=== PATIENT | female | born 1935 | race Caucasian/White ===

== ENCOUNTER → 2016-12-20 | Outpatient (CLI) | payer OTHER ==
[~2016-12-20] MED LIST: ALBU18002 INH; AMLO5TAB4 PO; ASPEC81 PO; ASPI81TA28 PO; BIOT1CAP8 PO; BUME1TAB PO; CHOL2000 PO; CLOP1TAB15 PO; COLE1TAB PO; CYAN10005 PO; DICL1GEL28 TOP; IPRA1AER2 INH; LISI-729 PO; LSN5 PO; MAGNTAB4 PO; NTRGSL/4 UT; PANT40TA PO; PLV75 PO; POTA20TA16 PO; PRLSR20 PO; PROM25TA PO; PROM25TA9 PO; ROSU5TAB PO; SERT-234 PO; SERT50TA PO; TPRSR/50 PO; TPRSR50 PO; TRAZ50TA35 PO; VITA400C15 PO; XLTOPS OPB; ZLF/50 PO
[2016-12-20 17:36] LABS: BASO % 0.3 %; BASO ABS # 0.02 K/uL (0-0.2); COMPLETE YES; EOS % 1.4 %; HEMATOCRIT 39.5 % (37-47); IG% 0.2 %; LYMPH % 41.4 %; LYMPH ABS # 2.61 K/uL (1.2-3.4); MEAN CELL VOLUME 92.7 fL (80-100); MEAN CORPUSCULAR HEMOGLOBIN 31.7 pg (25-34); MEAN CORPUSCULAR HGB CONC 34.2 g/dl (32-36); MEAN PLATELET VOLUME 11.5 fL (7.4-10.4); MONO % 8.7 %; PLATELET COUNT 184 K/uL (130-400); RED BLOOD COUNT 4.26 M/uL (4.2-5.4); WHITE BLOOD COUNT 6.31 K/uL (4.8-10.8)
[2016-12-20 17:44] LABS: ALT/SGPT 30 U/L (12-78); AST/SGOT 19 U/L (15-37); BLOOD UREA NITROGEN 22 mg/dl (7-18); BUN/CREATININE RATIO 22.1 (10-20); CALCIUM 9.2 mg/dl (8.5-10.1); CARBON DIOXIDE 28 mmol/L (21-32); CHLORIDE 107 mmol/L (98-107); GLUCOSE 119 mg/dl (70-99); POTASSIUM 3.7 mmol/L (3.5-5.1); SODIUM 144 mmol/L (136-145)
[2016-12-20 17:55] LABS: ALB/GLOB RATIO 1.4 (0.9-2); ALKALINE PHOSPHATASE 73 U/L (45-117)
== END | disposition home or self-care (01) ==
LOC: C.LABBFT 11:27
PROVIDERS: ATTEND Internal Medicine
DX: I25.10 Atherosclerotic heart disease of native coronary artery without angina pectoris (principal); E53.8 Deficiency of other specified B group vitamins

== ENCOUNTER → 2016-12-25 | Outpatient (CLI) | payer OTHER ==
--- NOTE | 2016-12-25 14:39 | DIAGNOSTIC IMAGING REPORT ---
ART DOP LOWER EXT BILAT CLINICAL HISTORY: Peripheral vascular disease. Leg weakness. COMPARISON STUDY: No previous studies for comparison. FINDINGS: Brachial arm systolic pressures are 150 mmHg in the right and 155 mmHg on the left. Posterior tibial systolic pressures were 178 mmHg on the right and 187 mmHg on the left. Dorsalis pedis arterial pressures were 180 mmHg on the right and 192 mmHg on the left. This yields normal bilateral ankle brachial indices of 1.2. There is biphasic flow in the common femoral, superficial femoral, popliteal, anterior tibial, posterior tibial, and peroneal arteries bilaterally. No flow is visualized in the distal right anterior tibial artery. IMPRESSION: No evidence of significant lower extremity arterial stenosis, with the exception of probable occlusion of the distal right anterior tibial artery. Normal ankle brachial indices of 1.2 bilaterally. Electronically signed by: Guilherme Bartlett M.D. 12/25/2016 2:38 PM Dictated Date/Time: 12/25/2016 2:32 PM
== END | disposition home or self-care (01) ==
LOC: C.ULTR 12:53
PROVIDERS: ATTEND Internal Medicine
DX: I73.9 Peripheral vascular disease, unspecified (principal); R29.898 Other symptoms and signs involving the musculoskeletal system; R09.89 Other specified symptoms and signs involving the circulatory and respiratory systems

== ENCOUNTER → 2017-01-04 | Outpatient (CLI) | payer OTHER ==
--- NOTE | 2017-01-04 14:40 | DIAGNOSTIC IMAGING REPORT ---
CHEST 2 VIEWS ROUTINE HISTORY: R06.09 Dyspnea on [id number] COMPARISON: Chest 10/04/2014. FINDINGS: No focal lung consolidations to suggest pneumonia. Stable eventration of the right hemidiaphragm. Bibasilar linear densities likely represent subsegmental atelectasis. No pulmonary edema. No pleural effusions. No pneumothorax. The heart is normal in size. Mild emphysema. Degenerative changes within the bilateral shoulders. IMPRESSION: 1. No focal lung consolidations to suggest pneumonia. 2. Bibasilar linear densities favor subsegmental atelectasis. 3. Suspect mild emphysema. Electronically signed by: Shelton Beyer M.D. 01/04/2017 2:39 PM Dictated Date/Time: 01/04/2017 2:36 PM
== END | disposition home or self-care (01) ==
LOC: C.RAD1850 14:22
PROVIDERS: ATTEND Internal Medicine
DX: R06.09 Other forms of dyspnea (principal)

== ENCOUNTER → 2017-01-15 | Day surgery (SDC) | payer OTHER ==
[2017-01-09 14:58] VITALS: Ht 152.4 cm; Wt 70.5 kg
[~2017-01-15] VITALS: Ht 152.4 cm; Wt 70.5 kg
[~2017-01-15] MED LIST changes: +LIDOCAINE HCL 2% 2 ML VIAL (20MG/ML) ONE; -PRLSR20 PO; +PROPOFOL IV EMULSION 10 MG/ML 20 ML VIAL IV ONE; +SODIUM CHLORIDE 0.9% 500ML 500 ML IV ONE
--- NOTE | 2017-01-15 10:46 | Endo History and Physical ---
History & Physical Date of Service: Jan 15, 2017. Chief Complaint: Schatzki's ring Referring Physician: Dr. Tirso Marie History of Present Illness dysphagia Past Medical History Atrial Fibrillation, Angioplasty/Stent, Arthritis, Reflux, Cancer, High Cholesterol, Heart Disease, CHF, Hypertension, Thyroid Disease, Depression Past Surgical History Hx Cardiac Surgery: Yes (HEART CATH X2 AND STENT X3) Hx Internal Defibrillator: No Hx Pacemaker: No Hx Abdominal Surgery: Yes (EXPLORATORY LAP) Hx of Implantable Prosthesis: No Hx Post-Op Nausea and Vomiting: No Hx Cancer Surgery: Yes (COLON RESECTION) Hx Thoracic Surgery: No Hx Orthopedic: Yes (RT RCR) Hx Urinary Tract Surgery: No Family History Colon CA Social History Smoking Status: Never Smoker Hx Substance Use: No Hx Alcohol Use: No Allergies Coded Allergies: Atorvastatin (Verified Allergy, Unknown, MUSCLE ACHES, 01/09/17) Citalopram (Verified Allergy, Unknown, G I UPSET-, 01/09/17) Hydrochlorothiazide (Verified Allergy, Unknown, UNKNOWN-INEFFECTIVE?, 01/09) Niacin (Verified Allergy, Unknown, UNKNOWN, 01/09/17) Simvastatin (Verified Adverse Reaction, Unknown, MUSCLE ACHES, 01/09/17) Current Medications Reported Home Medications Medications Dose Route/Sig Max Daily Dose Days Date Category Protonix (Pantoprazole Sodium) 40 Mg Tab 40 Mg PO QAM 01/09/17 Reported Klor-Con (Potassium Chloride) 20 Meq Tabcr 20 Meq PO DAILY PRN 05/23/16 Reported Bumex (Bumetanide) 1 Mg Tab 1 Mg PO DAILY PRN 05/23/16 Reported Combivent Respimat (Ipratropium-Albuterol) 1 Aer Aer 1 Puffs INH QID 05/23/16 Reported Slow-Mag Tab (Magnesium Chloride) 64 Mg Tabcr 64 Mg PO BID 05/23/16 Reported Nitrostat (Nitroglycerin) 0.4 Mg Tab 0.4 Mg UT PRN PRN 05/23/16 Reported Vitamin B-12 (Cyanocobalamin) 1,000 Mcg Tab 1,000 Mcg PO QAM 05/23/16 Reported Vitamin D3 (Cholecalciferol) 2,000 Unit Cap 1 Cap PO QAM 01/09/16 Reported Biotin 1 Mg Cap 1 Cap PO QAM 01/09/16 Reported Latanoprost 37 Drops/2.5 Ml Soln 1 Drop OPB HS 10/03/14 Reported Voltaren 1% Top Gel (Diclofenac Sodium) Gel 1 Appln TOP TID PRN 07/30/14 Reported Phenergan (Promethazine HCl) 25 Mg Tab 25 Mg PO Q6H PRN 02/04/14 Reported Metoprolol Succinate ER (Metoprolol Succinate) 50 Mg Tabcr 50 Mg PO QAM 02/04/14 Reported Colestid (Colestipol Hcl) 1 Gm Tab 2 Gm PO BID 10/16/12 Reported Norvasc (Amlodipine Besylate) 5 Mg Tab 5 Mg PO QAM 02/04/12 Reported Zoloft (Sertraline HCl) 50 Mg Tab 50 Mg PO QAM 09/11/11 Reported Ecotrin Or Generic * (Aspirin) 81 Mg Ectab 81 Mg PO QPM 11/22/09 Reported Vital Signs Weight (Kilograms): 70.45 Height (Feet): 5 Height (Inches): 0 Date Time Temp Pulse Resp B/P Pulse Ox O2 Delivery O2 Flow Rate FiO2 01/15/17 10:40 36.5 64 20 185/87 100 Room Air Physical Exam General Appearance: WD/WN, no apparent distress Assessment and Plan EGD with dilation today
--- NOTE | 2017-01-15 11:53 | GI REPORT ---
Procedure Date: 01/15/2017 11:06 AM Procedure: Upper GI endoscopy Indications: Dysphagia Medicines: Propofol per Anesthesia Complications: No immediate complications. Estimated blood loss: Minimal. Estimated Blood Loss: Estimated blood loss was minimal. Procedure: Pre-Anesthesia Assessment: - Prior to the procedure, a History and Physical was performed, and patient medications, allergies and sensitivities were reviewed. The patient's tolerance of previous anesthesia was reviewed. - The risks and benefits of the procedure and the sedation options and risks were discussed with the patient. All questions were answered and informed consent was obtained. - Patient identification and proposed procedure were verified prior to the procedure by the physician and the nurse. The procedure was verified in the pre-procedure area in the procedure room. - Mental Status Examination: alert and oriented. Airway Examination: normal oropharyngeal airway and neck mobility. Respiratory Examination: clear to auscultation. CV Examination: normal. Abdominal Examination: bowel sounds present, abdomen soft and non-tender, no masses or organomegaly noted. - ASA Grade Assessment: III - A patient with severe systemic disease. After obtaining informed consent, the endoscope was passed under direct vision. Throughout the procedure, the patient's blood pressure, pulse, and oxygen saturations were monitored continuously. The scope was introduced through the mouth, and advanced to the second part of duodenum. The upper GI endoscopy was accomplished without difficulty. The patient tolerated the procedure well. Findings: A non-obstructing Schatzki ring (acquired) was found at the gastroesophageal junction. A guidewire was placed and the scope was withdrawn. Dilation was performed with a Savary dilator with mild resistance at 54 Fr. Estimated blood loss was minimal. A hiatus hernia was present. The examined duodenum was normal. Impression: - Non-obstructing Schatzki ring. Dilated. - Hiatus hernia. - Normal examined duodenum. - No specimens collected. Recommendation: - Follow an antireflux regimen. - Continue present medications. - Repeat the upper endoscopy PRN for retreatment. - Return to primary care physician as previously scheduled. - Discharge patient to home. Patience Le D.O. Patience Le DO 01/15/2017 11:52:25 AM This report has been signed electronically. Note Initiated On: 01/15/2017 11:06 AM I attest to the content of the Intraoperative Record and orders documented therein, exceptions below
--- NOTE | 2017-01-15 12:14 | Discharge Instructions ---
Endoscopy Patient Instructions Date / Procedure(s) Performed Jan 15, 2017. EGD Allergy Information Coded Allergies: Atorvastatin (Verified Allergy, Unknown, MUSCLE ACHES, 01/09/17) Citalopram (Verified Allergy, Unknown, G I UPSET-, 01/09/17) Hydrochlorothiazide (Verified Allergy, Unknown, UNKNOWN-INEFFECTIVE?, 01/09) Niacin (Verified Allergy, Unknown, UNKNOWN, 01/09/17) Simvastatin (Verified Adverse Reaction, Unknown, MUSCLE ACHES, 01/09/17) Discharge Date / Findings Jan 15, 2017. schatzki ring Medication Instructions Stopped Medication(s): took ASA yesterday Restart Stopped Medication(s): OK to resume home medications as above Provider Instructions Activity Restrictions - No exercising or heavy lifting for 24 hours. - Do not drink alcohol the day of the procedure. - Do not drive a car or operate machinery until the day after the procedure. - Do not make any important decisions or sign important papers in 24 hours after the procedure. Following Day: - Return to full activity which may include returning to work/school. Diet Start your diet with liquids and light foods (jello, soup, juice, toast). Then eat your usual diet if not nauseated. Treatment For Common After Affects For mild abdominal pain, bloating, or excessive gas: - Rest - Eat lightly - Lie on right side Follow-Up Information Follow-up with Dr. Tirso Marie as scheduled Anesthesia Information What You Should Know You have had a procedure that required some medicine to reduce anxiety and discomfort. This treatment is called moderate sedation. After receiving the treatment, you may be sleepy, but you will be able to breathe on your own. The effects of the treatment may last for several hours. Follow these instructions along with Activity/Diet recommendations noted above: * Do NOT do anything where dizziness or clumsiness would be dangerous. * Rest quietly at home today, then you can be up and about tomorrow. * Have a responsible person stay with you the rest of today. * You may have had an I.V. today. If so, you may take the dressing off later today. Recommendations Call your doctor if: * Trouble breathing * Continuous vomiting for more than 24 hours * Temperature above 101 degrees * Severe abdominal pain or bloating * Pain not relieved by pain medicine ordered * There is increased drainage or redness from any incision * A large amount of rectal bleeding greater than 2-3 tablespoons. (If you had a polyp/s removed or have hemorrhoids, a small amount of blood - from the rectum is to be expected.) * You have any unanswered questions or concerns. IN THE EVENT OF A SERIOUS EMERGENCY, GO TO THE NEAREST EMERGENCY ROOM Your discharge instructions were prepared by provider Patience Le. Patient Instructions Signature Page Tomasa Lam Patient (or Guardian) Signature/Date: I have read and understand the instructions given to me by my caregivers. Caregiver/RN/Doctor Signature/Date: The above-named patient and/or guardian has received patient instructions on this date. + Original Patient Signature Page (only) stays with chart. Please make copy for patient.
[2017-01-15 12:15] VITALS: BP 196/84; PULSE 60; O2SAT 98
--- NOTE | 2017-01-15 13:00 | Anesthesiology Progress Note ---
Anesthesia Post Op Note Date & Time Jan 15, 2017 at 13:01 Vital Signs Pain Intensity: 0 Vital Signs Past 12 Hours Date Time Temp Pulse Resp B/P Pulse Ox O2 Delivery O2 Flow Rate FiO2 01/15/17 12:15 60 18 196/84 98 Room Air 01/15/17 12:00 64 18 174/83 98 Room Air 01/15/17 11:45 62 16 135/74 96 Mask 10 01/15/17 10:40 36.5 64 20 185/87 100 Room Air Notes Mental Status: alert / awake / arousable, participated in evaluation Pt Amnestic to Procedure: Yes Nausea / Vomiting: adequately controlled Pain: adequately controlled Airway Patency, RR, SpO2: stable & adequate BP & HR: stable & adequate Hydration State: stable & adequate Anesthetic Complications: no major complications apparent
== END | disposition home or self-care (01) ==
LOC: C.GI 10:16
PROVIDERS: ATTEND Internal Medicine
DX: R13.10 Dysphagia, unspecified (principal); K22.2 Esophageal obstruction; K44.9 Diaphragmatic hernia without obstruction or gangrene; I10 Essential (primary) hypertension; Z98.61 Coronary angioplasty status; K21.9 Gastro-esophageal reflux disease without esophagitis; E78.00 Pure hypercholesterolemia, unspecified; Z98.890 Other specified postprocedural states; Z68.30 Body mass index [BMI] 30.0-30.9, adult; Z90.49 Acquired absence of other specified parts of digestive tract; Z85.038 Personal history of other malignant neoplasm of large intestine; Z80.0 Family history of malignant neoplasm of digestive organs

== ENCOUNTER → 2017-02-06 | Outpatient (CLI) | payer OTHER ==
[~2017-02-06] MED LIST changes: +AMINOPHYLLINE 25 MG/ML 20ML VIAL IV ONE; +ASPCH81X PO; -LIDOCAINE HCL 2% 2 ML VIAL (20MG/ML) ONE; -PROPOFOL IV EMULSION 10 MG/ML 20 ML VIAL IV ONE; +REGADENOSON 0.4 MG/5 ML SYR ONE; -SODIUM CHLORIDE 0.9% 500ML 500 ML IV ONE; -VITA400C15 PO
--- NOTE | 2017-02-06 20:01 | MYOCARDIAL PERFUSION SCAN ---
ORDERING PHYSICIAN: Dr. Lorenzo Miller. PRIMARY CARE PHYSICIAN: Tirso Marie III, MD PROCEDURES: 1. Myocardial perfusion study performed in multiple views/images. 2. Lexiscan stress ECG. INDICATIONS: Dyspnea on exertion. CONSENT: Informed written consent was obtained prior to performing the procedure. PROCEDURAL DETAILS: For the stress portion of the study, Lexiscan 0.4 mg was intravenously administered over 10-15 seconds, followed by saline flush. This was followed by 31.1 mCi of technetium-99m Cardiolite injected intravenously at 11:45 a.m. on 02/06/2017. Thirty minutes following the injection, imaging of the heart was performed in multiple projections. For the rest portion of the study, 10.5 mCi of technetium-99m Cardiolite was intravenously injected at 9:40 a.m. on the same day. One hour following the injection, imaging of the heart was performed in the same projections. Lexiscan ECG: Baseline ECG demonstrated sinus rhythm at 66 beats per minute. Normal ECG. Lexiscan ECG demonstrated no significant ST changes. There were no arrhythmia or significant pauses. Lexiscan induced nausea was reported. No chest pain. Following the procedure, she did report headache which lasted several minutes following the completion of the study. For this reason, aminophylline 50 mg IV was administered with improvement in her symptoms. The resting blood pressure was 199/86 mmHg. She did not take her antihypertensive medications prior to today's procedure. Maximum blood pressure was 200/86 mmHg. Her resting heart rate was 65 beats per minute and maximum heart rate was 107 beats per minute, representing 78% maximum predicted heart rate. FINDINGS: Rotating raw imaging demonstrated no significant motion artifact or lung uptake. Heart size appeared normal. Myocardial perfusion was normal without significant reversible or fixed defect. Ejection fraction was calculated at 80%. Wall motion appeared normal. There was no significant transient ischemic dilation. IMPRESSION: 1. Normal myocardial perfusion without evidence of significant infarct or ischemia. 2. Hyperdynamic left ventricular systolic function with calculated ejection fraction of 80%. 3. Normal wall motion. 4. Lexiscan induced nausea and headache. 5. No arrhythmia. 6. Nondiagnostic Lexiscan ECG. 7. She was hypertensive throughout as she did not take her antihypertensive medications as prescribed.
--- NOTE | 2017-02-11 09:06 | CODING QUERY MEDICAL NECESSITY ---
SUPPORTING DIAGNOSIS NEEDED A supporting diagnosis is required for the test/procedure performed on this patient in order for us to be reimbursed by the patient's insurance. Please provide a supporting diagnosis for the following test/procedure listed below next to the test name along with your signature. *If there is no additional diagnosis for this patient that would support the following test/procedure please document that below next to the test/procedure. Test(s)/Procedure(s) that require a supporting diagnosis: DOS 02/06 * Cardiolite Stress Test DIAGNOSIS: Provider Signature: Date: Thank you Fallon Peguero Health Information Management Once completed, please kindly fax back to [phone] For questions please call [phone]
== END | disposition home or self-care (01) ==
LOC: C.NUCL 08:49
PROVIDERS: ATTEND Internal Medicine Interventional Cardiology
DX: R06.09 Other forms of dyspnea (principal); I25.10 Atherosclerotic heart disease of native coronary artery without angina pectoris

== ENCOUNTER → 2017-03-08 | Outpatient (CLI) | payer OTHER ==
[~2017-03-08] MED LIST changes: -AMINOPHYLLINE 25 MG/ML 20ML VIAL IV ONE; -REGADENOSON 0.4 MG/5 ML SYR ONE
[2017-03-08 17:37] LABS: BLOOD UREA NITROGEN 20 mg/dl (7-18); CREATININE 0.98 mg/dl (0.60-1.20)
== END | disposition home or self-care (01) ==
LOC: C.LABBFT 12:01
PROVIDERS: ATTEND Physician Assistant
DX: R26.9 Unspecified abnormalities of gait and mobility (principal); H90.5 Unspecified sensorineural hearing loss

== ENCOUNTER → 2017-03-28 | Outpatient (CLI) | payer OTHER ==
[~2017-03-28] MED LIST changes: +GADAVIST IV PRN
--- NOTE | 2017-03-28 13:55 | DIAGNOSTIC IMAGING REPORT ---
MRI OF THE BRAIN WITHOUT AND WITH IV CONTRAST CLINICAL HISTORY: R26.9 Gait disturbanceheadache; head trauma COMPARISON STUDY: 10/05/2014 TECHNIQUE: MRI of the brain was performed from the vertex to the skull base utilizing various T1 and T2 weighted sequences. Following the IV administration of 7 mL of Gadavist contrast, additional enhanced images were obtained. FINDINGS: Sagittal T1, axial diffusion, proton density and T2 weighted axial, coronal FLAIR, and pre and post axial T1-weighted images were acquired. These were supplemented with post gadolinium coronal T1 weighted images. No intra or extra-axial mass lesions are visualized. Axial diffusion-weighted images reveal no evidence of acute or subacute infarction. There is no evidence of ventricular dilatation. Proton density T2-weighted and FLAIR images reveal moderate foci of increased T2 signal within the white matter, likely on a small vessel basis. The findings remain similar to the prior September 2014 study. There are no abnormal flow voids. There is a very subtle focus of enhancement within the central eufemia, unchanged the prior study, and of doubtful clinical significance. There are no pathologically enhancing masses suspicious for neoplasm. IMPRESSION: No significant change from the prior study. No evidence of intracranial mass. No evidence of acute or subacute infarction. Moderate white matter disease likely small vessel basis. Electronically signed by: Guilherme Bartlett M.D. 03/28/2017 1:53 PM Dictated Date/Time: 03/28/2017 1:50 PM
== END | disposition home or self-care (01) ==
LOC: C.MRI 11:54
PROVIDERS: ATTEND Physician Assistant
DX: R26.9 Unspecified abnormalities of gait and mobility (principal)

== ENCOUNTER 2017-05-17 13:18 | Inpatient (IN) | payer OTHER ==
[~2017-05-17] VITALS: Ht 152.4 cm; Wt 70.3 kg
[~2017-05-17 13:18] MED LIST changes: -ALBU18002 INH; -ASPCH81X PO; -ASPI81TA28 PO; -CLOP1TAB15 PO; -GADAVIST IV PRN; -LISI-729 PO; -LSN5 PO; -PLV75 PO; -PROM25TA9 PO; -ROSU5TAB PO; -SERT-234 PO; -TPRSR/50 PO; -TRAZ50TA35 PO; -ZLF/50 PO
[2017-05-17] MEDS ORDERED: NITROGLYCERIN OINT 2% 1GM PACKET EXT ONE (13:45)
[2017-05-17 13:52] LABS: BASO % 0.1 %; BASO ABS # 0.01 K/uL (0-0.2); COMPLETE YES; HEMATOCRIT 39.4 % (37-47); IG% 0.3 %; LYMPH % 11.1 %; LYMPH ABS # 1.99 K/uL (1.2-3.4); MEAN CELL VOLUME 90.6 fL (80-100); MEAN CORPUSCULAR HEMOGLOBIN 31.7 pg (25-34); MEAN PLATELET VOLUME 10.2 fL (7.4-10.4); MONO % 3.7 %; NEUT % 84.8 %; PLATELET COUNT 270 K/uL (130-400); RED BLOOD COUNT 4.35 M/uL (4.2-5.4); WHITE BLOOD COUNT 17.86 K/uL (4.8-10.8)
--- NOTE | 2017-05-17 13:58 | DIAGNOSTIC IMAGING REPORT ---
CHEST ONE VIEW PORTABLE HISTORY: 82 years-old Female CHEST PAIN COMPARISON: Chest radiograph 01/04/2017, CTA abdomen and pelvis 10/10/2015 TECHNIQUE: Portable upright AP view of the chest FINDINGS: Cardiac silhouette is again mildly enlarged. There is mild biapical pleural parenchymal scarring redemonstrated without pneumothorax or large pleural effusion. Focal airspace opacity in the region of the right middle lobe medial segment is unchanged dating back to at least 10/10/2015 CT study suggesting focal area of parenchymal scarring. No new focal airspace consolidation is identified to suggest pneumonia. Moderate to severe degenerative changes involving bilateral shoulders. The upper abdominal structures are within normal limits. IMPRESSION: Mild cardiomegaly and unchanged right middle lobe scarring without acute cardiopulmonary process. The above report was generated using voice recognition software. It may contain grammatical, syntax or spelling errors. Electronically signed by: Bran Og M.D. 05/17/2017 1:57 PM Dictated Date/Time: 05/17/2017 1:54 PM
[2017-05-17 14:08] LABS: BUN/CREATININE RATIO 19.2 (10-20); CALCIUM 9.3 mg/dl (8.5-10.1); CREATININE 1.3 mg/dl (0.60-1.20); POTASSIUM 4.3 mmol/L (3.5-5.1)
[2017-05-17] MEDS ORDERED: ASPI81TA28 PO (14:16)
[2017-05-17] MEDS ORDERED: ZLF/50 PO (14:16)
[2017-05-17] MEDS ORDERED: TRAZ50TA35 PO (14:17)
[2017-05-17] MEDS ORDERED: ALBU18002 INH (14:17)
[2017-05-17] MEDS ORDERED: TPRSR/50 PO (14:17)
[2017-05-17] MEDS ORDERED: HEPARIN SOD 5000 UNIT/0.5 ML CARP ONE (15:07)
[2017-05-17] MEDS ORDERED: HEPARIN 25000 UNIT/500 ML D5W ONE (15:08)
[2017-05-17 15:29] LABS: PARTIAL THROMBOPLASTIN RATIO 0.9; PROTHROMBIN TIME (PATIENT) 10.9 SECONDS (9.0-12.0)
--- NOTE | 2017-05-17 16:04 | EMERGENCY ROOM VISIT NOTE ---
History Report prepared by Patt: Horace Devries Under the Supervision of: Dr. Angel Weber M.D. First contact with patient: 13:28 Stated Complaint: CHEST PAIN History of Present Illness The patient is an 82 year old female who presents to the Emergency Room with complaints of intermittent chest pressure beginning yesterday. She currently has no discomfort. The patient states that she had two shots in her knee yesterday at her PCP. She reports that after the shots, she went shopping and became developed extreme fatigue. The patient notes that she went home, ate dinner, and developed chest pain shortly after. She states that she developed nausea, diaphoresis, and her pain radiated up her neck and into her head. The patient reports that she was given nitroglycerin from her , and it relieved her symptoms. She notes that she then went to bed after taking a dose of aspirin as well. The patient states that she woke up this morning and her symptoms returned. She reports that this time she was short of breath and had right arm pain in addition to her previous symptoms. She states that exertion increases her symptoms while rest decreases her symptoms. The patient notes that she called the ambulance and was given aspirin en route. She states that she did not take nitroglycerin this morning. The patient reports that she has a history of hardening of the heart and two stents. Nursing notes state that the patient told EMS, "I thought I was going to last night". Pt denies LOC, headache, fevers, chills, visual changes, vomiting, abdominal pain, back pain, melena, hematochezia, urinary symptoms, numbness, weakness, lymphadenopathy, rash, or other complaints. Source of History: patient Onset: yesterday Position: chest Quality: pressure Timing: constant Modifying Factors (Worsening): exertion Modifying Factors (Relieving): rest, other (nitroglycerin) Associated Symptoms: + headache, + diaphoresis, + neck pain, + SOB, + nausea , + fatigue Note: Associated symptoms: right arm pain Review of Systems See HPI for pertinent positives and negatives. A total of ten systems were reviewed and were otherwise negative. Past Medical & Surgical Medical Problems: (1) Coronary Atherosclerosis Of [place] Coronary Vessel (2) Diverticulosis Colon (W/O Ment Of Hemorrhage) (3) Hypertension Nos (4) INTRACTABLE NAUSEA AND VOMITING (5) Primary Hyperparathyroidism (6) Pure Hypercholesterolem Family History Patient reports no known family medical history. Social History Smoking Status: Never Smoker Alcohol Use: none Drug Use: none Marital Status: Housing Status: lives with family Occupation Status: retired Current/Historical Medications Scheduled Amlodipine Besylate (Norvasc), 5 MG PO QAM Aspirin (Aspirin Ec), 81 MG PO DAILY Biotin (Biotin), 1 CAP PO QAM Cholecalciferol (Vitamin D3), 1 CAP PO QAM Colestipol Hcl (Colestid), 2 GM PO BID Cyanocobalamin (Vitamin B-12), 1,000 MCG PO QAM Ipratropium-Albuterol (Combivent Respimat), 1 PUFFS INH QID Latanoprost (Latanoprost), 1 DROP OPB HS Metoprolol Succinate (Metoprolol Succinate ER), 1.5 TAB PO DAILY Sertraline HCl (Sertraline HCl), 1 TAB PO DAILY Scheduled PRN Albuterol Sulfate (Proair Respiclick), 2 PUFFS INH for Shortness of Breath Nitroglycerin (Nitrostat), 0.4 MG UT PRN PRN for CHEST PAIN Trazodone Hcl (Trazodone), 1 TAB PO for Pain Miscellaneous Medications Pantoprazole (Protonix), 40 MG PO Allergies Coded Allergies: Atorvastatin (Verified Allergy, Unknown, MUSCLE ACHES, 05/17/17) Citalopram (Verified Allergy, Unknown, G I UPSET-, 05/17/17) Hydrochlorothiazide (Verified Allergy, Unknown, UNKNOWN-INEFFECTIVE?, 05/17) Niacin (Verified Allergy, Unknown, UNKNOWN, 05/17/17) Simvastatin (Verified Adverse Reaction, Unknown, MUSCLE ACHES, 05/17/17) Physical Exam Vital Signs Date Time Temp Pulse Resp B/P (MAP) Pulse Ox O2 Delivery O2 Flow Rate FiO2 05/17/17 15:35 80 19 137/82 98 Nasal Cannula 2.0 05/17/17 13:50 77 18 156/75 98 Room Air 05/17/17 13:29 78 05/17/17 13:25 96 Room Air 05/17/17 13:25 36.7 86 18 169/87 96 Room Air 05/17/17 13:25 96 Room Air Physical Exam GENERAL: Awake, alert, well-appearing, in no distress HENT: Normocephalic, atraumatic. Oropharynx unremarkable. EYES: Normal conjunctiva. Sclera non-icteric. NECK: Supple. No nuchal rigidity. FROM. No JVD. RESPIRATORY: Clear to auscultation. CARDIAC: Regular rate, normal rhythm. Extremities warm and well perfused. Pulses equal. ABDOMEN: Soft, non-distended. No tenderness to palpation. No rebound or guarding. No masses. RECTAL: Deferred. MUSCULOSKELETAL: Chest examination reveals no tenderness. The back is symmetrical on inspection without obvious abnormality. There is no CVA tenderness to palpation. No joint edema. LOWER EXTREMITIES: Calves are equal size bilaterally and non-tender. No edema. No discoloration. NEURO: Normal sensorium. No sensory or motor deficits noted. SKIN: No rash or jaundice noted. Medical Decision & Procedures ER Provider Diagnostic Interpretation: X-ray: Per my interpretation, radiologist review. CHEST ONE VIEW PORTABLE HISTORY: 82 years-old Female CHEST PAIN COMPARISON: Chest radiograph 01/04/2017, CTA abdomen and pelvis 10/10/2015 TECHNIQUE: Portable upright AP view of the chest FINDINGS: Cardiac silhouette is again mildly enlarged. There is mild biapical pleural parenchymal scarring redemonstrated without pneumothorax or large pleural effusion. Focal airspace opacity in the region of the right middle lobe medial segment is unchanged dating back to at least 10/10/2015 CT study suggesting focal area of parenchymal scarring. No new focal airspace consolidation is identified to suggest pneumonia. Moderate to severe degenerative changes involving bilateral shoulders. The upper abdominal structures are within normal limits. IMPRESSION: Mild cardiomegaly and unchanged right middle lobe scarring without acute cardiopulmonary process. The above report was generated using voice recognition software. It may contain grammatical, syntax or spelling errors. Electronically signed by: Bran Og M.D. 05/17/2017 1:57 PM Dictated Date/Time: 05/17/2017 1:54 PM Laboratory Results 05/17/17 13:40 Red Blood Count 4.35, Mean Corpuscular Volume 90.6, Mean Corpuscular Hemoglobin 31.7, Mean Corpuscular Hemoglobin Concent 35.0, Mean Platelet Volume 10.2, Neutrophils (%) (Auto) 84.8, Lymphocytes (%) (Auto) 11.1, Monocytes (%) (Auto) 3.7, Eosinophils (%) (Auto) 0.0, Basophils (%) (Auto) 0.1, Neutrophils # (Auto) 15.14, Lymphocytes # (Auto) 1.99, Monocytes # (Auto) 0.66, Eosinophils # (Auto) 0.00, Basophils # (Auto) 0.01 05/17/17 13:40 Test 05/17/17 13:40 White Blood Count 17.86 K/uL (4.8-10.8) Red Blood Count 4.35 M/uL (4.2-5.4) Hemoglobin 13.8 g/dL (12.0-16.0) Hematocrit 39.4 % (37-47) Mean Corpuscular Volume 90.6 fL (80-100) Mean Corpuscular Hemoglobin 31.7 pg (25-34) Mean Corpuscular Hemoglobin Concent 35.0 g/dl (32-36) Platelet Count 270 K/uL (130-400) Mean Platelet Volume 10.2 fL (7.4-10.4) Neutrophils (%) (Auto) 84.8 % Lymphocytes (%) (Auto) 11.1 % Monocytes (%) (Auto) 3.7 % Eosinophils (%) (Auto) 0.0 % Basophils (%) (Auto) 0.1 % Neutrophils # (Auto) 15.14 K/uL (1.4-6.5) Lymphocytes # (Auto) 1.99 K/uL (1.2-3.4) Monocytes # (Auto) 0.66 K/uL (0.11-0.59) Eosinophils # (Auto) 0.00 K/uL (0-0.5) Basophils # (Auto) 0.01 K/uL (0-0.2) RDW Standard Deviation 43.0 fL (36.4-46.3) RDW Coefficient of Variation 12.9 % (11.5-14.5) Immature Granulocyte % (Auto) 0.3 % Immature Granulocyte # (Auto) 0.06 K/uL (0.00-0.02) Prothrombin Time 10.9 SECONDS (9.0-12.0) Prothromb Time International Ratio 1.0 (0.9-1.1) Activated Partial Thromboplast Time 22.5 SECONDS (21.0-31.0) Partial Thromboplastin Ratio 0.9 Anion Gap 9.0 mmol/L (3-11) Est Creatinine Clear Calc Drug Dose 30.1 ml/min Estimated GFR () 43.6 Estimated GFR (Non- 37.6 BUN/Creatinine Ratio 19.2 (10-20) Calcium Level 9.3 mg/dl (8.5-10.1) Total Bilirubin 0.4 mg/dl (0.2-1) Direct Bilirubin 0.1 mg/dl (0-0.2) Aspartate Amino Transf (AST/SGOT) 22 U/L (15-37) Alanine Aminotransferase (ALT/SGPT) 27 U/L (12-78) Alkaline Phosphatase 85 U/L (45-117) Total Creatine Kinase 154 U/L (26-192) Creatine Kinase MB 10.8 ng/ml (0.5-3.6) Creatine Kinase MB Ratio 7.0 (0-3.0) Troponin I 1.050 ng/ml (0-0.045) Pro-B-Type Natriuretic Peptide 1265 pg/ml (0-1800) Total Protein 6.9 gm/dl (6.4-8.2) Albumin 3.7 gm/dl (3.4-5.0) Lipase 344 U/L (73-393) Laboratory results reviewed by me Medications Administered Medications (Trade) Dose Ordered Sig/Tadeo Route Start Time Stop Time Status Last Admin Dose Admin Nitroglycerin (Nitroglycerin 2% Oint) 0.5 inch NOW ONCE EXT 05/17/17 13:45 05/17/17 13:46 DC 05/17/17 13:49 0.5 INCH Heparin Sodium/ Dextrose 1 ea NOW STAT N/A 05/17/17 14:46 05/17/17 14:49 DC 05/17/17 14:46 1 EA Heparin Sodium (Porcine) (Heparin Sq 5000 Unit/0.5ml) 5,000 unit STK-MED ONCE .ROUTE 05/17/17 15:07 05/17/17 15:08 DC 05/17/17 15:35 4,000 UNIT Heparin Sodium/ Dextrose (Heparin 25,000 Unit/500ml D5W) 25,000 unit STK-MED ONCE .ROUTE 05/17/17 15:08 05/17/17 15:09 DC 05/17/17 15:33 25,000 UNIT ECG Indication: chest pain Rate (beats per minute): 82 Rhythm: normal sinus Findings: no acute ischemic change, no ectopy Change: PRE-HOSPITAL: Normal Sinus with a rate of 85, no ectopy, no acute ischemic change ED Course 1335: The patient was evaluated in room A09B. A complete history and physical exam was performed. 1345: Ordered Nitroglycerin 0.5 inch EXT 1436: I discussed the patient's case with Dr. Bhatti [facility] Hospitalist. The patient will be evaluated for further treatment. 1438: Upon reexamination, the patient was resting. I discussed the test results and treatment plan with her. I also discussed my consult with Dr. Bhatti. 1446: Ordered Heparin Sodium/Dextrose 1 ea N/A 1507: Ordered Heparin Sodium (Porcine) 5000 unit .ROUTE 1508: Ordered Heparin Sodium/Dextrose 94304 unit .ROUTE Medical Decision Triage Nursing notes reviewed. The patient's presentation and history were concerning for chest pain. Etiologies such as cardiac ischemia, aortic dissection, pulmonary embolism, pneumonia, pneumothorax, musculoskeletal, infections, gastrointestinal, as well as others were entertained. Patient was evaluated. Her history was very concerning for a possible cardiac etiology of her symptoms. ECG, chest x-ray, and blood work were performed. ECG did not reveal any acute findings and the patient was currently pain-free. She was hypertensive. The patient was given a dose of nitro paste. Aspirin was given prehospital. She had an unremarkable chest x-ray and her blood work revealed evidence of a non-ST elevation [place]. Heparin was initiated. I did consult with the [facility] hospitalist. The patient was evaluated in the Emergency Room for further management. Medication Reconcilliation Current Medication List: was personally reviewed by me Blood Pressure Screening Patient's blood pressure: Elevated blood pressure Blood pressure disposition: Referred to PCP Consults Time Called: 1435 Consulting Physician: Dr. Bhatti [facility] Hospitalist. Returned Call: 1436 I discussed the patient's case with Dr. Bhatti [facility] Hospitalist. The patient will be evaluated for further treatment. Impression Primary Impression: Non-STEMI (non-ST elevated myocardial infarction) Critical Care I have personally spent greater than 30 minutes of critical care time in the direct management of this patient. This includes bedside care, interpretation of diagnostic studies, and testing, discussion with consultants, patient, and family members, and other required patient management activities. This 30 minutes is in excess of all separately billable procedures. Scribe Attestation The scribe's documentation has been prepared under my direction and personally reviewed by me in its entirety. I confirm that the note above accurately reflects all work, treatment, procedures, and medical decision making performed by me. Departure Information Dispostion Being Evaluated By Hospitalist Tirso Schilling M.D. (PCP)
[2017-05-17] MEDS ORDERED: ACETAMINOPHEN 325 MG TAB PO PRN (16:15)
[2017-05-17] MEDS ORDERED: POLYETHYLENE (MIRALAX) 17 GM PACK PO PRN (16:15)
[2017-05-17] MEDS ORDERED: ONDANSETRON INJ 2 MG/ML 2 ML VIAL IV PRN (16:15)
[2017-05-17] MEDS ORDERED: MAGNESIUM HYDROXIDE SUSP 30 ML UDC PO PRN (16:15)
[2017-05-17] MEDS ORDERED: ALUMINUM/MAGNESIUM/SIMETH (MAALOX MAX) 30 ML UDC PO PRN (16:15)
--- NOTE | 2017-05-17 16:34 | History and Physical ---
History & Physical Date & Time of Service: May 17, 2017 at 16:13 Chief Complaint: Chest Pain Primary Care Physician: Tirso Marie M.D. History of Present Illness Source: patient, family, clinic records, hospital records Patient is a pleasant 82 y/o female, with PMHx CAD s/p PCI w/ stents to LAD and circumflex, diastolic CHF, paroxysmal a.fib, HTN, HDL, depression, insomnia, and GERD, who present to the ED because of CP that begin last evening. Earlier in the day, patient went shopping and noticed she was more short of breath and very fatigued to the point she had to sit down. Later that evening when she went home, she was in bed and noticed a left-sided chest pressure (like someone sitting on her chest) with radiating pain to right neck and shoulder/arm. Additional symptoms included lightheadedness/dizziness and diaphoresis. She took a nitro which relieved her symptoms and she went to bed. When she woke up this AM, she continued to have chest pressure and fatigue. Her granddaughter brought her to the ED where she was given nitro, which again relieved her symptoms. She is currently resting in bed, with her only complaint of being tired. She states if she were to get out of bed right now, she would have CP and SOB. Symptoms are similar to past AZ. Patient follows w/ Dr. Miller. According to patient, she had a stress ECHO a few months ago and discussed cardiac cath at that time but deferred. Patient denies any fever, chills, sweats , vision changes, palpitations, edema, wheezing, cough, abdominal pain, nausea, vomiting, diarrhea, urinary symptoms, melena, numbness/tingling, weakness, muscle/joint pain, anxiety/depression, active bleeding, or new skin discoloration/changes. Past Medical/Surgical History Medical Problems: CAD s/p PCI w/ stents to LAD and circumflex diastolic CHF paroxysmal a.fib HTN HDL depression insomnia GERD Family History Patient reports no known family medical history. Social History Smoking Status: Never Smoker Drug Use: none Marital Status: Housing status: lives with family Occupational Status: retired Immunizations History of Influenza Vaccine: Yes Influenza Vaccine Date: Jul 28, 2009 History of Tetanus Vaccine?: No History of Pneumococcal: Yes Pneumococcal Date: Oct 17, 2010 History of Hepatitis B Vaccine: No Multi-Drug Resistant Organisms History of MDRO: No Allergies Coded Allergies: Atorvastatin (Verified Allergy, Unknown, MUSCLE ACHES, 05/17/17) Citalopram (Verified Allergy, Unknown, G I UPSET-, 05/17/17) Hydrochlorothiazide (Verified Allergy, Unknown, UNKNOWN-INEFFECTIVE?, 05/17) Niacin (Verified Allergy, Unknown, UNKNOWN, 05/17/17) Simvastatin (Verified Adverse Reaction, Unknown, MUSCLE ACHES, 05/17/17) Home Medications Scheduled Amlodipine Besylate (Norvasc), 5 MG PO QAM Aspirin (Aspirin Ec), 81 MG PO DAILY Biotin (Biotin), 1 CAP PO QAM Cholecalciferol (Vitamin D3), 1 CAP PO QAM Colestipol Hcl (Colestid), 2 GM PO BID Cyanocobalamin (Vitamin B-12), 1,000 MCG PO QAM Ipratropium-Albuterol (Combivent Respimat), 1 PUFFS INH QID Latanoprost (Latanoprost), 1 DROP OPB HS Metoprolol Succinate (Metoprolol Succinate ER), 1.5 TAB PO DAILY Sertraline HCl (Sertraline HCl), 1 TAB PO DAILY Scheduled PRN Albuterol Sulfate (Proair Respiclick), 2 PUFFS INH for Shortness of Breath Nitroglycerin (Nitrostat), 0.4 MG UT PRN PRN for CHEST PAIN Trazodone Hcl (Trazodone), 1 TAB PO for Pain Miscellaneous Medications Pantoprazole (Protonix), 40 MG PO Physical Exam Vital Signs Date Time Temp Pulse Resp B/P (MAP) Pulse Ox O2 Delivery O2 Flow Rate FiO2 05/17/17 15:35 80 19 137/82 98 Nasal Cannula 2.0 05/17/17 13:50 77 18 156/75 98 Room Air 05/17/17 13:29 78 05/17/17 13:25 96 Room Air 05/17/17 13:25 36.7 86 18 169/87 96 Room Air 05/17/17 13:25 96 Room Air General Appearance: no apparent distress, + pertinent finding (2L O2 NC ) Head: normocephalic, atraumatic Eyes: normal inspection, PERRL ENT: hearing grossly normal Neck: supple Respiratory/Chest: lungs clear, no respiratory distress, no accessory muscle use Cardiovascular: regular rate, rhythm Abdomen/GI: normal bowel sounds, non tender, soft Back: no CVA tenderness Extremities/Musculoskelatal: no calf tenderness, no pedal edema Neurologic/Psych: alert, normal mood/affect, oriented x 3 Skin: normal color, warm/dry, no rash Diagnostics Laboratory Results Results Past 24 Hours Test 05/17/17 13:40 Range/Units White Blood Count 17.86 4.8-10.8 K/uL Red Blood Count 4.35 4.2-5.4 M/uL Hemoglobin 13.8 12.0-16.0 g/dL Hematocrit 39.4 37-47 % Mean Corpuscular Volume 90.6 80-100 fL Mean Corpuscular Hemoglobin 31.7 25-34 pg Mean Corpuscular Hemoglobin Concent 35.0 32-36 g/dl Platelet Count 270 130-400 K/uL Mean Platelet Volume 10.2 7.4-10.4 fL Neutrophils (%) (Auto) 84.8 % Lymphocytes (%) (Auto) 11.1 % Monocytes (%) (Auto) 3.7 % Eosinophils (%) (Auto) 0.0 % Basophils (%) (Auto) 0.1 % Neutrophils # (Auto) 15.14 1.4-6.5 K/uL Lymphocytes # (Auto) 1.99 1.2-3.4 K/uL Monocytes # (Auto) 0.66 0.11-0.59 K/uL Eosinophils # (Auto) 0.00 0-0.5 K/uL Basophils # (Auto) 0.01 0-0.2 K/uL RDW Standard Deviation 43.0 36.4-46.3 fL RDW Coefficient of Variation 12.9 11.5-14.5 % Immature Granulocyte % (Auto) 0.3 % Immature Granulocyte # (Auto) 0.06 0.00-0.02 K/uL Prothrombin Time 10.9 9.0-12.0 SECONDS Prothromb Time International Ratio 1.0 0.9-1.1 Activated Partial Thromboplast Time 22.5 21.0-31.0 SECONDS Partial Thromboplastin Ratio 0.9 Sodium Level 140 136-145 mmol/L Potassium Level 4.3 3.5-5.1 mmol/L Chloride Level 108 98-107 mmol/L Carbon Dioxide Level 23 21-32 mmol/L Anion Gap 9.0 3-11 mmol/L Blood Urea Nitrogen 25 7-18 mg/dl Creatinine 1.30 0.60-1.20 mg/dl Est Creatinine Clear Calc Drug Dose 30.1 ml/min Estimated GFR () 43.6 Estimated GFR (Non- 37.6 BUN/Creatinine Ratio 19.2 10-20 Random Glucose 289 70-99 mg/dl Calcium Level 9.3 8.5-10.1 mg/dl Total Bilirubin 0.4 0.2-1 mg/dl Direct Bilirubin 0.1 0-0.2 mg/dl Aspartate Amino Transf (AST/SGOT) 22 15-37 U/L Alanine Aminotransferase (ALT/SGPT) 27 12-78 U/L Alkaline Phosphatase 85 45-117 U/L Total Creatine Kinase 154 26-192 U/L Creatine Kinase MB 10.8 0.5-3.6 ng/ml Creatine Kinase MB Ratio 7.0 0-3.0 Troponin I 1.050 0-0.045 ng/ml Pro-B-Type Natriuretic Peptide 1265 0-1800 pg/ml Total Protein 6.9 6.4-8.2 gm/dl Albumin 3.7 3.4-5.0 gm/dl Lipase 344 73-393 U/L Diagnostic Radiology CHEST ONE VIEW PORTABLE HISTORY: 82 years-old Female CHEST PAIN COMPARISON: Chest radiograph 01/04/2017, CTA abdomen and pelvis 10/10/2015 TECHNIQUE: Portable upright AP view of the chest FINDINGS: Cardiac silhouette is again mildly enlarged. There is mild biapical pleural parenchymal scarring redemonstrated without pneumothorax or large pleural effusion. Focal airspace opacity in the region of the right middle lobe medial segment is unchanged dating back to at least 10/10/2015 CT study suggesting focal area of parenchymal scarring. No new focal airspace consolidation is identified to suggest pneumonia. Moderate to severe degenerative changes involving bilateral shoulders. The upper abdominal structures are within normal limits. IMPRESSION: Mild cardiomegaly and unchanged right middle lobe scarring without acute cardiopulmonary process. The above report was generated using voice recognition software. It may contain grammatical, syntax or spelling errors. Electronically signed by: Bran Og M.D. 05/17/2017 1:57 PM Dictated Date/Time: 05/17/2017 1:54 PM The status of this report is Signed. Draft = Not yet reviewed or approved by Radiologist. Signed = Reviewed and approved by Radiologist. EKG JAYE CASILLAS ID:[id number] 17-MAY-2017 13:25:31 [facility] Normal sinus rhythm Incomplete right bundle branch block Borderline ECG When compared with ECG of 03-OCT-2014 06:55, No significant change was found 25mm/s 10mm/mV 150Hz 8.0 SP2 12SL 241 YAMILEX: 10 Referred by: Referred Self Unconfirmed Vent. rate 82 BPM IA interval 158 ms QRS duration 94 ms QT/QTc 398/464 ms P-R-T axes 66 13 59 1935 (82 yr) Female Room: Loc:15 Preliminary School Psychologist:TUAN Young ind: Impression Assessment and Plan Patient is a pleasant 82 y/o female, with PMHx CAD s/p PCI w/ stents to LAD and circumflex, diastolic CHF, paroxysmal a.fib, HTN, HDL, depression, insomnia, and GERD, who present to the ED because of CP that begin last evening. NSTEMI: - Admit to tele for cardiac monitoring - EKG QAM and PRN CP - Trend cardiac enzymes q6- initial trop 1.050 - O2 protocol, wean as tolerated- does not wear O2 supplement at home - NPO pending cardiology - IV Morphine and nitro PRN pain - IV Heparin - Check ha1c and lipid panel - Leukocytosis, ?secondary to cardiac stress- follow CBC, no s/s of infection at this time- continue to monitor - Consult cardiology, appreciate recommendations- discussed case w/ Dr. Miller CAD s/p PCI w/ stents to LAD and circumflex, diastolic CHF, paroxysmal a.fib, HTN, HDL: - Continue Norvasc 5 mg daily, ASA, Metoprolol 1.5 tab daily, Colestipol 2 mg BID - Note: intolerant to statins Depression: Continue Sertraline 50 mg daily Insomnia: Trazodone 50 mg HS PRN GERD, hiatal hernia- follows w/ Dr. Le: - Continue Protonix 40 mg daily - EGD completed in 01/04 GI Prophylaxis: Protonix DVT Prophylaxis: IV heparin Code Status: LEVEL V, DNR Dispo: From home, lives w/ family- health care social worker consulted I personally interviewed and examined the patient I discussed the above plan with Miss Leonarda Evans I agree with her Hx and PE 82 y/o female, with PMHx CAD/stents, diastolic CHF, paroxysmal a.fib, HTN and HDL, P/W CP that begin last evening. . ROS/PMHx: as HPI FHx/SHx/labs/meds reviewed as needed PE: obese, not in acute distress LUNGs: normal exam, no wheezing/R Heart: s1/s2 normal, no G/R/M ABD: soft, ND, N tender Ext: B/L LE no edema or swelling Neuro: AAOX3, EOMI, moves all ext, CN 2-12 intact Assessment: Chest pain positive troponin HTN DHL Afib, not n AC CAD / stents in the past Plan: Consult recooperer start heparin lipids/hgbA1C serial enz telemetry Level of Care Telemetry Resuscitation Status DO NOT RESUSCITATE VTE Prophylaxis VTE Risk Assessment Done? Y/N: Yes Risk Level: Moderate Given or contraindicated: Other Anticoagulation, T.E.D. Stockings, SCD's
[2017-05-17] MEDS: MoRPHine SULFATE 2 MG/ML CARP IV PRN ×2 (16:59→18:51)
[2017-05-17] MEDS: NITROGLYCERIN 0.4 MG SL PER TAB CHARGE SL PRN ×2 (16:59→18:49)
--- NOTE | 2017-05-17 17:21 | Cardiology Consultation ---
Cardiology Consultation Date of Consultation: May 17, 2017. Requesting Physician: Sd Reason for Consultation: chest pain/NSTEMI History of Present Illness Mrs. Lam is an 82-year-old female with a history of coronary artery disease status post prior PCI with stents to her LAD and circumflex most recently in June 2013, mild aortic insufficiency, questionable paroxysmal atrial fibrillation, hypertension, dyslipidemia and chronic diastolic heart failure here with new onset chest pain and elevated cardiac enzymes. Patient was in his usual state of health until last night when developed acute onset substernal chest pressure radiating up into her neck. This was associated with shortness breath. Pain reminiscent of prior pain associated with her coronary artery disease Took 1 sublingual nitroglycerin yesterday with some improvement. Was able to sleep through the night but this morning again woke up significant chest pain that has been intermittent throughout the day. Upon arrival to the ED patient was hemodynamically stable still with mild substernal chest pain was started on nitro paste given aspirin and sublingual nitroglycerin. Initial troponin was elevated at 1.05, EKG unremarkable. Past Medical/Surgical History Coronary artery disease status post prior stents to her circumflex, lad, chronic diastolic heart failure, hypertension, hyperlipidemia, questionable paroxysmal atrial fibrillation, peripheral vascular disease, GERD, hiatal hernia , recurrent dizziness, aortic insufficiency Family History Patient reports no known family medical history. Social History Smoking Status: Never Smoker History of Alcohol Use: No Review of Systems Respiratory: + shortness of breath 10 point review of systems was completed and was otherwise negative unless stated in HPI Allergies Coded Allergies: Atorvastatin (Verified Allergy, Unknown, MUSCLE ACHES, 05/17/17) Citalopram (Verified Allergy, Unknown, G I UPSET-, 05/17/17) Hydrochlorothiazide (Verified Allergy, Unknown, UNKNOWN-INEFFECTIVE?, 05/17) Niacin (Verified Allergy, Unknown, UNKNOWN, 05/17/17) Simvastatin (Verified Adverse Reaction, Unknown, MUSCLE ACHES, 05/17/17) Medications Current Inpatient Medications Medications (Trade) Dose Ordered Sig/Tadeo Route Start Time Stop Time Status Last Admin Dose Admin Heparin Sodium/ Dextrose 500 ml @ 15 mls/hr Q24H PRN IV 05/17/17 16:15 06/16/17 16:14 Acetaminophen (Tylenol Tab) 650 mg Q4H PRN PO 05/17/17 16:15 06/16/17 16:14 Al Hydrox/Mg Hydrox/Simethicone (Maalox Max Susp) 15 ml Q4H PRN PO 05/17/17 16:15 06/16/17 16:14 Magnesium Hydroxide (Milk Of Magnesia Susp) 30 ml Q12H PRN PO 05/17/17 16:15 06/16/17 16:14 Ondansetron HCl (Zofran Inj) 4 mg Q6H PRN IV 05/17/17 16:15 06/16/17 16:14 Nitroglycerin (Nitrostat Tab) 0.4 mg UD PRN SL 05/17/17 16:15 06/16/17 16:14 Morphine Sulfate (MoRPHine SULFATE INJ) 2 mg Q30M PRN IV 05/17/17 16:15 05/31/17 16:14 Aspirin (Ecotrin Tab) 325 mg QAM PO 05/18/17 09:00 06/17/17 08:59 Polyethylene (Miralax Powder Packet) 17 gm DAILY PRN PO 05/17/17 16:15 06/16/17 16:14 Amlodipine Besylate (Norvasc Tab) 5 mg QAM PO 05/18/17 09:00 06/17/17 08:59 Colestipol HCl (Colestid Tab) 2 gm BID@1000,2200 PO 05/17/17 22:00 06/16/17 21:59 Cyanocobalamin (Vitamin B-12 Tab) 1,000 mcg QAM PO 05/18/17 09:00 06/17/17 08:59 Albuterol/ Ipratropium (Combivent Respimat Inh) 1 puffs QID INH 05/17/17 17:00 06/16/17 16:59 Latanoprost (Xalatan Oph Soln) 1 drops HS OPB 05/17/17 21:00 06/16/17 20:59 Metoprolol Succinate (Toprol Xl Tab) 75 mg DAILY PO 05/18/17 09:00 06/17/17 08:59 Pantoprazole Sodium (Protonix Tab) 40 mg DAILY PO 05/18/17 09:00 06/17/17 08:59 Sertraline HCl (Zoloft Tab) 50 mg DAILY PO 05/18/17 09:00 06/17/17 08:59 Trazodone HCl (Desyrel Tab) 50 mg HS PRN PO 05/17/17 16:15 06/16/17 16:14 UNV Physical Exam Vital Signs Past 12 Hours Date Time Temp Pulse Resp B/P (MAP) Pulse Ox O2 Delivery O2 Flow Rate FiO2 05/17/17 16:49 78 24 154/93 97 Nasal Cannula 2.0 05/17/17 15:35 80 19 137/82 98 Nasal Cannula 2.0 05/17/17 13:50 77 18 156/75 98 Room Air 05/17/17 13:29 78 05/17/17 13:25 96 Room Air 05/17/17 13:25 36.7 86 18 169/87 96 Room Air 05/17/17 13:25 96 Room Air General: Comfortable, mild distress Eyes: Sclerae anicteric, extraocular movements intact HENT: Oropharynx clear mucous membranes moist Neck: Supple, no lymphadenopathy, no thyromegaly. Lungs: Clear to auscultation bilaterally, no rhonchi or wheezes Cardiac: Regular rate and rhythm, no murmurs, rubs or gallops. No JVD. No peripheral edema. Extremities well perfused. Vascular: Normal carotid upstrokes. 2+ radial pulses. No varicosities. Abdomen: Soft, nontender, nondistended positive bowel sounds. No hepatosplenomegaly Musculoskeletal: Normal gait. No joint deformities Skin: No rashes or lesions. Neuro: Cranial nerves 2-12 grossly intact, remainder exam nonfocal Psych: Alert orient x3, normal affect and mood Data Laboratory Results: Last 24 Hours Test 05/17/17 13:40 White Blood Count 17.86 K/uL Red Blood Count 4.35 M/uL Hemoglobin 13.8 g/dL Hematocrit 39.4 % Mean Corpuscular Volume 90.6 fL Mean Corpuscular Hemoglobin 31.7 pg Mean Corpuscular Hemoglobin Concent 35.0 g/dl Platelet Count 270 K/uL Mean Platelet Volume 10.2 fL Neutrophils (%) (Auto) 84.8 % Lymphocytes (%) (Auto) 11.1 % Monocytes (%) (Auto) 3.7 % Eosinophils (%) (Auto) 0.0 % Basophils (%) (Auto) 0.1 % Neutrophils # (Auto) 15.14 K/uL Lymphocytes # (Auto) 1.99 K/uL Monocytes # (Auto) 0.66 K/uL Eosinophils # (Auto) 0.00 K/uL Basophils # (Auto) 0.01 K/uL RDW Standard Deviation 43.0 fL RDW Coefficient of Variation 12.9 % Immature Granulocyte % (Auto) 0.3 % Immature Granulocyte # (Auto) 0.06 K/uL Prothrombin Time 10.9 SECONDS Prothromb Time International Ratio 1.0 Activated Partial Thromboplast Time 22.5 SECONDS Partial Thromboplastin Ratio 0.9 Sodium Level 140 mmol/L Potassium Level 4.3 mmol/L Chloride Level 108 mmol/L Carbon Dioxide Level 23 mmol/L Anion Gap 9.0 mmol/L Blood Urea Nitrogen 25 mg/dl Creatinine 1.30 mg/dl Est Creatinine Clear Calc Drug Dose 30.1 ml/min Estimated GFR () 43.6 Estimated GFR (Non- 37.6 BUN/Creatinine Ratio 19.2 Random Glucose 289 mg/dl Calcium Level 9.3 mg/dl Total Bilirubin 0.4 mg/dl Direct Bilirubin 0.1 mg/dl Aspartate Amino Transf (AST/SGOT) 22 U/L Alanine Aminotransferase (ALT/SGPT) 27 U/L Alkaline Phosphatase 85 U/L Total Creatine Kinase 154 U/L Creatine Kinase MB 10.8 ng/ml Creatine Kinase MB Ratio 7.0 Troponin I 1.050 ng/ml Pro-B-Type Natriuretic Peptide 1265 pg/ml Total Protein 6.9 gm/dl Albumin 3.7 gm/dl Lipase 344 U/L Imaging: Chest x-ray--mild cardiomegaly, unchanged right middle lobe scarring, no acute cardiopulmonary process EKG:Serial EKGs in the emergency department shows sinus rhythm, heart rate in the 70s, incomplete right bundle-branch block, no dynamic ST changes Pharmacologic SPECT (01/2017): Normal myocardial perfusion. Hyperdynamic LV with EF of 80 percent Echo (02/2016): Normal LV size, mild concentric LVH, normal LV function, EF 60- 65 percent, grade 1 diastolic dysfunction, mild aortic regurgitation, normal estimated pulmonary pressure Assessment & Plan 1. NSTEMI 2. Coronary artery disease status post prior PCI with drug-eluting stents most recently to circumflex in 2012 3. Hypertension 4. Chronic diastolic heart failure 5. Questionable history of paroxysmal atrial fibrillation 6. Mild acute kidney injury 7. Hyperlipidemia Patient's presentation consistent with acute coronary syndrome/NSTEMI. With elevated troponin prior coronary artery disease history patient is at elevated risk for adverse cardiac events and feel warrants further risk stratification with cardiac catheterization Reviewed patient's most recent cardiac catheterization, residual moderate to severe RCA disease, also with normal EKG concern for possible repeat circumflex system disease. At present patient is chest pain-free, hemodynamically and electrically stable and do not feel that patient needs to be taken to [facility] emergently. We will tentatively plan on cardiac catheterization thing Saturday unless recurrent, uncontrolled symptoms in the interim. For now: --admit to telemetry for further monitoring --trend troponins until peaks, repeat EKG for change in symptoms; repeat echo in a.m. --continue nitropaste, home beta-tess, amlodipine; sublingual nitroglycerin/ morphine as needed for additional discomfort --continue heparin infusion --start Plavix 300 milligrams now; continue 75 milligrams daily: Continue aspirin 81 milligrams --previously intolerant to statin --hold home Bumex for now, gentle IV fluids overnight --plan to keep patient NPO past midnight on Saturday night.
[2017-05-17] MEDS ORDERED: DEXTROSE 50% 50 ML SYR IV PRN (18:30)
[2017-05-17] MEDS ORDERED: GLUCAGON FOR INJ 1 MG VIAL SQ PRN (18:30)
[2017-05-17] MEDS ORDERED: GLUCOSE 40% GEL 15 GM TUBE PO PRN (18:30)
[2017-05-17] MEDS ORDERED: GLUCOSE 10 TABS/TUBE PO PRN (18:30)
[2017-05-17 20:06] VITALS: BP 179/74; PULSE 63; TEMP 36.9; O2SAT 98; Ht 152.4 cm; Wt 70.3 kg
[2017-05-17] MEDS: INSULIN ASPART 100 UNITS/ML 3 ML PEN SC SCH (20:16)
[2017-05-17] MEDS: IPRATROPIUM BROMIDE/ALBUTEROL respimat INH INH SCH ×2 (21:01→21:03)
[2017-05-17] MEDS: LATANOPROST 0.005% OP SOLN 2.5 ML BTL OPB SCH (21:01)
[2017-05-17] MEDS: COLESTIPOL HCL 1 GM TAB PO SCH (21:02)
[2017-05-17 21:44] LABS: PARTIAL THROMBOPLASTIN RATIO 1.4
[2017-05-17] MEDS: HEPARIN 25,000 UNIT/500ML D5W 500 ML IV PRN (21:51)
[2017-05-17] MEDS ORDERED: HEPARIN IV LOW DOSE NO BOLUS STA (22:09)
[2017-05-17] MEDS ORDERED: HEPARIN IV BOLUS 4,000 UNIT in SYRINGE 0 ML IV ONE (22:45)
[2017-05-17 23:36] VITALS: BP 145/71; PULSE 68; TEMP 36.7; O2SAT 97
[2017-05-18] VITALS (11 sets, daily range): BP systolic 108–177; BP diastolic 62–78; PULSE 58–75; TEMP 36.6–37.1; O2SAT 93–98
[2017-05-18] MEDS: NITROGLYCERIN 0.4 MG SL PER TAB CHARGE SL PRN ×3 (01:05→01:16)
[2017-05-18] MEDS: MoRPHine SULFATE 2 MG/ML CARP IV PRN (01:08)
[2017-05-18 04:26] LABS: HEMATOCRIT 36.1 % (37-47); MEAN CELL VOLUME 91.9 fL (80-100); MEAN CORPUSCULAR HEMOGLOBIN 31.6 pg (25-34); MEAN CORPUSCULAR HGB CONC 34.3 g/dl (32-36); MEAN PLATELET VOLUME 10.6 fL (7.4-10.4); PLATELET COUNT 251 K/uL (130-400); RED BLOOD COUNT 3.93 M/uL (4.2-5.4); WHITE BLOOD COUNT 16.03 K/uL (4.8-10.8)
[2017-05-18 04:41] LABS: PARTIAL THROMBOPLASTIN RATIO 2.2
[2017-05-18 04:52] LABS: BUN/CREATININE RATIO 27.9 (10-20); CALCIUM 8.9 mg/dl (8.5-10.1); CHOLESTEROL/HDL RATIO 3.5; CREATININE 0.95 mg/dl (0.60-1.20); POTASSIUM 4.1 mmol/L (3.5-5.1)
[2017-05-18 06:18] LABS: ESTIMATED AVERAGE GLUCOSE 131 mg/dl; HA1C FLAG Normal (Normal)
[2017-05-18] MEDS: INSULIN ASPART 100 UNITS/ML 3 ML PEN SC SCH ×4 (07:00→20:54)
--- NOTE | 2017-05-18 07:21 | Progress Note ---
Subjective Date of Service: May 18, 2017. Subjective pt has no further chest pain, maybe a small ache but cannot quantify to a number it is so small, understands is for heart cath this sunday 05/20 Problem List Medical Problems: (1) Non-STEMI (non-ST elevated myocardial infarction) Status: Acute Review of Systems Constitutional: + weakness, + fatigue, No fever, No chills Respiratory: No cough, No sputum, No shortness of breath Cardiac: No chest pain, No orthopnea, No PND Abdomen: No pain, No nausea, No vomiting, No diarrhea Objective Vital Signs Date Time Temp Pulse Resp B/P (MAP) Pulse Ox O2 Delivery O2 Flow Rate FiO2 05/18/17 04:12 36.6 72 22 122/71 (88) 98 Nasal Cannula 2.0 05/18/17 04:00 Nasal Cannula 2.0 05/18/17 01:20 75 113/68 (83) 97 Nasal Cannula 2.0 05/18/17 01:15 74 126/72 (90) 97 Nasal Cannula 2.0 05/18/17 01:10 68 129/74 (92) 97 Nasal Cannula 2.0 05/18/17 01:05 64 177/78 (111) 97 Nasal Cannula 2.0 05/18/17 00:00 Nasal Cannula 2.0 05/17/17 23:36 36.7 68 22 145/71 (95) 97 Nasal Cannula 2.0 05/17/17 20:06 36.9 63 18 179/74 98 Room Air 05/17/17 20:02 69 18 151/75 97 05/17/17 18:20 122/105 05/17/17 18:16 70 18 97 Nasal Cannula 2.0 05/17/17 16:49 78 24 154/93 97 Nasal Cannula 2.0 05/17/17 15:35 80 19 137/82 98 Nasal Cannula 2.0 05/17/17 13:50 77 18 156/75 98 Room Air 05/17/17 13:29 78 05/17/17 13:25 96 Room Air 05/17/17 13:25 36.7 86 18 169/87 96 Room Air 05/17/17 13:25 96 Room Air Physical Exam General Appearance: WD/WN, + mild distress Neck: supple, no JVD Respiratory/Chest: chest non-tender, lungs clear, normal breath sounds Cardiovascular: regular rate, rhythm, no murmur Abdomen: normal bowel sounds, non tender, soft Extremities: no pedal edema, no calf tenderness Laboratory Results Last 24 Hours Test 05/17/17 13:40 05/17/17 19:12 05/17/17 20:13 05/17/17 21:19 White Blood Count 17.86 K/uL Red Blood Count 4.35 M/uL Hemoglobin 13.8 g/dL Hematocrit 39.4 % Mean Corpuscular Volume 90.6 fL Mean Corpuscular Hemoglobin 31.7 pg Mean Corpuscular Hemoglobin Concent 35.0 g/dl Platelet Count 270 K/uL Mean Platelet Volume 10.2 fL Neutrophils (%) (Auto) 84.8 % Lymphocytes (%) (Auto) 11.1 % Monocytes (%) (Auto) 3.7 % Eosinophils (%) (Auto) 0.0 % Basophils (%) (Auto) 0.1 % Neutrophils # (Auto) 15.14 K/uL Lymphocytes # (Auto) 1.99 K/uL Monocytes # (Auto) 0.66 K/uL Eosinophils # (Auto) 0.00 K/uL Basophils # (Auto) 0.01 K/uL RDW Standard Deviation 43.0 fL RDW Coefficient of Variation 12.9 % Immature Granulocyte % (Auto) 0.3 % Immature Granulocyte # (Auto) 0.06 K/uL Prothrombin Time 10.9 SECONDS Prothromb Time International Ratio 1.0 Activated Partial Thromboplast Time 22.5 SECONDS 37.5 SECONDS Partial Thromboplastin Ratio 0.9 1.4 Sodium Level 140 mmol/L Potassium Level 4.3 mmol/L Chloride Level 108 mmol/L Carbon Dioxide Level 23 mmol/L Anion Gap 9.0 mmol/L Blood Urea Nitrogen 25 mg/dl Creatinine 1.30 mg/dl Est Creatinine Clear Calc Drug Dose 30.1 ml/min Estimated GFR () 43.6 Estimated GFR (Non- 37.6 BUN/Creatinine Ratio 19.2 Random Glucose 289 mg/dl Calcium Level 9.3 mg/dl Total Bilirubin 0.4 mg/dl Direct Bilirubin 0.1 mg/dl Aspartate Amino Transf (AST/SGOT) 22 U/L Alanine Aminotransferase (ALT/SGPT) 27 U/L Alkaline Phosphatase 85 U/L Total Creatine Kinase 154 U/L Creatine Kinase MB 10.8 ng/ml 10.0 ng/ml Creatine Kinase MB Ratio 7.0 Troponin I 1.050 ng/ml 1.840 ng/ml Pro-B-Type Natriuretic Peptide 1265 pg/ml Total Protein 6.9 gm/dl Albumin 3.7 gm/dl Lipase 344 U/L Bedside Glucose 141 mg/dl Test 05/18/17 01:42 05/18/17 03:50 05/18/17 06:49 Creatine Kinase MB 10.1 ng/ml Creatine Kinase MB Ratio Troponin I 2.090 ng/ml White Blood Count 16.03 K/uL Red Blood Count 3.93 M/uL Hemoglobin 12.4 g/dL Hematocrit 36.1 % Mean Corpuscular Volume 91.9 fL Mean Corpuscular Hemoglobin 31.6 pg Mean Corpuscular Hemoglobin Concent 34.3 g/dl RDW Standard Deviation 44.3 fL RDW Coefficient of Variation 13.2 % Platelet Count 251 K/uL Mean Platelet Volume 10.6 fL Activated Partial Thromboplast Time 56.6 SECONDS Partial Thromboplastin Ratio 2.2 Sodium Level 142 mmol/L Potassium Level 4.1 mmol/L Chloride Level 110 mmol/L Carbon Dioxide Level 26 mmol/L Anion Gap 6.0 mmol/L Blood Urea Nitrogen 26 mg/dl Creatinine 0.95 mg/dl Est Creatinine Clear Calc Drug Dose 38.7 ml/min Estimated GFR () 63.7 Estimated GFR (Non- 55.0 BUN/Creatinine Ratio 27.9 Random Glucose 136 mg/dl Estimated Average Glucose 131 mg/dl Hemoglobin A1c 6.2 % Calcium Level 8.9 mg/dl Triglycerides Level 162 mg/dl Cholesterol Level 206 mg/dl HDL Cholesterol 59 mg/dl LDL Cholesterol, Calculated 115 mg/dl VLDL Cholesterol, Calculated 32 mg/dl Cholesterol/HDL Ratio 3.5 Bedside Glucose 123 mg/dl Assessment and Plan 82 y/o female,NSTEMI with PMHx CAD s/p PCI w/ stents to LAD and circumflex, diastolic CHF, paroxysmal a.fib, HTN, HDL, depression, insomnia, and GERD NSTEMI:elevated troponin hx of CAD s/p PCI w/ stents to LAD and circumflex, diastolic CHF, paroxysmal a.fib - NTP, IV Morphine and nitro PRN pain if pain recurrs cardiology recommends nitro gtt - IV Heparin continue to left heart cath on saturday 05/19, 7 am - ASA, Metoprolol, Colestipol 2 mg BID, Note: intolerant to statins HTN,Norvasc 5 mg daily, may increase if bp control is needed Depression: Sertraline 50 mg daily Insomnia: Trazodone 50 mg HS PRN GERD, hiatal hernia- Protonix 40 mg daily DVT Prophylaxis: IV heparin Code Status: LEVEL V, DNR Dispo: From home, lives w/ family- clinical social worker consulted
[2017-05-18] MEDS: ASPIRIN 325 MG ECTAB PO SCH (09:26)
[2017-05-18] MEDS: PANTOprazole SOD 40 MG TAB PO SCH (09:26)
[2017-05-18] MEDS: SERTRALINE HCL 50 MG TAB PO SCH (09:26)
[2017-05-18] MEDS: COLESTIPOL HCL 1 GM TAB PO SCH ×2 (09:26→20:53)
[2017-05-18] MEDS: CYANOCOBALAMIN 500 MCG TAB (VIT B-12) PO SCH (09:26)
[2017-05-18] MEDS: IPRATROPIUM BROMIDE/ALBUTEROL respimat INH INH SCH ×4 (09:27→20:53)
[2017-05-18] MEDS: TRAZODONE HCL 50 MG TAB PO PRN ×2 (09:27→21:11)
[2017-05-18] MEDS: METOPROLOL SUCC 25MG EXT REL TAB PO SCH (09:27)
[2017-05-18] MEDS: AMLODIPINE BESYLATE 5 MG TAB PO SCH (09:27)
--- NOTE | 2017-05-18 12:42 | PROGRESS NOTE ---
DATE: 05/18/2017 HISTORY OF PRESENT ILLNESS: The patient was seen by me in her telemetry unit room at approximately 1:30 a.m. This morning she had an episode of chest discomfort which she rated as being 8/10 in intensity. No radiation. She was given sublingual nitroglycerin x3 and 2 mg of intravenous morphine. The chest discomfort subsequently resolved. Her electrocardiogram revealed no acute ischemic changes. She thinks the episode lasted a total of 30-60 minutes. Since then, no further chest pain. She has walked to the bathroom without any difficulty this morning. She denies any orthopnea or PND. She did have some mild postural lightheadedness when walking to the bathroom; this quickly resolved. No current complaints of lightheadedness. No palpitations. No abdominal pain or nausea. No leg pain. No cerebrovascular or peripheral vascular complaints. She is hungry and desires to eat a meal. She is currently n.p.o. by order. ALLERGIES AND ADVERSE DRUG REACTIONS: ATORVASTATIN, CITALOPRAM, HYDROCHLOROTHIAZIDE, NIACIN AND SIMVASTATIN. CURRENT MEDICATIONS: Aspirin 325 mg daily, amlodipine 5 mg daily, vitamin B12 1000 mcg daily, metoprolol succinate ER 75 mg daily, pantoprazole 40 mg daily, sertraline 50 mg daily, colestipol 2 grams p.o. b.i.d., Xalatan eyedrops at bedtime, NovoLog sliding scale insulin, intravenous heparin by weight base protocol and several p.r.n. medications. PHYSICAL EXAMINATION: GENERAL APPEARANCE: Shows her to be lying in bed comfortably. No distress. VITAL SIGNS: Most recent; oral temperature is 36.6, pulse 60, blood pressure 175/75 and pulse oximetry room air 96%. NECK: No jugular venous distention. LUNGS: End expiratory wheezes throughout all lung woodruff. HEART: Regular rate and rhythm. S1, S2 normal. No S3 or S4. No murmur, gallop or rub. ABDOMEN: Soft. Nontender. No palpable masses or organomegaly. Normal bowel sounds. No bruits. EXTREMITIES: No pretibial edema. No cyanosis or clubbing. NEUROLOGIC: Alert and oriented x3. Motor grossly intact. PSYCHIATRIC: Affect is normal. DATA: Electrocardiogram performed earlier this morning, with complaint of chest pain revealed normal sinus rhythm. Normal ST segments and T waves. Electrocardiogram was performed at 1:05 a.m. Repeat electrocardiogram this morning at 8:00 a.m. normal. LABORATORY DATA: Today with WBC 16.03, hemoglobin 12.4, hematocrit 36.1 and platelet count 251. Metabolic profile; sodium 142, potassium 4.1, chloride 110, carbon dioxide 26, BUN 26, creatinine 0.95 and random glucose 136. Troponin I's have been 1.050, 1.840, 2.090 and 2.190. Lipid profile today with triglycerides 162, total cholesterol 206, calculated LDL 115, HDL of 59. CK-MBs have been 10.8, 10 0, 10.1 and 9.3. Hemoglobin A1c is 6.2. Calcium is 8.9. ASSESSMENT: 1. Known coronary artery disease. Prior history of left anterior descending and left circumflex stents. 2. Non-ST elevation myocardial infarction. Recurrent anginal symptoms overnight. Relief with sublingual nitroglycerin and morphine. No further chest pain. 3. Electrocardiogram without any ischemic changes. No diagnostic evidence of myocardial ischemia or injury. 4. Mildly elevated troponin I. 5. Wheezing; she does use inhalers. 6. Myocardial perfusion scan on 02/06/2017 revealed no evidence of myocardial ischemia or injury. Hyperdynamic left ventricle systolic function. 7. Systolic hypertension on most recent evaluation. Earlier this morning her blood pressure was good at 122/71. PLAN AND RECOMMENDATIONS: 1. The patient can eat meals. N.p.o. after 12:00 midnight, Saturday night for planned cardiac catheterization on Saturday at 7:00 a.m. 2. If she has further episodes of chest discomfort, consider starting intravenous nitroglycerin. 3. Continue intravenous heparin. Most recent PTT was therapeutic at 56.6. Continue till she leaves the unit to go to the slab tripper on Saturday. 4. If her blood pressure remains elevated, could consider increasing her amlodipine dose. 5. She has dyslipidemia. Intolerant of statins. Continue colestipol. 6. Continue antiplatelet therapy with aspirin. 7. Further recommendations and plans will be based upon the results of the coronary angiograms. 8. Repeat troponin I in the a.m. [facility]
[2017-05-18] MEDS: LATANOPROST 0.005% OP SOLN 2.5 ML BTL OPB SCH (20:53)
[2017-05-18] MEDS: HEPARIN 25,000 UNIT/500ML D5W 500 ML IV PRN (20:55)
[2017-05-19] VITALS (8 sets, daily range): BP systolic 116–167; BP diastolic 57–73; PULSE 54–70; TEMP 36.4–36.7; O2SAT 90–98
[2017-05-19] MEDS: IPRATROPIUM BROMIDE/ALBUTEROL respimat INH INH SCH ×4 (08:06→20:35)
[2017-05-19] MEDS: AMLODIPINE BESYLATE 5 MG TAB PO SCH (08:10)
[2017-05-19] MEDS: ASPIRIN 325 MG ECTAB PO SCH (08:10)
[2017-05-19] MEDS: CYANOCOBALAMIN 500 MCG TAB (VIT B-12) PO SCH (08:11)
[2017-05-19] MEDS: PANTOprazole SOD 40 MG TAB PO SCH (08:11)
[2017-05-19] MEDS: SERTRALINE HCL 50 MG TAB PO SCH (08:11)
[2017-05-19 08:13] LABS: HEMATOCRIT 38.1 % (37-47); MEAN CELL VOLUME 91.8 fL (80-100); MEAN CORPUSCULAR HEMOGLOBIN 31.8 pg (25-34); MEAN CORPUSCULAR HGB CONC 34.6 g/dl (32-36); MEAN PLATELET VOLUME 10.9 fL (7.4-10.4); PLATELET COUNT 224 K/uL (130-400); RED BLOOD COUNT 4.15 M/uL (4.2-5.4)
[2017-05-19] MEDS: METOPROLOL SUCC 25MG EXT REL TAB PO SCH (08:14)
[2017-05-19 08:22] LABS: PARTIAL THROMBOPLASTIN RATIO 1.4
[2017-05-19 08:37] LABS: BUN/CREATININE RATIO 29.8 (10-20); CALCIUM 9.2 mg/dl (8.5-10.1); CREATININE 0.94 mg/dl (0.60-1.20); POTASSIUM 3.9 mmol/L (3.5-5.1)
[2017-05-19] MEDS: INSULIN ASPART 100 UNITS/ML 3 ML PEN SC SCH ×4 (08:38→20:30)
[2017-05-19] MEDS: COLESTIPOL HCL 1 GM TAB PO SCH ×2 (09:42→20:36)
[2017-05-19] MEDS: HEPARIN 25,000 UNIT/500ML D5W 500 ML IV PRN ×2 (09:51→22:47)
[2017-05-19] MEDS ORDERED: HEPARIN IV BOLUS 4,000 UNIT in SYRINGE 0 ML IV ONE (10:15)
--- NOTE | 2017-05-19 12:50 | CARDIOLOGY PROGRESS NOTE ---
DATE: 05/19/2017 SUBJECTIVE: The patient was seen by me today in her telemetry unit room. She states that she is feeling well since I last saw her yesterday. No chest pain or other anginal type pains in that timeframe. She does complain of chronic dyspnea with activities. This is stable. No dyspnea at rest. No orthopnea or PND. No palpitations, lightheadedness, syncope, or peripheral edema. No complaints of any leg pain. No GI complaints. Good appetite. No abdominal pain or nausea. No cerebrovascular or peripheral vascular complaints. No symptoms of bleeding. She is on intravenous heparin. ALLERGIES AND ADVERSE DRUG REACTIONS: ATORVASTATIN, CITALOPRAM, HYDROCHLOROTHIAZIDE, NIACIN, AND SIMVASTATIN. CURRENT MEDICATIONS: Intravenous heparin by weight based protocol, aspirin 325 mg daily, amlodipine 5 mg daily, vitamin B12 at 1000 mcg daily, metoprolol succinate 75 mg daily, pantoprazole 40 mg daily, sertraline 50 mg daily, colestipol 2 grams p.o. b.i.d., Xalatan eyedrops 1 drop at bedtime, NovoLog sliding scale insulin, Combivent 1 puff q.i.d., and several p.r.n. medications. PHYSICAL EXAMINATION: VITAL SIGNS: This morning with oral temperature 36.5, pulse 59, blood pressure 157/66. Repeat vital signs at 11:41 a.m. with oral temperature 36.4, pulse 58, blood pressure 126/68, and pulse oximetry on room air 93%. NECK: No jugular venous distention. LUNGS: Expiratory wheezes in all lung woodruff. HEART: Regular rate and rhythm. S1 and S2 normal. No S3 or S4. No murmur or rub. ABDOMEN: Normal bowel sounds. No bruits. Soft. Nontender. No palpable masses or organomegaly. EXTREMITIES: No pretibial edema. No calf tenderness. No cyanosis or clubbing. NEUROLOGIC: Alert and oriented x3. She is moving all extremities. No focal motor deficit noted. PSYCHIATRIC: Affect is normal. DATA: Electrocardiogram performed this morning with sinus bradycardia at a rate of 56 beats per minute. Normal SD interval. Normal ST segments and T waves. No evidence of myocardial ischemia or injury. Troponin I this morning 1.320. Metabolic profile this morning with sodium 143, potassium 3.9, chloride 107, carbon dioxide 26, BUN 28, creatinine 0.94, and random glucose 114. CBC today with WBC 8.70, hemoglobin 13.2, hematocrit 38.1, and platelet count 224. PTT this morning 35.4. ASSESSMENT: 1. Non-ST elevation myocardial infarction. No further complaints of anginal-type chest discomfort since the early hours of May 18. 2. She continues without any ischemic changes on her electrocardiogram. 3. Peak troponin I was 2.190. 4. Bronchospasm. History of asthma. 5. No bleeding complaints on anticoagulation therapy. PTT this morning is subtherapeutic. 6. Heart rate well controlled. Repeat blood pressure late this morning with adequate control. Mildly elevated systolic pressure earlier today. 7. Prerenal azotemia. Her creatinine has improved since admission. Her creatinine level is now normal. However, her estimated GFR is 55.7. PLAN: 1. It is planned for her to undergo diagnostic cardiac catheterization on the morning of May 20. This is to be performed by Dr. Lorenzo Miller. Further recommendations and plans will be based upon the results of the coronary angiograms. 2. N.p.o x12 midnight. 3. Start intravenous fluids at 08:00 p.m. tonight. Normal saline at 75 mL per hour. 4. Continue current cardiac medications and doses. MTDD
--- NOTE | 2017-05-19 15:39 | Progress Note ---
Subjective Date of Service: May 19, 2017. Subjective pt feels great today no further discomfort, wants to go home but understands need for diagnostic [facility] 05/20 Problem List Medical Problems: (1) Non-STEMI (non-ST elevated myocardial infarction) Status: Acute Review of Systems Constitutional: No fever, No chills Respiratory: No cough, No sputum, No shortness of breath, No dyspnea on exertion Cardiac: No chest pain, No edema Abdomen: No pain, No nausea, No vomiting, No diarrhea Female : No dysuria, No urinary frequency Psychiatric: No depression symptoms, No anhedonism, No anxiety Objective Vital Signs Date Time Temp Pulse Resp B/P (MAP) Pulse Ox O2 Delivery O2 Flow Rate FiO2 05/19/17 12:00 Room Air 05/19/17 11:41 36.4 58 18 126/68 (87) 93 Room Air 05/19/17 08:13 70 05/19/17 08:00 Room Air 05/19/17 07:52 36.5 59 18 157/66 (96) 90 Room Air 05/19/17 04:00 Room Air 05/19/17 03:46 36.5 54 20 167/70 (102) 98 Room Air 05/19/17 00:00 Room Air 05/18/17 23:30 36.6 58 22 162/75 (104) 94 Room Air 05/18/17 20:00 Room Air 05/18/17 19:45 37.0 58 19 108/62 (77) 93 Room Air Physical Exam General Appearance: WD/WN, no apparent distress Eyes: PERRL, EOMI Neck: supple, no JVD Respiratory/Chest: chest non-tender, lungs clear, normal breath sounds Cardiovascular: regular rate, rhythm, no murmur Abdomen: normal bowel sounds, non tender, soft Neurologic/Psychiatric: alert, oriented x 3 Laboratory Results Last 24 Hours Test 05/18/17 16:09 05/18/17 20:22 05/19/17 06:44 05/19/17 06:47 Bedside Glucose 114 mg/dl 123 mg/dl 114 mg/dl White Blood Count 8.70 K/uL Red Blood Count 4.15 M/uL Hemoglobin 13.2 g/dL Hematocrit 38.1 % Mean Corpuscular Volume 91.8 fL Mean Corpuscular Hemoglobin 31.8 pg Mean Corpuscular Hemoglobin Concent 34.6 g/dl RDW Standard Deviation 43.9 fL RDW Coefficient of Variation 13.0 % Platelet Count 224 K/uL Mean Platelet Volume 10.9 fL Activated Partial Thromboplast Time 35.5 SECONDS Partial Thromboplastin Ratio 1.4 Sodium Level 143 mmol/L Potassium Level 3.9 mmol/L Chloride Level 107 mmol/L Carbon Dioxide Level 26 mmol/L Anion Gap 10.0 mmol/L Blood Urea Nitrogen 28 mg/dl Creatinine 0.94 mg/dl Est Creatinine Clear Calc Drug Dose 38.9 ml/min Estimated GFR () 64.6 Estimated GFR (Non- 55.7 BUN/Creatinine Ratio 29.8 Random Glucose 114 mg/dl Calcium Level 9.2 mg/dl Troponin I 1.320 ng/ml Test 05/19/17 11:19 05/19/17 15:09 Bedside Glucose 142 mg/dl Assessment and Plan 82 y/o female,NSTEMI with PMHx CAD s/p PCI w/ stents to LAD and circumflex, diastolic CHF, paroxysmal a.fib, HTN, HDL, depression, insomnia, and GERD NSTEMI:elevated troponin now trending downward, hx of CAD s/p PCI w/ stents to LAD and circumflex, diastolic CHF, paroxysmal a.fib - NTP, IV Morphine and nitro PRN pain if pain recurrs cardiology continues to recommends nitro gtt - IV Heparin continue to left heart cath on sunday 05/20, 7 am - ASA, Metoprolol, Colestipol 2 mg BID, Note: intolerant to statins HTN,in good contorl on Norvasc 5 mg daily Depression: Sertraline 50 mg daily Insomnia:helped with Trazodone 50 mg HS PRN GERD, hiatal hernia- asymptomatic on Protonix 40 mg daily DVT Prophylaxis: IV heparin Code Status: LEVEL V, DNR Dispo: From home, lives w/ family- social media community manager consulted
[2017-05-19 15:58] LABS: PARTIAL THROMBOPLASTIN RATIO 2.5
[2017-05-19] MEDS ORDERED: COUGH DROP (SUGAR FREE) LOZ 24 LOZ/1 BOX ONE (19:33)
[2017-05-19] MEDS ORDERED: SODIUM CHLORIDE 0.9% 1000ML 1,000 ML IV SCH (20:00)
[2017-05-19] MEDS: LATANOPROST 0.005% OP SOLN 2.5 ML BTL OPB SCH (20:36)
[2017-05-20] VITALS (13 sets, daily range): BP systolic 131–188; BP diastolic 53–84; PULSE 55–87; TEMP 36.4–37.2; O2SAT 93–98
[2017-05-20] MEDS ORDERED: NiCARDipine HCL INJ 2.5 MG/ML 10 ML AMP ONE (06:55)
[2017-05-20] MEDS ORDERED: HEPARIN SOD (PORCINE) 1000 UNIT/ML 10 ML VIAL ONE (06:55)
[2017-05-20] MEDS ORDERED: MIDAZOLAM HCL 1 MG/ML 2ML VIAL ONE ×2 (06:55→08:08)
[2017-05-20] MEDS ORDERED: FENTANYL CITRATE INJ 50 MCG/1 ML 2 ML VIAL ONE (06:56)
[2017-05-20] MEDS ORDERED: NITROGLYCERIN/D5W 100MCG/ML 20ML SYR ONE (06:57)
--- NOTE | 2017-05-20 06:57 | Procedure Note ---
Pre-Mod Sedation Assessment General Date of Moderate Sedation: May 20, 2017. Vital Signs: Vital Signs Past 12 Hours Date Time Temp Pulse Resp B/P (MAP) Pulse Ox O2 Delivery O2 Flow Rate FiO2 05/20/17 04:20 36.9 62 18 140/53 (82) 96 Room Air 05/20/17 04:00 Room Air 05/20/17 00:00 Room Air 05/19/17 23:54 36.4 58 21 116/57 (76) 97 Room Air 05/19/17 20:00 Room Air 05/19/17 19:30 36.7 66 22 124/70 (88) 96 Room Air Review Cardiovascular: regular rate, rhythm, no edema Abdomen: normal bowel sounds, non tender Lungs: chest non-tender, lungs clear Airway Class: II, III Pre-Sedation Airway Assessment Oral Cavity: Dentures Able to Visualize Vocal Cords: No Short Thick Neck: No Hx of Sleep Apnea: No Smoking Status: Never Smoker Mallampati Classification: Class III ASA Classification: Class III Procedure Planning Contraindications-for Mod Sed: None Yes Notes The planned sedation has been discussed with the patient and consent obtained. I have identified the patient, determined the appropriateness of sedation and have assessed the patient immediately prior to the procedure. All medicine(s) and interventions are by my order.
[2017-05-20 07:02] LABS: HEMATOCRIT 42.8 % (37-47); MEAN CELL VOLUME 92.2 fL (80-100); MEAN CORPUSCULAR HEMOGLOBIN 31.5 pg (25-34); MEAN CORPUSCULAR HGB CONC 34.1 g/dl (32-36); MEAN PLATELET VOLUME 10.6 fL (7.4-10.4); PLATELET COUNT 305 K/uL (130-400); RED BLOOD COUNT 4.64 M/uL (4.2-5.4)
[2017-05-20 07:17] LABS: PARTIAL THROMBOPLASTIN RATIO 1.7
[2017-05-20 07:29] LABS: CALCIUM 9.2 mg/dl (8.5-10.1); POTASSIUM 3.7 mmol/L (3.5-5.1)
[2017-05-20] MEDS ORDERED: CLOPIDOGREL BISULFATE 300 MG TAB PO ONE (08:22)
--- NOTE | 2017-05-20 08:29 | Procedure Note ---
Post-Mod Sedation Assessment General Date of Moderate Sedation May 20, 2017. Vital Signs: Vital Signs Past 12 Hours Date Time Temp Pulse Resp B/P (MAP) Pulse Ox O2 Delivery O2 Flow Rate FiO2 05/20/17 04:20 36.9 62 18 140/53 (82) 96 Room Air 05/20/17 04:00 Room Air 05/20/17 00:00 Room Air 05/19/17 23:54 36.4 58 21 116/57 (76) 97 Room Air 05/19/17 20:00 Room Air 05/19/17 19:30 36.7 66 22 124/70 (88) 96 Room Air Review - Discharge Criteria Vital Signs Stable: Yes Alert/Oriented/Conversant: Yes Returned to Baseline Mental St: Yes Nausea Absent/Minimal: Yes Pain/Discomfort/Absent/Minimal: Yes Normal/Baseline Respirations: Yes Active Bleeding?: No Pt Received D/C Instructions: N/A Prescriptions Given: None Specific Proced. D/C Criteria Distal Pulses Present (Cardiac: Yes Groin site assessed-Card Cath: N/A Voided Prior To Discharge: N/A Discharged Patients Adult Escort/Transportation: Yes
--- NOTE | 2017-05-20 08:49 | Cardiac Catheterization ---
Procedure Note Procedure Date May 20, 2017. Pre-Procedure Diagnosis Non STEMI AUC Score 8 Post-Procedure Diagnosis Severe CAD, Successful PCI, Normal Intracardiac Pressures Procedure(s) Performed Coronary Angiography, Left Heart Cath, Drug Eluting Stent Reproduction Machine Loader Paul Director Channel(s) Efrain Estimated Blood Loss 15 Medication(s) Clopidogrel, Fentanyl, Heparin, Nicardipine, Nitroglycerin, Versed, Lidocaine 1% Summary of Findings Indication: High-risk NSTEMI Access: 6Fr Right radial artery slender Catheters: [place]; JR4 guide Findings: LM - 20% ostial stenosis LAD - Moderate caliber vessel, 20-30% proximal disease, patent mid segment stent with 40-50% at the distal end of prior stent; luminal irregularities as wraps around apex. 40% ostial stenosis of small 2nd diagonal. Circumflex - Patent mid segment stents into OM2; diffusely disease small distal circumflex into OM3 RCA - Dominant, 70% proximal stenosis, 99% mid RCA stenosis (likely culprit), 70 -80% early-distal segment stenosis; R-PDA, PLB with luminal irregularities. LVEDP - 9 -- PCI -- Antithrombotic therapy: Heparin, Clopidogrel Procedure: RCA cannulated with JR4 guide Perch Machine Inspector 50 wire passed across lesions into distal PDA Proximal/mid/distal lesions predilated with 2.5 compliant balloon Distal lesion stented with 2.75 x 18 Resolute RUPERT Proximal to mid RCA lesions stented with overlapping 3.0 x 26 Resolute RUPERT Stents post-dilated with 3.25 noncompliant balloon IC vasodilators administered for spasm Post procedure DIEGO 3 flow, stent well expanded with minimal residual stenosis and no apparent cardiac complications. Arterial Closure: TR Band Summary: 1. Severe single vessel coronary artery disease - Multiple sequential RCA lesions up to 99% in the mid segment 2. Normal intracardiac filling pressure 3. Successful PCI of RCA with 2 overlapping RUPERT (3.0 x 26, 2.75 x 18 Resolute RUPERT) Recommendations: To PCU for continued monitoring Loaded with Clopidogrel 600 mg Continue dual-antiplatelet therapy with ASA/Clopidogrel for 1 year Continue statin, and ASCVD risk factor modification Consult cardiac Rehab Hemodynamics Rest Ao: 143/69/99 Final Ao: 140/65/96 LV: 166/9 Recommendations PCI without planned CABG Specimens None Radiation Exposure (mGy) 1842 Contrast (mls) 110 Visi Fluids (cc crystalloids) 100 NSS Drains None Anesthesia Moderate Procedural Complication(s) None Disposition PCU ACC Data Cardiac Status Clinical evaluation leading to the procedure CAD Presntation: Non STEMI Anginal Classification: CCS IV Heart Failure: No, NYHA Class: CCS I Cardiogenic Shock w/in 24Hrs: No Cardiac Arrest w/in 24Hrs: No Imaging studies past 6 months: Yes Stress studies past 6 months: Yes Stress Echocardiogram: Yes - Negative Stress Testing w/SPECT MPI: No Coronary Anatomy Dominant: Right Left Main (% Stenosis): Ostial (20) LAD (% Stenosis): Mid (40-50 after prior stent) D2 (% Stenosis): Ostial (0) Circumflex (% Stenosis): Mid RCA (% Stenosis): Proximal (70), Mid (99), Distal (70-80) Diagnostic Physician's Name: Lorenzo Miller MD Status: Elective Closure Device Percutaneous Entry Location: Radial Closure Device: Radial Band Recommendations: PCI without planned CABG PCI Indication: PCI for high risk Non-STEMI Lesion Segment Name: mid RCA Culprit Artery: Yes Stenosis Prior to Rx (%): 99 Chronic Total Occlusion: No IVUS: No FFR: No Pre-Procedure DIEGO Flow: 3 Previously Treated Lesion: No Lesion Complexity: Non-High/Non-C Lesion Length (mm): 35 Thrombus Present: Yes Bifurcation Lesion: No Guidewire Across Lesion: Yes Guidewire: Stenosis Post-Procedure (%): 0 Post-Procedure DIEGO Flow: 3 Device(s) Deployed: Yes Intraprocedure Events Significant Dissection: No Perforation: No
[2017-05-20] MEDS ORDERED: SODIUM CHLORIDE 0.9% 1000ML 1,000 ML IV SCH (09:00)
[2017-05-20] MEDS: METOPROLOL SUCC 25MG EXT REL TAB PO SCH (09:31)
[2017-05-20] MEDS: ASPIRIN 325 MG ECTAB PO SCH ×2 (09:34→11:54)
[2017-05-20] MEDS: CYANOCOBALAMIN 500 MCG TAB (VIT B-12) PO SCH (09:35)
[2017-05-20] MEDS: IPRATROPIUM BROMIDE/ALBUTEROL respimat INH INH SCH ×4 (09:35→19:31)
[2017-05-20] MEDS: AMLODIPINE BESYLATE 5 MG TAB PO SCH (09:35)
[2017-05-20] MEDS: PANTOprazole SOD 40 MG TAB PO SCH (09:35)
[2017-05-20] MEDS: COLESTIPOL HCL 1 GM TAB PO SCH ×2 (09:35→19:31)
[2017-05-20] MEDS: SERTRALINE HCL 50 MG TAB PO SCH (09:35)
[2017-05-20] MEDS: INSULIN ASPART 100 UNITS/ML 3 ML PEN SC SCH ×4 (09:43→20:54)
--- NOTE | 2017-05-20 10:52 | Hospitalist Progress Note ---
Hospitalist Progress Note Date of Service May 20, 2017. Subjective Pt evaluation today including: conversation w/ patient, physical exam, chart review, lab review, review of studies, review of inpatient medication list Pain: None PO Intake: NPO for cath Voiding: no voiding problems Patient reports feeling better now since coming back from the cardiac cath. She had initially had some nausea, but this has since resolved. She denies any chest pain or pain at the radial site. She has urinated after the procedure without issue and is passing gas. The patient denies fevers, chills, sweats, chest pain, palpitations, claudication, cough, wheezing, shortness of breath, vomiting, abdominal pain, dysuria, hematuria, urinary retention, paralysis, weakness, numbness and tingling. Additional Comments: See HPI for pertinent positives and negatives. All other systems reviewed and negative. Objective Vital Signs Date Time Temp Pulse Resp B/P (MAP) Pulse Ox O2 Delivery O2 Flow Rate FiO2 05/20/17 09:45 59 18 154/83 (106) 95 Room Air 05/20/17 09:30 57 18 154/83 (106) 98 Room Air 05/20/17 09:15 58 18 152/64 (93) 95 Room Air 05/20/17 09:00 56 18 143/82 (102) 96 Room Air 05/20/17 08:35 66 16 152/68 (96) 98 Room Air 05/20/17 08:20 61 16 149/78 (101) 98 Oxymask 4 05/20/17 04:20 36.9 62 18 140/53 (82) 96 Room Air 05/20/17 04:00 Room Air 05/20/17 00:00 Room Air 05/19/17 23:54 36.4 58 21 116/57 (76) 97 Room Air 05/19/17 20:00 Room Air 05/19/17 19:30 36.7 66 22 124/70 (88) 96 Room Air 05/19/17 16:15 96 Room Air 05/19/17 15:59 36.5 56 20 153/73 (99) 96 Room Air 05/19/17 12:00 Room Air 05/19/17 11:41 36.4 58 18 126/68 (87) 93 Room Air Physical Exam Notes: General appearance: +Obese.Well-developed, well-nourished, no apparent distress Head: Normocephalic, atraumatic Eyes: Normal inspection, PERRL, EOMI ENT: Normal ENT inspection, hearing grossly normal, pharynx normal Neck: Supple, no JVD, trachea midline Respiratory/Chest: Lungs clear to auscultation, normal breath sounds, no respiratory distress Cardiovascular: Regular rate & rhythm, no gallop, no murmur Abdomen/GI: Normal bowel sounds, non-tender, soft Extremities/Musculoskeletal: Normal inspection, no calf tenderness, no pedal edema Neurological/Psych: Alert, normal mood/affect, oriented x 3 Skin: Normal color, warm/dry, no rash Laboratory Results Last 24 Hours Test 05/19/17 11:19 05/19/17 15:09 05/19/17 16:10 05/19/17 20:08 Bedside Glucose 142 mg/dl 110 mg/dl 163 mg/dl Activated Partial Thromboplast Time 65.1 SECONDS Partial Thromboplastin Ratio 2.5 Test 05/20/17 06:29 05/20/17 09:17 White Blood Count 11.20 K/uL Red Blood Count 4.64 M/uL Hemoglobin 14.6 g/dL Hematocrit 42.8 % Mean Corpuscular Volume 92.2 fL Mean Corpuscular Hemoglobin 31.5 pg Mean Corpuscular Hemoglobin Concent 34.1 g/dl RDW Standard Deviation 43.7 fL RDW Coefficient of Variation 13.0 % Platelet Count 305 K/uL Mean Platelet Volume 10.6 fL Activated Partial Thromboplast Time 45.3 SECONDS Partial Thromboplastin Ratio 1.7 Sodium Level 140 mmol/L Potassium Level 3.7 mmol/L Chloride Level 106 mmol/L Carbon Dioxide Level 28 mmol/L Anion Gap 6.0 mmol/L Blood Urea Nitrogen 26 mg/dl Creatinine 1.00 mg/dl Est Creatinine Clear Calc Drug Dose 36.6 ml/min Estimated GFR () 59.9 Estimated GFR (Non- 51.7 BUN/Creatinine Ratio 26.0 Random Glucose 128 mg/dl Calcium Level 9.2 mg/dl Troponin I 0.853 ng/ml Bedside Glucose 110 mg/dl Diagnostic Results Cardiac cath: Procedure Note Procedure Date May 20, 2017. Pre-Procedure Diagnosis Non STEMI AUC Score 8 Post-Procedure Diagnosis Severe CAD, Successful PCI, Normal Intracardiac Pressures Procedure(s) Performed Coronary Angiography, Left Heart Cath, Drug Eluting Stent Director Of Accounting Paul Packaging Machine Operator(s) Efrain Estimated Blood Loss 15 Medication(s) Clopidogrel, Fentanyl, Heparin, Nicardipine, Nitroglycerin, Versed, Lidocaine 1% Summary of Findings Indication: High-risk NSTEMI Access: 6Fr Right radial artery slender Catheters: [place]; JR4 guide Findings: LM - 20% ostial stenosis LAD - Moderate caliber vessel, 20-30% proximal disease, patent mid segment stent with 40-50% at the distal end of prior stent; luminal irregularities as wraps around apex. 40% ostial stenosis of small 2nd diagonal. Circumflex - Patent mid segment stents into OM2; diffusely disease small distal circumflex into OM3 RCA - Dominant, 70% proximal stenosis, 99% mid RCA stenosis (likely culprit), 70 -80% early-distal segment stenosis; R-PDA, PLB with luminal irregularities. LVEDP - 9 -- PCI -- Antithrombotic therapy: Heparin, Clopidogrel Procedure: RCA cannulated with JR4 guide Counter Person 50 wire passed across lesions into distal PDA Proximal/mid/distal lesions predilated with 2.5 compliant balloon Distal lesion stented with 2.75 x 18 Resolute RUPERT Proximal to mid RCA lesions stented with overlapping 3.0 x 26 Resolute RUPERT Stents post-dilated with 3.25 noncompliant balloon IC vasodilators administered for spasm Post procedure DIEGO 3 flow, stent well expanded with minimal residual stenosis and no apparent cardiac complications. Arterial Closure: TR Band Summary: 1. Severe single vessel coronary artery disease - Multiple sequential RCA lesions up to 99% in the mid segment 2. Normal intracardiac filling pressure 3. Successful PCI of RCA with 2 overlapping RUPERT (3.0 x 26, 2.75 x 18 Resolute RUPERT) Recommendations: To PCU for continued monitoring Loaded with Clopidogrel 600 mg Continue dual-antiplatelet therapy with ASA/Clopidogrel for 1 year Continue statin, and ASCVD risk factor modification Consult cardiac Rehab Hemodynamics Rest Ao: 143/69/99 Final Ao: 140/65/96 LV: 166/9 Recommendations PCI without planned CABG Specimens None Radiation Exposure (mGy) 1842 Contrast (mls) 110 Visi Fluids (cc crystalloids) 100 NSS Drains None Anesthesia Moderate Procedural Complication(s) None Disposition PCU Assessment and Plan 82 y/o female with a history of CAD s/p PCI w/ stents to LAD and circumflex, diastolic CHF, paroxysmal a.fib, HTN, HDL, depression, insomnia, and GERD who presents to the ED on 05/17 with chest pain. NSTEMI s/p cardiac cath and RUPERT placement--stable - Admit to tele for cardiac monitoring. No acute events overnight. pt in sinus bradycardia/rhythm with HR in 50s-60s - EKG QAM and PRN CP - EKG 05/20 shows 56 bpm, NSR - Initial trop 1.050, peaked at 2.19. Last troponin 0.853 - Cardiac cath 05/20 showed 99% occlusion of RCA. 2 RUPERT placed. Pt will need DAPT for 1 year. Consult cardiac rehab - Trend troponin until peaks after cath - O2 by protocol, currently on room air - Resume diet post cath - IV Morphine and nitro PRN pain - D/C heparin drip - HgbA1c 6.2 05/18 - Lipid panel 05/09: triglycerides 162, total cholesterol 206, LDL 115, HDL 59 - Leukocytosis, ?secondary to cardiac stress--WBC 11.20 on 05/20, up from 8.7 - Consult cardiology, appreciate recs: Cardiac cath 05/20. To PCU for continued monitoring. Loaded with Clopidogrel 600 mg. Continue dual- antiplatelet therapy with ASA/Clopidogrel for 1 year. Continue statin, and ASCVD risk factor modification. Consult cardiac Rehab -ASCVD risk calculated, moderate intensity statin recommended, but pt does not tolerate statins CAD s/p PCI w/ stents to LAD and circumflex and now RCA, diastolic CHF, paroxysmal a.fib, HTN, HDL--stable - Continue Norvasc 5 mg daily, ASA, Metoprolol 1.5 tab daily, Colestipol 2 mg BID -Add Plavix 75 mg PO qd - Note: intolerant to statins Depression -Continue Sertraline 50 mg daily Insomnia -Trazodone 50 mg HS PRN GERD, hiatal hernia- follows w/ Dr. Le - Continue Protonix 40 mg daily - EGD completed in 01/04 DVT prophylaxis -Heparin drip Code Status -Level V, DO NOT RESUSCITATE Dispo -From home, lives w/ family- renal social worker consulted
[2017-05-20] MEDS: LATANOPROST 0.005% OP SOLN 2.5 ML BTL OPB SCH (19:31)
[2017-05-21 03:52] VITALS: BP 165/85; PULSE 89; TEMP 36.6; O2SAT 95
[2017-05-21 04:58] LABS: BASO % 0.1 %; BASO ABS # 0.01 K/uL (0-0.2); COMPLETE YES; EOS % 0.9 %; HEMATOCRIT 37.4 % (37-47); IG% 0.4 %; LYMPH % 32.9 %; LYMPH ABS # 2.47 K/uL (1.2-3.4); MEAN CELL VOLUME 91.2 fL (80-100); MEAN CORPUSCULAR HEMOGLOBIN 31.7 pg (25-34); MEAN CORPUSCULAR HGB CONC 34.8 g/dl (32-36); MEAN PLATELET VOLUME 10.2 fL (7.4-10.4); MONO % 10.8 %; NEUT % 54.9 %; PLATELET COUNT 208 K/uL (130-400)
[2017-05-21 05:07] LABS: PARTIAL THROMBOPLASTIN RATIO 0.9
[2017-05-21 05:15] LABS: BUN/CREATININE RATIO 21.6 (10-20); CALCIUM 8.9 mg/dl (8.5-10.1); CREATININE 0.94 mg/dl (0.60-1.20); POTASSIUM 4.1 mmol/L (3.5-5.1)
[2017-05-21 07:30] VITALS: BP 150/79; PULSE 86; TEMP 36.5; O2SAT 97
[2017-05-21] MEDS ORDERED: CLOPIDOGREL BISULFATE 75 MG TAB PO SCH (09:00)
[2017-05-21] MEDS: SERTRALINE HCL 50 MG TAB PO SCH (09:22)
[2017-05-21] MEDS: METOPROLOL SUCC 25MG EXT REL TAB PO SCH (09:22)
[2017-05-21] MEDS: ASPIRIN 325 MG ECTAB PO SCH (09:22)
[2017-05-21] MEDS: PANTOprazole SOD 40 MG TAB PO SCH (09:22)
[2017-05-21] MEDS: CYANOCOBALAMIN 500 MCG TAB (VIT B-12) PO SCH (09:22)
[2017-05-21] MEDS: AMLODIPINE BESYLATE 5 MG TAB PO SCH (09:22)
[2017-05-21] MEDS: IPRATROPIUM BROMIDE/ALBUTEROL respimat INH INH SCH ×2 (09:25→12:15)
[2017-05-21] MEDS: INSULIN ASPART 100 UNITS/ML 3 ML PEN SC SCH ×2 (09:28→12:17)
--- NOTE | 2017-05-21 09:46 | Cardiology Follow-Up ---
Subjective Subjective Date of Service: May 21, 2017. Pt evaluation today including: conversation w/ patient, physical exam, chart review, lab review, review of studies, review of inpatient medication list Additional Details: Feeling well. No recurrent chest pain overnight. No other new complaints. Tele reviewed -- no events. Problem List Medical Problems: (1) Non-STEMI (non-ST elevated myocardial infarction) Status: Acute Review of Systems Constitutional: No fever, No chills Respiratory: No cough, No sputum, No shortness of breath, No dyspnea on exertion Cardiac: No chest pain, No edema Abdomen: No pain, No nausea, No vomiting, No diarrhea Musculoskeletal: + calf pain Female : No dysuria, No urinary frequency Neurologic: + numbness/tingling, + balance problems Psychiatric: No depression symptoms, No anhedonism, No anxiety Objective Vital Signs Last Vital Signs Documentation Date Time Temp Pulse Resp B/P (MAP) Pulse Ox O2 Delivery O2 Flow Rate FiO2 05/21/17 07:30 36.5 86 150/79 (102) 97 Room Air 05/21/17 03:52 20 05/20/17 08:20 4 Physical Exam: General Appearance: no apparent distress ENT: pharynx normal Neck: supple, no JVD Respiratory/Chest: chest non-tender, lungs clear, normal breath sounds Cardiovascular: regular rate, rhythm, no murmur Abdomen: normal bowel sounds, non tender, soft Extremities: no pedal edema, no calf tenderness, + pertinent finding ( ecchymosis around access site. no hematoma. intact distal pulses.) Neurologic/Psychiatric: alert, oriented x 3 Skin: no rash Lymphatic: no adenopathy Assessment and Plan 1. NSTEMI s/p PCI with DESx2 to RCA 2. Hypertension 3. Chronic diastolic heart failure 4. Questionable history of paroxysmal atrial fibrillation 5. Mild acute kidney injury 6. Hyperlipidemia Patient feeling well. No recurrent chest pain. Hemodynamically and electrically stable. From a cardiac standpoint OK for discharge today -- Continue DAPT with ASA/Plavix today -- Continue current beta-tess; Add lisinopril 5 mg daily. Repeat BMP next week -- Home on PRN diuretics -- previously intolerant to statin -- Follow-up with me in 2-3 weeks . Medications: Current Inpatient Medications Medications (Trade) Dose Ordered Sig/Tadeo Route Start Time Stop Time Status Last Admin Dose Admin Acetaminophen (Tylenol Tab) 650 mg Q4H PRN PO 05/17/17 16:15 06/16/17 16:14 05/19/17 18:15 650 MG Al Hydrox/Mg Hydrox/Simethicone (Maalox Max Susp) 15 ml Q4H PRN PO 05/17/17 16:15 06/16/17 16:14 Magnesium Hydroxide (Milk Of Magnesia Susp) 30 ml Q12H PRN PO 05/17/17 16:15 06/16/17 16:14 Ondansetron HCl (Zofran Inj) 4 mg Q6H PRN IV 05/17/17 16:15 06/16/17 16:14 Nitroglycerin (Nitrostat Tab) 0.4 mg UD PRN SL 05/17/17 16:15 06/16/17 16:14 05/18/17 01:16 0.4 MG Morphine Sulfate (MoRPHine SULFATE INJ) 2 mg Q30M PRN IV 05/17/17 16:15 05/31/17 16:14 05/18/17 01:08 2 MG Aspirin (Ecotrin Tab) 325 mg QAM PO 05/18/17 09:00 06/17/17 08:59 05/21/17 09:22 325 MG Polyethylene (Miralax Powder Packet) 17 gm DAILY PRN PO 05/17/17 16:15 06/16/17 16:14 Amlodipine Besylate (Norvasc Tab) 5 mg QAM PO 05/18/17 09:00 06/17/17 08:59 05/21/17 09:22 5 MG Colestipol HCl (Colestid Tab) 2 gm BID@1000,2200 PO 05/17/17 22:00 06/16/17 21:59 05/20/17 19:31 2 GM Cyanocobalamin (Vitamin B-12 Tab) 1,000 mcg QAM PO 05/18/17 09:00 06/17/17 08:59 05/21/17 09:22 1,000 MCG Albuterol/ Ipratropium (Combivent Respimat Inh) 1 puffs QID INH 05/17/17 17:00 06/16/17 16:59 05/21/17 09:25 1 PUFFS Latanoprost (Xalatan Oph Soln) 1 drops HS OPB 05/17/17 21:00 06/16/17 20:59 05/20/17 19:31 1 DROPS Metoprolol Succinate (Toprol Xl Tab) 75 mg DAILY PO 05/18/17 09:00 06/17/17 08:59 05/21/17 09:22 75 MG Pantoprazole Sodium (Protonix Tab) 40 mg DAILY PO 05/18/17 09:00 06/17/17 08:59 05/21/17 09:22 40 MG Sertraline HCl (Zoloft Tab) 50 mg DAILY PO 05/18/17 09:00 06/17/17 08:59 05/21/17 09:22 50 MG Trazodone HCl (Desyrel Tab) 50 mg HS PRN PO 05/17/17 16:15 06/16/17 16:14 05/18/17 21:11 50 MG Insulin Aspart (novoLOG ASPART) SLIDING SCALE G... ACHS SC 05/17/17 21:00 06/16/17 20:59 05/21/17 09:28 5 UNITS Glucose (Glucose 40% Gel) 15-30 GRAMS 15 GRAMS... UD PRN PO 05/17/17 18:30 06/16/17 18:29 Glucose (Glucose Chew Tab) 4-8 Tablets 4 Tabl... UD PRN PO 05/17/17 18:30 06/16/17 18:29 Dextrose (Dextrose 50% 50ML Syringe) 25-50ML OF 50% DW IV FOR... UD PRN IV 05/17/17 18:30 06/16/17 18:29 Glucagon (Glucagon Inj) 1 mg UD PRN SQ 05/17/17 18:30 06/16/17 18:29 Clopidogrel Bisulfate (plAVix TAB) 75 mg QAM PO 05/21/17 09:00 06/20/17 08:59 05/21/17 09:22 75 MG Lab Results: 05/21/17 04:37 Red Blood Count 4.10, Mean Corpuscular Volume 91.2, Mean Corpuscular Hemoglobin 31.7, Mean Corpuscular Hemoglobin Concent 34.8, Mean Platelet Volume 10.2, Neutrophils (%) (Auto) 54.9, Lymphocytes (%) (Auto) 32.9, Monocytes (%) (Auto) 10.8, Eosinophils (%) (Auto) 0.9, Basophils (%) (Auto) 0.1, Neutrophils # (Auto ) 4.11, Lymphocytes # (Auto) 2.47, Monocytes # (Auto) 0.81, Eosinophils # (Auto ) 0.07, Basophils # (Auto) 0.01 05/21/17 04:37 Test 05/21/17 04:37 05/21/17 06:42 White Blood Count 7.50 K/uL (4.8-10.8) Red Blood Count 4.10 M/uL (4.2-5.4) Hemoglobin 13.0 g/dL (12.0-16.0) Hematocrit 37.4 % (37-47) Mean Corpuscular Volume 91.2 fL (80-100) Mean Corpuscular Hemoglobin 31.7 pg (25-34) Mean Corpuscular Hemoglobin Concent 34.8 g/dl (32-36) Platelet Count 208 K/uL (130-400) Mean Platelet Volume 10.2 fL (7.4-10.4) Neutrophils (%) (Auto) 54.9 % Lymphocytes (%) (Auto) 32.9 % Monocytes (%) (Auto) 10.8 % Eosinophils (%) (Auto) 0.9 % Basophils (%) (Auto) 0.1 % Neutrophils # (Auto) 4.11 K/uL (1.4-6.5) Lymphocytes # (Auto) 2.47 K/uL (1.2-3.4) Monocytes # (Auto) 0.81 K/uL (0.11-0.59) Eosinophils # (Auto) 0.07 K/uL (0-0.5) Basophils # (Auto) 0.01 K/uL (0-0.2) RDW Standard Deviation 43.4 fL (36.4-46.3) RDW Coefficient of Variation 13.0 % (11.5-14.5) Immature Granulocyte % (Auto) 0.4 % Immature Granulocyte # (Auto) 0.03 K/uL (0.00-0.02) Activated Partial Thromboplast Time 23.0 SECONDS (21.0-31.0) Partial Thromboplastin Ratio 0.9 Anion Gap 7.0 mmol/L (3-11) Est Creatinine Clear Calc Drug Dose 38.9 ml/min Estimated GFR () 64.6 Estimated GFR (Non- 55.7 BUN/Creatinine Ratio 21.6 (10-20) Calcium Level 8.9 mg/dl (8.5-10.1) Troponin I 1.780 ng/ml (0-0.045) Bedside Glucose 111 mg/dl (70-90)
[2017-05-21] MEDS: COLESTIPOL HCL 1 GM TAB PO SCH (10:06)
[2017-05-21 11:38] VITALS: BP 146/74; PULSE 67; TEMP 36.5; O2SAT 92
[2017-05-21] MEDS ORDERED: PLV75 PO (12:22)
[2017-05-21] MEDS ORDERED: LSN5 PO (12:22)
--- NOTE | 2017-05-21 12:39 | Discharge Instructions ---
Discharge Instructions Date of Service May 21, 2017. Admission Reason for Admission: Non Stemi(Non St Elevated Myocardial Infarction) Discharge Discharge Diagnosis / Problem: Non ST elevated myocardial infarction Discharge Goals Goal(s): Decrease discomfort, Diagnostic testing, Therapeutic intervention Activity Recommendations Activity Limitations: per Instructions/Follow-up section . Instructions / Follow-Up Instructions / Follow-Up You were admitted after presenting with chest pain. You were found to have a non ST elevation myocardial infraction, or a heart attack. You were taken to the cardiac catheterization lab on 05/20, which revealed a 99% stenosis of your right coronary artery. 2 drug eluding stents were placed. You have been doing well after the catheterization and are now medically stable to return home. Medications: *You have been started on a medication called clopidogrel (Plavix) to take in addition to your aspirin. You will need to take both of these medications for at least a year because you had cardiac stents placed. Please take clopidogrel 75 mg by mouth daily. *You have also been started on a new medication called lisinopril due to your heart attack. Please take lisinopril 5 mg by mouth daily. *Continue your other home medications as prescribed. Follow up: *You have been scheduled to follow up at your primary care provider's office with PAM Jenkins, on May 28 at 2:00 pm. *You will need a follow up lab test called a basic metabolic profile next week. A prescription for this lab test will be provided. You may take this to any lab. *You have also been scheduled to follow up with cardiology with Nohemi Stephen PA-C, on June 06 at 3:15 pm. CARDIAC CATHETERIZATION ACTIVITY RECOMMENDATIONS: Excess manipulation of the wrist should be avoided for the next 24-48 hours. * No lifting over 2 pounds (approximately a 1/2 gallon of milk) with the utilized arm for 24 hours. * No strenuous activity such as bowling or tennis for 3 days. * Keep the site of the procedure covered with a bandage for 24 hours. *You may shower the day after the procedure. Do not take a tub bath or submerge the puncture site in water for the next 3 days. *Do not operate any motorized equipment for 3 days. SPECIAL CARE INSTRUCTIONS: The site may be slightly bruised and sore following your procedure. Should any of the following occur, contact Dr. Miller, who performed your procedure. 1. Redness/inflammation, swelling, chills, or fever, or colored drainage at procedure site within 3-7 days after your procedure. 2. Coldness, discoloration, ongoing numbness, severe pain, or swelling. Expect mild tingling of hand and tenderness at the puncture site for up to three days. If this persists beyond three days, or other symptoms develop, notify the DrEsau who performed your procedure. BLEEDING: If the procedure site on your wrist begins to bleed, do not panic 1. Place 1 or 2 fingers firmly just slightly above the insertion site to stop the bleeding. You may be able to feel your pulse as you hold pressure. 2. Lift your finger after 5 minutes to see if the bleeding has stopped. 3. Once the bleeding has stopped, gently wipe the wrist area clean with a bandage. * If the bleeding from your wrist does not stop after 10 minutes, or if there is a large amount of bleeding or spurting, call 911 (do not drive yourself to the hospital). SKIN IRRITATION: * You may experience some redness and/or swelling in the area where radiation was administered. If any skin irritation occurs, please contact your family physician. Heart Attack Home Care: * Take your medications exactly as directed. Don't skip doses. * Remember that recovery after a heart attack takes time. Plan to rest for at least 4-8 weeks while you recover. Then return to normal activity when your doctor says it's okay. * You will be set up with cardiac rehabilitation. * Tell your doctor if you are feeling depressed. Feelings of sadness are common after a heart attack, but it is important that you speak to someone if you are feeling overwhelmed by these feelings. * If you are having chest pain, call 911 for an ambulance. Do NOT drive yourself to the hospital. * Ask your family members to learn CPR. * Learn to take your own blood pressure and pulse. Keep a record of your results. Ask your doctor when you should seek emergency medical attention. He or she will tell you which blood pressure reading is dangerous. Lifestyle Changes: * Maintain a healthy weight. Get help to lose any extra pounds. * Cut back on salt. * Limit canned, dried, packaged, and fast foods. * Don't add salt to your food. * Season foods with herbs instead of salt when you cook. * Break the smoking habit. Enroll in a stop-smoking program to improve your chances of success. * Limit fatty foods. * Ask your doctor about having your lipid levels checked regularly. * Build up your activity according to your doctor's recommendation. * Ask your doctor when it's okay to resume sexual activity. * Try to manage stress. Follow Up: It is important for you to keep your follow up appointments with your medical provider. Current Hospital Diet Patient's current hospital diet: AHA Diet (Heart Healthy), Diabetes Type 2 Diet Discharge Diet Recommended Diet: AHA Diet (Heart Healthy), Diabetes Type 2 Diet Procedures Procedures Performed: Cardiac catheterization, PCI with 2 stents Pending Studies Studies pending at discharge: no Laboratory Results Hemoglobin A1c Test 05/18/17 03:50 Range/Units Estimated Average Glucose 131 mg/dl Hemoglobin A1c 6.2 H 4.5-5.6 % Lipid Panel Test 05/18/17 03:50 Range/Units Triglycerides Level 162 H 0-150 mg/dl Cholesterol Level 206 H 0-200 mg/dl HDL Cholesterol 59 mg/dl Cholesterol/HDL Ratio 3.5 LDL Cholesterol, Calculated 115 mg/dl Medical Emergencies . Who to Call and When: Medical Emergencies: If at any time you feel your situation is an emergency, please call 911 immediately. Call 911 immediately or go to your nearest Emergency Room if you experience any of the following: Warning Signs and Symptoms of a Heart Attack * Chest pain that is not relieved by medication * Shortness of breath . Non-Emergent Contact Non-Emergency issues call your: Primary Care Provider, Stator Plate Washer Call Non-Emergent contact if: you have a fever, your pain is not controlled, your pain is worsening, your pain is unusual for you, your pain is concerning you, wound has increased drainage, wound has increased redness, wound has increased pain, you have any medication questions . Past History Medical & Surgical History: (1) Non-STEMI (non-ST elevated myocardial infarction) . "Provider Documentation" section prepared by Catherine Jacob. . AMI Core Measures Reason no ASA as I/P: Treatment provided - N/A Reason no ASA at D/C: Treatment provided - N/A Reason no statin as I/P: Treatment not tolerated Reason no statin at D/C: Treatment not tolerated VTE Core Measure Inpt VTE Proph given/why not?: Other Anticoagulation, T.E.D. Stockings, SCD's
--- NOTE | 2017-05-21 13:26 | Discharge Summary ---
Discharge Summary Date of Service May 21, 2017. Discharge Summary Admission Date: May 17, 2017 at 16:12 Discharge Date: May 21, 2017 Discharge Disposition: Home Principal Diagnosis: Acute NSTEMI Immunizations: Have You Had Influenza Vaccine: Yes Influenza Vaccine Date: Jul 28, 2009 History of Tetanus Vaccine?: No History of Pneumococcal: Yes Pneumococcal Date: Oct 17, 2010 History of Hepatitis B Vaccine: No Procedures: Procedure Note Procedure Date May 20, 2017. Pre-Procedure Diagnosis Non STEMI AUC Score 8 Post-Procedure Diagnosis Severe CAD, Successful PCI, Normal Intracardiac Pressures Procedure(s) Performed Coronary Angiography, Left Heart Cath, Drug Eluting Stent Educational Coordinator Paul Foreign Languages Professor(s) Efrain Estimated Blood Loss 15 Medication(s) Clopidogrel, Fentanyl, Heparin, Nicardipine, Nitroglycerin, Versed, Lidocaine 1% Summary of Findings Indication: High-risk NSTEMI Access: 6Fr Right radial artery slender Catheters: [place]; JR4 guide Findings: LM - 20% ostial stenosis LAD - Moderate caliber vessel, 20-30% proximal disease, patent mid segment stent with 40-50% at the distal end of prior stent; luminal irregularities as wraps around apex. 40% ostial stenosis of small 2nd diagonal. Circumflex - Patent mid segment stents into OM2; diffusely disease small distal circumflex into OM3 RCA - Dominant, 70% proximal stenosis, 99% mid RCA stenosis (likely culprit), 70 -80% early-distal segment stenosis; R-PDA, PLB with luminal irregularities. LVEDP - 9 -- PCI -- Antithrombotic therapy: Heparin, Clopidogrel Procedure: RCA cannulated with JR4 guide Chimney Mechanic 50 wire passed across lesions into distal PDA Proximal/mid/distal lesions predilated with 2.5 compliant balloon Distal lesion stented with 2.75 x 18 Resolute RUPERT Proximal to mid RCA lesions stented with overlapping 3.0 x 26 Resolute RUPERT Stents post-dilated with 3.25 noncompliant balloon IC vasodilators administered for spasm Post procedure DIEGO 3 flow, stent well expanded with minimal residual stenosis and no apparent cardiac complications. Arterial Closure: TR Band Summary: 1. Severe single vessel coronary artery disease - Multiple sequential RCA lesions up to 99% in the mid segment 2. Normal intracardiac filling pressure 3. Successful PCI of RCA with 2 overlapping RUPERT (3.0 x 26, 2.75 x 18 Resolute RUPERT) Consultations: Cardiology--Dr. Miller Medication Reconciliation New Medications: Lisinopril (Lisinopril) 5 Mg Tab 5 MG PO DAILY for 30 Days, #30 TABS Clopidogrel Bisulfate (Clopidogrel) 75 Mg Tab 75 MG PO QAM for 30 Days, #30 TAB Continued Medications: Albuterol Sulfate (Proair Respiclick) 108 Mcg/Act Aer 2 PUFFS INH PRN for Shortness of Breath Amlodipine Besylate (Norvasc) 5 Mg Tab 5 MG PO QAM Aspirin (Aspirin Ec) 81 Mg Tab 81 MG PO DAILY Biotin (Biotin) 1 Mg Cap 1 CAP PO QAM Cholecalciferol (Vitamin D3) 2,000 Unit Cap 1 CAP PO QAM Colestipol Hcl (Colestid) 1 Gm Tab 2 GM PO BID Cyanocobalamin (Vitamin B-12) 1,000 Mcg Tab 1000 MCG PO QAM, TAB Ipratropium-Albuterol (Combivent Respimat) 1 Aer Aer 1 PUFFS INH QID, INH Latanoprost (Latanoprost) 37 Drops/2.5 Ml Soln 1 DROP OPB HS Metoprolol Succinate (Metoprolol Succinate ER) 50 Mg Tabcr 1.5 TAB PO DAILY, #45 Nitroglycerin (Nitrostat) 0.4 Mg Tab 0.4 MG UT PRN PRN for CHEST PAIN, BTL Pantoprazole (Protonix) 40 Mg Tab 40 MG PO PRN Sertraline HCl (Sertraline HCl) 50 Mg Tab 1 TAB PO DAILY Trazodone Hcl (Trazodone) 50 Mg Tab 1 TAB PO PRN for Pain Discharge Exam The patient reports feeling well. She denies any chest pain or pain at the radial cath site. She states she is somewhat short of breath, but states this is minimal. She otherwise denies any complaints and is eager for discharge. The patient denies fevers, chills, sweats, chest pain, palpitations, claudication, cough, wheezing, nausea, vomiting, abdominal pain, dysuria, hematuria, urinary retention, paralysis, weakness, numbness and tingling. Review of Systems: Constitutional: No fever, No chills, No sweats Eyes: No worsening of vision, No eye pain, No diplopia ENT: No hearing loss, No sore throat, No trouble swallowing Respiratory: + shortness of breath, No cough, No wheezing Cardiovascular: No chest pain, No claudication, No palpitations Abdomen: No pain, No nausea, No vomiting Musculoskeletal: No joint pain, No muscle pain, No calf pain Genitourinary - Female: No dysuria, No urinary retention, No hematuria Neurologic: No paralysis, No weakness, No numbness/tingling Integumentary: No rash, No itch, No color change Physical Exam: General Appearance: WD/WN, no apparent distress, + obese Eyes: normal inspection, PERRL, EOMI ENT: normal ENT inspection, hearing grossly normal, pharynx normal Neck: supple, no JVD, trachea midline Respiratory/Chest: normal breath sounds, no respiratory distress, + wheezing (diffuse inspiratory wheezing, especially in bases) Cardiovascular: regular rate, rhythm, no gallop, no murmur Abdomen / GI: normal bowel sounds, non tender, soft Extremities: normal inspection, no calf tenderness, no pedal edema Neurologic/Psychiatric: alert, normal mood/affect, oriented x 3 Skin: normal color, warm/dry, no rash Hospital Course 82 y/o female with a history of CAD s/p PCI w/ stents to LAD and circumflex, diastolic CHF, paroxysmal a.fib, HTN, HDL, depression, insomnia, and GERD who presents to the ED on 05/17 with chest pain. NSTEMI s/p cardiac cath and RUPERT placement--stable - [facility]. No acute events overnight. Pt in sinus rhythm with HR in 70s-90s - EKG QAM and PRN CP - EKG 05/20 shows 56 bpm, NSR - Initial trop 1.050, peaked at 2.19 before cath - Cardiac cath 05/20 showed 99% stenosis of RCA. 2 RUPERT placed. Pt will need DAPT for 1 year. Consult cardiac rehab - Troponin trended following cath, peaked at 1.78 then trended down prior to discharge - O2 by protocol, currently on room air - IV Morphine and nitro PRN pain - D/C heparin drip post cath - HgbA1c was 6.2 on 05/18 - Lipid panel 05/09: triglycerides 162, total cholesterol 206, LDL 115, HDL 59 - Leukocytosis, ?secondary to cardiac stress--resolved prior to discharge, WBC WNL - Consult cardiology, appreciate recs: DAPT for 1 year. Continue beta tess. Add lisinopril 5 mg PO qd. Follow up BMP in 1 week. Follow up in 2- 3 weeks. - ASCVD risk calculated, moderate intensity statin recommended, but pt does not tolerate statins - Pt discharged with Plavix 75 mg PO qd and lisinopril 5 mg PO qd. Continue beta tess, aspirin, and Colestid. Pt scheduled to f/u w/cardiology in 2 weeks CAD s/p PCI w/ stents to LAD and circumflex and now RCA, diastolic CHF, paroxysmal a.fib, HTN, HDL--stable - Continue Norvasc 5 mg daily, ASA, Metoprolol 75 mg daily, Colestipol 2 mg BID - Add Plavix and lisinopril as above - Note: intolerant to statins COPD--wheezing on exam but denies worsening SOB -Continue Combivent inh QID and albuterol prn -F/u with PCP Depression -Continue Sertraline 50 mg daily Insomnia -Trazodone 50 mg HS PRN GERD, hiatal hernia- follows w/ Dr. Le - Continue Protonix 40 mg daily - EGD completed in 01/04 DVT prophylaxis -Heparin drip Code Status -Level V, DO NOT RESUSCITATE Dispo -From home, lives w/ family -Pt to return to home, no d/c needs Total Time Spent: Greater than 30 minutes This includes examination of the patient, discharge planning, medication reconciliation, and communication with other providers. Discharge Instructions Please refer to the electronic Patient Visit Report (Discharge Instructions) for additional information. Follow-Up F/u PCP w/PAM Jenkins, on May 28 F/u cardiology w/Nohemi Stephen PA-C, on June 06 Additional Copies To Tirso Marie M.D.; Sarah Watkins, C.R.NEsauP.
[2017-05-21 13:33] VITALS: BP 146/74; PULSE 67; TEMP 36.5; O2SAT 92
--- NOTE | 2017-05-21 13:33 | Clinical Documentation Query ---
MS. TORRES FLEX : CLINICAL DOCUMENTATION QUERY Patient is an 82 year old female admitted for evaluation and treatment of NSTEMI. BUN, creatinine, and estimated GFR on admission of 25 mg/dl, 1.30 mg/dl, and 38 ml/min. Subsequent to this, the serum creatinine has normalized. There is no documented history of CKD. As appropriate, consider clarification as suggested below in order to capture the severity of illness and risk of mortality associated with this important clinical diagnosis. Thank you. In your clinical opinion is this patient being managed for: ( x ) Acute kidney failure, POA, resolved ( ) Other explanation of clinical findings (Please Explain) ( ) Unable to determine (Please Define) ( ) Need to Discuss ( ) Not Agree The medical record reflects the following clinical findings, treatment, and risk factors. Clinical Indicators: As above Treatment: IVF, serial chemistries Risk Factors: Age, poor intake, medications Please clarify and document your clinical opinion in the progress notes and discharge summary. Terms such as "probable", "suspected", "likely", "questionable", "possible", or "still to be ruled out" are acceptable. IF IN AGREEMENT, YOU MUST DOCUMENT ABOVE DIAGNOSTIC STATEMENT IN DAILY PROGRESS NOTES AND DISCHARGE SUMMARY. This document is not part of the patient's record. Thank You, Brown Chamorro RN [phone]
[2017-07-16] MEDS ORDERED: LISI-729 PO (11:40)
[2017-07-16] MEDS ORDERED: SERT-234 PO (11:40)
[2017-07-16] MEDS ORDERED: ROSU5TAB PO (11:40)
[2017-07-16] MEDS ORDERED: PROM25TA9 PO (11:40)
[2017-07-16] MEDS ORDERED: ALBU18002 INH (11:40)
[2017-07-16] MEDS ORDERED: CLOP1TAB15 PO (11:41)
== END 2017-05-21 14:15 | disposition home or self-care (01) | DRG 247 ==
LOC: EDBD 13:18 → C.EDA 13:19 → C.2T 16:12 → ENRESERV 17:37
PROVIDERS: ADMIT Internal Medicine; ATTEND Hospitalist
PROC: 027035Z Dilation of Coronary Artery, One Artery with Two Drug-eluting Intraluminal Devices, Percutaneous Approach (ICD-10-PCS; principal; 2017-05-20 07:07)
PROC: B2111ZZ Fluoroscopy of Multiple Coronary Arteries using Low Osmolar Contrast (ICD-10-PCS; principal; 2017-05-20 07:07)
PROC: 4A023N7 Measurement of Cardiac Sampling and Pressure, Left Heart, Percutaneous Approach (ICD-10-PCS; principal; 2017-05-20 07:07)
DX: I21.4 Non-ST elevation (NSTEMI) myocardial infarction (principal); I50.32 Chronic diastolic (congestive) heart failure; N17.9 Acute kidney failure, unspecified; I25.10 Atherosclerotic heart disease of native coronary artery without angina pectoris; Z95.5 Presence of coronary angioplasty implant and graft; I48.0 Paroxysmal atrial fibrillation; I11.0 Hypertensive heart disease with heart failure; E78.5 Hyperlipidemia, unspecified; F32.9 Major depressive disorder, single episode, unspecified; K21.9 Gastro-esophageal reflux disease without esophagitis; E66.9 Obesity, unspecified; J44.9 Chronic obstructive pulmonary disease, unspecified; K44.9 Diaphragmatic hernia without obstruction or gangrene; Z66 Do not resuscitate; Z88.8 Allergy status to other drugs, medicaments and biological substances; Z79.82 Long term (current) use of aspirin; Z79.899 Other long term (current) drug therapy; Z79.4 Long term (current) use of insulin; G47.00 Insomnia, unspecified

== ENCOUNTER → 2017-05-31 | Outpatient (CLI) | payer OTHER ==
[~2017-05-31] MED LIST changes: +ALBU18002 INH; -ASPEC81 PO; +ASPI81TA28 PO; -BUME1TAB PO; +CLOP1TAB15 PO; -DICL1GEL28 TOP; +LISI-729 PO; +LSN5 PO; -MAGNTAB4 PO; +PLV75 PO; -POTA20TA16 PO; -PROM25TA PO; +PROM25TA9 PO; +ROSU5TAB PO; +SERT-234 PO; -SERT50TA PO; +TPRSR/50 PO; -TPRSR50 PO; +TRAZ50TA35 PO; +ZLF/50 PO
[2017-05-31 16:39] LABS: BLOOD UREA NITROGEN 22 mg/dl (7-18); BUN/CREATININE RATIO 20.3 (10-20); CALCIUM 9.5 mg/dl (8.5-10.1); CARBON DIOXIDE 29 mmol/L (21-32); CHLORIDE 107 mmol/L (98-107); GLUCOSE 133 mg/dl (70-99); POTASSIUM 4.6 mmol/L (3.5-5.1); SODIUM 141 mmol/L (136-145)
== END | disposition home or self-care (01) ==
LOC: C.LABBFT 17:28
PROVIDERS: ATTEND Internal Medicine
DX: Z79.899 Other long term (current) drug therapy (principal)

== ENCOUNTER 2017-07-23 13:07 | Emergency (ER) | payer OTHER ==
[~2017-07-23] VITALS: Ht 152.4 cm; Wt 68.6 kg
[~2017-07-23 13:07] MED LIST changes: -LIDOCAINE HCL 2% 2 ML VIAL (20MG/ML) ONE; -ONDANSETRON INJ 2 MG/ML 2 ML VIAL ONE; -PROPOFOL IV EMULSION 10 MG/ML 20 ML VIAL IV ONE; -SODIUM CHLORIDE 0.9% 500ML 500 ML IV ONE
[2017-07-23 13:19] VITALS: TEMP 36.8; Ht 152.4 cm; Wt 68.6 kg
[2017-07-23 13:28] VITALS: O2SAT 98
[2017-07-23] MEDS ORDERED: SODIUM CHLORIDE 0.9% 1000ML 1,000 ML IV STA (13:36)
[2017-07-23] MEDS ORDERED: ONDANSETRON INJ 2 MG/ML 2 ML VIAL IV STA (13:37)
--- NOTE | 2017-07-23 14:09 | DIAGNOSTIC IMAGING REPORT ---
CHEST ONE VIEW PORTABLE HISTORY: 82 years-old Female EVALUATE ALTERED MENTAL STATUS/WEAKNESS acute altered mental status COMPARISON: Chest radiograph 05/17/2017 TECHNIQUE: Portable upright AP view of the chest FINDINGS: Cardiac silhouette again mildly enlarged. There is atherosclerosis of the aorta. No pneumothorax or pleural effusion. Linear subsegmental bibasilar opacities are again noted suggesting atelectasis/scarring. Degenerative changes are seen about the spine and shoulders. IMPRESSION: 1. No acute cardiopulmonary process. 2. Mild cardiomegaly with subsegmental bibasilar atelectasis or scarring. The above report was generated using voice recognition software. It may contain grammatical, syntax or spelling errors. Electronically signed by: Bran Og M.D. 07/23/2017 2:08 PM Dictated Date/Time: 07/23/2017 2:06 PM
[2017-07-23 14:35] LABS: BASO % 0.5 %; BASO ABS # 0.03 K/uL (0-0.2); COMPLETE YES; EOS % 0.8 %; HEMATOCRIT 36.4 % (37-47); IG% 0.3 %; LYMPH ABS # 1.81 K/uL (1.2-3.4); MEAN CELL VOLUME 91.7 fL (80-100); MEAN CORPUSCULAR HGB CONC 34.9 g/dl (32-36); MONO % 7.8 %; NEUT % 60.6 %; PLATELET COUNT 224 K/uL (130-400); RED BLOOD COUNT 3.97 M/uL (4.2-5.4); WHITE BLOOD COUNT 6.04 K/uL (4.8-10.8)
[2017-07-23 14:42] LABS: INR 1.1 (0.9-1.1); PARTIAL THROMBOPLASTIN RATIO 0.9; PROTHROMBIN TIME (PATIENT) 11.6 SECONDS (9.0-12.0)
[2017-07-23 14:54] LABS: ALT/SGPT 22 U/L (12-78); AST/SGOT 24 U/L (15-37); BLOOD UREA NITROGEN 14 mg/dl (7-18); BUN/CREATININE RATIO 13.1 (10-20); CALCIUM 9.4 mg/dl (8.5-10.1); CARBON DIOXIDE 22 mmol/L (21-32); CHLORIDE 112 mmol/L (98-107); GLUCOSE 101 mg/dl (70-99); MAGNESIUM 1.7 mg/dl (1.8-2.4); POTASSIUM 4.1 mmol/L (3.5-5.1); SODIUM 145 mmol/L (136-145)
[2017-07-23 15:02] LABS: ALKALINE PHOSPHATASE 77 U/L (45-117); CKMB/CK RATIO 2.2 (0-3.0)
[2017-07-23 15:42] LABS: URINE APPEARANCE CLEAR (CLEAR); URINE BILIRUBIN NEG (NEG); URINE COLOR YELLOW; URINE NITRITE NEG (NEG); URINE SPECIFIC GRAVITY 1.017 (1.000-1.030); UROBILINOGEN NEG (NEG); ZZUR CULT IF INDIC CLEAN CATCH NO
[2017-07-23 15:52] LABS: MANUAL MICROSCOPIC REQUIRED? NO; REVIEW REQ? YES
--- NOTE | 2017-07-23 16:18 | EMERGENCY ROOM VISIT NOTE ---
History Report prepared by Oscaribmelvin: George Leiva Under the Supervision of: Dr. Roger Camilo D.O. First contact with patient: 13:28 Chief Complaint: OTHER COMPLAINT Stated Complaint: U History of Present Illness The patient is a 82 year old female who presents to the Emergency Room with complaints of a syncopal episode occurring just prior to arrival. She states that she passed out after receiving lidocaine during an esophageal stretching procedure. She currently complains of fatigue. The patient does not wear oxygen at home. She was on a monitor during the entire episode, and her blood pressure was never hypotensive. She notes that she felt a little sick prior to the procedure, and vomited this morning. The patient notes that the esophageal stretching did not actually take place due to her syncopal episode. She notes that she has felt dizzy and nauseous for the past several days as well. She states that she has not had anything to eat or drink for about 20 hours. The patient has a history of an [place] occurring a few months ago. Source of History: patient Onset: Just prior to arrival Quality: other (syncope) Timing: other (episode) Associated Symptoms: + nausea, + vomiting, + fatigue Note: Additional symptoms: dizziness beginning a few days ago. Review of Systems See HPI for pertinent positives & negatives. A total of 10 systems reviewed and were otherwise negative. Past Medical & Surgical Medical Problems: (1) Coronary Atherosclerosis Of Jamul Coronary Vessel (2) Diverticulosis Colon (W/O Ment Of Hemorrhage) (3) Hypertension Nos (4) INTRACTABLE NAUSEA AND VOMITING (5) Primary Hyperparathyroidism (6) Pure Hypercholesterolem Family History Patient reports no known family medical history. Social History Smoking Status: Never Smoker Alcohol Use: none Drug Use: none Marital Status: Housing Status: lives with family Occupation Status: retired Current/Historical Medications Scheduled Amlodipine Besylate (Norvasc), 5 MG PO QAM Aspirin (Aspirin Ec), 81 MG PO QAM Biotin (Biotin), 1 CAP PO QAM Cholecalciferol (Vitamin D3), 1 CAP PO QAM Clopidogrel (Plavix), 75 MG PO QAM Colestipol Hcl (Colestid), 2 GM PO BID Cyanocobalamin (Vitamin B-12), 1,000 MCG PO QAM Ipratropium-Albuterol (Combivent Respimat), 1 PUFFS INH QID Latanoprost (Latanoprost), 1 DROP OPB HS Lisinopril (Zestril), 5 MG PO QAM Metoprolol Succinate (Metoprolol Succinate ER), 1.5 TAB PO QAM Rosuvastatin Calcium (Crestor), 5 MG PO QPM Sertraline (Zoloft), 100 MG PO QAM Scheduled PRN Albuterol Sulfate (Proair Respiclick), 2 PUFF INH QID PRN for Shortness of Breath Nitroglycerin (Nitrostat), 0.4 MG UT PRN PRN for CHEST PAIN Promethazine Hcl (Phenergan), 25 MG PO Q6H PRN for Nausea Allergies Coded Allergies: Atorvastatin (Verified Allergy, Unknown, MUSCLE ACHES, 07/23/17) Citalopram (Verified Allergy, Unknown, G I UPSET-, 07/23/17) Hydrochlorothiazide (Verified Allergy, Unknown, UNKNOWN-INEFFECTIVE?, 07/23) Niacin (Verified Allergy, Unknown, UNKNOWN, 07/23/17) Simvastatin (Verified Adverse Reaction, Unknown, MUSCLE ACHES, 07/23/17) Physical Exam Vital Signs Date Time Temp Pulse Resp B/P (MAP) Pulse Ox O2 Delivery O2 Flow Rate FiO2 07/23/17 16:01 62 16 132/72 97 Nasal Cannula 2.0 07/23/17 14:54 67 16 126/62 95 Nasal Cannula 2.0 07/23/17 13:28 98 Nasal Cannula 4.0 07/23/17 13:19 36.8 69 16 152/77 99 Nasal Cannula 4.0 07/23/17 13:17 66 Physical Exam CONSTITUTIONAL/VITAL SIGNS: Reviewed / noted above. GENERAL: Non-toxic in appearance. INTEGUMENTARY: Warm, dry, and [place]. HEAD: Normocephalic. EYES: without scleral icterus or trauma. ENT/OROPHARYNX: clear and moist. LYMPHADENOPATHY/NECK: Is supple without lymphadenopathy or meningismus. RESPIRATORY: Lungs clear and equal. CARDIOVASCULAR: Regular rate and rhythm. GI/ABDOMEN: Soft and nontender. No organomegaly or pulsatile mass. No rebound or guarding. Normal bowel sounds. EXTREMITIES: Warm and well perfused. BACK: No CVA tenderness. NEUROLOGICAL: Intact without focal deficits. PSYCHIATRIC: normal affect. MUSCULOSKELETAL: Normally developed with good muscle tone. Medical Decision & Procedures ER Provider Diagnostic Interpretation: X ray results and stated below per my interpretation and radiology interpretation. CHEST ONE VIEW PORTABLE FINDINGS: Cardiac silhouette again mildly enlarged. There is atherosclerosis of the aorta. No pneumothorax or pleural effusion. Linear subsegmental bibasilar opacities are again noted suggesting atelectasis/scarring. Degenerative changes are seen about the spine and shoulders. IMPRESSION: 1. No acute cardiopulmonary process. 2. Mild cardiomegaly with subsegmental bibasilar atelectasis or scarring. The above report was generated using voice recognition software. It may contain grammatical, syntax or spelling errors. Electronically signed by: Bran Og M.D. 07/23/2017 2:08 PM Laboratory Results 07/23/17 14:21 Red Blood Count 3.97, Mean Corpuscular Volume 91.7, Mean Corpuscular Hemoglobin 32.0, Mean Corpuscular Hemoglobin Concent 34.9, Mean Platelet Volume 10.0, Neutrophils (%) (Auto) 60.6, Lymphocytes (%) (Auto) 30.0, Monocytes (%) (Auto) 7.8, Eosinophils (%) (Auto) 0.8, Basophils (%) (Auto) 0.5, Neutrophils # (Auto) 3.66, Lymphocytes # (Auto) 1.81, Monocytes # (Auto) 0.47, Eosinophils # (Auto) 0.05, Basophils # (Auto) 0.03 07/23/17 14:21 Test 07/23/17 00:00 07/23/17 14:21 Urine Color YELLOW Urine Appearance CLEAR (CLEAR) Urine pH 5.0 (4.5-7.5) Urine Specific [place] 1.017 (1.000-1.030) Urine Protein NEG (NEG) Urine Glucose (UA) NEG (NEG) Urine Ketones NEG (NEG) Urine Occult Blood NEG (NEG) Urine Nitrite NEG (NEG) Urine Bilirubin NEG (NEG) Urine Urobilinogen NEG (NEG) Urine Leukocyte Esterase NEG (NEG) White Blood Count 6.04 K/uL (4.8-10.8) Red Blood Count 3.97 M/uL (4.2-5.4) Hemoglobin 12.7 g/dL (12.0-16.0) Hematocrit 36.4 % (37-47) Mean Corpuscular Volume 91.7 fL (80-100) Mean Corpuscular Hemoglobin 32.0 pg (25-34) Mean Corpuscular Hemoglobin Concent 34.9 g/dl (32-36) Platelet Count 224 K/uL (130-400) Mean Platelet Volume 10.0 fL (7.4-10.4) Neutrophils (%) (Auto) 60.6 % Lymphocytes (%) (Auto) 30.0 % Monocytes (%) (Auto) 7.8 % Eosinophils (%) (Auto) 0.8 % Basophils (%) (Auto) 0.5 % Neutrophils # (Auto) 3.66 K/uL (1.4-6.5) Lymphocytes # (Auto) 1.81 K/uL (1.2-3.4) Monocytes # (Auto) 0.47 K/uL (0.11-0.59) Eosinophils # (Auto) 0.05 K/uL (0-0.5) Basophils # (Auto) 0.03 K/uL (0-0.2) RDW Standard Deviation 44.7 fL (36.4-46.3) RDW Coefficient of Variation 13.3 % (11.5-14.5) Immature Granulocyte % (Auto) 0.3 % Immature Granulocyte # (Auto) 0.02 K/uL (0.00-0.02) Prothrombin Time 11.6 SECONDS (9.0-12.0) Prothromb Time International Ratio 1.1 (0.9-1.1) Activated Partial Thromboplast Time 23.9 SECONDS (21.0-31.0) Partial Thromboplastin Ratio 0.9 Anion Gap 11.0 mmol/L (3-11) Est Creatinine Clear Calc Drug Dose 32.9 ml/min Estimated GFR () 53.4 Estimated GFR (Non- 46.1 BUN/Creatinine Ratio 13.1 (10-20) Calcium Level 9.4 mg/dl (8.5-10.1) Magnesium Level 1.7 mg/dl (1.8-2.4) Total Bilirubin 0.4 mg/dl (0.2-1) Direct Bilirubin 0.1 mg/dl (0-0.2) Aspartate Amino Transf (AST/SGOT) 24 U/L (15-37) Alanine Aminotransferase (ALT/SGPT) 22 U/L (12-78) Alkaline Phosphatase 77 U/L (45-117) Total Creatine Kinase 55 U/L (26-192) Creatine Kinase MB 1.2 ng/ml (0.5-3.6) Creatine Kinase MB Ratio 2.2 (0-3.0) Troponin I < 0.015 ng/ml (0-0.045) Total Protein 6.6 gm/dl (6.4-8.2) Albumin 3.5 gm/dl (3.4-5.0) Thyroid Stimulating Hormone (TSH) 1.640 uIu/ml (0.300-4.500) Laboratory results as stated above per my review. Medications Administered Medications (Trade) Dose Ordered Sig/Tadeo Route Start Time Stop Time Status Last Admin Dose Admin Sodium Chloride 1,000 ml @ 300 mls/hr Q3H20M STAT IV 07/23/17 13:36 07/23/17 16:55 07/23/17 14:29 300 MLS/HR ECG Indication: syncope Rate (beats per minute): 64 Rhythm: normal sinus Findings: no acute ischemic change, no ectopy ED Course 1333: Previous medical records were reviewed. The patient was evaluated in room B4B. A complete history and physical examination was performed. 1336: Ordered Sodium Chloride 1000 ml @ 300 mls/hr IV, Zofran Inj 4 mg IV. 1615: On reevaluation, the patient is resting comfortably. I discussed the results and findings with the patient. She verbalized agreement of the treatment plan. She was discharged home. Medical Decision Differential diagnosis: Etiologies such as vasovagal event, infection, hypoglycemia, electrolyte abnormalities, cardiac sources, intracerebral event, toxicologic, neurologic, as well as others were entertained. This is an 82-year-old female who presents to the ED with a chief complaint of an unresponsive episode after being administered 80 mg of IV lidocaine by anesthesia services. The patient was to undergo an endoscopy. She states that after receiving the IV medication she became very dizzy. The patient was unresponsive for about 45 seconds. She was sent here for evaluation. The patient's blood pressure and heart rate were slightly elevated at the time as she was monitored by anesthesia services. She currently reports feeling tired but has no other complaints. Her vital signs reveal a slight hypertension. Her physical exam was unremarkable. Blood work was unremarkable. EKG showed a normal sinus rhythm. The patient was told the results. She was given small IV fluids and IV Zofran. On reassessment, she is feeling fine. She would like to go. She was discharged. Medication Reconcilliation Current Medication List: was personally reviewed by me Blood Pressure Screening Patient's blood pressure: Elevated blood pressure Blood pressure disposition: Elevated BP felt to be situational Impression Primary Impression: Syncope Additional Impression: Adverse anesthesia outcome Scribe Attestation The scribe's documentation has been prepared under my direction and personally reviewed by me in its entirety. I confirm that the note above accurately reflects all work, treatment, procedures, and medical decision making performed by me. Departure Information Dispostion Home / Self-Care Referrals Tirso Marie M.D. (PCP) Patient Instructions [facility] Additional Instructions Follow-up with your doctor for further care and evaluation in 1-2 days. Return to the emergency department for worsening or new symptoms or any concerns. You have been examined and treated today on an emergency basis only. This is not a substitute for, or an effort to provide, complete comprehensive medical care. It is impossible to recognize and treat all injuries or illnesses in a single emergency department visit. It is therefore important that you follow up closely with your doctor. Call as soon as possible for an appointment. Problem Qualifiers
[2017-07-23 16:34] LABS: URINE PATH CASTS 0-3 GRANULAR CASTS /lpf (0)
[2017-07-23 16:45] VITALS: BP 134/76; PULSE 88; O2SAT 98
== END 2017-07-23 16:45 | disposition home or self-care (01) ==
LOC: EDBD 13:07 → EDSEX 13:07 → C.EDB 13:08
DX: R55 Syncope and collapse (principal); T41.3X5A Adverse effect of local anesthetics, initial encounter; X58.XXXA Exposure to other specified factors, initial encounter; I25.2 Old myocardial infarction; I25.10 Atherosclerotic heart disease of native coronary artery without angina pectoris; K57.30 Diverticulosis of large intestine without perforation or abscess without bleeding; I10 Essential (primary) hypertension; E21.0 Primary hyperparathyroidism; E78.00 Pure hypercholesterolemia, unspecified; Z79.82 Long term (current) use of aspirin

== ENCOUNTER → 2017-07-23 | Day surgery (SDC) | payer OTHER ==
[2017-07-16 11:28] VITALS: BMI 29.0
[~2017-07-23] VITALS: Ht 152.4 cm; Wt 68.2 kg
[~2017-07-23] MED LIST changes: +LIDOCAINE HCL 2% 2 ML VIAL (20MG/ML) ONE; -LSN5 PO; +ONDANSETRON INJ 2 MG/ML 2 ML VIAL ONE; -PLV75 PO; +PROPOFOL IV EMULSION 10 MG/ML 20 ML VIAL IV ONE; +SODIUM CHLORIDE 0.9% 500ML 500 ML IV ONE; -TRAZ50TA35 PO; -ZLF/50 PO
[2017-07-23 12:16] VITALS: Ht 152.4 cm; Wt 68.2 kg
[2017-07-23 12:19] VITALS: BP 144/71; PULSE 72; TEMP 36.5; O2SAT 97
--- NOTE | 2017-07-23 12:24 | Endo History and Physical ---
History & Physical Date of Service: Jul 23, 2017. Chief Complaint: dysphagia Referring Physician: History of Present Illness dysphagia Past Medical History Atrial Fibrillation, Angioplasty/Stent, Arthritis, Reflux, Cancer, High Cholesterol, Heart Disease, CHF, Hypertension, Thyroid Disease, Depression Past Surgical History Hx Cardiac Surgery: Yes (HEART CATH X2>4 TOTAL STENTS PLACED) Hx Internal Defibrillator: No Hx Pacemaker: No Hx Abdominal Surgery: Yes (EXPLORATORY LAP) Hx of Implantable Prosthesis: No Hx Post-Op Nausea and Vomiting: No Hx Cancer Surgery: Yes (COLON RESECTION) Hx Thoracic Surgery: No Hx Orthopedic: Yes (RT RCR) Hx Urinary Tract Surgery: No Family History Colon CA Social History Smoking Status: Never Smoker Hx Substance Use: No Hx Alcohol Use: No Allergies Coded Allergies: Atorvastatin (Verified Allergy, Unknown, MUSCLE ACHES, 07/16/17) Citalopram (Verified Allergy, Unknown, G I UPSET-, 07/16/17) Hydrochlorothiazide (Verified Allergy, Unknown, UNKNOWN-INEFFECTIVE?, 07/16) Niacin (Verified Allergy, Unknown, UNKNOWN, 07/16/17) Simvastatin (Verified Adverse Reaction, Unknown, MUSCLE ACHES, 07/16/17) Current Medications Reported Home Medications Medications Dose Route/Sig Max Daily Dose Days Date Category Dose Instructions Plavix (Clopidogrel Bisulfate) 75 Mg Tab 75 Mg PO QAM 07/16/17 Reported Zoloft (Sertraline HCl) 100 Mg Tab 100 Mg PO QAM 07/16/17 Reported Crestor (Rosuvastatin Calcium) 5 Mg Tab 5 Mg PO QPM 07/16/17 Reported Phenergan (Promethazine HCl) 25 Mg Tab 25 Mg PO Q6H PRN 07/16/17 Reported Proair Respiclick (Albuterol Sulfate) 108 Mcg/Act Aer 2 Puff INH QID PRN 07/16/17 Reported Zestril (Lisinopril) 5 Mg Tab 5 Mg PO QAM 07/16/17 Reported Metoprolol Succinate ER (Metoprolol Succinate) 50 Mg Tabcr 1.5 Tab PO QAM 05/17/17 Reported Aspirin Ec (Aspirin) 81 Mg Tab 81 Mg PO QAM 05/17/17 Reported Protonix (Pantoprazole Sodium) 40 Mg Tab 40 Mg PO QAM 01/09/17 Reported PRN Combivent Respimat (Ipratropium-Albuterol) 1 Aer Aer 1 Puffs INH QID 05/23/16 Reported Nitrostat (Nitroglycerin) 0.4 Mg Tab 0.4 Mg UT PRN PRN 05/23/16 Reported Vitamin B-12 (Cyanocobalamin) 1,000 Mcg Tab 1,000 Mcg PO QAM 05/23/16 Reported Vitamin D3 (Cholecalciferol) 2,000 Unit Cap 1 Cap PO QAM 01/09/16 Reported Biotin 1 Mg Cap 1 Cap PO QAM 01/09/16 Reported Latanoprost 37 Drops/2.5 Ml Soln 1 Drop OPB HS 10/03/14 Reported Colestid (Colestipol Hcl) 1 Gm Tab 2 Gm PO BID 10/16/12 Reported Norvasc (Amlodipine Besylate) 5 Mg Tab 5 Mg PO QAM 02/04/12 Reported Vital Signs Weight (Kilograms): 68.18 Height (Feet): 5 Height (Inches): 0 Date Time Temp Pulse Resp B/P (MAP) Pulse Ox O2 Delivery O2 Flow Rate FiO2 07/23/17 12:19 36.5 72 24 144/71 (95) 97 Room Air Physical Exam General Appearance: WD/WN, no apparent distress Assessment and Plan EGD today with dilation of schatzki ring
--- NOTE | 2017-07-23 12:53 | Progress Note ---
Progress Note Date of Service Jul 23, 2017. Progress Note Patient was brought to the procedure room. She was given IV lidocaine and several seconds later vomited and had a short period of unresponsiveness. Her VS were stable throughout and she recovered completely. She is currently mentating normally. her only complaint is of some epigastric pain. Decision was made to cancel her elective endoscopy today and to take her to the ER for further evaluation. Her was notified in the waiting room. He tells me that she was nauseated this AM while brushing her teeth and vomited a small amount of clear fluid. She has also been more SOB over the last 6 months per her . Patient to be transported to the ER for further cardiac, neurologic workup.
--- NOTE | 2017-07-23 13:20 | Progress Note ---
Progress Note Date of Service Jul 23, 2017. Progress Note Pt brought back to Endo procedure room. Monitors placed. 80mg IV lidocaine given by nurse coal deliverer. Pt rolled her head/eyes back shortly after and became unresponsive; and she vomited. HR increased from 60-70s to 110s-120s. BP increased to 180s. O2 sats maintained 98-100%. After about 15 seconds, pt came around and complained of nausea and abdomoinal pain, and unusual sensation on the right side of her head. Pt was coherent, awake, able to answer questions appropriately. HR and BP normalize to baseline. Discussed with Dr. Le and plan to send patient to ED for further workup due to pt multiple medical comorbidities including recent ND in April s/p 2 stents placement (pt continued on dual antiplatelets therapy and beta tess, which she took this morning). Discuss case with ED doctor, Dr. Cancino and patient was transported to ED in stable condition.
== END | disposition home or self-care (01) ==
LOC: C.GI 11:51
PROVIDERS: ATTEND Internal Medicine
DX: R13.10 Dysphagia, unspecified (principal); R11.2 Nausea with vomiting, unspecified; R06.02 Shortness of breath; I25.2 Old myocardial infarction; Z95.5 Presence of coronary angioplasty implant and graft; I48.91 Unspecified atrial fibrillation; I11.0 Hypertensive heart disease with heart failure; I50.9 Heart failure, unspecified; E78.00 Pure hypercholesterolemia, unspecified; K21.9 Gastro-esophageal reflux disease without esophagitis; E07.9 Disorder of thyroid, unspecified; F32.9 Major depressive disorder, single episode, unspecified; Z79.02 Long term (current) use of antithrombotics/antiplatelets; Z79.82 Long term (current) use of aspirin; Z79.899 Other long term (current) drug therapy

== ENCOUNTER → 2017-08-14 | Day surgery (SDC) | payer OTHER ==
[2017-08-07 12:01] VITALS: BMI 29.0
[~2017-08-14] VITALS: Ht 152.4 cm; Wt 68.2 kg
[~2017-08-14] MED LIST changes: +ASPCH81X PO; -PANT40TA PO; +PROPOFOL IV EMULSION 10 MG/ML 20 ML VIAL IV ONE
[2017-08-14 14:16] VITALS: Ht 152.4 cm; Wt 68.2 kg
[2017-08-14 14:38] VITALS: BP 183/80; PULSE 65; TEMP 36.4; O2SAT 97
--- NOTE | 2017-08-14 14:56 | Endo History and Physical ---
History & Physical Date of Service: Aug 14, 2017. Chief Complaint: SCHATZKI RING Referring Physician: DR. STEPHENS History of Present Illness Patient with a history of solid food dysphagia worsening over the last 12-16 months. She describes having difficulty with swallowing foods such as bread and meat like pork or chicken. This is a daily occurrence. She's had no food bolus impactions requiring ER evaluations. Her last upper endoscopy with dilation was approximately 3 years ago. Past Medical History Atrial Fibrillation, Angioplasty/Stent, Arthritis, Reflux, Cancer, High Cholesterol, Heart Disease, CHF, Hypertension, Thyroid Disease, Depression Past Surgical History Hx Cardiac Surgery: Yes (HEART CATH X2>4 TOTAL STENTS PLACED) Hx Internal Defibrillator: No Hx Pacemaker: No Hx Abdominal Surgery: Yes (EXPLORATORY LAP) Hx of Implantable Prosthesis: No Hx Post-Op Nausea and Vomiting: No Hx Cancer Surgery: Yes (COLON RESECTION) Hx Thoracic Surgery: No Hx Orthopedic: Yes (RT RCR) Hx Urinary Tract Surgery: No Family History Colon CA Social History Smoking Status: Never Smoker Hx Substance Use: No Hx Alcohol Use: No Allergies Coded Allergies: Atorvastatin (Verified Allergy, Unknown, MUSCLE ACHES, 08/14/17) Citalopram (Verified Allergy, Unknown, G I UPSET-, 08/14/17) Hydrochlorothiazide (Verified Allergy, Unknown, UNKNOWN-INEFFECTIVE?, ) Niacin (Verified Allergy, Unknown, UNKNOWN, 08/14/17) Simvastatin (Verified Adverse Reaction, Unknown, MUSCLE ACHES, 08/14/17) Current Medications Reported Home Medications Medications Dose Route/Sig Max Daily Dose Days Date Category Aspirin Chewable (Aspirin) 81 Mg Chew 81 Mg PO HS 08/07/17 Reported Plavix (Clopidogrel Bisulfate) 75 Mg Tab 75 Mg PO QAM 07/16/17 Reported Zoloft (Sertraline HCl) 100 Mg Tab 100 Mg PO QAM 07/16/17 Reported Crestor (Rosuvastatin Calcium) 5 Mg Tab 5 Mg PO QPM 07/16/17 Reported Phenergan (Promethazine HCl) 25 Mg Tab 25 Mg PO Q6H PRN 07/16/17 Reported Proair Respiclick (Albuterol Sulfate) 108 Mcg/Act Aer 2 Puff INH QID PRN 07/16/17 Reported Zestril (Lisinopril) 5 Mg Tab 5 Mg PO QAM 07/16/17 Reported Metoprolol Succinate ER (Metoprolol Succinate) 50 Mg Tabcr 1.5 Tab PO QAM 05/17/17 Reported Combivent Respimat (Ipratropium-Albuterol) 1 Aer Aer 1 Puffs INH QID 05/23/16 Reported Nitrostat (Nitroglycerin) 0.4 Mg Tab 0.4 Mg UT PRN PRN 05/23/16 Reported Vitamin B-12 (Cyanocobalamin) 1,000 Mcg Tab 1,000 Mcg PO QAM 05/23/16 Reported Vitamin D3 (Cholecalciferol) 2,000 Unit Cap 1 Cap PO QAM 01/09/16 Reported Biotin 1 Mg Cap 1 Cap PO QAM 01/09/16 Reported Latanoprost 37 Drops/2.5 Ml Soln 1 Drop OPB HS 10/03/14 Reported Colestid (Colestipol Hcl) 1 Gm Tab 2 Gm PO BID 10/16/12 Reported Norvasc (Amlodipine Besylate) 5 Mg Tab 5 Mg PO QAM 02/04/12 Reported Vital Signs Weight (Kilograms): 68.18 Height (Feet): 5 Height (Inches): 0 Date Time Temp Pulse Resp B/P (MAP) Pulse Ox O2 Delivery O2 Flow Rate FiO2 08/14/17 14:38 36.4 65 20 183/80 (114) 97 Room Air Physical Exam General Appearance: no apparent distress Respiratory/Chest: Auscultation: deminished air movement Cardiovascular: Heart Auscultation: II/ WILLA Abdomen: Inspection & Palpation: soft Assessment and Plan Patient for upper endoscopy for esophageal dilation due to recurrent dysphagia. We discussed the risks to include bleeding infection perforation pain and need for follow-up studies.
--- NOTE | 2017-08-14 15:25 | Progress Note ---
Progress Note Date of Service Aug 14, 2017. Progress Note After a repeat review of the patient's medical history it was noted she had a non-ST elevation myocardial infarction with new cardiac stent placement 3 months ago. Of note her Plavix had been stopped a few days ago and her dramatic coach feels that she would be at higher than average risk of a perioperative complication off the medication. We therefore decided to discontinue the procedure and we'll make arrangements for repeat study in the near future.
--- NOTE | 2017-08-14 15:27 | Discharge Instructions ---
Endoscopy Patient Instructions Date / Procedure(s) Performed Aug 14, 2017. Other (really) Allergy Information Coded Allergies: Atorvastatin (Verified Allergy, Unknown, MUSCLE ACHES, 08/14/17) Citalopram (Verified Allergy, Unknown, G I UPSET-, 08/14/17) Hydrochlorothiazide (Verified Allergy, Unknown, UNKNOWN-INEFFECTIVE?, ) Niacin (Verified Allergy, Unknown, UNKNOWN, 08/14/17) Simvastatin (Verified Adverse Reaction, Unknown, MUSCLE ACHES, 08/14/17) Discharge Date / Findings Aug 14, 2017. Procedure canceled Medication Instructions Stopped Medication(s): PATIENT POSSIBLY GOT MEDICATIONS CONFUSED STATED DID NOT TAKE ANYTHING TOOK BP MEDS SATURDAY. Reported Home Medications Medications Dose Route/Sig Max Daily Dose Days Date Category Aspirin Chewable (Aspirin) 81 Mg Chew 81 Mg PO HS 08/07/17 Reported Plavix (Clopidogrel Bisulfate) 75 Mg Tab 75 Mg PO QAM 07/16/17 Reported Zoloft (Sertraline HCl) 100 Mg Tab 100 Mg PO QAM 07/16/17 Reported Crestor (Rosuvastatin Calcium) 5 Mg Tab 5 Mg PO QPM 07/16/17 Reported Phenergan (Promethazine HCl) 25 Mg Tab 25 Mg PO Q6H PRN 07/16/17 Reported Proair Respiclick (Albuterol Sulfate) 108 Mcg/Act Aer 2 Puff INH QID PRN 07/16/17 Reported Zestril (Lisinopril) 5 Mg Tab 5 Mg PO QAM 07/16/17 Reported Metoprolol Succinate ER (Metoprolol Succinate) 50 Mg Tabcr 1.5 Tab PO QAM 05/17/17 Reported Combivent Respimat (Ipratropium-Albuterol) 1 Aer Aer 1 Puffs INH QID 05/23/16 Reported Nitrostat (Nitroglycerin) 0.4 Mg Tab 0.4 Mg UT PRN PRN 05/23/16 Reported Vitamin B-12 (Cyanocobalamin) 1,000 Mcg Tab 1,000 Mcg PO QAM 05/23/16 Reported Vitamin D3 (Cholecalciferol) 2,000 Unit Cap 1 Cap PO QAM 01/09/16 Reported Biotin 1 Mg Cap 1 Cap PO QAM 01/09/16 Reported Latanoprost 37 Drops/2.5 Ml Soln 1 Drop OPB HS 10/03/14 Reported Colestid (Colestipol Hcl) 1 Gm Tab 2 Gm PO BID 10/16/12 Reported Norvasc (Amlodipine Besylate) 5 Mg Tab 5 Mg PO QAM 02/04/12 Reported Provider Instructions Activity Restrictions - No exercising or heavy lifting for 24 hours. - Do not drink alcohol the day of the procedure. - Do not drive a car or operate machinery until the day after the procedure. - Do not make any important decisions or sign important papers in 24 hours after the procedure. Following Day: - Return to full activity which may include returning to work/school. Diet Start your diet with liquids and light foods (jello, soup, juice, toast). Then eat your usual diet if not nauseated. Treatment For Common After Affects For mild abdominal pain, bloating, or excessive gas: - Rest - Eat lightly - Lie on right side Follow-Up Information Follow-up with DR. STEPHENS as scheduled Patient to resume Plavix today Patient should schedule an outpatient appointment with our office We will reschedule upper endoscopy with dilation in the next few months Patient should avoid intake of bread and solid meat such as chicken, beef or pork Anesthesia Information What You Should Know You have had a procedure that required some medicine to reduce anxiety and discomfort. This treatment is called moderate sedation. After receiving the treatment, you may be sleepy, but you will be able to breathe on your own. The effects of the treatment may last for several hours. Follow these instructions along with Activity/Diet recommendations noted above: * Do NOT do anything where dizziness or clumsiness would be dangerous. * Rest quietly at home today, then you can be up and about tomorrow. * Have a responsible person stay with you the rest of today. * You may have had an I.V. today. If so, you may take the dressing off later today. Recommendations Call your doctor if: * Trouble breathing * Continuous vomiting for more than 24 hours * Temperature above 101 degrees * Severe abdominal pain or bloating * Pain not relieved by pain medicine ordered * There is increased drainage or redness from any incision * A large amount of rectal bleeding greater than 2-3 tablespoons. (If you had a polyp/s removed or have hemorrhoids, a small amount of blood - from the rectum is to be expected.) * You have any unanswered questions or concerns. IN THE EVENT OF A SERIOUS EMERGENCY, GO TO THE NEAREST EMERGENCY ROOM Your discharge instructions were prepared by provider Beka Anderson. Patient Instructions Signature Page Tomasa Lam Patient (or Guardian) Signature/Date: I have read and understand the instructions given to me by my caregivers. Caregiver/RN/Doctor Signature/Date: The above-named patient and/or guardian has received patient instructions on this date. + Original Patient Signature Page (only) stays with chart. Please make copy for patient.
--- NOTE | 2017-08-14 15:42 | Progress Note ---
Progress Note Date of Service Aug 14, 2017. Progress Note This patient is a high risk 82 year old patient for EGD and dilitation for a Shatzki's ring. On 05/20, she underwent PCI and a RUPERT was placed in the RCA after NSTEMI. The patient was placed on dual antiplatet therapy upon discharge. The patient first scheduled this procedure for dysphagia on 07/23, and while is is not known how her plavix was managed at the time, she had a local anesthetic reaction prior to induction and the case was cancelled. Today on arrival, the patient is asymptomatic from a cardiac standpoint but relays that the PAT office instructed her to stop her Plavix 7 days ago, her last taken dose on 08/07. This case involves esophageal dilitation which can be quite stimulating, albiet for very short bursts. As this is not an urgent case , and she is less than 3 months out from drug eluting stent I relayed the patient that the safest course of action would be to delay her procedure and resume her plavix. After speaking with Dr Caicedo, he relayed that the patient could be made therapeudic on Plavix in as little as a few hours if given 300mg PO today. It was offered for the patient to proceed with EGD tomorrow, but she elected to reschedule the procedure at her convenience in the next few weeks. I did as the patient to discuss management of her Plavix and ASA with her it web development consultant, Dr Miller. Presumably we will continue both medications perioperatively, as the proceduralist is comfortable dilating on both medications. She does have an appointment with Dr Miller on 08/15.
== END | disposition home or self-care (01) ==
LOC: C.GI 13:13
PROVIDERS: ATTEND Internal Medicine Gastroenterology
DX: K22.2 Esophageal obstruction (principal); Z53.9 Procedure and treatment not carried out, unspecified reason

== ENCOUNTER → 2017-09-30 | Outpatient (CLI) | payer OTHER ==
[~2017-09-30] MED LIST changes: -ASPI81TA28 PO; -PROPOFOL IV EMULSION 10 MG/ML 20 ML VIAL IV ONE
[2017-09-30 15:54] LABS: ALT/SGPT 18 U/L (12-78); AST/SGOT 15 U/L (15-37)
== END | disposition home or self-care (01) ==
LOC: C.LAB1850 14:44
PROVIDERS: ATTEND Physician Assistant
DX: E78.00 Pure hypercholesterolemia, unspecified (principal)

== ENCOUNTER → 2017-11-28 | Outpatient (CLI) | payer OTHER ==
[~2017-11-28] MED LIST changes: +RANI150T85 PO; -ROSU5TAB PO
--- NOTE | 2017-11-28 17:57 | DIAGNOSTIC IMAGING REPORT ---
MRI OF THE LUMBAR SPINE WITHOUT IV CONTRAST CLINICAL HISTORY: Chronic low back pain. COMPARISON STUDY: Radiographs of lumbar spine dated 11/20/2017. Abdominal CT dated 10/10/2015. TECHNIQUE: MRI of the lumbar spine is performed utilizing various T1 and T2-weighted sequences in the axial and sagittal planes. IV contrast was not administered for this examination. The examination is modestly degraded by motion artifact. FINDINGS: Lumbar spine: Marrow signal intensity is markedly heterogeneous. Advanced chronic endplate change is identified at all lumbar levels. A large hemangioma is seen in the body of L1. Vertebral body height is maintained throughout the lumbar spine. There is minimal anterolisthesis at L2-L3 and L3-L4. Minimal retrolisthesis is seen at L4-L5. There is straightening of the lumbar lordosis. The transverse and spinous processes are intact as imaged. There is no evidence of spondylolysis. Anterior osteophytes are seen throughout. Mild endplate edema is seen at T12-L1 and L2-L3. Chronic sclerotic change is present at most levels. Intervertebral discs: Degenerative disc desiccation is seen throughout the lumbar spine. There is advanced loss of height at L1-L2, L4-L5, and L5-S1. Moderate loss of height is seen at the remaining lumbar levels. Spinal cord: The partially visualized spinal cord is normal in morphology and signal intensity. The conus medullaris terminates at the level of L1. The nerve roots of the cauda equina are grossly normal in morphology. These are tethered at L2-L3, L3-L4, and L4-L5. T11-T12: There is a tiny disc bulge and annular fissure. No significant acquired compromise of the central canal is identified. This is only seen on the lateral view. T12-L1: There is a broad-based posterior disc bulge with annular fissure. There is no significant acquired compromise of the central canal at this level. This level is only seen on the lateral view. L1-L2: There is a large posterior disc bulge. In conjunction with hypertrophy of the ligamentum flavum, there is moderate central canal stenosis at this level with a minimum AP diameter of 6 mm. This impinges on the nerve roots of the cauda equina at this level. There is bilateral subarticular stenosis, and this also likely impinges on the exiting bilateral L1 nerve roots. Facet arthropathy causes moderate left and mild right neural foraminal stenosis. L2-L3: There is a large broad-based posterior disc bulge with annular fissure. In conjunction with hypertrophy of the ligamentum flavum, there is moderate central canal stenosis at this level. The minimum AP canal diameter measures 6.5 mm. The disc bulge impinges on the transiting bilateral nerve roots. There is bilateral subarticular stenosis with possible impingement on the exiting left L2 nerve root. Prominent facet arthropathy causes mild bilateral neuroforaminal stenosis. L3-L4: There is a posterior disc herniation with annular fissure. In conjunction with hypertrophy of the ligamentum flavum, this causes moderate central canal stenosis with a minimal AP diameter of 6 mm. This impinges on the transiting bilateral nerve roots. This causes bilateral subarticular stenosis and also likely impinges on the exiting left L3 nerve root. Facet arthropathy causes mild left neural foraminal stenosis. L4-L5: There is broad-based posterior disc bulge eccentric to the right. In conjunction with hypertrophy of the ligamentum flavum, there is severe central canal stenosis at this level with a minimum AP canal diameter of 4 mm. This tethers the nerve roots of the cauda equina, and impinges on the transiting nerve roots. There is bilateral subarticular stenosis, right greater than left, with probable impingement on the exiting bilateral L4 nerve roots. There is only mild bilateral neural foraminal stenosis at this level secondary to facet arthropathy. L5-S1: There is broad-based posterior disc bulge eccentric to the right with annular fissure. There is only mild acquired compromise of the central canal at this level with a minimum AP diameter of 9 mm. There is severe bilateral subarticular stenosis, right greater than left, with probable impingement on the exiting bilateral L5 nerve roots and the transiting right S1 nerve root. Facet arthropathy causes moderate bilateral neural foraminal stenosis. Sacrum: The visualized sacrum is normal in morphology and signal intensity. Soft tissues: There is marked fatty atrophy of the paraspinous musculature. The partially visualized retroperitoneal structures are grossly unremarkable but incomplete assessed. Sigmoid diverticulosis is noted on the assistant teacher primary sequences. IMPRESSION: 1. Advanced multilevel lumbosacral spondylosis with multilevel acquired compromise of the central canal. See above discussion for detailed level by level analysis. 2. Advanced degenerative disc disease with multilevel degenerative endplate change. 3. No destructive bony lesion is identified. Dictated: 11/28/2017 5:17 PM Transcribed: 11/28/2017 5:57 PM [email or web address] Electronically signed by: Cabrera Gamboa M.D. 11/28/2017 6:23 PM Dictated Date/Time: 11/28/2017 5:17 PM
== END | disposition home or self-care (01) ==
LOC: C.MRI 15:28
PROVIDERS: ATTEND Orthopaedic Surgery Orthopaedic Surgery of the Spine
DX: M48.061 Spinal stenosis, lumbar region without neurogenic claudication (principal); M47.817 Spondylosis without myelopathy or radiculopathy, lumbosacral region; M51.37 Other intervertebral disc degeneration, lumbosacral region

== ENCOUNTER → 2017-12-04 | Day surgery (SDC) | payer OTHER ==
[2017-11-26 10:08] VITALS: Ht 152.4 cm; Wt 68.2 kg
[~2017-12-04] VITALS: Ht 152.4 cm; Wt 68.2 kg
[2017-12-04 12:57] VITALS: BP 165/82; PULSE 65; TEMP 36.4; O2SAT 96
--- NOTE | 2017-12-04 13:17 | Progress Note ---
Progress Note Date of Service Dec 04, 2017. Progress Note Case differed by Dr Moscoso as patient took her Plavix as early as this morning. I did not personally evaluate or provide any anesthetic services on this visit.
== END | disposition home or self-care (01) ==
LOC: C.GI 12:33
PROVIDERS: ATTEND Internal Medicine
DX: K22.2 Esophageal obstruction (principal); Z53.09 Procedure and treatment not carried out because of other contraindication

== ENCOUNTER → 2017-12-20 | Day surgery (SDC) | payer OTHER ==
[2017-12-12 12:31] VITALS: Ht 152.4 cm; Wt 68.2 kg
[~2017-12-20] VITALS: Ht 152.4 cm; Wt 68.2 kg
[~2017-12-20] MED LIST changes: +DEXAMETHASONE SOD INJ 4 MG/ML VIAL ONE; -IPRA1AER2 INH; +LIDOCAINE HCL 1% MPF 5 ML VIAL ONE
--- NOTE | 2017-12-20 07:16 | History & Physical Bridge - SC ---
H&P Re-Evaluation Bridge Note: I have examined the patient, reviewed the History & Physical and in the interval since the performance of the History & Physical I have noted the following changes of clinical significance: No changes noted
--- NOTE | 2017-12-20 07:31 | [facility] Post Operative Brief Note ---
Immediate Operative Summary Operative Date Dec 20, 2017. Pre-Operative Diagnosis Spinal stenosis Post-Operative Diagnosis same Procedure(s) Performed L4-5;L5-S1 Epidural Steroid Injection Surgeon Dr Angel Barrera Sales And Marketing Engineer Surgeon(s) None Estimated Blood Loss 0 Findings Consistent with Post-Op Diagnosis Specimens none Drains None Anesthesia Type Local Complication(s) none
--- NOTE | 2017-12-20 07:32 | Discharge Instructions-SurgCtr ---
Discharge Instructions Date of Service Dec 20, 2017. Visit Reason for Visit: Spinal Stenosis Discharge Discharge Diagnosis / Problem: same Discharge Goals Goal(s): Improve function Medications Stopped Medications Name(s): plavix and ASA stopped 5 days ago Activity Recommendations Activity Limitations: as noted below Lifting Limitations: gradually increase as tolerated Anesthesia . Post Anesthesia Instructions: If you have had General Anesthesia or IV Sedation: * Do not drive today. * Resume driving when surgeon permits. * Do not make important decisions or sign legal documents today. * Call surgeon for: 1. Temperature elevations greater than 101 degrees F. 2. Uncontrollable pain. 3. Excessive bleeding. 4. Persistent nausea and vomiting. 5. Medication intolerance (nausea, vomiting or rash). * For nausea and vomiting use only clear liquids such as: tea, soda, bouillon until nausea subsides, then gradually increase diet as tolerated. * If you have any concerns or questions, call your surgeon's office. If physician is unavailable and it is an emergency, call 911 or go to the nearest emergency room. . Diet Recommendations Home Diet: no limitations Procedures Procedures Performed: L4-5;L5-S1 Epidural Steroid Injection Pending Studies Studies pending at discharge: no Medical Emergencies . Who to Call and When: Medical Emergencies: If at any time you feel your situation is an emergency, please call 911 immediately. . Non-Emergent Contact Non-Emergency issues call your: Primary Care Provider . . "Provider Documentation" section prepared by Angel Barrera. .
[2017-12-20 07:33] VITALS: TEMP 36.5
[2017-12-20 07:53] VITALS: BP 163/86; PULSE 66; O2SAT 95
--- NOTE | 2017-12-20 08:29 | OPERATIVE REPORT ---
DATE OF OPERATION: 12/20/2017 PREOPERATIVE DIAGNOSIS: Severe stenosis lumbar spine L4-L5, L5-S1. POSTOPERATIVE DIAGNOSIS: Same. PROCEDURE: Included epidural steroid injection L4-L5, L5-S1. SURGEON: Dr. Barrera. COMPLICATIONS: Zero. DESCRIPTION OF PROCEDURE: The patient was taken to the minor procedure room and placed prone, prepped and draped sterile. I advanced the 22 gauge Tuohy needle to the epidural space at L4-L5, L5-S1. She tolerated it well. 1 mL of dexamethasone injected to these areas without incident. There were no apparent complications. I attest to the content of the Intraoperative Record and any orders documented therein. Any exception s are noted below.
== END | disposition home or self-care (01) ==
LOC: X.SURG 06:40
PROVIDERS: ATTEND Orthopaedic Surgery Orthopaedic Surgery of the Spine
DX: M48.061 Spinal stenosis, lumbar region without neurogenic claudication (principal); I11.9 Hypertensive heart disease without heart failure; E78.00 Pure hypercholesterolemia, unspecified

== ENCOUNTER → 2018-02-18 | Day surgery (SDC) | payer OTHER ==
[2018-02-12 11:05] VITALS: Ht 152.4 cm; Wt 69.5 kg
[~2018-02-18] VITALS: Ht 152.4 cm; Wt 69.5 kg
[~2018-02-18] MED LIST changes: -DEXAMETHASONE SOD INJ 4 MG/ML VIAL ONE; +IPRA1AER2 INH; -LIDOCAINE HCL 1% MPF 5 ML VIAL ONE; +MECL1TAB40 PO; +ONDANSETRON INJ 2 MG/ML 2 ML VIAL IV PRN; +PROPOFOL IV EMULSION 10 MG/ML 20 ML VIAL ONE
--- NOTE | 2018-02-18 10:47 | Endo History and Physical ---
History & Physical Date of Service: February 18, 2018. Chief Complaint: Difficulty swallowing Referring Physician: Dr. Tirso Marie and Dr. Patience Le History of Present Illness Patient presents for upper endoscopy today. She has a history of solid food dysphagia dating for 4-6 months. Her last upper endoscopy was almost 1 year ago with significant improvement of her symptoms. She does admit to daily heartburn symptoms despite use of an H2 tess. Past Medical History Cancer, High Cholesterol, Heart Disease, Hypertension, Depression, [place] Past Surgical History Hx Cardiac Surgery: Yes (HEART CATH X2, 4 TOTAL STENTS PLACED) Hx Internal Defibrillator: No Hx Pacemaker: No Hx Abdominal Surgery: Yes (EXPLORATORY LAP) Hx of Implantable Prosthesis: No Hx Post-Op Nausea and Vomiting: No Hx Cancer Surgery: Yes (COLON RESECTION) Hx Thoracic Surgery: No Hx Orthopedic: Yes (RT RCR) Hx Urinary Tract Surgery: No Family History None, Colon CA Social History Smoking Status: Never Smoker Hx Substance Use: No Hx Alcohol Use: No Allergies Coded Allergies: Atorvastatin (Verified Allergy, Unknown, MUSCLE ACHES, 02/12/18) Citalopram (Verified Allergy, Unknown, G I UPSET-, 02/12/18) Hydrochlorothiazide (Verified Allergy, Unknown, UNKNOWN-INEFFECTIVE?, 02/12) Lidocaine (Verified Allergy, Unknown, GIVEN DURING EGD PROCEDURE- "UNRESPONSIVE", 02/12/18) SEE NOTE BY DR. NELSON-FURTHER WORK-UP LATER NOTED PT WAS SICK(NAUSEA/VOMITTING) PRIOR TO GIVEN LIDOCAINE. Niacin (Verified Allergy, Unknown, UNKNOWN, 02/12/18) Simvastatin (Verified Adverse Reaction, Unknown, MUSCLE ACHES, 02/12/18) Current Medications Reported Home Medications Medications Dose Route/Sig Max Daily Dose Days Date Category Meclizine HCl 12.5 Mg Tab 1 Tab PO Q6H PRN 30 02/12/18 Reported Combivent Respimat (Ipratropium-Albuterol) 1 Aer Aer 1 Puffs INH QID 02/12/18 Reported Zantac (Ranitidine HCl) 150 Mg Tab 150 Mg PO DAILY PRN 11/13/17 Reported Aspirin Chewable (Aspirin) 81 Mg Chew 81 Mg PO HS 08/07/17 Reported Plavix (Clopidogrel Bisulfate) 75 Mg Tab 75 Mg PO QAM 07/16/17 Reported Zoloft (Sertraline HCl) 100 Mg Tab 100 Mg PO QAM 07/16/17 Reported Phenergan (Promethazine HCl) 25 Mg Tab 25 Mg PO Q6H PRN 07/16/17 Reported Proair Respiclick (Albuterol Sulfate) 108 Mcg/Act Aer 2 Puff INH QID PRN 07/16/17 Reported Zestril (Lisinopril) 5 Mg Tab 5 Mg PO QAM 07/16/17 Reported Metoprolol Succinate ER (Metoprolol Succinate) 50 Mg Tabcr 1.5 Tab PO QAM 05/17/17 Reported Nitrostat (Nitroglycerin) 0.4 Mg Tab 0.4 Mg UT PRN PRN 05/23/16 Reported Vitamin B-12 (Cyanocobalamin) 1,000 Mcg Tab 1,000 Mcg PO QAM 05/23/16 Reported Vitamin D3 (Cholecalciferol) 2,000 Unit Cap 1 Cap PO QAM 01/09/16 Reported Biotin 1 Mg Cap 1 Cap PO QAM 01/09/16 Reported Latanoprost 37 Drops/2.5 Ml Soln 1 Drop OPB HS 10/03/14 Reported Colestid (Colestipol Hcl) 1 Gm Tab 2 Gm PO BID 10/16/12 Reported Norvasc (Amlodipine Besylate) 5 Mg Tab 5 Mg PO QAM 02/04/12 Reported Vital Signs Weight (Kilograms): 69.55 Height (Feet): 5 Height (Inches): 0 Date Time Temp Pulse Resp B/P (MAP) Pulse Ox O2 Delivery O2 Flow Rate FiO2 02/18/18 10:21 36.2 68 20 165/82 (109) 97 Physical Exam General Appearance: no apparent distress Respiratory/Chest: Auscultation: deminished air movement Cardiovascular: Heart Auscultation: II/ WILLA Assessment and Plan Patient for upper endoscopy today. We discussed the risks of upper endoscopy and dilation to include bleeding, infection, perforation, pain, aspiration and cardiovascular issues.
--- NOTE | 2018-02-18 11:14 | Discharge Instructions ---
Endoscopy Patient Instructions Date / Procedure(s) Performed February 18, 2018. EGD Allergy Information Coded Allergies: Atorvastatin (Verified Allergy, Unknown, MUSCLE ACHES, 02/12/18) Citalopram (Verified Allergy, Unknown, G I UPSET-, 02/12/18) Hydrochlorothiazide (Verified Allergy, Unknown, UNKNOWN-INEFFECTIVE?, 02/12) Lidocaine (Verified Allergy, Unknown, GIVEN DURING EGD PROCEDURE- "UNRESPONSIVE", 02/12/18) SEE NOTE BY DR. NELSON-FURTHER WORK-UP LATER NOTED PT WAS SICK(NAUSEA/VOMITTING) PRIOR TO GIVEN LIDOCAINE. Niacin (Verified Allergy, Unknown, UNKNOWN, 02/12/18) Simvastatin (Verified Adverse Reaction, Unknown, MUSCLE ACHES, 02/12/18) Discharge Date / Findings February 18, 2018. Diffuse gastritis 5 cm hiatal hernia Schatzki's ring Medication Instructions Stopped Medication(s): ASA, Plavix last 02/12/18 Reported Home Medications Medications Dose Route/Sig Max Daily Dose Days Date Category Meclizine HCl 12.5 Mg Tab 1 Tab PO Q6H PRN 30 02/12/18 Reported Combivent Respimat (Ipratropium-Albuterol) 1 Aer Aer 1 Puffs INH QID 02/12/18 Reported Zantac (Ranitidine HCl) 150 Mg Tab 150 Mg PO DAILY PRN 11/13/17 Reported Aspirin Chewable (Aspirin) 81 Mg Chew 81 Mg PO HS 08/07/17 Reported Plavix (Clopidogrel Bisulfate) 75 Mg Tab 75 Mg PO QAM 07/16/17 Reported Zoloft (Sertraline HCl) 100 Mg Tab 100 Mg PO QAM 07/16/17 Reported Phenergan (Promethazine HCl) 25 Mg Tab 25 Mg PO Q6H PRN 07/16/17 Reported Proair Respiclick (Albuterol Sulfate) 108 Mcg/Act Aer 2 Puff INH QID PRN 07/16/17 Reported Zestril (Lisinopril) 5 Mg Tab 5 Mg PO QAM 07/16/17 Reported Metoprolol Succinate ER (Metoprolol Succinate) 50 Mg Tabcr 1.5 Tab PO QAM 05/17/17 Reported Nitrostat (Nitroglycerin) 0.4 Mg Tab 0.4 Mg UT PRN PRN 05/23/16 Reported Vitamin B-12 (Cyanocobalamin) 1,000 Mcg Tab 1,000 Mcg PO QAM 05/23/16 Reported Vitamin D3 (Cholecalciferol) 2,000 Unit Cap 1 Cap PO QAM 01/09/16 Reported Biotin 1 Mg Cap 1 Cap PO QAM 01/09/16 Reported Latanoprost 37 Drops/2.5 Ml Soln 1 Drop OPB HS 10/03/14 Reported Colestid (Colestipol Hcl) 1 Gm Tab 2 Gm PO BID 10/16/12 Reported Norvasc (Amlodipine Besylate) 5 Mg Tab 5 Mg PO QAM 02/04/12 Reported Provider Instructions Activity Restrictions - No exercising or heavy lifting for 24 hours. - Do not drink alcohol the day of the procedure. - Do not drive a car or operate machinery until the day after the procedure. - Do not make any important decisions or sign important papers in 24 hours after the procedure. Following Day: - Return to full activity which may include returning to work/school. Diet Start your diet with liquids and light foods (jello, soup, juice, toast). Then eat your usual diet if not nauseated. Treatment For Common After Affects For mild abdominal pain, bloating, or excessive gas: - Rest - Eat lightly - Lie on right side Follow-Up Information Follow-up with Tirso Marie as scheduled Would suggest stopping Zantac Start omeprazole 20 mg per day. Refills can be obtained from your primary care provider Repeat upper endoscopy as needed for recurrent difficulty swallowing Anesthesia Information What You Should Know You have had a procedure that required some medicine to reduce anxiety and discomfort. This treatment is called moderate sedation. After receiving the treatment, you may be sleepy, but you will be able to breathe on your own. The effects of the treatment may last for several hours. Follow these instructions along with Activity/Diet recommendations noted above: * Do NOT do anything where dizziness or clumsiness would be dangerous. * Rest quietly at home today, then you can be up and about tomorrow. * Have a responsible person stay with you the rest of today. * You may have had an I.V. today. If so, you may take the dressing off later today. Recommendations Call your doctor if: * Trouble breathing * Continuous vomiting for more than 24 hours * Temperature above 101 degrees * Severe abdominal pain or bloating * Pain not relieved by pain medicine ordered * There is increased drainage or redness from any incision * A large amount of rectal bleeding greater than 2-3 tablespoons. (If you had a polyp/s removed or have hemorrhoids, a small amount of blood - from the rectum is to be expected.) * You have any unanswered questions or concerns. IN THE EVENT OF A SERIOUS EMERGENCY, GO TO THE NEAREST EMERGENCY ROOM Your discharge instructions were prepared by provider Beka Anderson. Patient Instructions Signature Page Tomasa Lam Patient (or Guardian) Signature/Date: I have read and understand the instructions given to me by my caregivers. Caregiver/RN/Doctor Signature/Date: The above-named patient and/or guardian has received patient instructions on this date. + Original Patient Signature Page (only) stays with chart. Please make copy for patient.
--- NOTE | 2018-02-18 11:18 | GI REPORT ---
Patient Name: Tomasa Lam Procedure Date: 02/18/2018 10:21 AM Date of : 1935 Admit Type: Outpatient Age: 82 Gender: Female Attending MD: Beka Anderson DO Procedure: Upper GI endoscopy Providers: Beka Anderson DO Referring MD: Patience Fuentes DO Indications: Dysphagia Medicines: Monitored Anesthesia Care Complications: No immediate complications. Estimated blood loss: Minimal. Estimated Blood Loss: Estimated blood loss was minimal. Procedure: Pre-Anesthesia Assessment: - Prior to the procedure, a History and Physical was performed, and patient medications, allergies and sensitivities were reviewed. The patient's tolerance of previous anesthesia was reviewed. - The risks and benefits of the procedure and the sedation options and risks were discussed with the patient. All questions were answered and informed consent was obtained. - Patient identification and proposed procedure were verified prior to the procedure by the physician, the nurse and the web database developer. The procedure was verified in the procedure room. - Pre-procedure physical examination revealed no contraindications to sedation. - ASA Grade Assessment: IV - A patient with severe systemic disease that is a constant threat to life. - After reviewing the risks and benefits, the patient was deemed in satisfactory condition to undergo the procedure. - The anesthesia plan was to use monitored anesthesia care (MAC). - Immediately prior to administration of medications, the patient was re-assessed for adequacy to receive sedatives. - The heart rate, respiratory rate, oxygen saturations, blood pressure, adequacy of pulmonary ventilation, and response to care were monitored throughout the procedure. - The physical status of the patient was re-assessed after the procedure. After obtaining informed consent, the endoscope was passed under direct vision. Throughout the procedure, the patient's blood pressure, pulse, and oxygen saturations were monitored continuously. The scope was introduced through the mouth, and advanced to the third part of duodenum. The upper GI endoscopy was accomplished without difficulty. The patient tolerated the procedure well. Findings: The upper third of the esophagus and middle third of the esophagus were normal. A moderate Schatzki ring (acquired) was found at the gastroesophageal junction. A guidewire was placed and the scope was withdrawn. Dilation was performed with a Savary dilator with mild resistance at 54 Fr. The endoscope was then reinserted to evaluate the success of the procedure. Estimated blood loss was minimal. A medium-sized hiatal hernia was found. The proximal extent of the gastric folds (end of tubular esophagus) was 31 cm from the incisors. The hiatal narrowing was 35 cm from the incisors. The Z-line was 31 cm from the incisors. Diffuse mild inflammation characterized by congestion (edema), erythema and granularity was found in the entire examined stomach. Biopsies were taken with a cold forceps for histology. Estimated blood loss was minimal. The examined duodenum was normal. Impression: - Normal upper third of esophagus and middle third of esophagus. - Moderate Schatzki ring. Dilated to 54 Fr today. - Medium-sized hiatal hernia. - Gastritis. Biopsied. - Normal examined duodenum. Recommendation: - Discharge patient to home (ambulatory). - Advance diet as tolerated today. - Repeat upper endoscopy PRN for retreatment. - Use Prilosec (omeprazole) 20 mg PO daily indefinitely. Beka Anderson D.O. Beka Anderson DO 02/18/2018 11:17:26 AM This report has been signed electronically. Note Initiated On: 02/18/2018 10:21 AM Number of Addenda: 0 I attest to the content of the Intraoperative Record and orders documented therein, exceptions below {[id number]}
[2018-02-18 11:40] VITALS: BP 169/83; PULSE 75; O2SAT 95
--- NOTE | 2018-02-18 12:21 | Anesthesiology Progress Note ---
Anesthesia Post Op Note Date & Time February 18, 2018 at 12:21 Vital Signs Pain Intensity: 0 Vital Signs Past 12 Hours Date Time Temp Pulse Resp B/P (MAP) Pulse Ox O2 Delivery O2 Flow Rate FiO2 02/18/18 11:40 75 20 169/83 (111) 95 02/18/18 11:28 76 20 147/98 (114) 95 02/18/18 11:17 78 20 137/69 (91) 95 02/18/18 10:21 36.2 68 20 165/82 (109) 97 Notes Mental Status: alert / awake / arousable, participated in evaluation Pt Amnestic to Procedure: Yes Nausea / Vomiting: adequately controlled Pain: adequately controlled Airway Patency, RR, SpO2: stable & adequate BP & HR: stable & adequate Hydration State: stable & adequate Anesthetic Complications: no major complications apparent
== END | disposition home or self-care (01) ==
LOC: C.GI 09:46
PROVIDERS: ATTEND Internal Medicine Gastroenterology
DX: R13.10 Dysphagia, unspecified (principal); K22.2 Esophageal obstruction; K44.9 Diaphragmatic hernia without obstruction or gangrene; E78.00 Pure hypercholesterolemia, unspecified; I25.10 Atherosclerotic heart disease of native coronary artery without angina pectoris; I10 Essential (primary) hypertension; E78.5 Hyperlipidemia, unspecified; M19.90 Unspecified osteoarthritis, unspecified site; J44.9 Chronic obstructive pulmonary disease, unspecified; F41.9 Anxiety disorder, unspecified; K21.9 Gastro-esophageal reflux disease without esophagitis; F32.9 Major depressive disorder, single episode, unspecified; I25.2 Old myocardial infarction; Z80.0 Family history of malignant neoplasm of digestive organs; Z88.1 Allergy status to other antibiotic agents; Z79.82 Long term (current) use of aspirin

== ENCOUNTER → 2018-05-21 | Outpatient (CLI) | payer OTHER ==
[~2018-05-21] MED LIST changes: -ONDANSETRON INJ 2 MG/ML 2 ML VIAL IV PRN; -PROPOFOL IV EMULSION 10 MG/ML 20 ML VIAL ONE
[2018-05-21 16:54] LABS: MEAN CORPUSCULAR HEMOGLOBIN 32.2 pg (25-34); MEAN PLATELET VOLUME 9.9 fL (7.4-10.4); PLATELET COUNT 219 K/uL (130-400); RED CELL DISTRIBUTION WIDTH CV 13.4 % (11.5-14.5); RED CELL DISTRIBUTION WIDTH SD 44.9 fL (36.4-46.3); WHITE BLOOD COUNT 10.01 K/uL (4.8-10.8)
[2018-05-21 17:08] LABS: PTT PATIENT 22.1 SECONDS (21.0-31.0)
[2018-05-21 17:19] LABS: BLOOD UREA NITROGEN 25 mg/dl (7-18); CALCIUM 9.5 mg/dl (8.5-10.1); CARBON DIOXIDE 26 mmol/L (21-32); CREATININE 1.12 mg/dl (0.60-1.20); GLUCOSE 116 mg/dl (70-99); POTASSIUM 3.8 mmol/L (3.5-5.1); SODIUM 141 mmol/L (136-145)
== END | disposition home or self-care (01) ==
LOC: C.LAB1850 16:17
PROVIDERS: ATTEND Internal Medicine Interventional Cardiology
DX: Z01.818 Encounter for other preprocedural examination (principal)

== ENCOUNTER → 2018-05-23 | Day surgery (SDC) | payer OTHER ==
[~2018-05-23] VITALS: Ht 160 cm; Wt 69.5 kg
[~2018-05-23] MED LIST changes: +ACETAMINOPHEN 325 MG TAB ONE; +ADENOSINE IV SOLN 3 MG/ML 20 ML VIAL ONE; +ASPIRIN 81 MG CHEW ONE; +FENTANYL CITRATE INJ 50 MCG/1 ML 2 ML VIAL ONE; +HEPARIN SOD (PORCINE) 1000 UNIT/ML 10 ML VIAL ONE; +MIDAZOLAM HCL 1 MG/ML 2ML VIAL ONE; +NITROGLYCERIN/D5W 100MCG/ML 20ML SYR ONE; +NiCARDipine HCL INJ 2.5 MG/ML 10 ML AMP ONE
[2018-05-23 11:49] VITALS: BP 201/81; PULSE 66; TEMP 36.7; O2SAT 97; Ht 160 cm; Wt 69.5 kg
--- NOTE | 2018-05-23 12:29 | Pre Sedation Assessment ---
Pre Sedation Assessment General Date of Sedation: May 23, 2018. Vital Signs Past 12 Hours Date Time Temp Pulse Resp B/P (MAP) Pulse Ox O2 Delivery O2 Flow Rate FiO2 05/23/18 11:49 36.7 66 16 201/81 (121) 97 Room Air Review Cardiovascular: regular rate, rhythm, no edema Lungs: chest non-tender, lungs clear Pre-Sedation Airway Assessment Smoking Status: Never Smoker Hx of Sleep Apnea: No Hx of difficult intubation: No Short Thick Neck: No Thyro-mental Distance: > 3 Finger Breadths Oral Cavity: Dentures Mallampati Classification: Class II ASA Classification: Class III NPO Status Date of Last Intake of Fluids: May 22, 2018 Time of Last Intake of Fluids: 1900 Date of Last Intake of Solids: May 22, 2018 Time of Last Intake of Solids: 1899 Procedure Planning Contraindications for Sedation: None Current Medications Reviewed: Yes Notes The planned sedation has been discussed with the patient. Informed Consent was obtained. I have identified the patient, determined the appropriateness of sedation and have assessed the patient immediately prior to the procedure. All medicine(s) and interventions are by my order.
--- NOTE | 2018-05-23 13:36 | Post Sedation Assessment ---
Post Sedation Assessment General Date of Sedation May 23, 2018. Vital Signs: Vital Signs Past 12 Hours Date Time Temp Pulse Resp B/P (MAP) Pulse Ox O2 Delivery O2 Flow Rate FiO2 05/23/18 11:49 36.7 66 16 201/81 (121) 97 Room Air Post Procedure Recovery Score Activity: (2) Moves 4 extremities * Respiration: (2) Deep breath/cough Circulation: (2) +/-20% PreAnes Value Consciousness: (2) Fully Awake Oxygen Saturation: (2) > 92% On Room Air Post Anesthesia Score: 10 Discharge Sedation Level of Care: Fast Track Phase II Post Sedation Plan On clinical assessment, the patient appears to have tolerated the sedation without complications. Patient is recovering as anticipated. Patient will continue to be monitored by nursing and may be discharged when sedation discharge criteria are met per below protocol. Upon Completions of procedure and additional 15 minutes continue every 5 minute vital signs and the P.A.R. score; then discharge to a Phase I or Fast Track to Phase II per the following guidelines: * Discharge Patient to appropriate Phase II area if PAR is 8 or greater or return to pre- procedure baseline. The post - procedure orders will be as directed. * If PAR score is less than 8 or not return to pre-procedure baseline then patient will follow Phase I monitoring till PAR is reached for Phase II. The Phase I may be done in procedure room or may call to secure a Phase I area. * If naloxone or flumazenil are used for reversal, hold in Phase I for an additional 60 -120 minutes before discharge to Phase II. Please call the Sedation Physician to re-evaluate and complete post-note for discharge to Phase II area. Do NOT discharge from procedure sedation or Phase 1 until post- sedation evaluation note is complete by procedure /sedation MD Sedation Discharge Instructions to be given to the patient at discharge to home.
--- NOTE | 2018-05-23 14:11 | Cardiac Catheterization ---
Procedure Note Procedure Date May 23, 2018. Pre-Procedure Diagnosis Angina AUC Score 7 Post-Procedure Diagnosis Moderate CAD, Normal Intracardiac Pressures Procedure(s) Performed Coronary Angiography, Left Heart Cath, Fractional Flow Idamay Machine Ii Cutter Paul Chaser Helper(s) [place] Estimated Blood Loss Medication(s) Fentanyl, Heparin, Nicardipine, Nitroglycerin, Versed, Lidocaine 1% Summary of Findings Indication: Exertional dyspnea Access: 6Fr right ulnar artery (ultrasound guided). Catheters: [place]; JL3.5, JR4; EBU 3.5 guide Findings: LM - 20% ostial stenosis LAD - Moderate caliber vessel, 20-30% proximal disease, patent mid segment stent with 50-60% at the distal end of prior stent; luminal irregularities as wraps around apex. 40% ostial stenosis of small 2nd diagonal. Circumflex - Patent mid segment stents into OM2; diffusely disease small distal circumflex into OM3 RCA - Dominant, patent proximal to mid stents with 30% mid ISR; R-PDA, PLB with luminal irregularities. -- FFR of mid LAD -- EBU 3.5 guide FFR wire placed into distal LAD iFR 0.93, FFR 0.83 Post procedure angiography revealed no apparent complications. LVEDP - 7 Arterial Closure: TR Band - While in hold are developed acute pain in left forearm with apparent hematoma. Compression with manual blood pressure cuff for 15 minutes. Distal pulses/waveformes intact. Summary: 1. Moderate non-obstructive coronary artery disease - 50-60% post mid LAD stent (FFR 0.83). 2. Normal intracardiac filling pressure Recommendations: Continued ASCVD risk factor modification; OK to discontinue Clopidogrel Hemodynamics Rest Ao: 167/73/111 Final Ao: 190/62/113 LV: 190/7 Recommendations Medical therapy and/or Counseling Specimens None Radiation Exposure (mGy) 1438 Contrast (mls) 70 Opti Fluids (cc crystalloids) 65 NSS Drains none Anesthesia moderate Procedural Complication(s) None Disposition Director [employer]/Recovery ACC Data Cardiac Status Clinical evaluation leading to the procedure CAD Presntation: Unstable angina, Stable angina Anginal Classification: CCS III Heart Failure: No, NYHA Class: CCS I Cardiogenic Shock w/in 24Hrs: No Cardiac Arrest w/in 24Hrs: No Imaging studies past 6 months: Yes Stress studies past 6 months: No Closure Device Percutaneous Entry Location: Ulnar Closure Device: Radial Band Intraprocedure Events Significant Dissection: No Perforation: No
--- NOTE | 2018-05-23 17:05 | Discharge Instructions ---
Discharge Instructions Procedure Procedure Date: May 23, 2018. Reason for Visit: Sob *Dr. Miller To Do. Discharge Discharge Date: May 23, 2018. Discharge Diagnosis: Coronary artery disease Last Recorded Wt (Kilograms): 69.5 Anesthesia Post Anesthesia Instructions: If you have had General Anesthesia or IV Sedation: * Do not drive today. * Resume driving when surgeon permits. * Do not make important decisions or sign legal documents today. * Call surgeon for: 1. Temperature elevations greater than 101 degrees F. 2. Uncontrollable pain. 3. Excessive bleeding. 4. Persistent nausea and vomiting. 5. Medication intolerance (nausea, vomiting or rash). * For nausea and vomiting use only clear liquids such as: tea, soda, bouillon until nausea subsides, then gradually increase diet as tolerated. * If you have any concerns or questions, call your surgeon's office. If physician is unavailable and it is an emergency, call 911 or go to the nearest emergency room. Instructions Activity Recommendations: limitations as noted below Recommended Home Diet: resume previous diet, low sodium, low cholesterol Allergies: Coded Allergies: Atorvastatin (Verified Allergy, Unknown, MUSCLE ACHES, 02/12/18) Citalopram (Verified Allergy, Unknown, G I UPSET-, 02/12/18) Hydrochlorothiazide (Verified Allergy, Unknown, UNKNOWN-INEFFECTIVE?, 02/12) Lidocaine (Verified Allergy, Unknown, GIVEN DURING EGD PROCEDURE- "UNRESPONSIVE", 02/12/18) SEE NOTE BY DR. NELSON-FURTHER WORK-UP LATER NOTED PT WAS SICK(NAUSEA/VOMITTING) PRIOR TO GIVEN LIDOCAINE. Niacin (Verified Allergy, Unknown, UNKNOWN, 02/12/18) Simvastatin (Verified Adverse Reaction, Unknown, MUSCLE ACHES, 02/12/18) Follow Up Additional Instructions: ACTIVITY RECOMMENDATIONS: Excess manipulation of the wrist should be avoided for the next 24-48 hours. * No lifting over 2 pounds (approximately a 1/2 gallon of milk) with the utilized arm for 24 hours. * No strenuous activity such as bowling or tennis for 3 days. * Keep the site of the procedure covered with a bandage for 24 hours. *You may shower the day after the procedure. Do not take a tub bath or submerge the puncture site in water for the next 3 days. *Do not operate any motorized equipment for 3 days. SPECIAL CARE INSTRUCTIONS: The site may be slightly bruised and sore following your procedure. Should any of the following occur, contact the Dr. who performed your procedure. 1. Redness/inflammation, swelling, chills, or fever, or colored drainage at procedure site within 3-7 days after your procedure. 2. Coldness, discoloration, ongoing numbness, severe pain, or swelling. Expect mild tingling of hand and tenderness at the puncture site for up to three days. If this persists beyond three days, or other symptoms develop, notify the Dr. who performed your procedure. BLEEDING: If the procedure site on your wrist begins to bleed, do not panic 1. Place 1 or 2 fingers firmly just slightly above the insertion site to stop the bleeding. You may be able to feel your pulse as you hold pressure. 2. Lift your finger after 5 minutes to see if the bleeding has stopped. 3. Once the bleeding has stopped, gently wipe the wrist area clean with a bandage. * If the bleeding from your wrist does not stop after 10 minutes, or if there is a large amount of bleeding or spurting, call 911 (do not drive yourself to the hospital). SKIN IRRITATION: * You may experience some redness and/or swelling in the area where radiation was administered. If any skin irritation occurs, please contact your family physician. FOLLOW UP VISIT: Keep any scheduled doctor appointments. Follow-up with: Follow-up with Cardiology PA next week for wrist check [place] Recommendations: Call your doctor if: * Temperature above 101 degrees * Pain not relieved by pain medicine ordered * There is increased drainage or redness from any incision * You have any unanswered questions or concerns. Your Doctors Instructions noted above were prepared by provider Jayme Miller. Patient Signature Section: Patient Instructions Signature Page Tomasa Lam Patient (or Guardian) Signature/Date: I have read and understand the instructions given to me by my caregivers. Caregiver/RN/Doctor Signature/Date: The above-named patient and/or guardian has received patient instructions on this date. + Original Patient Signature Page (only) stays with chart. Please make copy for patient.
[2018-05-23 18:00] VITALS: BP 140/76; PULSE 72; O2SAT 98
== END | disposition home or self-care (01) ==
LOC: C.CATH 10:48
PROVIDERS: ATTEND Internal Medicine Interventional Cardiology
DX: I25.10 Atherosclerotic heart disease of native coronary artery without angina pectoris (principal); R06.09 Other forms of dyspnea; I25.2 Old myocardial infarction; I50.32 Chronic diastolic (congestive) heart failure; E53.8 Deficiency of other specified B group vitamins; I11.0 Hypertensive heart disease with heart failure; I48.0 Paroxysmal atrial fibrillation; I35.0 Nonrheumatic aortic (valve) stenosis; K21.9 Gastro-esophageal reflux disease without esophagitis; E78.00 Pure hypercholesterolemia, unspecified; E21.3 Hyperparathyroidism, unspecified; G62.9 Polyneuropathy, unspecified; I73.9 Peripheral vascular disease, unspecified; Z85.038 Personal history of other malignant neoplasm of large intestine; Z82.49 Family history of ischemic heart disease and other diseases of the circulatory system; Z80.8 Family history of malignant neoplasm of other organs or systems; Z80.1 Family history of malignant neoplasm of trachea, bronchus and lung; Z80.6 Family history of leukemia; Z82.0 Family history of epilepsy and other diseases of the nervous system; Z79.82 Long term (current) use of aspirin; Z79.899 Other long term (current) drug therapy; Z88.8 Allergy status to other drugs, medicaments and biological substances

== ENCOUNTER 2019-03-17 14:23 | Observation (INO) ==
--- OUTSIDE RECORDS SUMMARY | 2019-03-17 14:26 | External Medical Summary | Continuity of Care Document ---
:1935 Author Name Angelique Castañeda, Provider Address Unavailable Unavailable , Care Team Providers Name Role Phone Unavailable Unavailable Unavailable Wicho Zavala PA-C Unavailable [email or web address] Cynthia GIMENEZ M.D., Kory Unavailable [email or web address] Vicente Hanks PA-C Unavailable [email or web address] Prasad CALLEJAS Unavailable [email or web address] AMMY MARIE M.D., Jamin Unavailable Unavailable Niles Epperson M.D. Unavailable [email or web address] Unavailable Unavailable Unavailable Problems Hiatal hernia (553.3) (K44.9) Diverticulosis (562.10) (K57.90) Endometrial hyperplasia (621.30) (N85.00) Peripheral vascular disease (443.9) (I73.9) Hypercalcemia (275.42) (E83.52) Hypervolemia (276.69) (E87.70) Coronary artery stenosis (414.00) (I25.10) Anemia (285.9) (D64.9) Hypertension (401.9) (I10) Leg weakness (729.89) (R29.898) Schatzki's ring (750.3) (K22.2) CAD (coronary artery disease) (414.00) (I25.10) Malignant neoplasm of right colon (153.6) (C18.2) Gait disturbance (781.2) (R26.9) Dizziness (780.4) (R42) Degenerative lumbar spinal stenosis (724.02) (M48.061) Neurologic gait dysfunction (781.2) (R26.9) Aortic valve disorder (424.1) (I35.9) Atherosclerotic heart disease of [place] coronary artery without angina pectoris (414.01) (I25.10) Stented coronary artery (V45.82) (Z95.5) Chronic diastolic congestive heart failure (428.32) (I50.32) NSTEMI (non-ST elevated myocardial infarction) (410.70) (I21 .4) Hypercholesterolemia (272.0) (E78.00) Esophageal reflux (530.81) (K21.9) Diastolic dysfunction (429.9) (I51.89) Insomnia (780.52) (G47.00) SNHL (sensorineural hearing loss) (389.10) (H90.5) Cough (786.2) (R05) Vitamin B12 deficiency (266.2) (E53.8) Decreased dorsalis pedis pulse (785.9) (R09.89) Diarrhea (787.91) (R19.7) Urinary symptom or sign (788.99) (R39.9) Malignant neoplasm of colon, unspecified (153.9) (C18.9) Shortness of breath (786.05) (R06.02) Esophagitis (530.10) (K20.9) Peripheral neuropathy (356.9) (G62.9) Hyperparathyroidism (252.00) (E21.3) Abnormal finding on mammography (793.80) (R92.8) Need for influenza vaccination (V04.81) (Z23) Abnormality of gait due to impairment of balance (781.2) (R2 6.89) Skin symptoms (782.9) (R23.9) Dyspnea on exertion (786.09) (R06.09) Chest pain (786.50) (R07.9) Arteriosclerotic cardiovascular disease (429.2) (I25.10) Pre-operative exam (V72.84) (Z01.818) Neoplasm of uncertain behavior (238.9) (D48.9) Right flank pain (789.09) (R10.9) Atypical chest pain (786.59) (R07.89) Dysphagia (787.20) (R13.10) Syncope, unspecified syncope type (780.2) (R55) Fall at home (E888.9) (W19.XXXA) A Fall Aortic diastolic murmur (424.1) (I35.8) Allergies and Adverse Reactions CeleXA TABS (Adverse Event) Reaction: Na usea hydroCHLOROthiazide TABS (Allergy) lidocaine (Allergy) Reaction: Syncope (M oderate), Nausea (Moderate to severe), Vomiting Lipitor TABS (Adverse Event) Reaction: M yalgia Niaspan TBCR (Allergy) Zocor TABS (Adverse Event) Reaction: Ilsa lgia Medications Lisinopril 5 MG Oral Tablet; TAKE 1 TABLET DAILY. BRITTA Parham Start: 23-May-2017 Quantity: 90 Refills: 3 Combivent Respimat 20-100 MCG/ACT Inhala tion Aerosol Solution; ONE INHALATION 4 TIMES DAILY (MAX OF 6 INHALATIONS PER 24 HOURS) BRITTA Hanks Start: 23-May-2017 Quantity: 1 4 GM Inhaler Refills: 5 Latanoprost 0.005 % Ophthalmic Solution; INSTILL 1 DROP INTO AFFECTED EYE(S) ONCE DAILY DIRECTED. DamiánDEsau Refills: 0 raNITIdine HCl - 150 MG Oral Tablet; 1 tab daily , M.DEsau Refills: 0 Sertraline HCl - 100 MG Oral Tablet; TAKE ONE TABLET B Y MOUTH EVERY DAY Maddy Marie III Start: 16-Jan-2012 Quantity: 30 Refills: 5 Aspirin 81 MG TABS; TAKE 1 TABLET DAILY. BRITTA Zavala Start: 27-Feb-2012 Quantity: 100 Refills: 0 Colestipol HCl - 1 GM Oral Tablet; TAKE TWO TABLETS BY MOUTH EVERY EIGHT HOURS Maddy Marie III Start: 26-Jan-2019 Quantity: 180 Refills: 0 Vitamin D3 2000 UNIT Oral Capsule; 1 cap daily , M.DEsau Refills: 0 Metoprolol Succinate ER 50 MG Oral Table t Extended Release 24 Hour; TAKE 1 & 1/2 TABLETS BY MOUTH EVERY DAY BRITTA Parham Start: 18-Mar-2013 Quantity: 45 Refills: 6 Nitroglycerin 0.4 MG Sublingual Tablet S ublingual; PLACE 1 TABLET UNDER THE TONGUE EVERY 5 MINUTES FOR UP TO 3 DOSES NEEDED FOR ANGINA OR DIFFICULTY BREATHING. .CALL 911 IF PAIN PERSISTS. Maddy Marie III Start: 11-Apr-2015 Quantity: 25 Refills: 5 Biotin 1 MG Oral Capsule; TAKE 1 CAPSULE Daily , M.DEsau Start: 23-May-2017 Refills: 0 Vitamin B-12 1000 MCG Oral Tablet; 1 tab daily , M.D. Start: 23-May-2017 Refills: 0 Procedures MRI Brain W+WO Contrast Date: 21-Jan-2019 History of Cath Stent Placement Status: Completed History of Complete Colonoscopy Status: Completed History of Partial Colectomy Status: Com pleted History of Exploratory Laparotomy Status : Completed History of Cath Stent 1 Mid-Left Anterior Status: Completed Descending Artery History of Rotator Cuff Repair Status: C ompleted History of Card Cath Post-Proc Data: ___ Lesions Status: Completed Successfully Dilated History of Parathyroid Surgery Status: C ompleted Stented coronary artery Immunizations Td On: 24-Mar-2002 Pneumococcal polysaccharide vaccine, 23 valent On: 2 Influenza On: 18-Jul-2010 9:37 Lot #: [id number], [employer]UR Influenza On: 21-Jul-2010 Influenza On: 20-Jul-2011 13:21 Lot #: [id number], [employer] PA[employer]UR Influenza On: 06-Nov-2012 11:47 Lot #: [id number], [employer] PASTEUR Influenza On: 10-Aug-2013 13:44 Lot #: [id number], [employer]OFI PASTEUR Influenza On: 27-Jul-2014 13:00 Lot #: [id number], [employer]FI PASTEUR Fluzone High-Dose 0.5 ML Intramuscular Suspension Pref illed Syringe On: 21-Jul-2015 14:38 Lot #: [id number], [employer] PASTEUR Fluzone High-Dose Intramuscular Suspension On: 17-Aug-2016 1 3:00 Lot #: [id number], [employer]FI PASTEUR Fluzone High-Dose 0.5 ML Intramuscular Suspension Pref illed Syringe On: 26-Jul-2017 14:34 Lot #: [id number], [employer]FI PA[employer]UR Fluzone High-Dose 0.5 ML Intramuscular Suspension Pref illed Syringe On: 30-Jul-2018 14:03 Lot #: [id number], [employer] PASTEUR Prevnar 13 Intramuscular Suspension On: 22-Oct-2018 17:06 Lot #: [id number], PFIZER [place] Influenza Comments:approximate ly [id number] Influenza Comments:approximate ly [id number] Influenza Comments:approximate ly [id number] Influenza Comments:approximate ly [id number] Influenza Comments:approximate ly [id number] Zoster (Zostavax) Comments:approximate ly [id number] Family History Sister Family history of Leukemia (V16.6) Status: Active Family history of Parkinson Disease Status: Active Family history of Brain Tumor Status: Active Family history of Gastric Cancer (V16.0) Status: Active Family history of Colon Cancer (V16.0) Status: Active Family history of deafness or hearing loss (V19.2) (Z82.2) S tatus: Active Family history of malignant neoplasm (V16.9) (Z80.9) Status: Active Family history of Bowel cancer (159.0) (C26.0) Status: Activ e Family history of lung cancer (V16.1) (Z80.1) Status: Active Brother Family history of Leukemia (V16.6) Status: Active Mother Family history of Migraine Headache Status: Active Family history of Skin Cancer (V16.8) Status: Active Family history of hypertension (V17.49) (Z82.49) Status: Act fritz Father Family history of Coronary Artery Disease Status: Active Unknown Family Member Family history of Colon Cancer (V16.0) Status: Active C omments: Family History Family history of Colon Cancer (V16.0) Status: Active C omments: Family History Social History - Smoking Status Never smoker Plan of Treatment Planned Observations Planned Goals not documented Results No Known Results Results not documented Encounters Appointment; Tirso Marie III, M.D. 05-Feb-2019 13:10 Encounter Diagnosis: Problem not documented Appointment; Pia, Nurse 22-Oct-2018 15:20 Encounter Diagnosis: Problem not documented Appointment; Tirso Marie III, M.D. 30-Jul-2018 13:10 Encounter Diagnosis: Problem not documented Appointment; Daniela Villanueva PA-C 25-Jun-2018 11:45 Encounter Diagnosis: Problem not documented Appointment; Patience Kumar M.D. 17-Jun-2018 10:30 Encounter Diagnosis: Problem not documented Appointment; Lorenzo Miller M.D. 23-May-2018 12:00 Encounter Diagnosis: Problem not documented Appointment; Lorenzo Miller M.D. 21-May-2018 15:15 Encounter Diagnosis: Problem not documented Appointment; Brown Valencia M.D. 18-Apr-2018 14:00 Encounter Diagnosis: Problem not documented Appointment; Patience Kumar M.D. 25-Mar-2018 15:00 Encounter Diagnosis: Problem not documented Appointment; Lorenzo Miller M.D. 13-Mar-2018 15:45 Encounter Diagnosis: Problem not documented Appointment; Wicho Zavala PA-C 30-Sep-2017 15:30 Encounter Diagnosis: Problem not documented Appointment; Nohemi Parham PA-C 15-Aug-2017 14:30 Encounter Diagnosis: Problem not documented Appointment; Tirso Marie III, M.D. 26-Jul-2017 13:50 Encounter Diagnosis: Problem not documented Appointment; Nohemi Parham PA-C 06-Jun-2017 15:15 Encounter Diagnosis: Problem not documented Appointment; Tirso Marie III, M.D. 31-May-2017 15:00 Encounter Diagnosis: Problem not documented Appointment; Lorenzo Miller M.D. 03-Apr-2017 11:00 Encounter Diagnosis: Problem not documented
[2019-03-17] MEDS ORDERED: NITROGLYCERIN 2% OINTMENT 30GM TUBE EXT ONE (14:51)
[2019-03-17 15:15] LABS: Basophils # (auto) 0.04 K/uL (0-0.2); Basophils % (auto) 0.5 %; Eosinophils % (auto) 1.3 %; Hematocrit (blood only) 35.9 % (37-47); Hemoglobin 13.2 g/dL (12.0-16.0); Immature Granulocytes # (auto) 0.02 K/uL (0.00-0.02); Immature Granulocytes % (auto) 0.3 %; Lymphocytes # (auto) 2.51 K/uL (1.2-3.4); Lymphocytes % (auto) 32.5 %; Mean Corpuscular Hgb Conc 36.8 g/dL (32-36); Mean Corpuscular Volume 90.4 fL (80-100); Mean Platelet Volume 10.2 fL (7.4-10.4); Monocytes # (auto) 0.65 K/uL (0.11-0.59); Monocytes % (auto) 8.4 %; Platelet Count 204 K/uL (130-400); RDW Coefficient of Variation 13.3 % (11.5-14.5); RDW Standard Deviation 43.7 fL (36.4-46.3); Red Blood Count 3.97 M/uL (4.2-5.4); White Blood Count 7.72 K/uL (4.8-10.8)
--- NOTE | 2019-03-17 15:17 | XRay Report ---
XR chest 1V portable HISTORY: Atypical chest pain COMPARISON: Chest 07/23/2017. FINDINGS: No pneumothorax. The heart remains mildly enlarged. No new focal lung consolidations to sug gest pneumonia. No evidence for pulmonary edema. Suspect trace bilateral pleural effusions. Bibasilar interstitial thickening is likely chronic. This remains unchanged. IMPRESSION: 1. Trace bilateral pleural effusions. 2. Stable cardiomegaly and bibasilar interstitial thickening. Electronically signed by: Shelton Beyer M.D. 03/17/2019 3:16 PM
[2019-03-17 15:32] LABS: Alanine Aminotransferase 25 U/L (12-78); Albumin Level 3.4 gm/dl (3.4-5.0); Aspartate Aminotransferase 20 U/L (15-37); Blood Urea Nitrogen 17 mg/dl (7-18); Calcium 10.2 mg/dl (8.5-10.1); Carbon Dioxide 25 mmol/L (21-32); Chloride 110 mmol/L (98-107); Creatinine Clr Calc Pharmacy 38.7 ml/min; Est GFR (African American) 65.8; Est GFR (Non-African American) 56.8; Glucose 110 mg/dl (70-99); Magnesium 1.6 mg/dl (1.8-2.4); Potassium 4.1 mmol/L (3.5-5.1); Sodium 145 mmol/L (136-145)
[2019-03-17 15:43] LABS: Alkaline Phosphatase 83 U/L (45-117); Bilirubin,Total 0.5 mg/dl (0.2-1); Globulin 3.3 gm/dl (2.5-4.0); NT Pro B Type Natriuretic Pept 107 pg/ml (0-1800); Total Protein 6.7 gm/dl (6.4-8.2); Troponin I < 0.015 ng/ml (0-0.045)
[2019-03-17 15:46] LABS: D Dimer 920 ug/L FEU (0-500)
[2019-03-17] MEDS ORDERED: MAGNESIUM SULFATE / D5W 1 GM/100 ML BAG IV ONE (15:50)
[2019-03-17] MEDS ORDERED: OPTIRAY 320 125ml IV PRN (16:14)
--- NOTE | 2019-03-17 16:28 | CT Scan Report ---
CT ANGIOGRAPHY OF THE CHEST, PULMONARY EMBOLUS PROTOCOL CLINICAL HISTORY: Shortness of breath. Evaluate for pulmonary embolus. COMPARISON STUDY: Chest CT May 31, 2008. Chest radiograph performed earlier today. TECHNIQUE: Following IV administration of 98 mL of Optiray-320, helical axial images of the chest wer e obtained utilizing the pulmonary embolus protocol. Maximal intensity projections and sagittal and coronal reformats were viewed on an independent 3D workstation. IV contrast was administered without complication. Automated exposure control was utilized for the study. A dose lowering technique was utilized adhering to the principles of ALARA. CT DOSE: 270.04 mGy.cm FINDINGS: No pulmonary emboli are identified. There is no thoracic aortic dissection. The heart is m ildly enlarged. There is no pericardial effusion. Extensive coronary artery calcification is present. Central airways are patent. No pneumothorax or pleural effusion is noted. No consolidation to sugges t pneumonia. Mild mosaic attenuation is noted. No enlarged thoracic lymph nodes are present. No suspi cious osseous lesions are noted. A small hiatal hernia is present. There is fatty infiltration of the liver. IMPRESSION: 1. No pulmonary emboli identified. 2. No acute intrathoracic findings. 3. Mild cardiomegaly. Extensive coronary artery calcification. 4. Fatty liver. 5. Small hiatal hernia. Electronically signed by: Alex Villafuerte M.D. 03/17/2019 4:27 PM
--- NOTE | 2019-03-17 19:46 | History & Physical Report ---
Date of Service March 17, 2019 Assessment & Plan (1) Chest pain: Patient with history of CAD s/p multiple stents in place. Presenting with bandlike exertional chest pain relieved with rest or nitro. Pain concerning for unstable angina, cardiac chest pain vs GI vs musculoskeletal. Some reproducible chest wall tenderness. Presently hemodynamically stable, CP free, EKG with no acute ischemic changes, troponin x 1 negative -Observation to PCU for continuous cardiac monitoring -Troponin q 8 hours x 3 -Cardiology consultation - appreciate assistance with this case -Continue Metoprolol, Lisinopril, statin intolerant -Patient does not appear to be on an antiplatelet agent by medication rec onciliation -ASA 81mg po daily -NPO after midnight for possible cath in AM Present on Admission?: Yes (2) Chronic diastolic congestive heart failure: Appears to be euvolemic at present -Continue Metoprolol, Lisinopril -Continue to monitor Present on Admission?: Yes (3) Dysphagia: Chronic. -Aspiration precautions -Continue Ranitidine 150mg po daily Present on Admission?: Yes (4) Hypercholesterolemia: Chronic. Stable -No statin at present F/E/N - heplock, electrolytes WNL, Heart healthy diet, NPO after midnight Ppx - low risk for DVT Code - DNR per discussion with patient Dispo - Obs to PCU for CP rule out History of Present Illness Chief Complaint: chest pain Primary Care Provider: Tisro Marie MD 83yo C female with multiple medical problems, notably CAD s/p stents to LAD and circumflex and most recently RCA in April of 2017, mild aortic insufficiency, possible PAF, HTN, dyslipidemia and chronic diastolic CHF. Patient follows with Cardiology, Dr. Parrish, most recently seen May 2018. Patient presents with 2- 3 weeks of bandlike chest discomfort. Pain described as pressure/tightness, 8/10 in severity, occurs intermittently throughout the day mostly with exertion and is relieved with rest and occasionally Nitro. Radiation to the right arm and associated with dizziness and shortness of breath. Patient reports increased frequency and severity of her chest discomfort. Patient called Dr. Parrish' office to schedule an appointment and was recommended to come to the ER. Patient denies edema, orthopnea or weight gain. +Heartburn ER Course: Magnesium 1gm Nitro 0.5inch Allergies Allergy/AdvReac Type Severity Reaction Status Date / Time atorvastatin Allergy Unknown MUSCLE Verified 03/17/19 15:22 ACHES citalopram Allergy Unknown G I UPSET- Verified 03/17/19 15:22 hydrochlorothiazide Allergy Unknown UNKNOWN-INE Verified 03/17/19 15:22 FFECTIVE? lidocaine Allergy Unknown GIVEN Verified 03/17/19 15:22 DURING EGD PROCEDURE-"UNRESPONSIVE" niacin Allergy Unknown UNKNOWN Verified 03/17/19 15:22 simvastatin AdvReac Unknown MUSCLE Verified 03/17/19 15:22 ACHES Home Medications Home Medications Medication Instructions Recorded Confirmed Type Combivent Respimat 1 puff INHALATION QID 08/06/18 03/17/19 History cholecalciferol (vitamin D3) 2,000 unit PO DAILY 08/06/18 03/17/19 History [Vitamin D3] colestipol 2 tab PO DAILY 08/06/18 03/17/19 History latanoprost 1 drp OPB HS 08/06/18 03/17/19 History lisinopril 5 mg PO QAM 08/06/18 03/17/19 History metoprolol succinate 75 mg PO QAM 08/06/18 03/17/19 History nitroglycerin 1 tab SUBLINGUAL UD PRN 08/06/18 03/17/19 History ranitidine HCl 150 mg PO DAILY PRN 08/06/18 03/17/19 History sertraline 100 mg PO QAM 08/06/18 03/17/19 History cyanocobalamin (vitamin B-12) 1,000 mcg PO QAM 01/20/19 03/17/19 History [Vitamin B-12] naproxen sodium [Aleve] 220 mg PO DAILY PRN 03/17/19 03/17/19 History Past Med/Surg History Medical History Stricture esophagus Anemia Aortic diastolic murmur Atherosclerotic cardiovascular disease Chronic diastolic congestive heart failure Diverticulosis Dysphagia Dyspnea on exertion Endometrial hyperplasia Esophageal reflux disease Esophagitis Gait disturbance History of colon cancer Hydronephrosis (Acute 10/03/14) Hypercalcemia Hypercholesterolemia Hyperparathyroidism Renal colic (Acute 10/03/14) Schatzki's ring Vitamin B12 deficiency Dysphagia Atrial fibrillation PAROXYSMAL A-FIB Cancer COLON--sx Chronic back pain BACK INJECTIONS Congestive heart failure Depression Dysphagia ESOPHAGEAL STRETCHING IN PAST GERD (gastroesophageal reflux disease) Hearing deficit Hyperlipidemia Hypertension Macular degeneration Myocardial Infarction 2017 Osteoarthritis Schatzki's ring Surgical History H/O parathyroidectomy H/O repair of rotator cuff History of intravascular stent placement History of laparotomy History of partial colectomy History of anesthesia reaction BECAME UNRESPONSIVE WITH LIDOCAINE DURING EGD PROCEDURE-SEE PRIOR EGD ANESTHESIA NOTES AT [facility] History of bowel resection History of cardiac cath X 3 ( STENTS PLACED)(APRIL 2017- DRUG ELUTING STENT PLACED BY DR. PARRISH) RECENT HEART CATH 05/2018 (NO STENTS) "TAKEN OFF PLAVIX" History of cataract surgery RT/LEFT History of colonoscopy History of esophagogastroduodenoscopy (EGD) History of heart artery stent 3 STENTS TOTAL PLACED History of parathyroid surgery History of repair of rotator cuff RT History of tooth extraction Family History Father Family history of diabetes mellitus Sister Family hx of colon cancer Other No family history of adverse response to anesthesia Social History Preferred Language: Gambian Communication Ability: Effective Beliefs That Will Affect Care: None Current Living Situation: Spouse Feels Safe at Home: Yes Smoking Status: Never smoker Second Hand Exposure: No Hx Alcohol Use: No Hx Substance Use: No Review of Systems Review of Systems: All systems reviewed & are unremarkable except as noted in HPI & below Physical Exam Physical Exam: General: patient resting comfortably, NAD, non-toxic in appearance, AA&O x 4 Skin: warm, dry, intact, no rashes or lesions HEENT: NC/AT, PERRL, EOMI, anicteric sclera, conjunctiva without injection, external ear normal to inspection and nontender, nares patent, moist mucus membranes, dentition intact, no oropharyngeal lesions, neck supple, trachea midline, no LAD, no thyromegaly, no JVD Heart: +S1/S2, regular, no m/r/g Lungs: equal air entry bilaterally, no rales/rhonchi/wheezes Abd: +BS, soft, NT/ND, no masses/organomegaly/ascites Ext: warm, 2+ pulses in UE/LE bilaterally, no clubbing/cyanosis or edema Neuro: nonfocal, patient AA&O x 4, speech intact, no facial droop, moving all extremities on command with equal strength 5/5 Results & Data Vital Signs (Past 12 Hours) Vital Signs Temp Pulse Pulse Resp BP BP Pulse Ox 03/17/19 17:40 74 17 184/64 H 96 03/17/19 16:15 72 18 182/74 H 95 03/17/19 15:24 72 20 143/74 H 94 03/17/19 14:59 72 22 161/89 H 96 03/17/19 14:58 97 03/17/19 14:25 36.3 C L 80 20 169/84 H 97 Laboratory Results Lab Results 03/17/19 03/17/19 03/17/19 Range/Units 15:00 15:00 15:00 WBC 7.72 (4.8-10.8) K/uL RBC 3.97 L (4.2-5.4) M/uL Hgb 13.2 (12.0-16.0) g/dL Hct 35.9 L (37-47) % MCV 90.4 (80-100) fL MCH 33.2 (25-34) pg MCHC 36.8 H (32-36) g/dL RDW Std Deviation 43.7 (36.4-46.3) fL RDW Coeff of [place] 13.3 (11.5-14.5) % Plt Count 204 (130-400) K/uL MPV 10.2 (7.4-10.4) fL Immature Gran % (Auto) 0.3 % Neut % (Auto) 57.0 % Lymph % (Auto) 32.5 % [place] % (Auto) 8.4 % Eos % (Auto) 1.3 % Baso % (Auto) 0.5 % Immature Gran # (Auto) 0.02 (0.00-0.02) K/uL Neut # (Auto) 4.40 (1.4-6.5) K/uL Lymph # (Auto) 2.51 (1.2-3.4) K/uL [place] # (Auto) 0.65 H (0.11-0.59) K/uL Eos # (Auto) 0.10 (0-0.5) K/uL Baso # (Auto) 0.04 (0-0.2) K/uL D-Dimer 920 H* (0-500) ug/L FEU Sodium 145 (136-145) mmol/L Potassium 4.1 (3.5-5.1) mmol/L Chloride 110 H (98-107) mmol/L Carbon Dioxide 25 (21-32) mmol/L Anion Gap 10.0 (3-11) BUN 17 (7-18) mg/dl Creatinine 0.92 (0.6-1.2) mg/dl Est Cr Clr Drug Dosing 38.7 ml/min Est GFR ( Amer) 65.8 Est GFR (Non-Af Amer) 56.8 BUN/Creatinine Ratio 18.0 (10-20) Glucose 110 H (70-99) mg/dl Calcium 10.2 H (8.5-10.1) mg/dl Magnesium 1.6 L (1.8-2.4) mg/dl Total Bilirubin 0.5 (0.2-1) mg/dl AST 20 (15-37) U/L ALT 25 (12-78) U/L Alkaline Phosphatase 83 (45-117) U/L Troponin I < 0.015 (0-0.045) ng/ml NT-Pro-B Natriuret Pep 107 (0-1800) pg/ml Total Protein 6.7 (6.4-8.2) gm/dl Albumin 3.4 (3.4-5.0) gm/dl Globulin 3.3 (2.5-4.0) gm/dl Albumin/Globulin Ratio 1.0 (0.9-2) Lipase 271 (73-393) U/L TSH 1.190 (0.300-4.500) uIu/ml Diagnostic Findings XR chest 1V portable HISTORY: Atypical chest pain COMPARISON: Chest 07/23/2017. FINDINGS: No pneumothorax. The heart remains mildly enlarged. No new focal lung consolidations to suggest pneumonia. No evidence for pulmonary edema. Suspect trace bilateral pleural effusions. Bibasilar interstitial thickening is likely chronic. This remains unchanged. IMPRESSION: 1. Trace bilateral pleural effusions. 2. Stable cardiomegaly and bibasilar interstitial thickening. Electronically signed by: Shelton Beyer M.D. 03/17/2019 3:16 PM Dictated: 03/17/19 1513 Transcribed: 03/17/[address] ANGIOGRAPHY OF THE CHEST, PULMONARY EMBOLUS PROTOCOL CLINICAL HISTORY: Shortness of breath. Evaluate for pulmonary embolus. COMPARISON STUDY: Chest CT May 31, 2008. Chest radiograph performed earlier today. TECHNIQUE: Following IV administration of 98 mL of Optiray-320, helical axial images of the chest were obtained utilizing the pulmonary embolus protocol. Maximal intensity projections and sagittal and coronal reformats were viewed on an independent 3D workstation. IV contrast was administered without complication. Automated exposure control was utilized for the study. A dose lowering technique was utilized adhering to the principles of ALARA. CT DOSE: 270.04 mGy.cm FINDINGS: No pulmonary emboli are identified. There is no thoracic aortic dissection. The heart is mildly enlarged. There is no pericardial effusion. Extensive coronary artery calcification is present. Central airways are patent. No pneumothorax or pleural effusion is noted. No consolidation to suggest pneumonia. Mild mosaic attenuation is noted. No enlarged thoracic lymph nodes are present. No suspicious osseous lesions are noted. A small hiatal hernia is present. There is fatty infiltration of the liver. IMPRESSION: 1. No pulmonary emboli identified. 2. No acute intrathoracic findings. 3. Mild cardiomegaly. Extensive coronary artery calcification. 4. Fatty liver. 5. Small hiatal hernia. Electronically signed by: Alex Villafuerte M.D. 03/17/2019 4:27 PM ECG Additional Comments: The study shows NSR at 73bpm, normal axis, JN=673, QRS=94, CBv=679, incomplete RBBB, no acute ischemic changes Code Status & VTE Plan Code Status DNR per discussion with patient Critical Care Time Critical Care Time: No (1) Chest pain Chest pain type: unspecified Qualified Code(s): R07.9 - Chest pain, unspecified (2) Dysphagia Dysphagia type: unspecified Qualified Code(s): R13.10 - Dysphagia, unspecified
--- NOTE | 2019-03-17 20:53 | Emergency Department Note ---
Entered by Carol Ann Babcock acting as a scribe for History of Present Illness General Chief complaint: Cardiac Assessment Stated complaint: CHEST PAIN Time Seen by Provider: 03/17/19 14:40 Source: patient Mode of arrival: ambulatory Limitations: no limitations History of Present Illness Onset (ago): week(s) 1 Location: chest Radiation: extremity (right arm) and other (She notes that her left sided chest pain radiates across her chest and into down her right arm) Pain Consistency: + other (worsening) Maximum Pain Intensity: 5 Quality: + dull The patient is an 83 year old female with a history of anemia, aortic diastolic murmur, stents, atherosclerotic cardiovascular disease, and CHF who presents to the ED with complaints of worsening left sided chest pain that onset 1 week ago. The patient presents with her . She notes that the pain onset this morning after she woke up. She notes that her left sided chest pain radiates across her chest and into down her right arm. The patient states that the pain comes on randomly. She describes it as dull. The patient notes that the pain typically lasts for a couple of minutes however today it lasted longer. The patient complains of dizziness and shortness of breath for 1 month. She notes that she uses nitro when the pain gets too bad but denies taking any today. No recent change in medications. No change in activity. No change in diet. Patient states she has previously seen Dr. Parrish, cardiology. Home Medications Home Medications Medication Instructions Recorded Confirmed Type Combivent Respimat 1 puff INHALATION QID 08/06/18 03/17/19 History cholecalciferol (vitamin D3) 2,000 unit PO DAILY 08/06/18 03/17/19 History [Vitamin D3] colestipol 2 tab PO DAILY 08/06/18 03/17/19 History latanoprost 1 drp OPB HS 08/06/18 03/17/19 History lisinopril 5 mg PO QAM 08/06/18 03/17/19 History metoprolol succinate 75 mg PO QAM 08/06/18 03/17/19 History nitroglycerin 1 tab SUBLINGUAL UD PRN 08/06/18 03/17/19 History ranitidine HCl 150 mg PO DAILY PRN 08/06/18 03/17/19 History sertraline 100 mg PO QAM 08/06/18 03/17/19 History cyanocobalamin (vitamin B-12) 1,000 mcg PO QAM 01/20/19 03/17/19 History [Vitamin B-12] naproxen sodium [Aleve] 220 mg PO DAILY PRN 03/17/19 03/17/19 History Allergies Allergy/AdvReac Type Severity Reaction Status Date / Time atorvastatin Allergy Unknown MUSCLE Verified 03/17/19 15:22 ACHES citalopram Allergy Unknown G I UPSET- Verified 03/17/19 15:22 hydrochlorothiazide Allergy Unknown UNKNOWN-INE Verified 03/17/19 15:22 FFECTIVE? lidocaine Allergy Unknown GIVEN Verified 03/17/19 15:22 DURING EGD PROCEDURE-"UNRESPONSIVE" niacin Allergy Unknown UNKNOWN Verified 03/17/19 15:22 simvastatin AdvReac Unknown MUSCLE Verified 03/17/19 15:22 ACHES Past Med/Surg History Medical History Stricture esophagus Anemia Aortic diastolic murmur Atherosclerotic cardiovascular disease Chronic diastolic congestive heart failure Diverticulosis Dysphagia Dyspnea on exertion Endometrial hyperplasia Esophageal reflux disease Esophagitis Gait disturbance History of colon cancer Hydronephrosis (Acute 10/03/14) Hypercalcemia Hypercholesterolemia Hyperparathyroidism Renal colic (Acute 10/03/14) Schatzki's ring Vitamin B12 deficiency Dysphagia Atrial fibrillation PAROXYSMAL A-FIB Cancer COLON--sx Chronic back pain BACK INJECTIONS Congestive heart failure Depression Dysphagia ESOPHAGEAL STRETCHING IN PAST GERD (gastroesophageal reflux disease) Hearing deficit Hyperlipidemia Hypertension Macular degeneration Myocardial Infarction 2017 Osteoarthritis Schatzki's ring Surgical History H/O parathyroidectomy H/O repair of rotator cuff History of intravascular stent placement History of laparotomy History of partial colectomy History of anesthesia reaction BECAME UNRESPONSIVE WITH LIDOCAINE DURING EGD PROCEDURE-SEE PRIOR EGD ANESTHESIA NOTES AT [facility] History of bowel resection History of cardiac cath X 3 ( STENTS PLACED)(APRIL 2017- DRUG ELUTING STENT PLACED BY DR. PARRISH) RECENT HEART CATH 05/2018 (NO STENTS) "TAKEN OFF PLAVIX" History of cataract surgery RT/LEFT History of colonoscopy History of esophagogastroduodenoscopy (EGD) History of heart artery stent 3 STENTS TOTAL PLACED History of parathyroid surgery History of repair of rotator cuff RT History of tooth extraction Family History Father Family history of diabetes mellitus Sister Family hx of colon cancer Other No family history of adverse response to anesthesia Social History Preferred Language: Moroccan Communication Ability: Effective Beliefs That Will Affect Care: None Current Living Situation: Spouse Feels Safe at Home: Yes Smoking Status: Never smoker Second Hand Exposure: No Hx Alcohol Use: No Hx Substance Use: No Review of Systems See HPI for pertinent positives & negatives. and A total of 10 systems reviewed and were otherwise negative Physical Exam Vital Signs Vital Signs - 24 hr 03/17/19 14:25 03/17/19 14:58 03/17/19 14:59 Temperature 36.3 C L Temperature Source Oral Sepsis Recent Fever Within 48 Hours No Sepsis New/Unexplained Change in Mental Status No Sepsis Action Taken by Nursing No Action Required Pulse Rate 80 Pulse Rate [Apical] 72 Pulse Rhythm [Apical] Regular Respiratory Rate 20 22 Respiratory Effort / Characteristics Short of Breath Respiratory Depth Respiratory Pattern Blood Pressure 169/84 H Blood Pressure [Left Arm] 161/89 H Blood Pressure Mean 112 Blood Pressure Mean [Left Arm] 113 Blood Pressure Position [Left Arm] Sitting Pulse Oximetry 97 97 96 Oxygen Delivery Method Room Air Room Air Room Air 03/17/19 15:24 03/17/19 16:15 03/17/19 17:40 Temperature Temperature Source Sepsis Recent Fever Within 48 Hours Sepsis New/Unexplained Change in Mental Status Sepsis Action Taken by Nursing Pulse Rate Pulse Rate [Apical] 72 72 74 Pulse Rhythm [Apical] Regular Regular Regular Respiratory Rate 20 18 17 Respiratory Effort / Characteristics Non-Labored Non-Labored Non-Labored Respiratory Depth Normal Normal Normal Respiratory Pattern Regular Regular Regular Blood Pressure Blood Pressure [Left Arm] 143/74 H 182/74 H 184/64 H Blood Pressure Mean Blood Pressure Mean [Left Arm] 97 110 104 Blood Pressure Position [Left Arm] Pulse Oximetry 94 95 96 Oxygen Delivery Method Room Air Room Air Room Air 03/17/19 18:30 Temperature Temperature Source Sepsis Recent Fever Within 48 Hours Sepsis New/Unexplained Change in Mental Status Sepsis Action Taken by Nursing Pulse Rate Pulse Rate [Apical] 70 Pulse Rhythm [Apical] Regular Respiratory Rate 20 Respiratory Effort / Characteristics Non-Labored Respiratory Depth Normal Respiratory Pattern Regular Blood Pressure Blood Pressure [Left Arm] 162/82 H Blood Pressure Mean Blood Pressure Mean [Left Arm] 108 Blood Pressure Position [Left Arm] Pulse Oximetry 95 Oxygen Delivery Method Room Air GENERAL: alert, uncomfortable appearing, well nourished, no distress, non-toxic EYE EXAM: normal conjunctiva, PERRL and EOM's grossly intact OROPHARYNX: no exudate, no erythema, lips, buccal mucosa, and tongue normal and mucous membranes are moist NECK: supple, no nuchal rigidity, no adenopathy, non-tender LUNGS: Clear to auscultation. Normal chest wall mechanics, no w/r/r HEART: no murmurs, S1 normal and S2 normal ABDOMEN: abdomen soft, non-tender, normo-active bowel sounds, no masses, no rebound or guarding. BACK: Back is symmetrical on inspection and there is no deformity, no midline tenderness, no CVA tenderness. SKIN: no rashes and no bruising UPPER EXTREMITIES: upper extremities are grossly normal. FROM, nml pulses b/l. LOWER EXTREMITIES: No pitting edema. FROM, nml pulses b/l. NEURO EXAM: Normal sensorium, cranial nerves II-XII grossly intact, normal speech, no gross weakness of arms, no gross weakness of legs. Course 1442: Past medical records reviewed. The patient was evaluated in room A10. A complete history and physical examination was performed. 1332: Review of ME: patient underwent cardiac act May 23, 2018. Moderate non obstructive coronary artery disease. 50-60% positive mid LAD stent. Patient with total of 3 stents. Following cath, patient was taken off Plavix. 1716: I have re-evaluated the patient and her family. No pain at this time. 1814: I reviewed the patient's [facility]. She will evaluate the patient for further management. Consultations Consultation #1: 1814: I reviewed the patient's case with [facility]. She will evaluate the patient for further management. Time: 18:14 Administered Medications Ioversol (Optiray 320 125ml) 98 ml IV ONCE PRN PRN Reason: Interaction Checking Stop: 03/21/19 16:13 Last Admin: 03/17/19 16:14 Dose: 98 ml Documented by: [id number] Discontinued Medications Magnesium Sulfate/Dextrose (Magnesium Sulfate / D5w) 1 gm in 100 mls @ 100 mls /hr IV ONE ONE Stop: 03/17/19 16:49 Last Infusion: 03/17/19 17:45 Dose: 0 mls/hr Documented by: [id number] Admin: 03/17/19 16:39 Dose: 100 mls/hr Documented by: [id number] Nitroglycerin (Nitro-Bid 2%) 0.5 inch EXT NOW ONE Stop: 03/17/19 14:52 Last Admin: 03/17/19 20:31 Dose: Not Given Documented by: [id number] Medical Decision Making Differential Diagnosis Differential diagnoses: Acute coronary syndrome, myocardial infarction, pericarditis, pulmonary embolus, aortic dissection, pneumonia, pneumothorax, musculoskeletal, shingles, esophageal. Medical Records Attestation: I reviewed the patient's medical records. Home Medications Current Medication List: was personally reviewed by me Laboratory Data Attestation: I reviewed the patient's lab results. Result diagrams: 03/17/19 15:00 03/17/19 15:00 Lab Results 03/17/19 03/17/19 03/17/19 Range/Units 15:00 15:00 15:00 WBC 7.72 (4.8-10.8) K/uL RBC 3.97 L (4.2-5.4) M/uL Hgb 13.2 (12.0-16.0) g/dL Hct 35.9 L (37-47) % MCV 90.4 (80-100) fL MCH 33.2 (25-34) pg MCHC 36.8 H (32-36) g/dL RDW Std Deviation 43.7 (36.4-46.3) fL RDW Coeff of Kassy 13.3 (11.5-14.5) % Plt Count 204 (130-400) K/uL MPV 10.2 (7.4-10.4) fL Immature Gran % (Auto) 0.3 % Neut % (Auto) 57.0 % Lymph % (Auto) 32.5 % Charlton % (Auto) 8.4 % Eos % (Auto) 1.3 % Baso % (Auto) 0.5 % Immature Gran # (Auto) 0.02 (0.00-0.02) K/uL Neut # (Auto) 4.40 (1.4-6.5) K/uL Lymph # (Auto) 2.51 (1.2-3.4) K/uL Charlton # (Auto) 0.65 H (0.11-0.59) K/uL Eos # (Auto) 0.10 (0-0.5) K/uL Baso # (Auto) 0.04 (0-0.2) K/uL D-Dimer 920 H* (0-500) ug/L FEU Sodium 145 (136-145) mmol/L Potassium 4.1 (3.5-5.1) mmol/L Chloride 110 H (98-107) mmol/L Carbon Dioxide 25 (21-32) mmol/L Anion Gap 10.0 (3-11) BUN 17 (7-18) mg/dl Creatinine 0.92 (0.6-1.2) mg/dl Est Cr Clr Drug Dosing 38.7 ml/min Est GFR ( Amer) 65.8 Est GFR (Non-Af Amer) 56.8 BUN/Creatinine Ratio 18.0 (10-20) Glucose 110 H (70-99) mg/dl Calcium 10.2 H (8.5-10.1) mg/dl Magnesium 1.6 L (1.8-2.4) mg/dl Total Bilirubin 0.5 (0.2-1) mg/dl AST 20 (15-37) U/L ALT 25 (12-78) U/L Alkaline Phosphatase 83 (45-117) U/L Troponin I < 0.015 (0-0.045) ng/ml NT-Pro-B Natriuret Pep 107 (0-1800) pg/ml Total Protein 6.7 (6.4-8.2) gm/dl Albumin 3.4 (3.4-5.0) gm/dl Globulin 3.3 (2.5-4.0) gm/dl Albumin/Globulin Ratio 1.0 (0.9-2) Lipase 271 (73-393) U/L TSH 1.190 (0.300-4.500) uIu/ml Imaging Data Radiologist's Impression: Radiology results as stated below per my review and the radiologist's interpretation: CT ANGIOGRAPHY OF THE CHEST, PULMONARY EMBOLUS PROTOCOL CLINICAL HISTORY: Shortness of breath. Evaluate for pulmonary embolus. COMPARISON STUDY: Chest CT May 31, 2008. Chest radiograph performed earlier today. TECHNIQUE: Following IV administration of 98 mL of Optiray-320, helical axial images of the chest were obtained utilizing the pulmonary embolus protocol. Maximal intensity projections and sagittal and coronal reformats were viewed on an independent 3D workstation. IV contrast was administered without complication. Automated exposure control was utilized for the study. A dose lowering technique was utilized adhering to the principles of ALARA. CT DOSE: 270.04 mGy.cm FINDINGS: No pulmonary emboli are identified. There is no thoracic aortic dissection. The heart is mildly enlarged. There is no pericardial effusion. Extensive coronary artery calcification is present. Central airways are patent. No pneumothorax or pleural effusion is noted. No consolidation to suggest pneumonia. Mild mosaic attenuation is noted. No enlarged thoracic lymph nodes are present. No suspicious osseous lesions are noted. A small hiatal hernia is present. There is fatty infiltration of the liver. IMPRESSION: 1. No pulmonary emboli identified. 2. No acute intrathoracic findings. 3. Mild cardiomegaly. Extensive coronary artery calcification. 4. Fatty liver. 5. Small hiatal hernia. Electronically signed by: Alex Villafuerte M.D. 03/17/2019 4:27 PM Dictated: 03/17/19 1615 Transcribed: 03/17/19 1615 XR chest 1V portable HISTORY: Atypical chest pain COMPARISON: Chest 07/23/2017. FINDINGS: No pneumothorax. The heart remains mildly enlarged. No new focal lung consolidations to suggest pneumonia. No evidence for pulmonary edema. Suspect trace bilateral pleural effusions. Bibasilar interstitial thickening is likely chronic. This remains unchanged. IMPRESSION: 1. Trace bilateral pleural effusions. 2. Stable cardiomegaly and bibasilar interstitial thickening. Electronically signed by: Shelton Beyer M.D. 03/17/2019 3:16 PM Dictated: 03/17/19 1513 Transcribed: 03/17/19 1513 ECG Data Attestation: I personally reviewed and interpreted this ECG as follows: Indication: chest pain Rate (beats per minute): 73 Rhythm: sinus rhythm Findings: + other (normal intervals); no acute ischemic change and no ectopy Blood Pressure Blood Pressure Findings: Elevated blood pressure Blood Pressure Disposition: further management by hospitalist KEISHA Narrative Patient here well-appearing, and pain resolved by the time of arrival here. Patient with evolving symptoms over the course of the last month now culminating and worsening chest pain today. Patient hemodynamically stable throughout desp ite being hypertensive. Patient does have a known history of CAD and 3 prior stents. Given evolving symptoms and concern for worsening angina and possible unstable angina, case was discussed with hospitalist for additional inpatient evaluation and treatment. Patient's labs and imaging here are reassuring. Patient was made aware of all results. I did discuss plan with her and family bedside and they were in agreement. I do not suspect PE or other vascular etiology. CT angiography of the chest was reassuring. Impression & Plan Chest pain, Dizziness, Hypertension Discharge Plan Visit Data Chief Complaint: Cardiac Assessment Stated Complaint: CHEST PAIN ED Provider: Deann Pink Discharge Problem: Chest pain, Dizziness, Hypertension Patient Disposition: Being Evaluated by Hospitalist Discharge Instructions Interventions: ED Discharge Assessment Last Done: 03/17/19 20:31 Discharge Problem: Chest pain Qualifiers: Chest pain type: unspecified Qualified Code(s): R07.9 - Chest pain, unspecified Hypertension Qualifiers: Hypertension type: essential hypertension Qualified Code(s): I10 - Essential (primary) hypertension The scribe's documentation has been prepared under my direction and personally reviewed by me in its entirety. I confirm that the note above accurately reflects all work, treatment, procedures, and medical decision making performed by me.
[2019-03-17] MEDS ORDERED: NITROGLYCERIN SL 0.4 MG/TAB TAB SL PRN ×2 (21:46)
[2019-03-17] MEDS ORDERED: MoRPHine SULFATE 2 MG/ML CARP IV PRN (21:46)
[2019-03-17] MEDS ORDERED: ACETAMINOPHEN 325 MG TAB PO PRN (21:46)
[2019-03-17] MEDS: LATANOPROST 0.005% OP SOLN 2.5 ML BTL OPB SCH (22:32)
[2019-03-17] MEDS: IPRATROPIUM BROMIDE/ALBUTEROL respimat INH INH SCH (22:32)
[2019-03-18] MEDS: METOPROLOL SUCC 50MG EXT REL TAB PO SCH (08:00)
[2019-03-18] MEDS: ASPIRIN 81 MG ECTAB PO SCH (08:00)
[2019-03-18] MEDS: IPRATROPIUM BROMIDE/ALBUTEROL respimat INH INH SCH ×4 (08:00→20:07)
[2019-03-18] MEDS: CYANOCOBALAMIN 500 MCG TABLET (VITAMIN B-12) PO SCH (08:01)
[2019-03-18] MEDS: CHOLECALCIFEROL 1,000 UNITS TAB PO SCH (08:01)
[2019-03-18] MEDS: LISINOPRIL 5 MG TAB PO SCH (08:02)
[2019-03-18] MEDS: SERTRALINE HCL 100 MG TABLET PO SCH (08:02)
--- NOTE | 2019-03-18 09:53 | Family Medicine Progress Note ---
Date of Service March 18, 2019 Assessment & Plan (1) Chest pain: Tomasa is an 83-year-old female with past medical history of coronary artery disease status post PCI to her LAD, circumflex, and recent RCA and 04/2017; mild aortic insufficiency, reported A. fib not on anticoagulation, hypertension, and hyperlipidemia who Chest pain secondary to MSK Presented with 2 to 3 weeks of bandlike chest discomfort worsened with exertion and movement associated with right arm radiation which improved with rest/nitro. She is admitted for cardiac evaluation. Cardiology consulted on admission EKG shows normal sinus rhythm, troponins have been negative x3, BNP within normal limits, normal TSH CTA shows no signs of pulmonary emboli Her pain is easily and strongly reproduced with palpation of the sternal rib border at approximately T2-T4 bilaterally but worse left compared to the right. Although she is high risk given her cardiac history, physical exam and lab testing is strongly suggestive of noncardiac musculoskeletal pain in the pectoralis minor rib distribution. Recommend Voltaren gel 4 times daily Aspirin 81 mg daily Repeated falls 2/2 deconditioning Tomasa endorses multiple frequent falls due to weakness. Orthostatic vitals taken today do not show orthostatic hypotension, and she has not been hypotensive overall. Orthostatics were taken at 1 and 3 minutes, she was too weak to stand for a full 5 minutes. In context of normal cardiac work-up, and normal orthostatics suspect her falls are due to weakness and deconditioning affecting both strength and balance domains. PT/OT evaluation. Speck she will require rehab Congestive diastolic heart failure No signs of fluid overload at this time Continue [facility] metoprolol succinate 75 mg daily Continue [facility] [employer] lisinopril 5 mg p.o. daily Dysphagia Aspiration precautions Ranitidine 150 mg p.o. daily Able to eat comfortably without aspiration today Hyperlipidemia Chronic She reports she is been intolerant of statins in the past Pending review of outside records, she would benefit from a moderate intensity statin given her history Diet: Heart healthy Prophylaxis: Low risk for DVT CODE STATUS: DNR Disposition: Pending PT/OT evaluation (2) Dizziness: (3) Hypertension: Supervising Physician Co-Signing Physician Notes I personally examined the patient and verified all frederick points of history and exam, discussed case, and agree with decision making with Dr France. chest pain highly reproducible. enzymes negative. incidentally but quite significantly notes that she falls all the time at home. leobardo noted nad breathing unlabored no pallor or icterus. ost/msk - L upper chest wall in region of ribs 3/4, around distribution of pec minor - high tone/tender/decreased ROM - balanced ligamentous tension, post-isometric relaxation w some improvement. pt unable to tolerate LAS. otherwise tolerated OMT well. chest pain - biomechanical. voltaren gel. somatic dysfunction ribs - OMT as above weakness/falls - not overtly orthostatic. follow w meds. likely strong element of deconditioning - PT/OT eval and treat, may need rehab. serial exams to r/o other occult processes, although seems unlikely. Subjective Tomasa reports that she has no pain this morning. She is not short of breath, but endorses she is easily winded with exertion. She has not had any sweats overnight. No fevers, no chills overnight. She has a good appetite this morning and is eating breakfast at time of visit. No nausea, vomiting, diarrhea, constipation. She is not having any neck or shoulder pain at time of visit. She reports that she has had frequent falls at home in the last few weeks. She reports that her falls are from "poor balance and dizziness ". She notes that she gets lightheaded when she stands up, and this will sometimes cause her to fall. She does not think she has broken anything and has not had severe bruising or bleeding. Review of Systems Review of Systems: Constitutional: Denies fever, chills, malaise, weight change Eyes: Denies double vision, blurry vision Cardiovascular: Denies chest pain thi morning, chest pressure, palpitations, extremity swelling Respiratory: Denies shortness of breath, cough, sputum production, difficulty breathing at rest. Endorses exertional dyspnea. Gastrointestinal: Denies abdominal pain, nausea, vomiting, constipation, diarrhea Genitourinary: Denies pain with urination, urinary frequency Musculoskeletal: Denies new weakness, muscle aches/pain, joint aches/pain. Endorses intermittent overall fatigue. Integumentary:Denies rash, lesions, bruising Neurological: Denies headache, numbness, tingling, focal weakness. Endorses li ghtheadedness/dizziness when standing and related falls. Physical Exam Physical Exam: General: A&Ox3. NAD. Cooperative. HEENT: Atraumatic, normocephalic. Pulm: CTAB A&P. -wheezes, -rales, -rhonchi. Symmetrical chest rise. No increase work of breathing. No respiratory distress. Chest: Pain reproduced and worsened with palpation of ribs at ~ T2-T4 level anteriorly and bilaterally, most prominant at LLSB. Cardiac: RRR, -mrg. Radial pulses intact and symmetrical. Abdominal: Nontender, nondistended, soft. BS present. Results & Data Vital Signs (Past 12 Hours) Vital Signs Temp Pulse Pulse Pulse Resp BP BP 03/18/19 06:59 36.8 C 77 19 148/96 H 03/18/19 04:00 37.2 C 80 19 163/73 H 03/17/19 23:41 36.7 C 77 19 158/78 H 03/17/19 23:15 68 03/17/19 21:48 36.6 C 69 24 174/78 H Pulse Ox 03/18/19 06:59 96 03/18/19 04:00 95 03/17/19 23:41 98 03/17/19 23:15 03/17/19 21:48 97 Resident Activity Tracking Resident Involvement: Resident Care Provided Care Provided: Adult Hospital Medicine (1) Chest pain Chest pain type: unspecified Qualified Code(s): R07.9 - Chest pain, unspecified (2) Hypertension Hypertension type: essential hypertension Qualified Code(s): I10 - Essential (primary) hypertension
[2019-03-18 11:39] LABS: Estimated Average Glucose 137 mg/dl; Hemoglobin A1C 6.4 % (4.5-5.6)
[2019-03-18] MEDS: COLESTIPOL HCL 1 GM TAB PO SCH (11:48)
--- NOTE | 2019-03-18 12:18 | Cardiology Consultation ---
Date of Consultation March 18, 2019 Assessment & Plan (1) Chest pain: 2. Coronary artery disease status post multivessel stenting--most recent stents to RCA in the setting of NSTEMI 04/2017, non-obstructive disease mid LAD 05/2018 3. Chronic diastolic heart failure -- no significant congestion on exam; 4. Hypertension 5. History of paroxysmal atrial fibrillation -- off anticoagulation due prior bleeding issues 6. Aortic insufficiency--only mild on most recent echo 02/2016 7. Dizziness/Imbalance--ENT eval negative, prior MRI unremarkable Patient here with new chest pain over the last several weeks. Pain is reproducible with palpation to chest wall on exam. Cardiac enzymes negative and EKG unchanged. Very low suspicion for current chest pain representing ACS. Do not feel additional cardiac testing warranted at this time. Continue home antihypertensive, aspirin. Okay for discharge from a cardiac standpoint when other medical issues resolved. History of Present Illness Attending Physician: Jim Leblanc, DO History of Present Illness Mrs. Lam is an 83-year-old female with a history of coronary artery disease status post prior PCI with stents to her LAD, circumflex most recently RCA in April of 2017, mild aortic insufficiency, questionable paroxysmal atrial fibrillation, hypertension, dyslipidemia and chronic diastolic heart failure who was admitted in the setting of new chest pain. Patient known to me from the outpatient setting. Last ischemic assessment with cardiac catheterization in May 2018 at which time had moderate artery disease with a 5060% mid LAD in-stent stenosis FFR 0.83. Patient endorses sharp chest pain, brief in nature, occurring at any time over the last several weeks. Functional capacity limited baseline due to leg fatigue, dizziness but denies any new exertional symptoms. Brief intermittent episodes of chest pain since admission. Cardiac enzymes have been negative x2. EKG unremarkable. CTA negative for PE. Allergies Allergy/AdvReac Type Severity Reaction Status Date / Time atorvastatin Allergy Unknown MUSCLE Verified 03/17/19 15:22 ACHES citalopram Allergy Unknown G I UPSET- Verified 03/17/19 15:22 hydrochlorothiazide Allergy Unknown UNKNOWN-INE Verified 03/17/19 15:22 FFECTIVE? lidocaine Allergy Unknown GIVEN Verified 03/17/19 15:22 DURING EGD PROCEDURE-"UNRESPONSIVE" niacin Allergy Unknown UNKNOWN Verified 03/17/19 15:22 simvastatin AdvReac Unknown MUSCLE Verified 03/17/19 15:22 ACHES Home Medications Home Medications Medication Instructions Recorded Confirmed Type Combivent Respimat 1 puff INHALATION QID 08/06/18 03/17/19 History cholecalciferol (vitamin D3) 2,000 unit PO DAILY 08/06/18 03/17/19 History [Vitamin D3] colestipol 2 tab PO DAILY 08/06/18 03/17/19 History latanoprost 1 drp OPB HS 08/06/18 03/17/19 History lisinopril 5 mg PO QAM 08/06/18 03/17/19 History metoprolol succinate 75 mg PO QAM 08/06/18 03/17/19 History nitroglycerin 1 tab SUBLINGUAL UD PRN 08/06/18 03/17/19 History ranitidine HCl 150 mg PO DAILY PRN 08/06/18 03/17/19 History sertraline 100 mg PO QAM 08/06/18 03/17/19 History cyanocobalamin (vitamin B-12) 1,000 mcg PO QAM 01/20/19 03/17/19 History [Vitamin B-12] naproxen sodium [Aleve] 220 mg PO DAILY PRN 03/17/19 03/17/19 History Patient History Medical History Stricture esophagus Anemia Aortic diastolic murmur Atherosclerotic cardiovascular disease Chronic diastolic congestive heart failure Diverticulosis Dysphagia Dyspnea on exertion Endometrial hyperplasia Esophageal reflux disease Esophagitis Gait disturbance History of colon cancer Hydronephrosis (Acute 10/03/14) Hypercalcemia Hypercholesterolemia Hyperparathyroidism Renal colic (Acute 10/03/14) Schatzki's ring Vitamin B12 deficiency Dysphagia Atrial fibrillation PAROXYSMAL A-FIB Cancer COLON--sx Chronic back pain BACK INJECTIONS Congestive heart failure Depression Dysphagia ESOPHAGEAL STRETCHING IN PAST GERD (gastroesophageal reflux disease) Hearing deficit Hyperlipidemia Hypertension Macular degeneration Myocardial Infarction 2016 Osteoarthritis Schatzki's ring Surgical History H/O parathyroidectomy H/O repair of rotator cuff History of intravascular stent placement History of laparotomy History of partial colectomy History of anesthesia reaction BECAME UNRESPONSIVE WITH LIDOCAINE DURING EGD PROCEDURE-SEE PRIOR EGD ANESTHESIA NOTES AT [facility], [place] History of bowel resection History of cardiac cath X 3 ( STENTS PLACED)(APRIL 2017- DRUG ELUTING STENT PLACED BY DR. PARRISH) RECENT HEART CATH 05/2018 (NO STENTS) "TAKEN OFF PLAVIX" History of cataract surgery RT/LEFT History of colonoscopy History of esophagogastroduodenoscopy (EGD) History of heart artery stent 3 STENTS TOTAL PLACED History of parathyroid surgery History of repair of rotator cuff RT History of tooth extraction Family History Father Family history of diabetes mellitus Sister Family hx of colon cancer Other No family history of adverse response to anesthesia Social History Preferred Language: Tongan Communication Ability: Effective Beliefs That Will Affect Care: None marital status: Current Living Situation: Spouse Other Information That Helps Us Care for You: No Feels Safe at Home: Yes Smoking Status: Never smoker Second Hand Exposure: No Hx Alcohol Use: No Hx Substance Use: No Review of Systems Review of Systems: All systems reviewed & are unremarkable except as noted in HPI & below Physical Exam Physical Exam: General: Comfortable, elderly woman no acute distress Eyes: Sclerae anicteric, extraocular movements intact HENT: Oropharynx clear mucous membranes moist Neck: Normal carotid upstrokes, no bruits. No JVD. Lungs: Clear to auscultation bilaterally, no rhonchi or wheezes Cardiac: Regular rate and rhythm, faint diastolic murmur over aortic valve. Chest pain reproducible with palpation over left chest wall Vascular: 2+ radial, no significant edema, no varicosities Abdomen: Soft, nontender, nondistended, positive bowel sounds. Skin: No rashes or lesions. Neuro: Nonfocal Psych: Alert orient x3, normal affect and mood Results & Data Vital Signs (Past 12 Hours) Vital Signs Temp Pulse Resp BP BP Pulse Ox 03/18/19 10:46 36.5 C 69 20 134/79 96 03/18/19 06:59 36.8 C 77 19 148/96 H 96 03/18/19 04:00 37.2 C 80 19 163/73 H 95 (1) Chest pain Chest pain type: unspecified Qualified Code(s): R07.9 - Chest pain, unspecified
[2019-03-18] MEDS: DICLOFENAC SOD 1% GEL 100 GM TUBE EXT SCH ×3 (12:59→20:07)
[2019-03-18 15:10] LABS: Partial Thromboplastin Ratio 0.8; Partial Thromboplastin Time 22.2 Seconds (21.0-31.0); Prothrombin Time 10.7 Seconds (9.0-12.0)
[2019-03-18] MEDS: HEPARIN SOD 5,000 UNIT/0.5 ML VIAL SQ SCH (20:06)
[2019-03-18] MEDS: LATANOPROST 0.005% OP SOLN 2.5 ML BTL OPB SCH (20:07)
[2019-03-18] MEDS ORDERED: SODIUM CHLORIDE 0.9% 250 ML IV ONE (20:51)
--- NOTE | 2019-03-18 21:10 | Progress Note ---
Date of Service March 18, 2019 Assessment & Plan (1) Syncope: Responded to call for syncopal episode. Patient describes diaphoresis, vomiting. Exam; Alert oriented, NAD RRR, NlS1S2, no m/r/g CTAB BP 84/53, HR 80 Plan; - Examined the patient, feeling better, never had Chest pain - Following ordered; CXR, EKG, tropx2, BMP, mag, ph - Call when labs result - EKG NSR Results & Data Vital Signs (Past 12 Hours) Vital Signs Temp Pulse Resp BP BP Pulse Ox 03/18/19 20:36 80 22 84/53 L 95 03/18/19 15:26 36.5 C 74 20 131/70 90 03/18/19 14:12 36.5 C 74 18 131/70 90 03/18/19 10:46 36.5 C 69 20 134/79 96
--- NOTE | 2019-03-18 21:10 | XRay Report ---
XR chest 1V portable HISTORY: syncope COMPARISON: Chest 03/17/2019. FINDINGS: The heart remains mildly enlarged. No pneumothorax. No pleural effusions. Mild diffuse inte rstitial thickening, unchanged. No new focal lung consolidations to suggest pneumonia. No evidence fo r pulmonary edema. IMPRESSION: No change in the mild cardiomegaly and mild interstitial thickening. No new focal lung consolidations . Electronically signed by: Shelton Beyer M.D. 03/18/2019 9:09 PM
[2019-03-18] MEDS: ONDANSETRON INJ 2 MG/ML 2 ML VIAL IV PRN (21:16)
[2019-03-18 21:33] LABS: BUN Creatinine Ratio 15.6 (10-20); Blood Urea Nitrogen 20 mg/dl (7-18); Calcium 9.2 mg/dl (8.5-10.1); Carbon Dioxide 23 mmol/L (21-32); Chloride 109 mmol/L (98-107); Creatinine Clr Calc Pharmacy 28.7 ml/min; Est GFR (African American) 44.6; Est GFR (Non-African American) 38.5; Glucose 147 mg/dl (70-99); Magnesium 1.8 mg/dl (1.8-2.4); Potassium 3.7 mmol/L (3.5-5.1); Sodium 142 mmol/L (136-145)
[2019-03-18 21:38] LABS: Phosphorus 3.6 mg/dl (2.5-4.9); Troponin I < 0.015 ng/ml (0-0.045)
[2019-03-19 07:16] LABS: Basophils # (auto) 0.02 K/uL (0-0.2); Basophils % (auto) 0.3 %; Eosinophils # (auto) 0.06 K/uL (0-0.5); Hematocrit (blood only) 33.2 % (37-47); Hemoglobin 11.7 g/dL (12.0-16.0); Immature Granulocytes # (auto) 0.02 K/uL (0.00-0.02); Immature Granulocytes % (auto) 0.3 %; Lymphocytes # (auto) 2.57 K/uL (1.2-3.4); Lymphocytes % (auto) 43.5 %; Mean Corpuscular Hgb Conc 35.2 g/dL (32-36); Mean Platelet Volume 10.3 fL (7.4-10.4); Monocytes # (auto) 0.66 K/uL (0.11-0.59); Monocytes % (auto) 11.2 %; Neutrophils # (auto) 2.58 K/uL (1.4-6.5); Neutrophils % (auto) 43.7 %; Platelet Count 170 K/uL (130-400); RDW Coefficient of Variation 13.1 % (11.5-14.5); RDW Standard Deviation 43.8 fL (36.4-46.3); Red Blood Count 3.65 M/uL (4.2-5.4); White Blood Count 5.91 K/uL (4.8-10.8)
[2019-03-19 07:48] LABS: Est GFR (African American) 59.5; Est GFR (Non-African American) 51.3; Potassium 3.5 mmol/L (3.5-5.1)
[2019-03-19 07:49] LABS: BUN Creatinine Ratio 17.7 (10-20); Calcium 8.6 mg/dl (8.5-10.1); Creatinine Clr Calc Pharmacy 36.4 ml/min
[2019-03-19] MEDS: IPRATROPIUM BROMIDE/ALBUTEROL respimat INH INH SCH ×4 (09:26→21:04)
[2019-03-19] MEDS: HEPARIN SOD 5,000 UNIT/0.5 ML VIAL SQ SCH ×2 (09:27→20:25)
[2019-03-19] MEDS: DICLOFENAC SOD 1% GEL 100 GM TUBE EXT SCH ×5 (09:28→21:04)
[2019-03-19] MEDS: LISINOPRIL 5 MG TAB PO SCH (09:59)
[2019-03-19] MEDS: CYANOCOBALAMIN 500 MCG TABLET (VITAMIN B-12) PO SCH (09:59)
[2019-03-19] MEDS: METOPROLOL SUCC 50MG EXT REL TAB PO SCH (10:00)
[2019-03-19] MEDS: SERTRALINE HCL 100 MG TABLET PO SCH (10:00)
[2019-03-19] MEDS: CHOLECALCIFEROL 1,000 UNITS TAB PO SCH (10:01)
[2019-03-19] MEDS: COLESTIPOL HCL 1 GM TAB PO SCH (10:02)
[2019-03-19] MEDS: ASPIRIN 81 MG ECTAB PO SCH (10:02)
[2019-03-19] MEDS: ONDANSETRON INJ 2 MG/ML 2 ML VIAL IV PRN (15:06)
--- NOTE | 2019-03-19 18:07 | Family Medicine Progress Note ---
Date of Service March 19, 2019 Assessment & Plan (1) Syncope: Tomasa is an 83-year-old female with past medical history of coronary artery disease status post PCI to her LAD, circumflex, and recent RCA and 04/2017; mild aortic insufficiency, reported A. fib not on anticoagulation, hypertension, and hyperlipidemia who was admitted for bandlike chest discomfort and weakness Chest pain secondary to MSK Presented with 2 to 3 weeks of bandlike chest discomfort worsened with exertion and movement associated with right arm radiation which improved with rest/nitro. She is admitted for cardiac evaluation. Cardiology consulted on admission EKG shows normal sinus rhythm, troponins have been negative x3, BNP within normal limits, normal TSH CTA shows no signs of pulmonary emboli Her pain is easily and strongly reproduced with palpation of the sternal rib border at approximately T2-T4 bilaterally but worse left compared to the right. Although she is high risk given her cardiac history, physical exam and lab testing is strongly suggestive of noncardiac musculoskeletal pain in the pe ctoralis minor rib distribution. Recommend Voltaren gel 4 times daily Aspirin 81 mg daily Repeated falls 2/2 deconditioning Tomasa endorses multiple frequent falls due to weakness. Suspect this is due partly due to deconditioning as when she was having orthostatic vitals taken she was too weak to stand for a full 3 minutes. In addition to the above she had a documented orthostatic episode last night when she got up and went to the toilet. Given that she was going to have a bowel movement and got worse on the toilet it may also have a vasovagal element. Improved with fluids PT/OT recommend rehab, patient agrees. Pending dispel to [facility] tomorrow Recommend adequate hydration to minimize effects of orthostasis. If she continues to have symptomatic orthostasis even with rehabilitation and improvement in her conditioning could consider lowering her metoprolol as an outpatient Congestive diastolic heart failure No signs of fluid overload at this time Continue [employer] metoprolol succinate 75 mg daily Continue [employer] lisinopril 5 mg p.o. daily Dysphagia Aspiration precautions Ranitidine 150 mg p.o. daily Able to eat comfortably without aspiration today Hyperlipidemia Chronic She reports she is been intolerant of statins in the past Pending review of outside records, she would benefit from a moderate intensity statin given her history Diet: Heart healthy Prophylaxis: Low risk for DVT CODE STATUS: DNR Disposition: [facility] likely tomorrow Supervising Physician Co-Signing Physician Notes I personally examined the patient and verified all frederick points of history and exam, discussed case, and agree with decision making with Dr France. Waiting on SNF/rehab placement. She is seen in the room going to the bathroom, and is visibly stumbly even then. vitals noted nad breathing unlabored no pallor or icterus. Gait unstable with frequent losses of balance. chest pain - biomechanical. voltaren gel. somatic dysfunction ribs - OMT as above weakness/falls -Seems to be heavily deconditioning, wonder if she has a degree of spinal stenosis related neurologic dysfunction creating even more instab ility, and appears the orthostasis may play a bit of a role, but given her blood pressure being high frequently in between, agree with Dr. France and holding off on reducing meds until or unless it becomes clear that the orthostasis is a problem even with adequate rehabilitation. Makenzie Randolph reports she feels improved today from a chest pain perspective, but still feels very weak. She had an episode of lightheadedness last night while on the toilet which was accompanied with a blood pressure drop to the 80s systolically. Her blood pressure increased back to the 150s following a 250 cc bolus. She is concerned about her risk of falling, and is "scared about falling at home ". She was evaluated by PT/OT who recommended subacute rehab, she is agreeable to this. She is pending placement and knows she will likely be able to go tomorrow. She denies chest pain, chest pressure, shortness of breath, headache today. She is eating well without nausea or vomiting. Review of Systems Review of Systems: Constitutional: Denies fever, chills, malaise, weight change Eyes: Denies double vision, blurry vision Cardiovascular: Denies chest pain thi morning, chest pressure, palpitations, extremity swelling Respiratory: Denies shortness of breath, cough, sputum production, difficulty breathing at rest. Endorses exertional dyspnea. Gastrointestinal: Denies abdominal pain, nausea, vomiting, constipation, diarrhea Genitourinary: Denies pain with urination, urinary frequency Musculoskeletal: Denies new weakness, muscle aches/pain, joint aches/pain. Endorses intermittent overall fatigue. Integumentary:Denies rash, lesions, bruising Neurological: Denies headache, numbness, tingling, focal weakness. Endorses lightheadedness/dizziness Physical Exam Physical Exam: General: A&Ox3. NAD. Cooperative. HEENT: Atraumatic, normocephalic. Pulm: CTAB A&P. -wheezes, -rales, -rhonchi. Symmetrical chest rise. No increase work of breathing. No respiratory distress. Chest: tender to palpation of ribs at ~ T2-T4 level anteriorly and bilaterally, most prominant at LLSB. Cardiac: RRR, -mrg. Radial pulses intact and symmetrical. Abdominal: Nontender, nondistended, soft. BS present. Results & Data Vital Signs (Past 12 Hours) Vital Signs Temp Pulse Resp BP BP Pulse Ox 03/19/19 15:00 36.9 C 72 18 116/68 95 03/19/19 07:01 36.8 C 67 18 116/56 L 93 Resident Activity Tracking Resident Involvement: Resident Care Provided Care Provided: Adult Hospital Medicine
[2019-03-19] MEDS: LATANOPROST 0.005% OP SOLN 2.5 ML BTL OPB SCH (21:04)
[2019-03-20 06:22] LABS: BUN Creatinine Ratio 22.5 (10-20); Calcium 8.6 mg/dl (8.5-10.1); Creatinine Clr Calc Pharmacy 36.4 ml/min; Est GFR (African American) 59.5; Est GFR (Non-African American) 51.3; Potassium 3.7 mmol/L (3.5-5.1)
[2019-03-20] MEDS: ASPIRIN 81 MG ECTAB PO SCH (08:25)
[2019-03-20] MEDS: METOPROLOL SUCC 50MG EXT REL TAB PO SCH (08:25)
[2019-03-20] MEDS: LISINOPRIL 5 MG TAB PO SCH (08:26)
[2019-03-20] MEDS: SERTRALINE HCL 100 MG TABLET PO SCH (08:26)
[2019-03-20] MEDS: CYANOCOBALAMIN 500 MCG TABLET (VITAMIN B-12) PO SCH (08:26)
[2019-03-20] MEDS: COLESTIPOL HCL 1 GM TAB PO SCH (08:26)
[2019-03-20] MEDS: CHOLECALCIFEROL 1,000 UNITS TAB PO SCH (08:27)
[2019-03-20] MEDS: HEPARIN SOD 5,000 UNIT/0.5 ML VIAL SQ SCH (08:28)
[2019-03-20] MEDS: DICLOFENAC SOD 1% GEL 100 GM TUBE EXT SCH ×3 (08:28→18:40)
[2019-03-20] MEDS: IPRATROPIUM BROMIDE/ALBUTEROL respimat INH INH SCH ×3 (08:28→18:40)
--- NOTE | 2019-03-20 16:33 | Family Medicine Progress Note ---
Date of Service March 20, 2019 Assessment & Plan (1) Syncope: Tomasa is an 83-year-old female with past medical history of coronary artery disease status post PCI to her LAD, circumflex, and recent RCA and 04/2017; mild aortic insufficiency, reported A. fib not on anticoagulation, hypertension, and hyperlipidemia who was admitted for bandlike chest discomfort and weakness Chest pain secondary to MSK Presented with 2 to 3 weeks of bandlike chest discomfort worsened with exertion and movement associated with right arm radiation which improved with rest/nitro. She is admitted for cardiac evaluation. Cardiology consulted on admission EKG shows normal sinus rhythm, troponins have been negative x3, BNP within normal limits, normal TSH CTA shows no signs of pulmonary emboli Her pain is easily and strongly reproduced with palpation of the sternal rib border at approximately T2-T4 bilaterally but worse left compared to the right. Although she is high risk given her cardiac history, physical exam and lab testing is strongly suggestive of noncardiac musculoskeletal pain in the p ectoralis minor rib distribution. Recommend Voltaren gel 4 times daily Aspirin 81 mg daily Repeated falls 2/2 deconditioning Tomasa endorses multiple frequent falls due to weakness. Suspect this is due partly due to deconditioning as when she was having orthostatic vitals taken she was too weak to stand for a full 3 minutes. In addition to the above she had a documented orthostatic episode last night when she got up and went to the toilet. Given that she was going to have a bowel movement and got worse on the toilet it may also have a vasovagal element. Improved with fluids PT/OT recommend rehab, patient agrees. Pending placement/insurance auth to rehab Recommend adequate hydration to minimize effects of orthostasis. If she continues to have symptomatic orthostasis even with rehabilitation and improvement in her conditioning could consider lowering her metoprolol as an outpatient Congestive diastolic heart failure No signs of fluid overload at this time Continue [employer]IST[employer] metoprolol succinate 75 mg daily Continue [employer]IST[employer] lisinopril 5 mg p.o. daily Dysphagia Aspiration precautions Ranitidine 150 mg p.o. daily Able to eat comfortably without aspiration today Hyperlipidemia Chronic She reports she is been intolerant of statins in the past Pending review of outside records, she would benefit from a moderate intensity statin given her history Diet: Heart healthy Prophylaxis: Low risk for DVT CODE STATUS: DNR Disposition: Pending insurance auth and placement for rehab Supervising Physician Co-Signing Physician Notes I personally examined the patient and verified all frederick points of history and exam, discussed case, and agree with decision making with Dr France. see discharge summary for full attestation. approved for SNF. Subjective Tomasa feels unchanged today. She continues to feel very unsteady, weak and stumbly getting out of bed or ambulating to the bathroom. No shortness of breath, chest pain, chest pressure, fevers, chills, sweats today. Review of Systems Review of Systems: All systems reviewed & are unremarkable except as noted in HPI & below Physical Exam Physical Exam: General: A&Ox3. NAD. Cooperative. HEENT: Atraumatic, normocephalic. Pulm: CTAB A&P. -wheezes, -rales, -rhonchi. Symmetrical chest rise. No increase work of breathing. No respiratory distress. Chest: tender to palpation of ribs at ~ T2-T4 level anteriorly and bilaterally, most prominant at LLSB. Cardiac: RRR, -mrg. Radial pulses intact and symmetrical. Abdominal: Nontender, nondistended, soft. BS present. Neuro: Proprioception intact to hallux manipulation in legs bilaterally. Results & Data Vital Signs (Past 12 Hours) Vital Signs Temp Pulse Resp BP Pulse Ox 03/20/19 15:07 36.8 C 61 16 113/68 93 03/20/19 06:57 36.7 C 71 18 114/65 97 Resident Activity Tracking Resident Involvement: Resident Care Provided Care Provided: Adult Hospital Medicine
--- NOTE | 2019-03-20 17:08 | Discharge Summary ---
Date of Service March 20, 2019 Admission HPI Per Admitting Provider 83yo C female with multiple medical problems, notably CAD s/p stents to LAD and circumflex and most recently RCA in April of 2017, mild aortic insufficiency, possible PAF, HTN, dyslipidemia and chronic diastolic CHF. Patient follows with Cardiology, Dr. Miller, most recently seen May 2018. Patient presents with 2- 3 weeks of bandlike chest discomfort. Pain described as pressure/tightness, 8/10 in severity, occurs intermittently throughout the day mostly with exertion and is relieved with rest and occasionally Nitro. Radiation to the right arm and associated with dizziness and shortness of breath. Patient reports increased frequency and severity of her chest discomfort. Patient called Dr. Miller' office to schedule an appointment and was recommended to come to the ER. Patient denies edema, orthopnea or weight gain. +Heartburn ER Course: Magnesium 1gm Nitro 0.5inch Admission Exam Per Admitting Provider General: patient resting comfortably, NAD, non-toxic in appearance, AA&O x 4 Skin: warm, dry, intact, no rashes or lesions HEENT: NC/AT, PERRL, EOMI, anicteric sclera, conjunctiva without injection, external ear normal to inspection and nontender, nares patent, moist mucus membranes, dentition intact, no oropharyngeal lesions, neck supple, trachea midline, no LAD, no thyromegaly, no JVD Heart: +S1/S2, regular, no m/r/g Lungs: equal air entry bilaterally, no rales/rhonchi/wheezes Abd: +BS, soft, NT/ND, no masses/organomegaly/ascites Ext: warm, 2+ pulses in UE/LE bilaterally, no clubbing/cyanosis or edema Neuro: nonfocal, patient AA&O x 4, speech intact, no facial droop, moving all extremities on command with equal strength 5/5 Principal Diagnosis Severe deconditioning, noncardiac chest pain Discharge Exam General: A&Ox3. NAD. Cooperative. HEENT: Atraumatic, normocephalic. Pulm: CTAB A&P. -wheezes, -rales, -rhonchi. Symmetrical chest rise. No increase work of breathing. No respiratory distress. Chest: tender to palpation of ribs at ~ T2-T4 level anteriorly and bilaterally, most prominant at LLSB. Cardiac: RRR, -mrg. Radial pulses intact and symmetrical. Abdominal: Nontender, nondistended, soft. BS present. Neuro: Proprioception intact to hallux manipulation in legs bilaterally Discharge Data Allergies Allergy/AdvReac Type Severity Reaction Status Date / Time atorvastatin Allergy Unknown MUSCLE Verified 03/17/19 15:22 ACHES citalopram Allergy Unknown G I UPSET- Verified 03/17/19 15:22 hydrochlorothiazide Allergy Unknown UNKNOWN-INE Verified 03/17/19 15:22 FFECTIVE? lidocaine Allergy Unknown GIVEN Verified 03/17/19 15:22 DURING EGD PROCEDURE-"UNRESPONSIVE" niacin Allergy Unknown UNKNOWN Verified 03/17/19 15:22 simvastatin AdvReac Unknown MUSCLE Verified 03/17/19 15:22 ACHES Consultations 03/17/19 19:51 ED Decision to Admit Stat 03/17/19 21:46 Consult Cardiology Routine Ordered Studies 03/17/19 15:50 CT angio chest PE protocol Stat Hospital Course (1) Syncope: Tomasa is an 83-year-old female with past medical history of coronary artery disease status post PCI to her LAD, circumflex, and recent RCA and 04/2017; mild aortic insufficiency, reported A. fib not on anticoagulation, hypertension, and hyperlipidemia who was admitted for bandlike chest discomfort and weakness Chest pain Tomasa presented with 2 to 3 weeks of bandlike chest discomfort which was worsened with exertion and movement and was associated with right arm radiation. She was admitted for cardiac evaluation and cardiology was consulted on admission. Her EKG showed a normal sinus rhythm and her troponins were negative x3. Her BMP was within normal limits and her TSH was normal. CTA showed no signs of pulmonary emboli. Her pain was easily and strongly reproduced on palpation of her left rib and sternal border at approximately T1-T4 bilaterally and worse left compared to the right. Although she was high risk given her cardiac history, physical exam and lab testing was strongly suggestive of noncardiac musculoskeletal pain in the pectoralis minor rib distribution. She was recommended to continue aspirin 81 mg daily and was started on Voltaren gel for musculoskeletal pain. She did not experience any further cardiac or pulmonary symptoms during admission. Repeated falls 2/2 deconditioning Tomasa endorsed multiple frequent falls and a feeling of presyncope with weakness. Her blood pressure was within normal limits, occasionally hypertensive, during admission but she was too weak to stand for a full 3 minutes to check orthostatics. She was also noted to be extremely unbalanced and weak during orthostatic testing. Overnight during her work-up as above she had a documented orthostatic episode when she got up and went to the toilet. Her episode was then worsened by having a bowel movement which suggested a vasovagal element. She improved with fluids, PT/OT noted severe deconditioning and poor underlying reserve strength. Was recommended that she be discharged to rehab as she was a high fall risk. During admission she did have preserved proprioception in her toes bilaterally, but would consider possible spinal stenosis as a contribution to her poor balance if she does not do well with rehab and orthostatic treatment as noted below. She was discharged to [facility] for rehab following a peer to peer insurance authorization. Congestive diastolic heart failure Tomasa has a history of diastolic heart failure, but did not show any signs of fluid overload at time of admission or during hospitalization. She is continued on metoprolol succinate 75 mg daily and lisinopril 5 mg p.o. daily. Given that she was occasionally hypertensive during admission her blood pressure medications were not decreased with the episodic orthostasis above, in the hopes that with physical therapy and improved strength she will be less vulnerable to her orthostasis. However, if she continues to have presyncope or symptomatic orthostatic hypotension would first decrease her metoprolol. Hyperlipidemia She is noted to have chronic hyperlipidemia, but is intolerant of multiple statins in the past due to muscle aches and pains. Suggest revisiting this as an outpatient basis to confirm that she has trialed multiple statins with adequate time between them to confirm statin intolerance. (2) Physical deconditioning: Total Time Total Time Spent Total Time Spent (In Minutes): >30 Discharge Plan Discharge Items Patient Disposition: Transfer Inpatient Rehab Fac Reason For Visit: CHEST PAIN Discharge Diagnosis: Deconditioning, musculoskeletal chest pain Discharge Goals: Increase independence, Prevent disease and Therapeutic intervention Activity: Per 'Additional Instructions' section Non-emergency contact: Primary Care Provider Call non-emergency contact if: you have any medication questions, your symptoms worsen, your pain is not controlled, your pain is worsening, your pain is unusual for you and you have a fever Follow-up/Referrals: Melissa Soto PA-C [Physician [employer]] - 03/31/19 2:30 pm (An appointment has been made at your PCP's office on your behalf. Please call the office with any questions or concerns. ) Diet: Heart Healthy [facility] Provider Instructions: You were seen in the hospital for chest pain and weakness. Your chest pain was highly suggestive of musculoskeletal pain, your EKG and blood markers for heart damage were negative. You have had medications prescribed to you as noted below. You were noted to be very weak, and on physical therapy evaluation it was recommended that you have rehab therapy for strength and balance. You have been prescribed a medication, Voltaren (diclofenac gel), for pain. You may apply Voltaren to your upper ribs and breastbone as needed for pain up to four times per day. You have had an appointment scheduled with your primary care provider's CONSTANTINE Soto for 03/31/19 at 2:30pm. If you have questions, or need to change this appointment, please call your PCP's office at [phone]. If you develop any worsening shortness of breath, lightheadedness, dizziness, confusion, weakness, chest pain, chest pressure, difficulty breathing, rash, or a feeling like you are going to pass out please call your PCP at the number above, or call 911 for transport to the emergency department if you are very concerned. Prescriptions: New diclofenac sodium [Voltaren] 1 % Gel 2 gm topical QID 14 Days Qty: 100 RF: 3 Continued cyanocobalamin (vitamin B-12) [Vitamin B-12] 1,000 mcg Tablet 1,000 mcg PO QAM RF: 0 naproxen sodium [Aleve] 220 mg Tablet 220 mg PO DAILY PRN (Reason: Pain) RF: 0 latanoprost 0.005 % Drops 1 drp OPB HS RF: 0 metoprolol succinate 50 mg Tablet Extended Release 24 Hr 75 mg PO QAM RF: 0 sertraline 100 mg Tablet 100 mg PO QAM RF: 0 nitroglycerin 0.4 mg Tablet, Sublingual 1 tab Sublingual UD PRN (Reason: CHEST PAIN) RF: 0 ranitidine HCl 150 mg Capsule 150 mg PO DAILY PRN (Reason: Indigestion) RF: 0 lisinopril 5 mg Tablet 5 mg PO QAM RF: 0 colestipol 1 gram Tablet 2 tab PO DAILY RF: 0 cholecalciferol (vitamin D3) [Vitamin D3] 2,000 unit Capsule 2,000 unit PO DAILY RF: 0 Combivent Respimat 20-100 mcg/actuation Mist 1 puff INHALATION QID RF: 0 Stand-Alone Forms: My [facility] My[employer] Erika/Other Patient Handouts: Prediabetes, Diabetes Meal Planning Discharge Orders: Discharge Order (Routine); Ordered 03/20/19 Ordered By: Jim Leblanc Skilled Items Patient informed of condition?: Yes DNR: Yes Discharge Level of Care: Acute rehab Communicable Disease: No Discharge Prognosis: Improving Admission Data Admit Date/Time: 03/17/19 19:42 Attending Provider: Jim Leblanc Admit Provider: Carlie Arzola Primary Care Provider: Tirso Marie III Other Providers: Carlie Arzola ; Wicho Zavala ; Trey Mcghee ; Bhaskar Bearden ; Jacinto Ayon ; Maninder Caicedo Jr ; Christo Torrez ; Tracee Solomon ; Nohemi Parham ; Jayme Miller ; Jayme Conklin ; José Miguel Espinosa ; Kamar Melchor ; Diamante Sheffield ; Claudette Byrd Service: Medical Other Interventions: Discharge Summary Assessment (RN) Last Done: 03/20/19 17:07 Supervising Physician Co-Signing Physician Notes I personally examined the patient and verified all freder[place] points of history and exam, discussed case, and agree with decision making with Dr France. still weak and unsteady. discussed neuropathy/proprioceptive deficit as working dx she felt that based on descriptions of how that presents it fits her sx well. vitals noted nad breathing unlabored no pallor or icterus. was able to follow direction of toes without difficulty. falls/weakness - seems most c/w prioprioceptive deficit by gait pattern/falls/hx. distal exam shows intact sensation, but ?spinal stenosis or other lumbar pathology seems plausible. for now PT for strengthening and prioprioceptive retraining, then ongoing PCP w/u for etiology chest pain - rib related. Resident Activity Tracking Resident Involvement: Resident Care Provided Care Provided: Adult Hospital Medicine
== END 2019-03-20 18:50 ==
LOC: 2S 14:23 → ED 14:23 → SUATTDRO 19:42 → 2S 20:31 → 4W 03-18 13:00

== ENCOUNTER 2019-11-13 12:32 | Observation (INO) ==
[2019-11-13] MEDS ORDERED: ONDANSETRON INJ 2 MG/ML 2 ML VIAL IV STA (13:22)
[2019-11-13] MEDS ORDERED: SODIUM CHLORIDE 0.9% 500 ML IV SCH (13:30)
--- NOTE | 2019-11-13 13:50 | XRay Report ---
XR chest 1V portable HISTORY: 84 years-old Female weakness acute weakness COMPARISON: Chest radiograph and CTA chest 03/18/2019 TECHNIQUE: Portable AP view of the chest FINDINGS: Cardiac silhouette is mildly enlarged, unchanged. Calcified plaque of the thoracic aortic arch. Event ration of the right hemidiaphragm with mild bibasilar interstitial coarsening. Lungs are mildly hyper inflated. Right lung base opacities measuring up to 1.4 cm may be secondary to summation density. Mul tiple remote appearing left-sided rib fractures. Degenerative changes of the shoulders and spine. IMPRESSION: 1. Cardiomegaly without acute process. 2. Unchanged mild right hemidiaphragmatic elevation with chronic bibasilar interstitial coarsening. ACT 112: Negative or not required by law. The above report was generated using voice recognition software. It may contain grammatical, syntax o r spelling errors. Electronically signed by: Bran Og M.D. 11/13/2019 1:49 PM
[2019-11-13 14:11] LABS: Basophils # (auto) 0.02 K/uL (0-0.2); Basophils % (auto) 0.3 %; Eosinophils % (auto) 1.3 %; Hemoglobin 14.2 g/dL (12.0-16.0); Immature Granulocytes # (auto) 0.04 K/uL (0.00-0.02); Immature Granulocytes % (auto) 0.5 %; Lymphocytes # (auto) 2.54 K/uL (1.2-3.4); Lymphocytes % (auto) 31.8 %; Mean Corpuscular Hemoglobin 32.2 pg (25-34); Mean Corpuscular Hgb Conc 34.6 g/dL (32-36); Mean Platelet Volume 10.1 fL (7.4-10.4); Monocytes % (auto) 7.5 %; Neutrophils # (auto) 4.68 K/uL (1.4-6.5); Neutrophils % (auto) 58.6 %; Platelet Count 216 K/uL (130-400); RDW Coefficient of Variation 13.2 % (11.5-14.5); RDW Standard Deviation 44.9 fL (36.4-46.3); Red Blood Count 4.41 M/uL (4.2-5.4); White Blood Count 7.98 K/uL (4.8-10.8)
--- NOTE | 2019-11-13 14:37 | CT Scan Report ---
CT SCAN OF THE BRAIN WITHOUT IV CONTRAST CLINICAL HISTORY: Fall. Headache. COMPARISON STUDY: CT of the brain dated 02/04/2012. TECHNIQUE: Unenhanced axial CT scan of the brain is performed from the vertex to the skull base. A do se lowering technique was utilized adhering to the principles of ALARA. CT DOSE: 638.56 mGycm FINDINGS: Brain parenchyma: There are age-related involutional changes noting moderate subcortical and periven tricular microangiopathic change. There is no hemorrhage, mass effect, or evidence of acute territori al ischemia by CT criteria. Celestin-white matter differentiation is preserved. No extra-axial fluid peter ection is seen. Ventricles, sulci, cisterns: Prominent secondary to involutional change. Intracranial vasculature: There is atherosclerotic calcification of the cavernous carotid and vertebr al arteries. Calvarium: The skeletal structures are osteopenic. There is no depressed calvarial fracture. Sinuses and mastoids: The visualized paranasal sinuses are clear. The mastoid air cells are well pneu matized. Orbits: The bony orbits are grossly intact. There are bilateral ocular lens implants. IMPRESSION: There is no hemorrhage, mass effect, or evidence of acute territorial ischemia by CT darci jeff. ACT 112: Negative or not required by law. Electronically signed by: Cabrera Gamboa M.D. 11/13/2019 2:36 PM
[2019-11-13 14:41] LABS: Alanine Aminotransferase 17 U/L (12-78); Albumin Level 3.6 gm/dl (3.4-5.0); BUN Creatinine Ratio 23.9 (10-20); Blood Urea Nitrogen 23 mg/dl (7-18); Calcium 8.9 mg/dl (8.5-10.1); Carbon Dioxide 28 mmol/L (21-32); Chloride 107 mmol/L (98-107); Creatinine Clr Calc Pharmacy 36.3 ml/min; Est GFR (African American) 62.1; Est GFR (Non-African American) 53.6; Glucose 99 mg/dl (70-99); Sodium 140 mmol/L (136-145)
[2019-11-13 14:53] LABS: Alkaline Phosphatase 84 U/L (45-117); Bilirubin,Total 0.6 mg/dl (0.2-1); Globulin 3.5 gm/dl (2.5-4.0); Thyroid Stimulating Hormone 0.791 uIu/ml (0.300-4.500); Total Protein 7.1 gm/dl (6.4-8.2); Troponin I < 0.015 ng/ml (0-0.045)
--- NOTE | 2019-11-13 14:58 | CT Scan Report ---
CT abd pelvis wo con CT DOSE: 648.01 mGycm HISTORY: Pain. Nausea. pain, vomiting, poss obstruc TECHNIQUE: Multiaxial CT images of the abdomen and pelvis were performed without contrast. A dose lo wering technique was utilized adhering to the principles of ALARA. COMPARISON STUDY: 08/15/2018 FINDINGS: Lung bases are clear. Liver spleen and pancreas appear unremarkable. 4 mm nonobstructing lower pole right renal calcification. Kidneys negative for hydronephrosis. Postoperative changes consistent with a transverse colonic anastomotic line. No evidence for bowel ob struction change. Scattered colonic diverticuli. No evidence for diverticulitis. Uterus is anteflexed. Bladder is midli ne. IMPRESSION: No acute process in the abdomen or pelvis. ACT 112: Negative or not required by law. The above report was generated using voice recognition software. It may contain grammatical, syntax or spelling errors. Electronically signed by: Aden Pederson M.D. 11/13/2019 2:57 PM
[2019-11-13 15:22] LABS: Potassium 4.1 mmol/L (3.5-5.1)
[2019-11-13 15:27] LABS: Magnesium 1.8 mg/dl (1.8-2.4)
[2019-11-13] MEDS ORDERED: ACETAMINOPHEN 1,000 MG/100 ML VIAL IV STA (16:08)
[2019-11-13 16:11] LABS: Appearance Urine Clear (Clear); Bilirubin Urine Negative (Negative); Blood Urine Negative (Negative); Color Urine Yellow; Glucose Urine UA Negative (Negative); Ketones Urine Negative (Negative); Leukocyte Esterase Urine Negative (Negative); Nitrite Urine Negative (Negative); Protein Urine Negative (Negative); Specific Gravity Urine 1.013 (1.000-1.030); Urobilinogen Urine Negative (Negative)
[2019-11-13] MEDS ORDERED: SODIUM CHLORIDE 0.9% 1000ML 500 ML IV ONE (16:41)
--- NOTE | 2019-11-13 17:47 | Emergency Department Note ---
Entered by Jill Solomon acting as a scribe for Cabrera Thorpe MD History of Present Illness General Chief complaint: Illness Time Seen by Provider: 11/13/19 13:12 Source: patient History of Present Illness Onset (ago): week(s) 1 Location: neck and abdomen Pain Consistency: + other (worsening) Maximum Pain Intensity: 3 Quality: + other (illness) Associated symptoms: + denies other symptoms (urinary symptoms), + headaches, + nausea/vomiting, + shortness of breath and + other (diarrhea, frequent falls); no cough The patient is an 84 year old female who presents to the Emergency Room with complaints of worsening illness starting a week ago. The patients daughter states that the patient has to have her esophagus stretched regularly by Dr. Le. She states that the last time that they stretched it, they found a hole and had to place a clip. She reports that last week when she went to have it stretched again, they noticed that the clip was still in place and it was infected. She reports that when she left they gave her Carafate, but no antibiotic. She notes that they did not stretch her throat at that time. The patients daughter states that since then, the patient has been vomiting and cannot hold anything down. She notes that she has also had diarrhea. She states that the patient has also developed abdominal pain all over and a headache. She reports that she bought her to the ED today because things seem to be getting worse. The patient complains of shortness of breath, but her daughter notes that this has been chronic since she had her 3 cardiac stents placed. The patients daughter notes that the patient falls frequently as well as she gets dizzy every time she stands up. The patient denies a cough, urinary symptoms, and taking anything for the pain. She notes that she has not taken her temperature so she is unsure if she has a fever. Home Medications Home Medications Medication Instructions Recorded Confirmed Type cholecalciferol (vitamin D3) 2,000 unit PO QAM 08/06/18 11/13/19 History [Vitamin D3] latanoprost 1 drp OPB HS 08/06/18 11/13/19 History lisinopril 5 mg PO QAM 08/06/18 11/13/19 History nitroglycerin 1 tab SUBLINGUAL UD PRN 08/06/18 11/13/19 History cyanocobalamin (vitamin B-12) 1,000 mcg PO QAM 01/20/19 11/13/19 History [Vitamin B-12] biotin 1 mg capsule 1 mg PO QAM cap 04/14/19 11/13/19 History ipratropium 20 mcg-albuterol 100 1 puffs INH QID 04/14/19 11/13/19 History mcg/actuation mist for inhalation metoprolol succinate 50 mg 75 mg PO QAM #135 tab 04/14/19 11/13/19 Rx tablet,extended release 24 hr aspirin [Aspirin Low Dose] 81 mg PO HS 04/21/19 11/13/19 History colestipol 1 gram tablet 2 gm PO TID #180 tab 05/21/19 11/13/19 Rx amlodipine 5 mg PO QAM 07/07/19 11/13/19 History ascorbic acid (vitamin C) [Vitamin 500 mg PO Q OTHER DAY 07/07/19 11/13/19 History C] isosorbide mononitrate 30 mg PO QAM 07/07/19 11/13/19 History sertraline 100 mg PO DAILY PRN 07/07/19 11/13/19 History pantoprazole 40 mg tablet,delayed 40 mg PO BID #60 tab 10/28/19 11/13/19 Rx release Allergies Allergy/AdvReac Type Severity Reaction Status Date / Time lidocaine Allergy Severe GIVEN Verified 11/13/19 15:05 DURING EGD PROCEDURE-"UNRESPONSIVE" hydrochlorothiazide Allergy Unknown UNKNOWN-INE Verified 11/13/19 15:05 FFECTIVE? niacin Allergy Unknown UNKNOWN Verified 11/13/19 15:05 atorvastatin AdvReac Intermediate MUSCLE Verified 11/13/19 15:05 ACHES citalopram AdvReac Intermediate G I UPSET- Verified 11/13/19 15:05 simvastatin AdvReac Intermediate MUSCLE Verified 11/13/19 15:05 ACHES Past Med/Surg History Medical History Anemia Aortic diastolic murmur Atherosclerotic cardiovascular disease Atrial fibrillation PAROXYSMAL A-FIB Cancer COLON--sx Chronic back pain BACK INJECTIONS Chronic diastolic congestive heart failure Depression Diverticulosis Dysphagia ESOPHAGEAL STRETCHING IN PAST Dyspnea on exertion Esophageal reflux disease Esophagitis Gait disturbance GERD (gastroesophageal reflux disease) Hearing deficit Hypercholesterolemia Hyperparathyroidism Hypertension Macular degeneration Myocardial Infarction 2017 Osteoarthritis Renal colic (10/03/14) Schatzki's ring Stricture esophagus Surgical History History of anesthesia reaction BECAME UNRESPONSIVE WITH LIDOCAINE DURING EGD PROCEDURE-SEE PRIOR EGD ANESTHESIA NOTES AT [facility] History of bowel resection History of cardiac cath X 3 ( STENTS PLACED)(APRIL 2017- DRUG ELUTING STENT PLACED BY DR. PARRISH) RECENT HEART CATH 05/2018 (NO STENTS) "TAKEN OFF PLAVIX" History of cataract surgery RT/LEFT History of colonoscopy History of esophagogastroduodenoscopy (EGD) History of heart artery stent 3 STENTS TOTAL PLACED History of intravascular stent placement History of laparotomy History of parathyroid surgery History of partial colectomy History of repair of rotator cuff RT History of tooth extraction Family History Father Family history of diabetes mellitus Coronary heart disease Sister Family hx of colon cancer Brain tumor Leukemia Lung cancer Parkinson disease Mother Skin cancer Hypertension Other No family history of adverse response to anesthesia Social History Preferred Language: Maltese Communication Ability: Effective Box Shook Patcher Required: No Beliefs That Will Affect Care: None marital status: Current Living Situation: Spouse Feels Safe at Home: Yes Smoking Status: Never smoker Second Hand Exposure: No ; Hx Alcohol Use: No Hx Substance Use: No Review of Systems See HPI for pertinent positives & negatives. and A total of 10 systems reviewed and were otherwise negative Physical Exam Vital Signs Vital Signs - 24 hr 11/13/19 12:32 11/13/19 13:38 11/13/19 13:43 Temperature 36.6 C Temperature Source Oral Pulse Rate 63 62 Pulse Rate [Left Finger] Pulse Rate from SpO2 Sensor 62 Pulse Rhythm Regular Respiratory Rate 18 13 Respiratory Effort / Characteristics Non-Labored Respiratory Depth Normal Respiratory Pattern Regular Blood Pressure 170/82 H 144/97 H Blood Pressure [Right Arm] Blood Pressure Mean 111 104 Blood Pressure Mean [Right Arm] Pulse Oximetry 97 98 98 Oxygen Delivery Method Room Air Room Air Room Air Sepsis Recent Fever Within 48 Hours No Sepsis New/Unexplained Change in Mental Status No Sepsis Action Taken by Nursing No Action Required 11/13/19 15:43 11/13/19 17:00 Temperature Temperature Source Pulse Rate Pulse Rate [Left Finger] 61 61 Pulse Rate from SpO2 Sensor Pulse Rhythm Respiratory Rate 18 18 Respiratory Effort / Characteristics Respiratory Depth Respiratory Pattern Blood Pressure Blood Pressure [Right Arm] 186/72 H 177/75 H Blood Pressure Mean Blood Pressure Mean [Right Arm] 110 109 Pulse Oximetry 96 98 Oxygen Delivery Method Room Air Sepsis Recent Fever Within 48 Hours Sepsis New/Unexplained Change in Mental Status Sepsis Action Taken by Nursing GENERAL: Patient is in no acute distress. HEENT: No acute trauma, normocephalic atraumatic, mucous membranes moist, no nasal congestion, no scleral icterus. NECK: No stridor, no adenopathy, no meningismus, trachea is midline. LUNGS: Clear to auscultation bilaterally, no wheeze, no rhonchi, breath sounds equal. HEART: Without murmurs gallops or rubs, regular rate and rhythm. ABDOMEN: Soft, mildly diffusely tender, bowel sounds positive, no hernias, no peritonitis. EXTREMITIES: No cyanosis or edema, full range of motion of all the joints without pain or difficulty, no signs for acute trauma. NEUROLOGIC: Oriented x 3, no acute motor or sensory deficits, no focal weakness. SKIN: No rash, no jaundice, no diaphoresis. Course Course 1315: The patient was evaluated in room A4A. A complete history and physical exam was performed. 1636: I reevaluated the patient and updated her and her family on her test results. I discussed the treatment plan with them. They verbally agree and understand as her family does not feel comfortable taking her home. 1648: I discussed the patient's case with Dr. Bae- [facility]. She will evaluate the patient for further management. Administered Medications Discontinued Medications Sodium Chloride (Nss) 500 mls @ 999 mls/hr IV .Q31M [facility] Stop: 11/13/19 14:00 Last Infusion: 11/13/19 14:54 Dose: 0 mls/hr Documented by: [id number] Admin: 11/13/19 14:04 Dose: 999 mls/hr Documented by: [id number] Acetaminophen (Ofirmev) 1,000 mg in 100 mls @ 400 mls/hr IV NOW STA Stop: 11/13/19 16:22 Last Infusion: 11/13/19 16:40 Dose: 0 mls/hr Documented by: [id number] Admin: 11/13/19 16:23 Dose: 400 mls/hr Documented by: [id number] Sodium Chloride (Nss 1000ml) 500 mls @ 999 mls/hr IV .Q31M ONE Stop: 11/13/19 17:11 Last Infusion: 11/13/19 17:15 Dose: 0 mls/hr Documented by: [id number] Admin: 11/13/19 16:53 Dose: 999 mls/hr Documented by: [id number] Ondansetron HCl (Zofran) 4 mg IV NOW STA Stop: 11/13/19 13:23 Last Admin: 11/13/19 14:03 Dose: 4 mg Documented by: [id number] Medical Decision Making Differential Diagnosis Differential diagnoses include dehydration, medication reaction, bowel obstruction, ulcer, UTI, diverticulitis, pneumonia, cardiac ischemia. Medical Records Attestation: I reviewed the patient's medical records. Home Medications Current Medication List: was personally reviewed by me Laboratory Data Attestation: I reviewed the patient's lab results. Result diagrams: 11/13/19 13:59 11/13/19 14:47 Lab Results 11/13/19 11/13/19 11/13/19 Range/Units 13:59 13:59 14:47 WBC 7.98 (4.8-10.8) K/uL RBC 4.41 (4.2-5.4) M/uL Hgb 14.2 (12.0-16.0) g/dL Hct 41.0 (37-47) % MCV 93.0 (80-100) fL MCH 32.2 (25-34) pg MCHC 34.6 (32-36) g/dL RDW Std Deviation 44.9 (36.4-46.3) fL RDW Coeff of Kassy 13.2 (11.5-14.5) % Plt Count 216 (130-400) K/uL MPV 10.1 (7.4-10.4) fL Immature Gran % (Auto) 0.5 % Neut % (Auto) 58.6 % Lymph % (Auto) 31.8 % [place] % (Auto) 7.5 % Eos % (Auto) 1.3 % Baso % (Auto) 0.3 % Immature Gran # (Auto) 0.04 H (0.00-0.02) K/uL Neut # (Auto) 4.68 (1.4-6.5) K/uL Lymph # (Auto) 2.54 (1.2-3.4) K/uL [place] # (Auto) 0.60 H (0.11-0.59) K/uL Eos # (Auto) 0.10 (0-0.5) K/uL Baso # (Auto) 0.02 (0-0.2) K/uL Sodium 140 (136-145) mmol/L Potassium 4.1 (3.5-5.1) mmol/L Chloride 107 (98-107) mmol/L Carbon Dioxide 28 (21-32) mmol/L Anion Gap 5.0 (3-11) BUN 23 H (7-18) mg/dl Creatinine 0.96 (0.6-1.2) mg/dl Est Cr Clr Drug Dosing 36.3 ml/min Est GFR ( Amer) 62.1 Est GFR (Non-Af Amer) 53.6 BUN/Creatinine Ratio 23.9 H (10-20) Glucose 99 (70-99) mg/dl Calcium 8.9 (8.5-10.1) mg/dl Magnesium 1.8 (1.8-2.4) mg/dl Total Bilirubin 0.6 (0.2-1) mg/dl AST 11 L (15-37) U/L ALT 17 (12-78) U/L Alkaline Phosphatase 84 (45-117) U/L Troponin I < 0.015 (0-0.045) ng/ml Total Protein 7.1 (6.4-8.2) gm/dl Albumin 3.6 (3.4-5.0) gm/dl Globulin 3.5 (2.5-4.0) gm/dl Albumin/Globulin Ratio 1.0 (0.9-2) TSH 0.791 (0.300-4.500) uIu/ml Urine Color Urine Appearance (Clear) Urine pH (4.5-7.5) Ur Specific [place] (1.000-1.030) Urine Protein (Negative) Urine Glucose (UA) (Negative) Urine Ketones (Negative) Urine Blood (Negative) Urine Nitrite (Negative) Urine Bilirubin (Negative) Urine Urobilinogen (Negative) Ur Leukocyte Esterase (Negative) 11/13/19 Range/Units 15:50 WBC (4.8-10.8) K/uL RBC (4.2-5.4) M/uL Hgb (12.0-16.0) g/dL Hct (37-47) % MCV (80-100) fL MCH (25-34) pg MCHC (32-36) g/dL RDW Std Deviation (36.4-46.3) fL RDW Coeff of Kassy (11.5-14.5) % Plt Count (130-400) K/uL MPV (7.4-10.4) fL Immature Gran % (Auto) % Neut % (Auto) % Lymph % (Auto) % [place] % (Auto) % Eos % (Auto) % Baso % (Auto) % Immature Gran # (Auto) (0.00-0.02) K/uL Neut # (Auto) (1.4-6.5) K/uL Lymph # (Auto) (1.2-3.4) K/uL [place] # (Auto) (0.11-0.59) K/uL Eos # (Auto) (0-0.5) K/uL Baso # (Auto) (0-0.2) K/uL Sodium (136-145) mmol/L Potassium (3.5-5.1) mmol/L Chloride (98-107) mmol/L Carbon Dioxide (21-32) mmol/L Anion Gap (3-11) BUN (7-18) mg/dl Creatinine (0.6-1.2) mg/dl Est Cr Clr Drug Dosing ml/min Est GFR ( Amer) Est GFR (Non-Af Amer) BUN/Creatinine Ratio (10-20) Glucose (70-99) mg/dl Calcium (8.5-10.1) mg/dl Magnesium (1.8-2.4) mg/dl Total Bilirubin (0.2-1) mg/dl AST (15-37) U/L ALT (12-78) U/L Alkaline Phosphatase (45-117) U/L Troponin I (0-0.045) ng/ml Total Protein (6.4-8.2) gm/dl Albumin (3.4-5.0) gm/dl Globulin (2.5-4.0) gm/dl Albumin/Globulin Ratio (0.9-2) TSH (0.300-4.500) uIu/ml Urine Color Yellow Urine Appearance Clear (Clear) Urine pH 5.0 (4.5-7.5) Ur Specific [place] 1.013 (1.000-1.030) Urine Protein Negative (Negative) Urine Glucose (UA) Negative (Negative) Urine Ketones Negative (Negative) Urine Blood Negative (Negative) Urine Nitrite Negative (Negative) Urine Bilirubin Negative (Negative) Urine Urobilinogen Negative (Negative) Ur Leukocyte Esterase Negative (Negative) Imaging Data Radiologist's Impression: Radiology results as stated below per my review and the radiologist's interpretation: XR chest 1V portable HISTORY: 84 years-old Female weakness acute weakness COMPARISON: Chest radiograph and CTA chest 03/18/2019 TECHNIQUE: Portable AP view of the chest FINDINGS: Cardiac silhouette is mildly enlarged, unchanged. Calcified plaque of the thoracic aortic arch. Eventration of the right hemidiaphragm with mild bibasilar interstitial coarsening. Lungs are mildly hyperinflated. Right lung base opacities measuring up to 1.4 cm may be secondary to summation density. Multiple remote appearing left-sided rib fractures. Degenerative changes of the shoulders and spine. IMPRESSION: 1. Cardiomegaly without acute process. 2. Unchanged mild right hemidiaphragmatic elevation with chronic bibasilar interstitial coarsening. ACT 112: Negative or not required by law. The above report was generated using voice recognition software. It may contain grammatical, syntax or spelling errors. Electronically signed by: Bran Og M.D. 11/13/2019 1:[address] SCAN OF THE BRAIN WITHOUT IV CONTRAST CLINICAL HISTORY: Fall. Headache. COMPARISON STUDY: CT of the brain dated 02/04/2012. TECHNIQUE: Unenhanced axial CT scan of the brain is performed from the vertex to the skull base. A dose lowering technique was utilized adhering to the principles of ALARA. CT DOSE: 638.56 mGycm FINDINGS: Brain parenchyma: There are age-related involutional changes noting moderate subcortical and periventricular microangiopathic change. There is no hemorrhage, mass effect, or evidence of acute territorial ischemia by CT criteria. Celestin- white matter differentiation is preserved. No extra-axial fluid collection is seen. Ventricles, sulci, cisterns: Prominent secondary to involutional change. Intracranial vasculature: There is atherosclerotic calcification of the cavernous carotid and vertebral arteries. Calvarium: The skeletal structures are osteopenic. There is no depressed c alvarial fracture. Sinuses and mastoids: The visualized paranasal sinuses are clear. The mastoid ai r cells are well pneumatized. Orbits: The bony orbits are grossly intact. There are bilateral ocular lens implants. IMPRESSION: There is no hemorrhage, mass effect, or evidence of acute territorial ischemia by CT criteria. ACT 112: Negative or not required by law. Electronically signed by: Cabrera Gamboa M.D. 11/13/2019 2:[address] abd pelvis wo con CT DOSE: 648.01 mGycm HISTORY: Pain. Nausea. pain, vomiting, poss obstruc TECHNIQUE: Multiaxial CT images of the abdomen and pelvis were performed without contrast. A dose lowering technique was utilized adhering to the principles of ALARA. COMPARISON STUDY: 08/15/2018 FINDINGS: Lung bases are clear. Liver spleen and pancreas appear unremarkable. 4 mm nonobstructing lower pole right renal calcification. Kidneys negative for hydronephrosis. Postoperative changes consistent with a transverse colonic anastomotic line. No evidence for bowel obstruction change. Scattered colonic diverticuli. No evidence for diverticulitis. Uterus is anteflexed. Bladder is midline. IMPRESSION: No acute process in the abdomen or pelvis. ACT 112: Negative or not required by law. The above report was generated using voice recognition software. It may contain grammatical, syntax or spelling errors. Electronically signed by: Aden Pederson M.D. 11/13/2019 2:57 PM ECG Data Attestation: I personally reviewed and interpreted this ECG as follows: Indication: + SOB/dyspnea Rate (beats per minute): 63 Rhythm: + sinus rhythm ECG ST segments: no ST elevation ECG Findings: + PACs and + Other (QT-c 433); no PVCs Blood Pressure Blood Pressure Findings: Elevated blood pressure Blood Pressure Disposition: Referred to patients primary care provider MDM Narrative There is no leukocytosis or concerning anemia. No significant electrolyte abnormality or kidney failure. No worrisome liver enzyme elevation. The patient appeared to be in a euthyroid state. EKG showed a sinus rhythm with some PACs, no acute ischemia. Cardiac enzyme testing x1 is not consistent with acute cardiac injury. Urinalysis does not show infection or hematuria. Chest film does not show pneumonia or CHF. Brain CT shows no acute bleed or mass- effect. Abdominal and pelvis CT does not show diverticulitis, bowel obstruction or any acute surgical process. The patient received IV saline, she was given 2/500 cc boluses. She was given IV Zofran for nausea, IV Tylenol for her headache. The patient presents with weakness, fatigue and headache. She has had vomiting and diarrhea for over a week, she is not doing well at home and the family does not feel she is safe for discharge home. The cause for the patient's complaints and symptoms is unclear, this illness may be viral. Possibly, she may be having difficulty with her Carafate. In any regard, she is too weak and frail for discharge. Further hydration and care is required. I spoke to the patient, I talked with case management. The on-call hospitalist was consulted. Continuous Cardiac Monitoring: An order was placed for continuous cardiac monitoring. The monitor shows a rate of 61 with sinus rhythm with PACs. Impression & Plan Weakness, Nausea vomiting and diarrhea, Dehydration, Headache Discharge Plan Visit Data Chief Complaint: Illness ED Provider: Cabrera Thorpe Discharge Problem: Weakness, Nausea vomiting and diarrhea, Dehydration, Headache Patient Disposition: Being Evaluated by Hospitalist Forms Stand Alone Forms: My [facility] Prescriptions Prescriptions: No Action colestipol 1 gram tablet 2 gm PO TID Qty: 180 RF: 5 pantoprazole 40 mg tablet,delayed release (DR/EC) 40 mg PO BID Qty: 60 RF: 5 biotin 1 mg capsule 1 mg PO QAM RF: 0 Combivent Respimat 20-100 mcg/actuation mist 1 puffs INH QID RF: 0 metoprolol succinate 50 mg tablet extended release 24 hr 75 mg PO QAM Qty: 135 RF: 3 cyanocobalamin (vitamin B-12) [Vitamin B-12] 1,000 mcg Tablet 1,000 mcg PO QAM RF: 0 aspirin [Aspirin Low Dose] 81 mg Tablet,Delayed Release (Dr/Ec) 81 mg PO HS RF: 0 amlodipine 5 mg Tablet 5 mg PO QAM RF: 0 ascorbic acid (vitamin C) [Vitamin C] 500 mg Tablet 500 mg PO Q OTHER DAY RF: 0 isosorbide mononitrate 30 mg tablet extended release 24 hr 30 mg PO QAM RF: 0 sertraline 100 mg tablet 100 mg PO DAILY PRN (Reason: Anxiety) RF: 0 latanoprost 0.005 % Drops 1 drp OPB HS RF: 0 nitroglycerin 0.4 mg Tablet, Sublingual 1 tab Sublingual UD PRN (Reason: CHEST PAIN) RF: 0 lisinopril 5 mg Tablet 5 mg PO QAM RF: 0 cholecalciferol (vitamin D3) [Vitamin D3] 2,000 unit Capsule 2,000 unit PO QAM RF: 0 Referrals Referrals: Tirso Marie III, MD [Primary Care Provider] - Discharge Problem: Headache Qualifiers: Headache type: unspecified Headache chronicity pattern: unspecified pattern Intractability: not intractable Qualified Code(s): R51 - Headache The scribe's documentation has been prepared under my direction and personally reviewed by me in its entirety. I confirm that the note above accurately reflects all work, treatment, procedures, and medical decision making performed by me.
[2019-11-13] MEDS ORDERED: MAGNESIUM HYDROXIDE SUSP 30 ML UDC PO PRN (20:34)
[2019-11-13] MEDS ORDERED: SERTRALINE HCL 100 MG TABLET PO PRN (20:34)
[2019-11-13] MEDS ORDERED: NITROGLYCERIN SL 0.4 MG/TAB TAB SL PRN (20:34)
[2019-11-13] MEDS ORDERED: ONDANSETRON INJ 2 MG/ML 2 ML VIAL IV PRN (20:34)
[2019-11-13] MEDS ORDERED: ALUMINUM/MAGNESIUM SUSP 30 ML UDC PO PRN (20:34)
[2019-11-13] MEDS ORDERED: ACETAMINOPHEN 325 MG TAB PO PRN (20:34)
[2019-11-13] MEDS: SODIUM CHLORIDE 0.9% 1000ML 1,000 ML IV SCH (20:52)
[2019-11-13] MEDS ORDERED: LATANOPROST 0.005% OP SOLN 2.5 ML BTL OPB SCH (21:00)
[2019-11-13] MEDS ORDERED: ASPIRIN 81 MG ECTAB PO SCH (21:00)
[2019-11-13] MEDS: ISOSORBIDE MONO EXTENDED REL 30 MG TABCR PO SCH (21:18)
[2019-11-13] MEDS: AMLODIPINE BESYLATE 5 MG TAB PO SCH (21:19)
[2019-11-13] MEDS: IPRATROPIUM BROMIDE/ALBUTEROL respimat INH INH SCH (21:22)
[2019-11-13] MEDS: PANTOprazole 40 MG TAB PO SCH (21:23)
[2019-11-13] MEDS ORDERED: HydrALAZINE 10 MG TAB PO PRN (21:57)
--- NOTE | 2019-11-13 21:58 | History & Physical Report ---
Date of Service November 13, 2019 Assessment & Plan (1) Gastroenteritis: Likely viral gastroenteritis. Admit to [facility] on telemetry Vital signs every 4 hours Gentle IV fluid hydration Monitor electrolytes and replenish Stool culture pending for ova parasites and C. difficile Consider consulting GI if no improvement Pain management and antinausea management DVT prophylaxis SCDs and teds Full code Present on Admission?: Yes (2) Dehydration: As the above replenish fluids and electrolytes. Monitor daily Present on Admission?: Yes (3) Nausea vomiting and diarrhea: As discussed above (4) Ambulatory dysfunction: Will try with physical and Occupational Therapy. Present on Admission?: Yes (5) CAD (coronary artery disease): Stable. Continue home medicine aspirin 81 mg p.o. nightly, Isosorbide mononitrate 30 mg p.o. every morning, lisinopril 5 mg p.o. every morning, Metoprolol succinate 75 mg extended release p.o. every morning. Nitroglycerin 1 tablet sublingual as needed as needed. Present on Admission?: Yes (6) Hypertension: Blood pressure was elevated in the emergency room. Continue home medicine as discussed above. Continue monitoring blood pressure every 4 hours. Added hydralazine p.o. 4 times daily as needed for elevated systolic blood pressure over 160 and diastolic over 90. Present on Admission?: Yes (7) Hypercholesterolemia: Lipid panel pending. Patient is not on statins because she developed muscle aches in the past. Would consider other agents if patient has elevated lipid panel. Present on Admission?: Yes (8) Stricture esophagus: This continues to be a problem with consult GI for further evaluation and treatment of patient esophagus. Present on Admission?: Yes History of Present Illness Chief Complaint: Generalized weakness, nausea, vomiting and diarrhea Primary Care Provider: Tirso Marie MD :The patient is an 84 years old female with past medical history of colon cancer, esophagitis, hyperparathyroidism, hypercholesterolemia, aortic diastolic murmur, aortic valve disorder, coronary artery disease, hypertension who presents to the emergency room with a complaint of generalized weakness after she had her esophagus stretched regularly by Dr. Le. Patient states that last time that they stretched that they found a hole and had to place a clip. She reports that last week when she went to have stretch her esophagus they noticed that the clip was still in place and it was infected. Patient reports when she left they gave her Carafate, but no antibiotic. She noted that they did not stretch her throat at that time. The patient's daughter stated that since then patient has been vomiting and cannot hold anything down. She noticed that she has also had some diarrhea. She states that the patient had also developed abdominal pain all over and a headache. She reports that she brought her to the emergency department today because of the worsening situation. Patient complains of shortness of breath. Patient daughter said that patient has 3 cardiac stent placed. Patient also had a frequent falls and feels dizzy every time when she stands up. Patient denies chills, headache, abdominal pain, frequency, urgency, hematemesis,hematuria, hematochezia. Patient states that her stools are sometimes very dark. Patient states that she maybe had a fever. EKG: Normal sinus rhythm with premature atrial complexes. Septal infarct age undetermined. Heart rate of 63. QT interval 424. Labs are reviewed: WBC 7.98, hemoglobin 14.2, hematocrit 41.0, platelets 216, sodium 140, potassium 4.1, chloride 107, carbon dioxide 28, 5, BUN 23, creatinine 0.96, GFR 53.6, calcium 8.9, magnesium 1.8, AST 11, ALT 17, alkaline phosphatase 84, troponin 0.015, total protein 7.1, albumin 3.6, globulin 3.5, TSH 0.791. Urine all negative. CT abdomen and pelvis: No acute process in the abdomen or pelvis. Scattered colonic diverticula. No evidence of diverticulitis.Decision was made to admit patient to [facility] on telemetry for further evaluation of most likely viral gastroenteritis. Allergies Allergy/AdvReac Type Severity Reaction Status Date / Time lidocaine Allergy Severe GIVEN Verified 11/13/19 15:05 DURING EGD PROCEDURE-"UNRESPONSIVE" hydrochlorothiazide Allergy Unknown UNKNOWN-INE Verified 11/13/19 15:05 FFECTIVE? niacin Allergy Unknown UNKNOWN Verified 11/13/19 15:05 atorvastatin AdvReac Intermediate MUSCLE Verified 11/13/19 15:05 ACHES citalopram AdvReac Intermediate G I UPSET- Verified 11/13/19 15:05 simvastatin AdvReac Intermediate MUSCLE Verified 11/13/19 15:05 ACHES Home Medications Home Medications Medication Instructions Recorded Confirmed Type cholecalciferol (vitamin D3) 2,000 unit PO QAM 08/06/18 11/13/19 History [Vitamin D3] latanoprost 1 drp OPB HS 08/06/18 11/13/19 History lisinopril 5 mg PO QAM 08/06/18 11/13/19 History nitroglycerin 1 tab SUBLINGUAL UD PRN 08/06/18 11/13/19 History cyanocobalamin (vitamin B-12) 1,000 mcg PO QAM 01/20/19 11/13/19 History [Vitamin B-12] biotin 1 mg capsule 1 mg PO QAM cap 04/14/19 11/13/19 History ipratropium 20 mcg-albuterol 100 1 puffs INH QID 04/14/19 11/13/19 History mcg/actuation mist for inhalation metoprolol succinate 50 mg 75 mg PO QAM #135 tab 04/14/19 11/13/19 Rx tablet,extended release 24 hr aspirin [Aspirin Low Dose] 81 mg PO HS 04/21/19 11/13/19 History colestipol 1 gram tablet 2 gm PO TID #180 tab 05/21/19 11/13/19 Rx amlodipine 5 mg PO QAM 07/07/19 11/13/19 History ascorbic acid (vitamin C) [Vitamin 500 mg PO Q OTHER DAY 07/07/19 11/13/19 History C] isosorbide mononitrate 30 mg PO QAM 07/07/19 11/13/19 History sertraline 100 mg PO DAILY PRN 07/07/19 11/13/19 History pantoprazole 40 mg tablet,delayed 40 mg PO BID #60 tab 10/28/19 11/13/19 Rx release Past Med/Surg History Medical History Anemia Aortic diastolic murmur Atherosclerotic cardiovascular disease Atrial fibrillation PAROXYSMAL A-FIB Cancer COLON--sx Chronic back pain BACK INJECTIONS Chronic diastolic congestive heart failure Depression Diverticulosis Dysphagia ESOPHAGEAL STRETCHING IN PAST Dyspnea on exertion Esophageal reflux disease Esophagitis Gait disturbance GERD (gastroesophageal reflux disease) Hearing deficit Hypercholesterolemia Hyperparathyroidism Hypertension Macular degeneration Myocardial Infarction 2017 Osteoarthritis Renal colic (10/03/14) Schatzki's ring Stricture esophagus Surgical History History of anesthesia reaction BECAME UNRESPONSIVE WITH LIDOCAINE DURING EGD PROCEDURE-SEE PRIOR EGD ANESTHESIA NOTES AT [facility] History of bowel resection History of cardiac cath X 3 ( STENTS PLACED)(APRIL 2017- DRUG ELUTING STENT PLACED BY DR. PARRISH) RECENT HEART CATH 05/2018 (NO STENTS) "TAKEN OFF PLAVIX" History of cataract surgery RT/LEFT History of colonoscopy History of esophagogastroduodenoscopy (EGD) History of heart artery stent 3 STENTS TOTAL PLACED History of intravascular stent placement History of laparotomy History of parathyroid surgery History of partial colectomy History of repair of rotator cuff RT History of tooth extraction Family History Father Family history of diabetes mellitus Coronary heart disease Sister Family hx of colon cancer Brain tumor Leukemia Lung cancer Parkinson disease Mother Skin cancer Hypertension Other No family history of adverse response to anesthesia Social History Preferred Language: Danish Communication Ability: Effective Corporate Consultant Required: No Beliefs That Will Affect Care: None marital status: Current Living Situation: Spouse Feels Safe at Home: Yes Smoking Status: Never smoker Second Hand Exposure: No ; Hx Alcohol Use: No Hx Substance Use: No Review of Systems Review of Systems: All systems reviewed & are unremarkable except as noted in HPI & below Physical Exam Constitutional: WD/WN, vitals as above well developed and + obese Eyes: PERRL, conjunctivae normal, anicteric sclerae ENMT: Hard of hearing Neck: trachea midline, no thyromegaly Respiratory: normal respiratory effort, lungs clear to auscultation Cardiovascular: Rate/Rhythm: regular rate and regular rhythm Heart Sounds: normal S1, normal S2 and + murmur Vessels: dorsalis pedis pulses present Gastrointestinal (Abdomen): Inspection/Auscultation: + high-pitched sounds Percussion/Palpation: + abdomen tender and abdomen soft Musculoskeletal: no cyanosis or clubbing, extremities motor strength 5/5 Skin: no rashes, warm and dry Neurologic: patellar DTR's 2+ bilat, sensation intact Psychiatric: A+Ox3, euthymic affect Lymphatic: no cervical or axillary lymphadenopathy Results & Data Vital Signs (Past 12 Hours) Vital Signs Temp Pulse Pulse Resp BP BP Pulse Ox 11/13/19 18:31 61 18 161/72 H 97 11/13/19 17:00 61 18 177/75 H 98 11/13/19 15:43 61 18 186/72 H 96 11/13/19 13:43 98 11/13/19 13:38 62 13 144/97 H 98 11/13/19 12:32 36.6 C 63 18 170/82 H 97 Code Status & VTE Plan Code Status Full code VTE Prophylaxis Plan VTE Prophylaxis will be ordered: Yes PG Care Time/CCT Total # of Minutes Spent Total Time Spent with Patient: Total time spent is greater than 50% in coordination of care (as documented) at patient's floor/unit and/or counseling patient: Coding Level of Care Code 41396 Initial Inpt Care Lvl 3 Diagnoses Gastroenteritis K52.9 Dehydration E86.0 Nausea vomiting and diarrhea R11.2; R19.7 Ambulatory dysfunction R26.2 CAD (coronary artery disease) I25.10 Hypertension I10 Hypertension type: essential hypertension Hypercholesterolemia E78.00 Stricture esophagus K22.2 (1) Hypertension Hypertension type: essential hypertension Qualified Code(s): I10 - Essential (primary) hypertension
[2019-11-13] MEDS: COLESTIPOL HCL 1 GM TAB PO SCH (22:13)
[2019-11-13] MEDS ORDERED: MAGNESIUM SULFATE / D5W 1 GM/100 ML BAG IV ONE (22:45)
[2019-11-14 06:19] LABS: Basophils # (auto) 0.02 K/uL (0-0.2); Basophils % (auto) 0.3 %; Eosinophils % (auto) 1.7 %; Hematocrit (blood only) 34.1 % (37-47); Hemoglobin 11.5 g/dL (12.0-16.0); Immature Granulocytes # (auto) 0.02 K/uL (0.00-0.02); Immature Granulocytes % (auto) 0.3 %; Lymphocytes % (auto) 40.1 %; Mean Corpuscular Hemoglobin 31.6 pg (25-34); Mean Corpuscular Hgb Conc 33.7 g/dL (32-36); Mean Corpuscular Volume 93.7 fL (80-100); Mean Platelet Volume 9.4 fL (7.4-10.4); Monocytes # (auto) 0.49 K/uL (0.11-0.59); Monocytes % (auto) 8.6 %; Platelet Count 190 K/uL (130-400); RDW Coefficient of Variation 13.1 % (11.5-14.5); RDW Standard Deviation 44.3 fL (36.4-46.3); Red Blood Count 3.64 M/uL (4.2-5.4); White Blood Count 5.73 K/uL (4.8-10.8)
--- NOTE | 2019-11-14 06:33 | Electrocardiogram Report ---
Test Reason : Blood Pressure : / mmHG Vent. Rate : 063 BPM Atrial Rate : 063 BPM P-R Int : 154 ms QRS Dur : 090 ms QT Int : 424 ms P-R-T Axes : -17 008 054 degrees QTc Int : 433 ms Sinus rhythm with Premature atrial complexes When compared with ECG of 18-MAR-2019 20:56, Premature atrial complexes are now Present Confirmed by Christo Torrez ([id number]) on 11/14/2019 6:33:16 AM Referred By: Confirmed By:Christo Torrez
[2019-11-14 06:41] LABS: Estimated Average Glucose 134 mg/dl; Hemoglobin A1C 6.3 % (4.5-5.6)
[2019-11-14 06:58] LABS: Albumin Level 2.9 gm/dl (3.4-5.0); BUN Creatinine Ratio 20.6 (10-20); Calcium 8.4 mg/dl (8.5-10.1); Creatinine Clr Calc Pharmacy 45.2 ml/min; Est GFR (African American) 79.8; Est GFR (Non-African American) 68.8; Potassium 3.9 mmol/L (3.5-5.1)
[2019-11-14 07:06] LABS: Albumin Globulin Ratio 1.2 (0.9-2); Bilirubin,Total 0.5 mg/dl (0.2-1); Globulin 2.5 gm/dl (2.5-4.0); Total Protein 5.4 gm/dl (6.4-8.2)
[2019-11-14] MEDS: SODIUM CHLORIDE 0.9% 1000ML 1,000 ML IV SCH (08:30)
[2019-11-14] MEDS: IPRATROPIUM BROMIDE/ALBUTEROL respimat INH INH SCH ×2 (08:31→12:42)
[2019-11-14] MEDS: AMLODIPINE BESYLATE 5 MG TAB PO SCH (08:31)
[2019-11-14] MEDS: PANTOprazole 40 MG TAB PO SCH (08:31)
[2019-11-14] MEDS: ISOSORBIDE MONO EXTENDED REL 30 MG TABCR PO SCH (08:31)
[2019-11-14] MEDS ORDERED: CHOLECALCIFEROL 1,000 UNITS 25 MCG TAB PO SCH (09:00)
[2019-11-14] MEDS ORDERED: CYANOCOBALAMIN 500 MCG TABLET (VITAMIN B-12) PO SCH (09:00)
[2019-11-14] MEDS ORDERED: lisinopriL 5 MG TAB PO SCH (09:00)
[2019-11-14] MEDS ORDERED: METOPROLOL SUCC 25MG EXT REL TAB PO SCH (09:00)
[2019-11-14] MEDS ORDERED: NON-FORMULARY MEDICATION (Biotin 1 MG) PO SCH (09:00)
[2019-11-14] MEDS: COLESTIPOL HCL 1 GM TAB PO SCH ×2 (10:08→15:37)
--- NOTE | 2019-11-14 16:09 | Discharge Summary ---
Date of Service November 14, 2019 Admission HPI Per Admitting Provider :The patient is an 84 years old female with past medical history of colon cancer, esophagitis, hyperparathyroidism, hypercholesterolemia, aortic diastolic murmur, aortic valve disorder, coronary artery disease, hypertension who presents to the emergency room with a complaint of generalized weakness after she had her esophagus stretched regularly by Dr. Le. Patient states that last time that they stretched that they found a hole and had to place a clip. She reports that last week when she went to have stretch her esophagus they noticed that the clip was still in place and it was infected. Patient reports when she left they gave her Carafate, but no antibiotic. She noted that they did not stretch her throat at that time. The patient's daughter stated that since then patient has been vomiting and cannot hold anything down. She noticed that she has also had some diarrhea. She states that the patient had also developed abdominal pain all over and a headache. She reports that she brought her to the emergency department today because of the worsening situation. Patient complains of shortness of breath. Patient daughter said that patient has 3 cardiac stent placed. Patient also had a frequent falls and feels dizzy every time when she stands up. Patient denies chills, headache, abdominal pain, frequency, urgency, hematemesis,hematuria, hematochezia. Patient states that her stools are sometimes very dark. Patient states that she maybe had a fever. EKG: Normal sinus rhythm with premature atrial complexes. Septal infarct age undetermined. Heart rate of 63. QT interval 424. Labs are reviewed: WBC 7.98, hemoglobin 14.2, hematocrit 41.0, platelets 216, sodium 140, potassium 4.1, chloride 107, carbon dioxide 28, 5, BUN 23, creatinine 0.96, GFR 53.6, calcium 8.9, magnesium 1.8, AST 11, ALT 17, alkaline phosphatase 84, troponin 0.015, total protein 7.1, albumin 3.6, globulin 3.5, TSH 0.791. Urine all negative. CT abdomen and pelvis: No acute process in the abdomen or pelvis. Scattered colonic diverticula. No evidence of diverticulitis.Decision was made to admit patient to [facility] on telemetry for further evaluation of most likely viral gastroenteritis. Principal Diagnosis Viral Gastroenteritis Discharge Exam Constitutional well developed, well nourished and cooperative; not in distress Eyes PERRL, conjunctivae normal, anicteric sclerae ENMT external ear and nose normal, oropharynx normal Neck normal visual inspection Respiratory normal respiratory effort, lungs clear to auscultation Cardiovascular RRR, no murmur, no edema Gastrointestinal (Abdomen) normal bowel sounds, soft, nontender, no hepatosplenomegaly Musculoskeletal no cyanosis or clubbing, extremities motor strength 5/5 Skin no rashes, warm and dry Neurologic PERRL, EOMI, accommodation nl, no face palsy, no dysarthria Psychiatric A+Ox3, euthymic affect Discharge Data Allergies Allergy/AdvReac Type Severity Reaction Status Date / Time lidocaine Allergy Severe GIVEN Verified 11/13/19 15:05 DURING EGD PROCEDURE-"UNRESPONSIVE" hydrochlorothiazide Allergy Unknown UNKNOWN-INE Verified 11/13/19 15:05 FFECTIVE? niacin Allergy Unknown UNKNOWN Verified 11/13/19 15:05 atorvastatin AdvReac Intermediate MUSCLE Verified 11/13/19 15:05 ACHES citalopram AdvReac Intermediate G I UPSET- Verified 11/13/19 15:05 simvastatin AdvReac Intermediate MUSCLE Verified 11/13/19 15:05 ACHES Consultations 11/13/19 16:41 ED Decision to Admit Stat 11/14/19 15:36 Consult [facility] dental coordinator Routine Ordered Studies 11/13/19 13:22 CT abd pelvis wo con Stat CT head/brain wo con Stat Hospital Course (1) Gastroenteritis: Likely viral gastroenteritis, based on acute nature of symptoms, issa resolution. Reassured pt regarding her fears of return of colorectal cancer. Also discussed that since her endoscopy was >1 week ago, this is unlikely related. Expect that chronic strictures related to esophagitis. No evidence of mediastinitis. Minimal concern for yeast esophagitis. Gentle IV fluid hydration provided Replenished magnesium Stool culture pending for ova parasites and C. difficile, however, in light of rapid resolution of symptoms, less likely. Zofran ODT prescribed on discharge (2) Dehydration: As above, replenished fluids and electrolytes. (3) Nausea vomiting and diarrhea: As discussed above; resolved. Zofran prn. Close PCP f/u. (4) Ambulatory dysfunction: During her brief visit here, she was evaluated by Occupational therapy, who assessed her as having significant decline in functional ADLs, mobility, transfers, etc and rec'd acute rehab vs. SNF. Pt states she is simply weak from recent illness. Recommend PCP note if strength improving vs. referral to rehab/Home OT/PT? (5) CAD (coronary artery disease): Stable. Continue home medicine aspirin 81 mg p.o. nightly, Isosorbide mononitrate 30 mg p.o. every morning, lisinopril 5 mg p.o. every morning, Metoprolol succinate 75 mg extended release p.o. every morning. Nitroglycerin 1 tablet sublingual as needed (6) Hypertension: Blood pressure was elevated in the emergency room. Continue home medicine as discussed above. (7) Hypercholesterolemia: Lipid panel reviewed: Tri 321, Tchol 215, LDL 110, HDL 41. Patient is not on statins because she developed muscle aches in the past. Would consider other agents per PCP discretion (8) Stricture esophagus: Patient tolerated all meals during her stay; did not note any dysphagia and vomiting had resolved soon after admission. Routine GI follow up as planned. Total Time Total Time Spent Total Time Spent (In Minutes): >30 Discharge Plan Discharge Items Patient Disposition: Home - Self-Care Reason For Visit: VOMITING Discharge Diagnosis: Gastroenteritis Activity: Resume your previous activity Non-emergency contact: Primary Care Provider Call non-emergency contact if: your symptoms worsen and your temperature is above 101 Follow-up/Referrals: Tirso Marie III, MD [Primary Care Provider] - Diet: Heart Healthy Addtl Attending Provider Instructions: During this visit to the hospital, you were evaluated for nausea, vomiting, and some loose stool. Based on your clinical findings, physical exam findings, and CT scan findings, we are reassured that this is unlikely to be related to your esophageal issues, NOR is it likely to be related to a recurrence of your colon cancer. You managed to tolerate your meals while in the hospital, which is wonderful! Should your swallowing become an issue, please contact your ladle car operator or primary care provider, or if severe, please return to the ER. We will send you home with some anti-nausea medicine should your nausea continue. Do not hesitate to take this medication. If you find that using this medication is not helping control intractable vomiting, please return to the ER. We recommend you increase your fluid intake for te next several days in light of dehydration. In addition, stick to bland foods (bananas, rice, applesauce, toast) that you will be able to tolerate better. It is possible that your symptoms may wax and wane over the next few days. Please follow up with your Primary Care provider in the next week to ensure close follow up on your symptoms and how you are doing. We will have our care coordinators set up this appointment, so you should expect to hear from Dr. Marie's office early next week. Pending Studies at Discharge: No Stand-Alone Forms: My [facility], Smoking Cessation Medications and DC Order Prescriptions: New ondansetron 4 mg tablet,disintegrating 4 mg PO Q6H PRN (Reason: nausea and vomiting) Qty: 14 RF: 0 Continued colestipol 1 gram tablet 2 gm PO TID Qty: 180 RF: 5 pantoprazole 40 mg tablet,delayed release (DR/EC) 40 mg PO BID Qty: 60 RF: 5 biotin 1 mg capsule 1 mg PO QAM RF: 0 Combivent Respimat 20-100 mcg/actuation mist 1 puffs INH QID RF: 0 metoprolol succinate 50 mg tablet extended release 24 hr 75 mg PO QAM Qty: 135 RF: 3 cyanocobalamin (vitamin B-12) [Vitamin B-12] 1,000 mcg Tablet 1,000 mcg PO QAM RF: 0 aspirin [Aspirin Low Dose] 81 mg Tablet,Delayed Release (Dr/Ec) 81 mg PO HS RF: 0 amlodipine 5 mg Tablet 5 mg PO QAM RF: 0 ascorbic acid (vitamin C) [Vitamin C] 500 mg Tablet 500 mg PO Q OTHER DAY RF: 0 isosorbide mononitrate 30 mg tablet extended release 24 hr 30 mg PO QAM RF: 0 sertraline 100 mg tablet 100 mg PO DAILY PRN (Reason: Anxiety) RF: 0 latanoprost 0.005 % Drops 1 drp OPB HS RF: 0 nitroglycerin 0.4 mg Tablet, Sublingual 1 tab Sublingual UD PRN (Reason: CHEST PAIN) RF: 0 lisinopril 5 mg Tablet 5 mg PO QAM RF: 0 cholecalciferol (vitamin D3) [Vitamin D3] 2,000 unit Capsule 2,000 unit PO QAM RF: 0 Discharge Orders: Discharge Order (Routine); Ordered 11/14/19 Ordered By: Claudia James/Other Patient Handouts: Prediabetes, ED Gastroenteritis Viral, A1C Admission Data Admit Date/Time: 11/13/19 19:02 Attending Provider: Jim Leblanc Admit Provider: Jennifer Bae Primary Care Provider: Tirso Marie III Other Providers: Jennifer Bae Other Interventions: Discharge Summary Assessment (RN) Last Done: 11/14/19 16:04 DC Date/Time DO NOT enter until pt leaves facility: 11/14/19 16:40 Supervising Physician Co-Signing Physician Notes I personally examined the patient and verified all frederick points of history and exam, discussed case, and agree with decision making with Dr Amador. Feeling better. Eating well. No abdominal pain. No further nausea vomiting or diarrhea. Extensive discussion with patient on her diagnostic work-up, and the reassuring nature there of. Patient feels much better and would very much like to go home. Vitals noted, in general she is awake and alert pleasant no distress. HEENT normocephalic atraumatic mucous membranes moist. Breathing unlabored no accessory muscle use good effort. Abdomen soft nondistended nontender no guarding rebound or rigidity. Neuro shows no focal deficits. Skin shows no rashes no pallor or icterus. Abdominal pain, nausea vomiting and diarrheawhile initially there was concern about esophageal or stomach pathology given her recent EGD, the patient's EGD was actually about 8 days ago and her acute illness started not long before admission. Further her lack of fever, white count, lasting symptoms, and reassuring CT all make any sort of actual esophageal infection/perforation/other pathology extremely unlikely. On top of that, she responded to supportive care alone and is now eating and drinking well. She appears stable for home. OT input noted, but given that she is recovering from a gastroenteritis I suspect that she will improve quickly, and given her strong desire to return home as well as the fact that she seems to have good awareness, it seems most appropriate to discharge her home with a referral for home PT and OT, as well as close PCP follow-up. Otherwise as above. Resident Activity Tracking Resident Involvement: Resident Care Provided Care Provided: Adult [facility]
--- NOTE | 2019-11-14 17:12 | Billing Data ---
Date of Service November 14, 2019 Coding Level of Care Code D/C Day Management >30 mins
[2019-11-15] MEDS ORDERED: ASCORBIC ACID 500 MG TAB PO SCH (09:00)
== END 2019-11-14 16:40 | disposition home or self-care (01) | DRG 392 ==
LOC: ED 12:32 → SUATTDRO 19:02 → 2N 19:02 → INTOOBSV 19:02 → 2N 19:47

== ENCOUNTER 2020-07-18 12:15 | Observation (INO) ==
[2020-07-18] MEDS ORDERED: SODIUM CHLORIDE 0.9% 1000ML 1,000 ML IV ONE ×2 (13:07→14:55)
--- NOTE | 2020-07-18 13:09 | Emergency Department Note ---
Impression & Plan Acute hyperkalemia, Anemia, TERESITA (acute kidney injury), Acute dehydration, Abnormal ECG ED Provider Note NAME: JAYE CASILLAS AGE: 85 SEX: F : 1935 ARRIVES VIA: Ambulance INFORMANT: Patient ED PROVIDER(S): Jim Mitchell DO CHIEF COMPLAINT: Weakness, lethargy and hyperkalemia HPI: Patient is an 85-year-old female with a past medical history of CAD, ref lux, esophagitis, hypertension, anemia who presents the ER from [facility] as a DNR/DNI for weakness and lethargy and hyperkalemia. Patient notes that she has been feeling very weak, rundown and tired today. She does admit to a mild headache. Denies any trauma or falls. No change in vision or neck pain. No chest pain or shortness of breath. Does have some diffuse abdominal pain. No nausea vomiting or diarrhea. She has not been eating or drinking much per her report. No dysuria urgency or frequency. No cough or runny nose. No loss of taste or smell. No other exacerbating or remitting factors. Ivette from [facility] notes that they walked the patient to the bathroom and she became very weak. She was slow to respond to questioning but was answering appropriately. They found that her potassium was elevated and sent her in for further evaluation. ROS: See above HPI for pertinent positives & negatives. A total of 10 systems reviewed and were otherwise negative. PAST MEDICAL HISTORY:See Below PAST SURGICAL HISTORY:See Below FAMILY HISTORY:See Below SOCIAL HISTORY:See Below HOME MEDICATIONS:See Below ALLERGIES:See Below VITALS:See Below PHYSICAL EXAMINATION: GENERAL: Sitting up in bed, alert, lethargic, chronically ill-appearing EYE EXAM: normal conjunctiva. PERRL and EOM's grossly intact. OROPHARYNX: mucous membranes are dry NECK: supple, no nuchal rigidity, no adenopathy, non-tender LUNGS: Clear to auscultation. Normal chest wall mechanics HEART: no murmurs, S1 normal and S2 normal ABDOMEN: abdomen soft, non-tender, normo-active bowel sounds, no masses, no rebo und or guarding. BACK: Back is symmetrical on inspection and there is no deformity, no midline tenderness, no CVA tenderness. SKIN: no rashes and no bruising UPPER EXTREMITIES: upper extremities are grossly normal. LOWER EXTREMITIES: No pitting edema. NEURO EXAM: Normal sensorium, cranial nerves II-XII grossly intact, normal speech, no gross weakness of arms, no gross weakness of legs. MEDICAL DECISION MAKING: Patient is an 85-year-old female sent in for [facility] for weakness and abnormal labs. On arrival IV was established blood was obtained. Chronically on 3 L nasal cannula. Labs show a mild leukocytosis of 11,000. Mild anemia 10. VBG was unremarkable. BMP with a creatinine of 2 up from a baseline of 0.8 and a potassium of 7. LFTs bilirubin and lipase was unremarkable. Patient was given IV fluids. She was given IV calcium gluconate, IV insulin, dextrose, and 2 A of bicarb for the hyperkalemia as the EKG showed peaked T waves. Patient w as updated bedside. Discussed with hospitalist admitted for further work-up of her hyperkalemia and TERESITA. Triage Nursing notes reviewed. Prior medical records reviewed Vital Signs: reviewed and remarkable for no significant abnormalities Differential diagnosis: Differential diagnosis includes etiologies such as ectopic , dysfunction uterine bleeding, bleeding dyscrasia, trauma, infection, as well as others were entertained. ER treatment provided: See below Diagnostics interpreted by me: ECG: Sinus rhythm rate of 56 Normal axis No PVCs DWI in septal leads Peak T waves Normal QTC Cardiac Monitoring: An order was placed for continuous cardiac monitoring. The monitor shows a rate of 60 with sinus rhythm. Laboratory studies: As stated above and show below. Imaging studies: See below Consultation(s): This with the hospitalist for further evaluation ED COURSE: Procedures: none PDMP:reviewed and no issues Critical Care: I have personally spent 32 minutes of critical care time in the direct m anagement of this patient. This includes bedside care, interpretation of diagnostic studies, and testing, discussion with consultants, patient, and family members, and other required patient management activities. This 32 minutes is in excess of all separately billable procedures. Past Med/Surg History Medical History (Updated 07/18/20 @ 19:19 by Jim Mitchell DO) Atrial fibrillation PAROXYSMAL A-FIB Bursitis of shoulder, right Cancer COLON--sx Chronic back pain BACK INJECTIONS Depression Dyspnea on exertion Hearing deficit Hyperparathyroidism Hypertension Macular degeneration Myocardial Infarction 2017 Osteoarthritis Renal colic (10/03/14) Right rotator cuff tendonitis Right shoulder pain Schatzki's ring Stricture esophagus Surgical History H/O parathyroidectomy History of anesthesia reaction BECAME UNRESPONSIVE WITH LIDOCAINE DURING EGD PROCEDURE-SEE PRIOR EGD ANESTHESIA NOTES AT [facility] History of bowel resection History of cardiac cath X 3 ( STENTS PLACED)(APRIL 2017- DRUG ELUTING STENT PLACED BY DR. PARRISH) RECENT HEART CATH 05/2018 (NO STENTS) "TAKEN OFF PLAVIX" History of cataract surgery RT/LEFT History of colonoscopy History of esophagogastroduodenoscopy (EGD) History of heart artery stent 3 STENTS TOTAL PLACED History of laparotomy History of parathyroid surgery History of partial colectomy History of repair of rotator cuff RT History of tooth extraction Family History Sister Bowel cancer Brain tumor Colon cancer Family history of deafness or hearing loss Cancer Gastric cancer Leukemia Parkinson disease Father Coronary heart disease Mother Hypertension Migraine headache Skin cancer Brother Leukemia Family/Other Colon cancer Other No family history of adverse response to anesthesia Denies family history of Cardiac disorder Allergies Sinusitis Bleeding disorder Stroke Asthma Social History Smoking Status: Never smoker Second Hand Exposure: No; Hx Alcohol Use: No Hx Substance Use: No Preferred Language: Nigerian Communication Ability: Effective Sales Support Consultant Required: No Beliefs That Will Affect Care: None marital status: Current Living Situation: [facility] Current Living Situation Comment: [facility] current occupational status: retired Other Information That Helps Us Care for You: No Feels Safe at Home: Yes Safety Concerns: Feels Safe At This Time Sunscreen Use: No Assistive Devices: Denture - Upper, Denture - Lower, Glasses, Hearing Aid - Left, Nebulizer, Oxygen - Continuous and Walker Allergies Allergies Allergy/AdvReac Type Severity Reaction Status Date / Time lidocaine Allergy Severe GIVEN Verified 07/18/20 14:39 DURING EGD PROCEDURE-"UNRESPONSIVE" hydrochlorothiazide Allergy Unknown UNKNOWN-INE Verified 07/18/20 14:39 FFECTIVE? niacin Allergy Unknown UNKNOWN Verified 07/18/20 14:39 atorvastatin AdvReac Intermediate MUSCLE Verified 07/18/20 14:39 ACHES citalopram AdvReac Intermediate G I UPSET- Verified 07/18/20 14:39 simvastatin AdvReac Intermediate MUSCLE Verified 07/18/20 14:39 ACHES Home Meds Home Medications Medication Instructions Recorded Confirmed cholecalciferol (vitamin D3) 2,000 unit PO QAM 08/06/18 07/18/20 [Vitamin D3] latanoprost 1 drp OPB HS 08/06/18 07/18/20 cyanocobalamin (vitamin B-12) 1,000 mcg PO QAM 01/20/19 07/18/20 [Vitamin B-12] amlodipine 5 mg PO QAM 07/07/19 07/18/20 ascorbic acid (vitamin C) [Vitamin 500 mg PO Q OTHER DAY 07/07/19 07/18/20 C] sertraline 100 mg PO QAM 01/30/20 07/18/20 acetaminophen 650 mg PO Q12H 07/18/20 07/18/20 aspirin 81 mg PO QAM 07/18/20 07/18/20 ipratropium bromide 2.5 ml INHALATION QID 07/18/20 07/18/20 oxycodone 2.5 - 5 mg PO Q6H PRN 07/18/20 07/18/20 potassium chloride 40 meq PO TID 07/18/20 07/18/20 rosuvastatin 10 mg PO HS 07/18/20 07/18/20 Previous Rx's Medication Instructions Recorded colestipol 1 gram tablet 2 gm PO TID #180 tab 05/21/19 omeprazole 20 mg capsule,delayed 20 mg PO BID #60 cap 02/04/20 release lisinopril 5 mg tablet 5 mg PO QAM #90 tab 04/19/20 isosorbide mononitrate 30 mg 30 mg PO QAM #90 tab 05/23/20 tablet,extended release 24 hr metoprolol succinate 50 mg 75 mg PO QAM #135 tab 06/20/20 tablet,extended release 24 hr Results & Data (ED) Vital Signs Vital Signs - 24 hr 07/18/20 12:05 07/18/20 12:22 07/18/20 12:30 Temperature 36.5 C Temperature Source Oral Pulse Rate 60 59 L 58 L Pulse Rate from SpO2 Sensor 59 L 58 L Pulse Rhythm Regular Pulse Strength Normal Respiratory Rate 22 23 22 Respiratory Effort / Characteristics Non-Labored Respiratory Depth Normal Respiratory Pattern Regular Blood Pressure 104/55 L 104/55 L 105/51 L Blood Pressure Mean 71 68 67 Blood Pressure Position Lying Pulse Oximetry 98 100 100 Oxygen Delivery Method Nasal Cannula Oxygen Flow Rate 3 Sepsis Recent Fever Within 48 Hours No Sepsis New/Unexplained Change in Mental Status No Sepsis Action Taken by Nursing No Action Required 07/18/20 12:48 07/18/20 13:00 07/18/20 13:30 Temperature Temperature Source Pulse Rate 58 L 58 L Pulse Rate from SpO2 Sensor 58 L 62 Pulse Rhythm Pulse Strength Respiratory Rate 25 H 22 Respiratory Effort / Characteristics Respiratory Depth Respiratory Pattern Blood Pressure 104/51 L 100/53 L Blood Pressure Mean 67 74 Blood Pressure Position Pulse Oximetry 98 99 99 Oxygen Delivery Method Nasal Cannula Oxygen Flow Rate 3 Sepsis Recent Fever Within 48 Hours Sepsis New/Unexplained Change in Mental Status Sepsis Action Taken by Nursing 07/18/20 14:00 07/18/20 14:40 07/18/20 15:31 Temperature Temperature Source Pulse Rate 54 L 56 L 69 Pulse Rate from SpO2 Sensor 55 L 56 L Pulse Rhythm Pulse Strength Respiratory Rate 17 17 17 Respiratory Effort / Characteristics Respiratory Depth Respiratory Pattern Blood Pressure 105/49 L 127/49 L 128/53 L Blood Pressure Mean 63 78 79 Blood Pressure Position Pulse Oximetry 100 99 Oxygen Delivery Method Oxygen Flow Rate Sepsis Recent Fever Within 48 Hours Sepsis New/Unexplained Change in Mental Status Sepsis Action Taken by Nursing 07/18/20 16:00 Temperature Temperature Source Pulse Rate 66 Pulse Rate from SpO2 Sensor Pulse Rhythm Pulse Strength Respiratory Rate 16 Respiratory Effort / Characteristics Respiratory Depth Respiratory Pattern Blood Pressure 112/53 L Blood Pressure Mean 72 Blood Pressure Position Pulse Oximetry Oxygen Delivery Method Oxygen Flow Rate Sepsis Recent Fever Within 48 Hours Sepsis New/Unexplained Change in Mental Status Sepsis Action Taken by Nursing Laboratory Data Result diagrams: 07/18/20 13:10 07/18/20 13:10 Lab Results 07/18/20 07/18/20 07/18/20 Range/Units 13:10 13:10 13:29 WBC 11.37 H (4.8-10.8) K/uL RBC 3.61 L (4.2-5.4) M/uL Hgb 10.7 L (12.0-16.0) g/dL Hct 34.0 L (37-47) % MCV 94.2 (80-100) fL MCH 29.6 (25-34) pg MCHC 31.5 L (32-36) g/dL RDW Std Deviation 50.0 H (36.4-46.3) fL RDW Coeff of Kassy 14.5 (11.5-14.5) % Plt Count 543 H (130-400) K/uL MPV 9.1 (7.4-10.4) fL Immature Gran % (Auto) 1.4 % Neut % (Auto) 76.2 % Lymph % (Auto) 14.0 % [place] % (Auto) 7.4 % Eos % (Auto) 0.9 % Baso % (Auto) 0.1 % Neut # (Auto) 8.67 H (1.4-6.5) K/uL Lymph # (Auto) 1.59 (1.2-3.4) K/uL [place] # (Auto) 0.84 H (0.11-0.59) K/uL Eos # (Auto) 0.10 (0-0.5) K/uL Baso # (Auto) 0.01 (0-0.2) K/uL Immature Gran # (Auto) 0.16 H (0.00-0.02) K/uL VBG pH 7.36 (7.36-7.41) VBG pCO2 40 (38-50) mmHg VBG pO2 32 mmHg VBG HCO3 22 mmol/L VBG O2 Saturation < 60.0 % VBG Base Excess -2.8 mEq/L Barometric Pressure 727.6 mm/Hg Sodium 143 (136-145) mmol/L Potassium 7.0 H* (3.5-5.1) mmol/L Chloride 113 H (98-107) mmol/L Carbon Dioxide 26 (21-32) mmol/L Anion Gap 4.0 (3-11) BUN 40 H (7-18) mg/dl Creatinine 1.97 H (0.6-1.2) mg/dl Est Cr Clr Drug Dosing 17.6 ml/min Est GFR ( Amer) 25.8 Est GFR (Non-Af Amer) 22.3 BUN/Creatinine Ratio 20.2 H (10-20) Glucose 132 H (70-99) mg/dl Calcium 9.5 (8.5-10.1) mg/dl Total Bilirubin 0.4 (0.2-1) mg/dl AST 16 (15-37) U/L ALT 15 (12-78) U/L Alkaline Phosphatase 142 H (45-117) U/L Total Protein 7.0 (6.4-8.2) gm/dl Albumin 2.9 L (3.4-5.0) gm/dl Globulin 4.1 H (2.5-4.0) gm/dl Albumin/Globulin Ratio 0.7 L (0.9-2) Lipase 226 (73-393) U/L Administered Medications Discontinued Medications Calcium Gluconate (Calcium Gluconate 10% 10 Ml Vial) 1,000 mg IV NOW STA Stop: 07/18/20 14:53 Last Admin: 07/18/20 15:17 Dose: 1,000 mg Documented by: [id number] Dextrose (Dextrose 50% 50 Ml Syringe) 50 ml IV NOW ONE Stop: 07/18/20 14:53 Last Admin: 07/18/20 15:17 Dose: 50 ml Documented by: [id number] Dextrose (Dextrose 50% 50 Ml Syringe) 50 ml IV NOW STA Stop: 07/18/20 15:47 Last Admin: 07/18/20 16:31 Dose: 50 ml Documented by: [id number] Sodium Chloride (Nss 1000ml) 1,000 mls @ 999 mls/hr IV .Q1H1M ONE Stop: 07/18/20 14:07 Last Infusion: 07/18/20 15:13 Dose: 0 mls/hr Documented by: [id number] Admin: 07/18/20 14:12 Dose: 999 mls/hr Documented by: [id number] Sodium Chloride (Nss 1000ml) 1,000 mls @ 999 mls/hr IV .Q1H1M ONE Stop: 07/18/20 15:55 Last Infusion: 07/18/20 16:41 Dose: 0 mls/hr Documented by: [id number] Admin: 07/18/20 15:40 Dose: 999 mls/hr Documented by: [id number] Calcium Gluconate 1,000 mg/ (Sodium Chloride) 60 mls @ 240 mls/hr IV ONE ONE Stop: 07/18/20 16:44 Last Infusion: 07/18/20 17:16 Dose: 0 mls/hr Documented by: [id number] Admin: 07/18/20 16:57 Dose: 240 mls/hr Documented by: [id number] Insulin Human Regular (Novolin-R Insulin Per Unit Charge) 10 units IV NOW STA Stop: 07/18/20 14:53 Last Admin: 07/18/20 15:18 Dose: 10 units Documented by: [id number] Cosigned by: [id number] Insulin Human Regular (Novolin-R Insulin Per Unit Charge) 10 units IV NOW STA Stop: 07/18/20 15:47 Last Admin: 07/18/20 16:31 Dose: 10 units Documented by: [id number] Cosigned by: [id number] Sodium Bicarbonate (Sodium Bicarb 8.4% Inj 50 Meq/50 Ml Syr) 150 meq IV NOW STA Stop: 07/18/20 14:53 Last Admin: 07/18/20 15:23 Dose: 100 meq Documented by: [id number] Discharge Plan Visit Data Chief Complaint: Abnormal Labs/Diagnostic Testing Stated Complaint: Syncope, elevated K+ ED Provider: Jim Mitchell Discharge Problem: Acute hyperkalemia, Anemia, TERESITA (acute kidney injury), Acute dehydration, Abnormal ECG Patient Disposition: Admitted As Inpatient Discharge Instructions Interventions: ED Discharge Assessment Last Done: 07/18/20 18:14 Discharge Problem: Anemia Qualifiers: Anemia type: unspecified type Qualified Code(s): D64.9 - Anemia, unspecified
[2020-07-18 13:20] LABS: Basophils # (auto) 0.01 K/uL (0-0.2); Basophils % (auto) 0.1 %; Eosinophils % (auto) 0.9 %; Hemoglobin 10.7 g/dL (12.0-16.0); Immature Granulocytes # (auto) 0.16 K/uL (0.00-0.02); Immature Granulocytes % (auto) 1.4 %; Lymphocytes # (auto) 1.59 K/uL (1.2-3.4); Mean Corpuscular Hemoglobin 29.6 pg (25-34); Mean Corpuscular Hgb Conc 31.5 g/dL (32-36); Mean Corpuscular Volume 94.2 fL (80-100); Mean Platelet Volume 9.1 fL (7.4-10.4); Monocytes # (auto) 0.84 K/uL (0.11-0.59); Monocytes % (auto) 7.4 %; Neutrophils # (auto) 8.67 K/uL (1.4-6.5); Neutrophils % (auto) 76.2 %; Platelet Count 543 K/uL (130-400); RDW Coefficient of Variation 14.5 % (11.5-14.5); Red Blood Count 3.61 M/uL (4.2-5.4); White Blood Count 11.37 K/uL (4.8-10.8)
[2020-07-18 13:58] LABS: Base Excess VBG -2.8 mEq/L; HCO3 VBG 22 mmol/L; Oxygen Saturation VBG < 60.0 %; PCO2 VBG 40 mmHg (38-50); PO2 VBG 32 mmHg; pH VBG 7.36 (7.36-7.41)
[2020-07-18 14:00] LABS: Albumin Globulin Ratio 0.7 (0.9-2); Albumin Level 2.9 gm/dl (3.4-5.0); BUN Creatinine Ratio 20.2 (10-20); Bilirubin,Total 0.4 mg/dl (0.2-1); Calcium 9.5 mg/dl (8.5-10.1); Creatinine Clr Calc Pharmacy 17.6 ml/min; Est GFR (African American) 25.8; Est GFR (Non-African American) 22.3; Globulin 4.1 gm/dl (2.5-4.0)
--- NOTE | 2020-07-18 14:47 | CT Scan Report ---
CT SCAN OF THE ABDOMEN AND PELVIS WITHOUT CONTRAST CLINICAL HISTORY: Generalized abdominal pain. Mild hypotension. COMPARISON STUDY: 05/30/2020 TECHNIQUE: CT scan of the abdomen and pelvis was performed from the lung bases to the proximal femurs . Images are reviewed in the axial, sagittal, and coronal planes. IV contrast was not administered fo r this examination. A dose lowering technique was utilized adhering to the principles of ALARA. CT DOSE: 341.20 mGy.cm FINDINGS: Lower chest: There are coronary artery calcifications. There are bibasilar atelectatic changes. Liver: The unenhanced liver is normal in size, contour, and attenuation. There is no intrahepatic georgie iary ductal dilatation. Gallbladder: There is borderline gallbladder wall thickening. Spleen: Normal in size and attenuation. Pancreas: Unremarkable. Adrenal glands: Unremarkable. Kidneys: There is a nonobstructing 3 mm right renal calculus. There is no hydronephrosis. No ureteral or bladder calculi are visualized. Bowel: There are no transition zones indicate bowel obstruction. There is colonic diverticulosis. The re is no evidence of acute diverticulitis There are postsurgical changes of what appear to be a right hemicolectomy with an ileocolonic anastomosis. Hyperdense material at the level of the anastomosis d ependently, likely represents enteric contents as no mass was visualized at this level on the prior s tudy which was performed within the last 2 months. Peritoneum: There is no intraperitoneal free air or abdominal ascites. Vasculature: The abdominal aorta is normal in course and caliber. Adenopathy: None. Pelvic viscera: The bladder, and pelvic viscera are unremarkable. Skeletal structures: There are multiple subcutaneous nodules likely secondary to prior medication inj ections. IMPRESSION: 1. No evidence of bowel obstruction. No evidence of free air 2. 3 mm nonobstructing right renal calculus 3. Diverticulosis. No evidence of acute diverticulitis 4. Borderline gallbladder wall thickening 5. Postsurgical changes of a right hemicolectomy with ileocolonic anastomosis ACT 112: Negative or not required by law. Electronically signed by: Guilherme Bartlett M.D. 07/18/2020 2:45 PM
[2020-07-18] MEDS ORDERED: SODIUM BICARB 8.4% INJ 50 MEQ/50 ML SYR IV STA (14:52)
[2020-07-18] MEDS ORDERED: CALCIUM GLUCONATE 10% 10 ML VIAL IV STA (14:52)
[2020-07-18] MEDS ORDERED: DEXTROSE 50% 50 ML SYRINGE IV ONE (14:52)
[2020-07-18] MEDS ORDERED: NovoLIN-R INSULIN PER UNIT CHARGE IV STA ×2 (14:52→15:46)
[2020-07-18] MEDS ORDERED: DEXTROSE 50% 50 ML SYRINGE IV STA (15:46)
--- NOTE | 2020-07-18 16:05 | Medical Student H&P ---
Date of Service July 18, 2020 Assessment & Plan (1) Hyperkalemia: The patient is an 85 y/o female with a past medical history of CKD, HTN, HLD, recent [place] on 07/01 in [place], CAD w/ PCI 04/2017, diastolic CHF (EF 60-65% 2015), colon cancer, esophagitis and hyperparathyroidism who presents from [facility] with a several day history of weakness, no PO intake for 3 days and a two day history of vomiting and an elevated potassium. Hyperkalemia Potassium of 7 on admission, symptomatic weakness, peaked T waves w/ normal QRS. Likely secondary to TERESITA 2/2 poor PO intake for several days. Contributing factors include in baseline dosing of KCL oral from 40meQ daily to 40mEQ TID and UTI tx w/ Levaquin 07/16 - Ca gluconate in ED x2 -Insulin/dextrose in ED x2, repeat as needed -Patiromer x1. Miralax as below. -Nephro consulted -Repeat BMP - q4 for 12hrs -Repeat EKGs PRN - Pt previously with GFR > 60 - Monitor I&Os TERESITA - In the setting of poor PO intake and vomiting, recent Levaquin regimin finished 07/16 -Cr of 1.97 on admit -Baseline of 0.91 on 07/14 -IVF 1/2 NS @ 100cc/hr - readdress in AM - Suspect prerenal, recent abx use but low suspicion for ATN - NO recent NSAID use per patient - BMP as above - Hold nephrotoxins, renally dose medications CAD w/ hx of ACS in [place] 07/01/2020 - Pt with residual chest pain unchanged since her discharge from [place] and which hurts with palpation and which does not change with exertion. Suspect MSK 2/2 chest compressions at that time, currently at normal baseline. Follow and reassess clinically as needed. - Hold amlodipine, isosorbide, Metoprolol on admit for hypotension - Lisinopril held for TERESITA - Reassess and restart in AM as appropriate - EKG without ST or T wave inversions on admit. No QRS or ST changes on admit. Peaked T waves as above History of R hemicolectomy - Pt with hx of prior colectomy - Avoided Kayexalate for theoretical risk of bowel necrosis, patiromer as above - Stable, no acute flare - Miralax BID for constipation HTN - Held lisinopril for TERESITA - Cardiac meds held as above - Hypotensive on admit, follow clinically at this time GERD - Omeprazole converted to Protonix daily DVT PPx: Heparin 5000U SQ BID Diet: Low Potassium, Heart Healthy Dispo: PCU CODE STATUS: DNR/DNI History of Present Illness Primary Care Provider: [facility] Ms. Lam is an 85 y/o female with a past medical history of CKD, HTN, HLD, recent [place] on 07/01 in [place], CAD w/ PCI 04/2017, diastolic CHF (EF 60-65% 2015), colon cancer, esophagitis and hyperparathyroidism who presents from [facility] with a several day history of weakness, no PO intake for 3 days and a two day history of vomiting.She last vomited yesterday. She stated that she recently has not had much of an appetite and has not eaten for the past three days. She describes "not feeling herself" and feeling weak for the past few days as well without any history of falls. Of note, three days ago she had a two day history of vomiting without blood or coffee ground emesis. She denies any sick contacts or recent diarrhea. She was referred to the emergency dept by [facility] when her labs showed an elevated K of 6.8. She has had associated weakness and fatigue. In addition, patient reports experiencing an 8/10 L upper chest wall pain that does not radiate and has been present since 07/01 when she was treated for an AZ in [place]. She states that it has been stable since that time and is worsened with touching the area or movement and improved with rest. Per [facility] staff her global weakness and difficulty ambulating is worsened from her baseline over the last day. Patient had recently been seen in [place] for acute coronary syndrome on 07/01/2020 and was referred to [facility] upon discharge for further care. Per [facility] records, patient was hypokalemic on 07/12/2020 with a potassium of 2.7. Her potassium was increased from 40mEq daily to 40mEq TID. She was also undergoing treatment at that time for a UTI with Levaquin, finishing a 5 day course on 07/16. Prior records indicate that patient had been using meloxicam and ibuprofen in the past, [facility] staff clarifies that patient HAS NOT received any NSAIDs since discharge from [place] and these have been removed from her med list. On admission to the ED patient was found to by hyperkalemic to 7.0 and received calcium gluconate, insulin, and dextrose. She denies any recent fever, cough, pleuritic chest pain, LE edema, diarrhea, melena, hematochezia, dysuria, hematuria. She endorses chest wall pain, occasional shortness of breath and constipation. Allergies Allergy/AdvReac Type Severity Reaction Status Date / Time lidocaine Allergy Severe GIVEN Verified 07/18/20 14:39 DURING EGD PROCEDURE-"UNRESPONSIVE" hydrochlorothiazide Allergy Unknown UNKNOWN-INE Verified 07/18/20 14:39 FFECTIVE? niacin Allergy Unknown UNKNOWN Verified 07/18/20 14:39 atorvastatin AdvReac Intermediate MUSCLE Verified 07/18/20 14:39 ACHES citalopram AdvReac Intermediate G I UPSET- Verified 07/18/20 14:39 simvastatin AdvReac Intermediate MUSCLE Verified 07/18/20 14:39 ACHES Home Medications Home Medications Medication Instructions Recorded Confirmed Type cholecalciferol (vitamin D3) 2,000 unit PO QAM 08/06/18 07/18/20 History [Vitamin D3] latanoprost 1 drp OPB HS 08/06/18 07/18/20 History cyanocobalamin (vitamin B-12) 1,000 mcg PO QAM 01/20/19 07/18/20 History [Vitamin B-12] colestipol 1 gram tablet 2 gm PO TID #180 tab 05/21/19 07/18/20 Rx amlodipine 5 mg PO QAM 07/07/19 07/18/20 History ascorbic acid (vitamin C) [Vitamin 500 mg PO Q OTHER DAY 07/07/19 07/18/20 History C] sertraline 100 mg PO QAM 01/30/20 07/18/20 History omeprazole 20 mg capsule,delayed 20 mg PO BID #60 cap 02/04/20 07/18/20 Rx release lisinopril 5 mg tablet 5 mg PO QAM #90 tab 04/19/20 07/18/20 Rx isosorbide mononitrate 30 mg 30 mg PO QAM #90 tab 05/23/20 07/18/20 Rx tablet,extended release 24 hr metoprolol succinate 50 mg 75 mg PO QAM #135 tab 06/20/20 07/18/20 Rx tablet,extended release 24 hr acetaminophen 650 mg PO Q12H 07/18/20 07/18/20 History aspirin 81 mg PO QAM 07/18/20 07/18/20 History ipratropium bromide 2.5 ml INHALATION QID 07/18/20 07/18/20 History oxycodone 2.5 - 5 mg PO Q6H PRN 07/18/20 07/18/20 History potassium chloride 40 meq PO TID 07/18/20 07/18/20 History rosuvastatin 10 mg PO HS 07/18/20 07/18/20 History Past Med/Surg History Medical History (Updated 07/18/20 @ 19:19 by Jim Mitchell DO) Atrial fibrillation PAROXYSMAL A-FIB Bursitis of shoulder, right Cancer COLON--sx Chronic back pain BACK INJECTIONS Depression Dyspnea on exertion Hearing deficit Hyperparathyroidism Hypertension Macular degeneration Myocardial Infarction 2017 Osteoarthritis Renal colic (10/03/14) Right rotator cuff tendonitis Right shoulder pain Schatzki's ring Stricture esophagus Surgical History H/O parathyroidectomy History of anesthesia reaction BECAME UNRESPONSIVE WITH LIDOCAINE DURING EGD PROCEDURE-SEE PRIOR EGD ANESTHESIA NOTES AT [facility] History of bowel resection History of cardiac cath X 3 ( STENTS PLACED)(APRIL 2017- DRUG ELUTING STENT PLACED BY DR. PARRISH) RECENT HEART CATH 05/2018 (NO STENTS) "TAKEN OFF PLAVIX" History of cataract surgery RT/LEFT History of colonoscopy History of esophagogastroduodenoscopy (EGD) History of heart artery stent 3 STENTS TOTAL PLACED History of laparotomy History of parathyroid surgery History of partial colectomy History of repair of rotator cuff RT History of tooth extraction Family History Sister Bowel cancer Brain tumor Colon cancer Family history of deafness or hearing loss Cancer Gastric cancer Leukemia Parkinson disease Father Coronary heart disease Mother Hypertension Migraine headache Skin cancer Brother Leukemia Family/Other Colon cancer Other No family history of adverse response to anesthesia Denies family history of Cardiac disorder Allergies Sinusitis Bleeding disorder Stroke Asthma Social History Smoking Status: Never smoker Second Hand Exposure: No; Hx Alcohol Use: No Hx Substance Use: No Preferred Language: Estonian Communication Ability: Effective Electronic Scale Tester Required: No Beliefs That Will Affect Care: None marital status: Current Living Situation: Care Home Current Living Situation Comment: [facility] current occupational status: retired Other Information That Helps Us Care for You: No Feels Safe at Home: Yes Safety Concerns: Feels Safe At This Time Sunscreen Use: No Assistive Devices: Denture - Upper, Denture - Lower, Glasses, Hearing Aid - Left, Nebulizer, Oxygen - Continuous and Walker Review of Systems As above in HPI + chills, + fatigue and + weakness; no fever + pain on inspiration; no cough, no dyspnea on exertion and no wheezing + chest pain; no dyspnea, no palpitations and no edema no abdominal pain, no nausea, no coffee ground emesis and no hematemesis Physical Exam Constitutional: Elderly woman appears stated age resting comfortably in bed. Eyes: PERRL, conjunctivae normal, anicteric sclerae ENMT: external ear and nose normal, oropharynx normal Neck: trachea midline Respiratory: normal respiratory effort, lungs clear to auscultation No wheezes, rales or rhonchi Cardiovascular: Regular rate and rhythm, no murmurs, rubs or extra heart sounds. No peripheral edema, no JVD Gastrointestinal (Abdomen): Normal bowel sounds x4, mildly tender to palp in RUQ, no hepatosplenomegaly noted. Skin: no rashes, warm and dry ecchymosis on R arm Neurologic: PERRL, EOMI, accommodation nl, no face palsy, no dysarthria Psychiatric: A+Ox3, euthymic affect Results & Data ([facility]) Vital Signs (Past 12 Hours) Vital Signs Temp Pulse Resp BP Pulse Ox 07/18/20 12:48 98 07/18/20 12:05 36.5 C 60 22 104/55 L 98 Supervising Attestation I personally examined the patient and verified all frederick points of history and exam, discussed case, and agree with decision making with Bong Winston MS4. feeling tired. stomach still upset. hasn't eaten well in days. vomiting. vitals noted very fatigued appearing but no acute distress otherwise heent nc at mm sl dry breathing unlabored no accessory muscles good effort skin no rashes no pallor or icterus neuro no focal deficits abd soft nd nt no guarding no rebound aucte renal failure - almost certainly all prerenal / volume loss from poor intake and vomiting - fluids hyperkalemia - from above plus K supplementation - EKG w peaked T's but fortunately no widened QRS. above measures started, follow up BMP shortly, f/u EKG shortly, admit to tele otherwise as above Resident Activity Tracking Resident Involvement: Resident Care Provided Care Provided: Adult Hospital Medicine
[2020-07-18] MEDS ORDERED: CALCIUM GLUCONATE 10% 1,000 MG in SODIUM CHLORIDE 0.9% 50 ML IV ONE (16:30)
[2020-07-18] MEDS ORDERED: ACETAMINOPHEN 325 MG TAB PO PRN (18:54)
[2020-07-18] MEDS ORDERED: IPRATROPIUM BROMIDE/ALBUTEROL respimat INH INH SCH (18:54)
[2020-07-18] MEDS ORDERED: PATIROMER CALCIUM SORBITEX 8.4 GM PACK PO ONE (19:15)
--- NOTE | 2020-07-18 19:28 | Billing Data ---
Date of Service July 18, 2020 Coding Level of Care Code 80132 Initial Inpt Care Lvl 3
[2020-07-18 19:30] LABS: BUN Creatinine Ratio 21.9 (10-20); Calcium 9.1 mg/dl (8.5-10.1); Creatinine Clr Calc Pharmacy 21.6 ml/min; Est GFR (Non-African American) 28.5
[2020-07-18] MEDS: HEPARIN SOD 5,000 UNIT/0.5 ML VIAL SQ SCH (20:23)
[2020-07-18] MEDS: POLYETHYLENE (MIRALAX) 17 GM PACK PO SCH (20:24)
[2020-07-18] MEDS: SODIUM CHLORIDE 0.45 % 1,000 ML IV SCH (20:25)
[2020-07-18 23:31] LABS: BUN Creatinine Ratio 22.3 (10-20); Calcium 9.2 mg/dl (8.5-10.1); Creatinine Clr Calc Pharmacy 23.5 ml/min; Est GFR (African American) 36.5; Est GFR (Non-African American) 31.5; Potassium 5.8 mmol/L (3.5-5.1)
[2020-07-19 03:13] LABS: Basophils # (auto) 0.01 K/uL (0-0.2); Basophils % (auto) 0.1 %; Eosinophils # (auto) 0.12 K/uL (0-0.5); Eosinophils % (auto) 1.4 %; Hematocrit (blood only) 31.4 % (37-47); Hemoglobin 9.8 g/dL (12.0-16.0); Immature Granulocytes # (auto) 0.12 K/uL (0.00-0.02); Immature Granulocytes % (auto) 1.4 %; Lymphocytes # (auto) 2.01 K/uL (1.2-3.4); Lymphocytes % (auto) 22.8 %; Mean Corpuscular Hemoglobin 29.9 pg (25-34); Mean Corpuscular Hgb Conc 31.2 g/dL (32-36); Mean Corpuscular Volume 95.7 fL (80-100); Mean Platelet Volume 8.4 fL (7.4-10.4); Monocytes # (auto) 0.73 K/uL (0.11-0.59); Monocytes % (auto) 8.3 %; Neutrophils # (auto) 5.81 K/uL (1.4-6.5); Platelet Count 425 K/uL (130-400); RDW Coefficient of Variation 14.3 % (11.5-14.5); RDW Standard Deviation 49.9 fL (36.4-46.3); Red Blood Count 3.28 M/uL (4.2-5.4)
[2020-07-19 03:30] LABS: Creatinine Clr Calc Pharmacy 26.1 ml/min; Est GFR (African American) 41.6; Est GFR (Non-African American) 35.9; Potassium 5.4 mmol/L (3.5-5.1)
--- NOTE | 2020-07-19 06:51 | Electrocardiogram Report ---
Test Reason : Blood Pressure : / mmHG Vent. Rate : 056 BPM Atrial Rate : 056 BPM P-R Int : 166 ms QRS Dur : 090 ms QT Int : 418 ms P-R-T Axes : 040 001 027 degrees QTc Int : 403 ms Sinus bradycardia Otherwise normal ECG When compared with ECG of 30-MAY-2020 11:30, T wave amplitude has increased in Lateral leads Confirmed by Christo Torrez ([id number]) on 07/19/2020 6:51:38 AM Referred By: REFERRED SELF Confirmed By:Christo Torrez
[2020-07-19] MEDS: SODIUM CHLORIDE 0.45 % 1,000 ML IV SCH (07:40)
[2020-07-19 07:46] LABS: Albumin Level 2.6 gm/dl (3.4-5.0); BUN Creatinine Ratio 21.8 (10-20); Creatinine Clr Calc Pharmacy 26.5 ml/min; Est GFR (African American) 44.4; Est GFR (Non-African American) 38.3; Potassium 5.3 mmol/L (3.5-5.1)
[2020-07-19 07:49] LABS: Albumin Globulin Ratio 0.8 (0.9-2); Bilirubin,Total 0.6 mg/dl (0.2-1); Globulin 3.3 gm/dl (2.5-4.0); Total Protein 5.9 gm/dl (6.4-8.2)
[2020-07-19] MEDS: CHOLECALCIFEROL 1,000 UNITS 25 MCG TAB PO SCH (07:59)
[2020-07-19] MEDS: SERTRALINE HCL 100 MG TABLET PO SCH (08:00)
[2020-07-19] MEDS: PANTOprazole 40 MG TAB PO SCH (08:00)
[2020-07-19] MEDS: CYANOCOBALAMIN 500 MCG TABLET (VITAMIN B-12) PO SCH (08:00)
[2020-07-19] MEDS: POLYETHYLENE (MIRALAX) 17 GM PACK PO SCH ×2 (08:00→20:56)
[2020-07-19] MEDS: HEPARIN SOD 5,000 UNIT/0.5 ML VIAL SQ SCH ×2 (08:01→20:56)
--- NOTE | 2020-07-19 10:13 | Medical Student Progress Note ---
Date of Service July 19, 2020 Assessment & Plan (1) Acute hyperkalemia: The patient is an 85 y/o female with a past medical history of CKD, HTN, HLD, recent [place] on 07/01 in [place], CAD w/ PCI 04/2017, diastolic CHF (EF 60- 65% 2015), colon cancer, esophagitis and hyperparathyroidism who presents from [facility] with a several day history of weakness, no PO intake for 3 days and a two day history of vomiting and an elevated potassium. 1) Hyperkalemia - improved from 7 on admission to 4.6. Weakness has improved. Potassium of 7 on admission, symptomatic weakness, peaked T waves w/ normal QRS. Likely secondary to TERESITA 2/2 poor PO intake for several days. Contributing factors include in baseline dosing of KCL oral from 40meQ daily to 40mEQ TID and UTI tx w/ Levaquin 07/16 - s/p Ca gluconate in ED x2, Insulin/dextrose in ED x2, Patiromer x1. Miralax as below. -Nephro consulted -Repeat BMP 07/19 PM -Repeat EKGs PRN - Pt previously with GFR > 60 - Monitor I&Os 2) Acute kidney injury - Cr of 1.97 on admit 1.26 this AM with known hx of Cr. 0.91 on 07/14 - In the setting of poor PO intake and vomiting, recent Levaquin regimen finished 07/16 - D/C IVF, transition to PO intake - Suspect prerenal given improvement w/ fluids - NO recent NSAID use per patient - BMP as above - Hold nephrotoxins, renally dose medications 3) CAD w/ hx of ACS in [place] 07/01/2020 - No change in chest pain from admission, likely secondary to chest compressions. - Pt with residual chest pain unchanged since her discharge from [place] and which hurts with palpation and which does not change with exertion. Suspect MSK 2/2 chest compressions at that time, currently at normal baseline. Follow and reassess clinically as needed. - Hold amlodipine, isosorbide, Metoprolol, lisinopril; reassess with the possibility of restarting 9/30 AM - EKG without ST or T wave inversions on admit. No QRS or ST changes on admit. Peaked T waves as above 4) History of R hemicolectomy - Stable - Pt with hx of prior colectomy - Avoided Kayexalate for theoretical risk of bowel necrosis, patiromer as above - Miralax BID for constipation 5) HTN - Hypotensive on admit - improving w. fluids - Held lisinopril for TERESITA - Cardiac meds as above 6) GERD - stable - Omeprazole converted to Protonix daily 7) Fungal dermatitis -Likely secondary to Purewick external cath leaking -Topical nystatin cream DVT PPx: Heparin 5000U SQ BID Diet: Low Potassium, Heart Healthy Dispo: PCU CODE STATUS: DNR/DNI Admission and Anticipated Discharge Date Admission Date: July 18, 2020 Supervising Attestation I personally examined the patient and verified all frederick points of history and exam, discussed case, and agree with decision making with Bong Winston MS4. feeling better eating better doing better overall vitals noted very fatigued appearing but no acute distress otherwise heent nc at mmm breathing unlabored no accessory muscles good effort skin no rashes no pallor or icterus neuro no focal deficits acute renal failure - almost certainly all prerenal / volume loss from poor intake and vomiting - fluids/improving hyperkalemia - from above plus K supplementation - improving otherwise as above, improving Subjective Tomasa states that she feels much better this morning than when she presented yesterday. She feels her weakness has improved from yesterday. She has more of an appetite this morning and states that she ate more at breakfast than she has in the past three days. Additionally, she states that she has been incontinent of urine which is new for her. She denies any saddle anesthesia. She is having some irritation on her bottom and between her thighs. Review of Systems Constitutional: + weakness and + increased appetite; no fever and no chills Respiratory: no cough, no chest congestion, no dyspnea and no hemoptysis Cardiovascular: no dyspnea, no orthopnea, no paroxysmal nocturnal dyspnea and no palpitations Gastrointestinal: + constipation; no abdominal pain and no diarrhea/loose stools Physical Exam Constitutional: Elderly woman appearing stated age resting comfortably in bed Eyes: PERRL, conjunctivae normal, anicteric sclerae ENMT: external ear and nose normal, oropharynx normal Respiratory: Lungs clear to auscultation b/l, no wheezes, rales or rhonchi. Normal work of breathing Cardiovascular: Regular rate and rhythm, no murmurs rubs or extra heart sounds, no peripheral edema Gastrointestinal (Abdomen): BS x4, nontender to palpation, no hepatosplenomegaly noted. Neurologic: PERRL, EOMI, accommodation nl, no face palsy, no dysarthria Psychiatric: A+Ox3, euthymic affect Genitourinary: Redness and excoriations in the gluteal cleft and between thighs. Results & Data ([facility]) Vital Signs (Past 12 Hours) Vital Signs Temp Pulse Pulse Resp BP Pulse Ox 07/19/20 08:00 65 07/19/20 07:09 36.6 C 57 L 18 154/71 H 97 07/19/20 04:00 36.5 C 54 L 18 161/71 H 100 07/18/20 23:37 36.3 C L 51 L 20 130/72 98 Results CMP Results: Na 138 mmol/L (136-145) 07/19/20 K 4.6 mmol/L (3.5-5.1) 07/19/20 Cl 107 mmol/L (98-107) 07/19/20 CO2 28 mmol/L (21-32) 07/19/20 Anion Gap 3.0 (3-11) 07/19/20 BUN 25 mg/dl (7-18) H 07/19/20 Creatinine 1.27 mg/dl (0.6-1.2) H 07/19/20 BUN/Creatinine Ratio 19.6 (10-20) 07/19/20 Glu 110 mg/dl (70-99) H 07/19/20 Ca 8.7 mg/dl (8.5-10.1) 07/19/20 Phosphorus Level 3.6 mg/dl (2.5-4.9) 03/18/19 Total Bilirubin 0.6 mg/dl (0.2-1) 07/19/20 Direct Bilirubin 0.1 mg/dl (0-0.2) 07/23/17 AST 15 U/L (15-37) 07/19/20 ALT 12 U/L (12-78) 07/19/20 Alkaline Phosphatase 128 U/L (45-117) H 07/19/20 TP 5.9 gm/dl (6.4-8.2) L 07/19/20 Albumin 2.6 gm/dl (3.4-5.0) L 07/19/20 Globulin 3.3 gm/dl (2.5-4.0) 07/19/20 Albumin/Globulin Ratio 0.8 (0.9-2) L 07/19/20
[2020-07-19] MEDS: LIDOCAINE 5% 1 PATCH TD SCH (11:16)
--- NOTE | 2020-07-19 12:18 | Nephrology Consultation ---
Date of Consultation July 19, 2020 Assessment & Plan (1) Acute hyperkalemia: * Continue to hold KCl and lisinopril * One dose Patiromer given yesterday. Serum potassium is almost corrected * No further doses of Patiromer needed at this time * Recommend low K diet * Monitor PRP (2) TERESITA (acute kidney injury): * TERESITA related to dehydration * Will change IVF to NS and continue gentle hydration (3) Chronic kidney disease: * Baseline Cr 1.0 w/ EGFR 46 cc/min (4) Hypertension: * Relative hypotension at this time. Hold BEVERLY. Continue gentle hydration (5) Atherosclerotic cardiovascular disease: History of Present Illness Reason for Consultation: Hyperkalemia, TERESITA on CKD Attending Physician: Jim Leblanc, History of Present Illness Ms. Lam is an 85 year old white female who is seen at the request of Dr. France for evaluation of hyperkalemia and TERESITA on CKD. Medical records in the EMR were reviewed today and are summarized as follows: Ms. Lam's medical history is significant for stage III CKD (baseline Cr 1.0 w/ EGFR 46 cc/min), HTN, colon CA, PVD and ASCVD. Earlier this month she was hospitalized at [facility] for evaluation of L chest discomfort. She was diagnosed w/ AMI and managed medically. Her hospital course was complicated by hypokalemia. Her KCl dose was increased from daily to TID. Following discharge from [facility] Ms. Lam was admitted to [facility]. Over the last 3 days she has suffered nausea and anorexia. She remained on her regimen of Lisinopril and KCl. She c/o progressive weakness. Labs obtained at the [place] [facility] revealed K 7.0 and Cr had risen from 0.9 to 1.9. Ms. Lam was admitted to [facility] for ongoing medical management. I was contacted by telephone yesterday evening by Dr. France to discuss medical management of hyperkalemia. ECG revealed mild peaked T-waves but was NSR without QRS prolongation. IV Ca, insulin and dextrose had been administered. Patient was clinically dehydrated and IV fluid was started. KCl and BEVERLY inhibitor were held. Dialysis services are not available after hours. Patiromer was requested by the admitting service due to patient's h/o colon CA but pharmacy required Nephrology approval. I reviewed medical management of hyperkalemia with the admitting hospitalist service by telephone. I then called pharmacy and requested that Patiromer be provided as ordered. Allergies Allergy/AdvReac Type Severity Reaction Status Date / Time lidocaine Allergy Severe GIVEN Verified 07/18/20 14:39 DURING EGD PROCEDURE-"UNRESPONSIVE" hydrochlorothiazide Allergy Unknown UNKNOWN-INE Verified 07/18/20 14:39 FFECTIVE? niacin Allergy Unknown UNKNOWN Verified 07/18/20 14:39 atorvastatin AdvReac Intermediate MUSCLE Verified 07/18/20 14:39 ACHES citalopram AdvReac Intermediate G I UPSET- Verified 07/18/20 14:39 simvastatin AdvReac Intermediate MUSCLE Verified 07/18/20 14:39 ACHES Home Medications Home Medications Medication Instructions Recorded Confirmed Type cholecalciferol (vitamin D3) 2,000 unit PO QAM 08/06/18 07/18/20 History [Vitamin D3] latanoprost 1 drp OPB HS 08/06/18 07/18/20 History cyanocobalamin (vitamin B-12) 1,000 mcg PO QAM 01/20/19 07/18/20 History [Vitamin B-12] colestipol 1 gram tablet 2 gm PO TID #180 tab 05/21/19 07/18/20 Rx amlodipine 5 mg PO QAM 07/07/19 07/18/20 History ascorbic acid (vitamin C) [Vitamin 500 mg PO Q OTHER DAY 07/07/19 07/18/20 Histo ry C] sertraline 100 mg PO QAM 01/30/20 07/18/20 History omeprazole 20 mg capsule,delayed 20 mg PO BID #60 cap 02/04/20 07/18/20 Rx release lisinopril 5 mg tablet 5 mg PO QAM #90 tab 04/19/20 07/18/20 Rx isosorbide mononitrate 30 mg 30 mg PO QAM #90 tab 05/23/20 07/18/20 Rx tablet,extended release 24 hr metoprolol succinate 50 mg 75 mg PO QAM #135 tab 06/20/20 07/18/20 Rx tablet,extended release 24 hr acetaminophen 650 mg PO Q12H 07/18/20 07/18/20 History aspirin 81 mg PO QAM 07/18/20 07/18/20 History ipratropium bromide 2.5 ml INHALATION QID 07/18/20 07/18/20 History oxycodone 2.5 - 5 mg PO Q6H PRN 07/18/20 07/18/20 History potassium chloride 40 meq PO TID 07/18/20 07/18/20 History rosuvastatin 10 mg PO HS 07/18/20 07/18/20 History Patient History Medical History (Updated 07/19/20 @ 12:13 by Eran Swain MD) Atrial fibrillation PAROXYSMAL A-FIB Bursitis of shoulder, right Cancer COLON--sx Chronic back pain BACK INJECTIONS Depression Dyspnea on exertion Hearing deficit Hyperparathyroidism Hypertension Macular degeneration Myocardial Infarction 2017 Osteoarthritis Renal colic (10/03/14) Right rotator cuff tendonitis Right shoulder pain Schatzki's ring Stricture esophagus Surgical History H/O parathyroidectomy History of anesthesia reaction BECAME UNRESPONSIVE WITH LIDOCAINE DURING EGD PROCEDURE-SEE PRIOR EGD ANESTHESIA NOTES AT [facility] History of bowel resection History of cardiac cath X 3 ( STENTS PLACED)(APRIL 2017- DRUG ELUTING STENT PLACED BY DR. PARRISH) RECENT HEART CATH 05/2018 (NO STENTS) "TAKEN OFF PLAVIX" History of cataract surgery RT/LEFT History of colonoscopy History of esophagogastroduodenoscopy (EGD) History of heart artery stent 3 STENTS TOTAL PLACED History of laparotomy History of parathyroid surgery History of partial colectomy History of repair of rotator cuff RT History of tooth extraction Family History Sister Bowel cancer Brain tumor Colon cancer Family history of deafness or hearing loss Cancer Gastric cancer Leukemia Parkinson disease Father Coronary heart disease Mother Hypertension Migraine headache Skin cancer Brother Leukemia Family/Other Colon cancer Other No family history of adverse response to anesthesia Denies family history of Cardiac disorder Allergies Sinusitis Bleeding disorder Stroke Asthma Social History Smoking Status: Never smoker Second Hand Exposure: No; Hx Alcohol Use: No Hx Substance Use: No Preferred Language: Bulgarian Communication Ability: Effective 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 Beliefs That Will Affect Care: None marital status: Current Living Situation: [facility] Current Living Situation Comment: [facility] current occupational status: retired Other Information That Helps Us Care for You: No Feels Safe at Home: Yes Safety Concerns: Feels Safe At This Time Sunscreen Use: No Assistive Devices: Oxygen - Continuous Review of Systems Constitutional: + weakness; no fever Eyes: no problem reported Ear, Nose, Mouth, Throat: no problem reported Respiratory: no dyspnea Cardiovascular: + chest pain; no edema Gastrointestinal: + nausea; no abdominal pain and no diarrhea/loose stools Genitourinary: no dysuria and no hematuria Musculoskeletal: no back pain Integumentary: no rash Neurologic: no dizziness Physical Exam Constitutional: + frail appearing; not in distress Eyes: PERRL, conjunctivae normal, anicteric sclerae ENMT: external ear and nose normal, oropharynx normal Neck: trachea midline, no thyromegaly Respiratory: normal respiratory effort, lungs clear to auscultation Cardiovascular: RRR, no murmur, no edema Gastrointestinal (Abdomen): normal bowel sounds, soft, nontender, no hepatosplenomegaly Musculoskeletal: Extremities: no cyanosis Skin: no rashes, warm and dry Neurologic: awake; not confused Results & Data ([facility]) Vital Signs (Past 12 Hours) Vital Signs Temp Pulse Pulse Resp BP BP Pulse Ox 07/19/20 11:06 36.2 C L 61 17 90/55 L 97 07/19/20 08:00 65 07/19/20 07:09 36.6 C 57 L 18 154/71 H 97 07/19/20 04:00 36.5 C 54 L 18 161/71 H 100 Laboratory Results Laboratory Tests 07/18/20 07/19/20 07/19/20 06:00 03:02 06:50 WBC 8.80 Hgb 9.8 L Hct 31.4 L Plt Count 425 H Sodium 140 Potassium 5.3 H Chloride 109 H Carbon Dioxide 26 BUN 27 H Creatinine 1.69 H 1.26 H PG Care Time/CCT Total # of Minutes Spent Total Time Spent with Patient: Total time spent is greater than 50% in coordination of care (as documented) at patient's floor/unit and/or counseling patient: Coding Level of Care Code 03211 Inpt Consult Level 5 Diagnoses Acute hyperkalemia E87.5 TERESITA (acute kidney injury) N17.9 Chronic kidney disease N18.9 Hypertension I10 Hypertension type: essential hypertension Atherosclerotic cardiovascular disease I25.10 (1) Hypertension Hypertension type: essential hypertension Qualified Code(s): I10 - Essential (primary) hypertension
[2020-07-19] MEDS ORDERED: SODIUM CHLORIDE 0.9% 1000ML 1,000 ML IV SCH (12:30)
[2020-07-19 14:34] LABS: BUN Creatinine Ratio 19.6 (10-20); Calcium 8.7 mg/dl (8.5-10.1); Creatinine Clr Calc Pharmacy 26.3 ml/min; Est GFR (African American) 43.9; Est GFR (Non-African American) 37.9; Potassium 4.6 mmol/L (3.5-5.1)
--- NOTE | 2020-07-19 19:07 | Billing Data ---
Date of Service July 19, 2020 Coding Level of Care Code 83759 Subseq Hosp Care Lvl 3
[2020-07-19] MEDS: Ipratropium HFA Inhaler (Combivent Respimat P&T Subs) INH SCH (19:12)
[2020-07-19] MEDS: Albuterol HFA 8 GM Inhaler (Combivent Respimat P&T Subs) INH SCH (19:12)
[2020-07-19] MEDS: ASPIRIN 81 MG ECTAB PO SCH (20:56)
[2020-07-19 21:39] LABS: Appearance Urine Clear (Clear); Bilirubin Urine Negative (Negative); Blood Urine Negative (Negative); Color Urine Yellow; Glucose Urine UA Negative (Negative); Ketones Urine Negative (Negative); Leukocyte Esterase Urine Negative (Negative); Nitrite Urine Negative (Negative); Protein Urine Negative (Negative); Specific Gravity Urine 1.012 (1.000-1.030); Urobilinogen Urine Negative (Negative)
[2020-07-20] MEDS: Albuterol HFA 8 GM Inhaler (Combivent Respimat P&T Subs) INH SCH ×4 (07:18→19:44)
[2020-07-20] MEDS: Ipratropium HFA Inhaler (Combivent Respimat P&T Subs) INH SCH ×4 (07:18→19:44)
[2020-07-20 07:23] LABS: BUN Creatinine Ratio 17.3 (10-20); Creatinine Clr Calc Pharmacy 25.1 ml/min; Est GFR (African American) 42.3; Est GFR (Non-African American) 36.5; Potassium 4.2 mmol/L (3.5-5.1)
[2020-07-20] MEDS: POLYETHYLENE (MIRALAX) 17 GM PACK PO SCH ×2 (07:42→20:08)
[2020-07-20] MEDS: LIDOCAINE 5% 1 PATCH TD SCH (07:42)
[2020-07-20] MEDS: CYANOCOBALAMIN 500 MCG TABLET (VITAMIN B-12) PO SCH (07:43)
[2020-07-20] MEDS: SERTRALINE HCL 100 MG TABLET PO SCH (07:43)
[2020-07-20] MEDS: CHOLECALCIFEROL 1,000 UNITS 25 MCG TAB PO SCH (07:43)
[2020-07-20] MEDS: HEPARIN SOD 5,000 UNIT/0.5 ML VIAL SQ SCH ×2 (07:44→20:19)
[2020-07-20] MEDS: PANTOprazole 40 MG TAB PO SCH (07:44)
[2020-07-20] MEDS: SODIUM CHLORIDE 0.9% 500 ML IV SCH ×3 (08:24→20:16)
--- NOTE | 2020-07-20 11:09 | Nephrology Progress Note ---
Date of Service July 20, 2020 Assessment & Plan (1) Acute hyperkalemia: * Resolved. Continue to hold KCl and lisinopril * One dose Patiromer given 07/19/20. Serum potassium has corrected. No further doses of Patiromer needed at this time * Recommend low K diet * Monitor PRP * No further Nephrology evaluation indicated at this time. Will sign off. Please call if further assistance needed (2) TERESITA (acute kidney injury): * TERESITA related to dehydration * Cr improved, nearing baseline (3) Chronic kidney disease: * Baseline Cr 1.0 w/ EGFR 46 cc/min (4) Hypertension: * Relative hypotension at this time. Continue to hold BEVERLY. Continue gentle hydration (5) Atherosclerotic cardiovascular disease: Admission and Anticipated Discharge Date Admission Date: July 18, 2020 Subjective Ms. Lam was seen & examined in her hospital room this morning. She is tolerating gentle hydration without dyspnea. She reports that her appetite is improving Review of Systems Constitutional: + weakness; no fever Cardiovascular: no chest pain and no edema Gastrointestinal: no abdominal pain, no nausea and no diarrhea/loose stools Physical Exam Constitutional: + frail appearing; not in distress Eyes: PERRL, conjunctivae normal, anicteric sclerae ENMT: external ear and nose normal, oropharynx normal Neck: trachea midline, no thyromegaly Respiratory: normal respiratory effort, lungs clear to auscultation Cardiovascular: RRR, no murmur, no edema Gastrointestinal (Abdomen): normal bowel sounds, soft, nontender, no hepatosplenomegaly Musculoskeletal: Extremities: no cyanosis Skin: no rashes, warm and dry Neurologic: awake; not confused Results & Data ([facility]) Vital Signs (Past 12 Hours) Vital Signs Temp Pulse Pulse Resp BP BP Pulse Ox 07/20/20 09:08 36.8 C 82 18 105/76 97 07/20/20 08:54 72 07/20/20 07:18 78 18 92 07/20/20 04:00 37.0 C 78 18 109/67 94 07/20/20 00:00 83 07/19/20 23:30 37.2 C 63 18 103/62 91 Laboratory Results Laboratory Tests 07/18/20 07/19/20 07/20/20 06:00 03:02 06:17 WBC 8.80 Hgb 9.8 L Hct 31.4 L Plt Count 425 H Sodium 140 Potassium 4.2 Chloride 107 Carbon Dioxide 25 BUN 23 H Creatinine 1.31 H Glucose 101 H Magnesium 2.3 PG Care Time/CCT Total # of Minutes Spent Total Time Spent with Patient: Total time spent is greater than 50% in coordination of care (as documented) at patient's floor/unit and/or counseling patient: Coding Level of Care Code 54215 Subseq Hosp Care Lvl 3 Diagnoses Acute hyperkalemia E87.5 TERESITA (acute kidney injury) N17.9 Chronic kidney disease N18.9 Hypertension I10 Hypertension type: essential hypertension Atherosclerotic cardiovascular disease I25.10 (1) Hypertension Hypertension type: essential hypertension Qualified Code(s): I10 - Essential (primary) hypertension
--- NOTE | 2020-07-20 11:11 | Medical Student Progress Note ---
Date of Service July 20, 2020 Assessment & Plan (1) Acute hyperkalemia: The patient is an 85 y/o female with a past medical history of CKD, HTN, HLD, recent DE on 07/01 in [place], CAD w/ PCI 04/2017, diastolic CHF (EF 60-65% 2015), colon cancer, esophagitis and hyperparathyroidism who presents from [facility] with a several day history of weakness, no PO intake for 3 days and a two day history of vomiting and an elevated potassium. 1) Hyperkalemia - Resolved- improved from 7 on admission to 4.2. Potassium of 7 on admission, symptomatic weakness, peaked T waves w/ normal QRS. Likely secondary to TERESITA 2/2 poor PO intake for several days. Contributing factors include in baseline dosing of KCL oral from 40meQ daily to 40mEQ TID and UTI tx w/ Levaquin 07/16 - s/p Ca gluconate in ED x2, Insulin/dextrose in ED x2, Patiromer x1. Miralax as below. -Nephro consulted -Repeat BMP 07/19 PM -Repeat EKGs PRN - Pt previously with GFR > 60 - Monitor I&Os 2) Acute kidney injury - Cr of 1.97 on admit 1.31 this AM from 1.26 yesterday with known hx of Cr. 0.91 on 07/14 - In the setting of poor PO intake and vomiting, recent Levaquin regimen finished 07/16 - Restart NS IVF @80ml/hr with goal to transition to PO intake - Suspect prerenal given improvement w/ fluids - NO recent NSAID use per patient - BMP as above - Hold nephrotoxins, renally dose medications 3) CAD w/ hx of ACS in [place] 07/01/2020 - Increased CP from yesterday, improved with Lidoderm patch, likely secondary to chest compressions. - Pt with residual chest pain unchanged since her discharge from [place] and which hurts with palpation and which does not change with exertion. Suspect MSK 2/2 chest compressions at that time, currently at normal baseline. Follow and reassess clinically as needed. - Hold amlodipine, isosorbide, Metoprolol, lisinopril; reassess with the possibility of restarting as BP allows. - EKG without ST or T wave inversions on admit. No QRS or ST changes on admit. Peaked T waves as above 4) History of R hemicolectomy - Stable - Pt with hx of prior colectomy - Avoided Kayexalate for theoretical risk of bowel necrosis, patiromer as above - Miralax BID for constipation 5) HTN - Hypotensive on admit - improving w. fluids - Held lisinopril for TERESITA - Cardiac meds as above 6) GERD - stable - Omeprazole converted to Protonix daily 7) Fungal dermatitis - symptomatically improving from yesterday -Likely secondary to Purewick external cath leaking -Mendez catheter placed -Topical nystatin cream DVT PPx: Heparin 5000U SQ BID Diet: Low Potassium, Heart Healthy CODE STATUS: DNR/DNI Admission and Anticipated Discharge Date Admission Date: July 18, 2020 Supervising Attestation I personally examined the patient and verified all frederick points of history and exam, discussed case, and agree with decision making with Bong Winston MS4. feeling better but no appetite. no abdominal pain just doesn't really feel like eating. notes that she's never marta big eater but this is way worse since DE a few weeks ago vitals noted very fatigued appearing but no acute distress otherwise heent nc at mmm breathing unlabored no accessory muscles good effort skin no rashes no pallor or icterus neuro no focal deficits abd soft no epigastric ttp mild LLQ tenderness acute renal failure - almost certainly all prerenal / volume loss from poor intake and vomiting - fluids/improving (stalled out but PO intake poor - fluids resumed) hyperkalemia - from above plus K supplementation - improved poor appetite/failure to thrive - likely from deconditioning/malnutrition downward spiral from recent DE and age. discussed critical need for adequate calorie intake - discussed that it needs to be more like an accounting exercise to meet a budget, not a placation of hunger. encouraged PO intake - will follow, offer supplements/etc - low threshold for appetite stimulant otherwise as above, improving Subjective Ms Lam states that she is feeling more tired today. She appreciates the Mendez catheter placement and states she had a bowel movement. She feels that her appetite is decreased from yesterday. She has some increased chest pain at the sight of her previous chest compressions. She feels that the Lidoderm patch has been helpful. She states that she feels slightly more short of breath and that she feels "winded." She stated that her bottom feels better with the addition of the ointment. Per nursing there is concern that she was coughing while clearing her throat. Review of Systems Constitutional: + fatigue and + anorexia; no fever and no chills Respiratory: + pain on inspiration; no dyspnea, no sputum production and no wheezing Cardiovascular: + chest pain; no palpitations, no lightheadedness and no edema Gastrointestinal: + abdominal pain; no nausea, no vomiting and no hematemesis Physical Exam Constitutional: Elderly woman appearing stated age resting in bed in no acute distress Eyes: PERRL, conjunctivae normal, anicteric sclerae Respiratory: Lungs are clear to auscultation bilaterally, no wheezes, rales or rhonchi. Normal work of breathing Cardiovascular: Regular rate and rhythm, no murmurs rubs or extra heart sounds. No peripheral edema. Gastrointestinal (Abdomen): Normoactive bowel sounds, nontender to palpation throughout the abdomen, no organomegaly appreciated. Neurologic: PERRL, EOMI, accommodation nl, no face palsy, no dysarthria Psychiatric: A+Ox3, euthymic affect Genitourinary: erythematous rash in gluteal cleft and between thighs, improved from yesterday. Results & Data ([facility]) Vital Signs (Past 12 Hours) Vital Signs Temp Pulse Pulse Resp BP BP Pulse Ox 07/20/20 09:08 36.8 C 82 18 105/76 97 07/20/20 08:54 72 07/20/20 07:18 78 18 92 07/20/20 04:00 37.0 C 78 18 109/67 94 07/20/20 00:00 83 07/19/20 23:30 37.2 C 63 18 103/62 91
--- NOTE | 2020-07-20 18:13 | Billing Data ---
Date of Service July 20, 2020 Coding Level of Care Code 30417 Subseq Hosp Care Lvl 3
[2020-07-20] MEDS: ASPIRIN 81 MG ECTAB PO SCH (20:19)
[2020-07-21] MEDS: SODIUM CHLORIDE 0.9% 500 ML IV SCH ×2 (03:09→09:24)
[2020-07-21] MEDS: Ipratropium HFA Inhaler (Combivent Respimat P&T Subs) INH SCH ×3 (07:11→15:18)
[2020-07-21] MEDS: Albuterol HFA 8 GM Inhaler (Combivent Respimat P&T Subs) INH SCH ×3 (07:11→15:18)
[2020-07-21 08:21] LABS: BUN Creatinine Ratio 18.8 (10-20); Calcium 9.2 mg/dl (8.5-10.1); Creatinine Clr Calc Pharmacy 32.6 ml/min; Magnesium 1.6 mg/dl (1.8-2.4); Phosphorus 3.1 mg/dl (2.5-4.9); Potassium 3.8 mmol/L (3.5-5.1)
[2020-07-21] MEDS: POLYETHYLENE (MIRALAX) 17 GM PACK PO SCH (08:55)
[2020-07-21] MEDS: PANTOprazole 40 MG TAB PO SCH (08:56)
[2020-07-21] MEDS: CYANOCOBALAMIN 500 MCG TABLET (VITAMIN B-12) PO SCH (08:56)
[2020-07-21] MEDS: CHOLECALCIFEROL 1,000 UNITS 25 MCG TAB PO SCH (08:56)
[2020-07-21] MEDS: SERTRALINE HCL 100 MG TABLET PO SCH (08:56)
[2020-07-21] MEDS: LIDOCAINE 5% 1 PATCH TD SCH (08:56)
[2020-07-21] MEDS: HEPARIN SOD 5,000 UNIT/0.5 ML VIAL SQ SCH (08:57)
[2020-07-21 09:01] LABS: Eosinophils # (auto) 0.06 K/uL (0-0.5); Hematocrit (blood only) 28.1 % (37-47); Hemoglobin 9.2 g/dL (12.0-16.0); Immature Granulocytes # (auto) 0.04 K/uL (0.00-0.02); Immature Granulocytes % (auto) 0.7 %; Lymphocytes # (auto) 1.84 K/uL (1.2-3.4); Lymphocytes % (auto) 30.8 %; Mean Corpuscular Hemoglobin 29.8 pg (25-34); Mean Corpuscular Hgb Conc 32.7 g/dL (32-36); Mean Corpuscular Volume 90.9 fL (80-100); Mean Platelet Volume 8.5 fL (7.4-10.4); Monocytes # (auto) 0.61 K/uL (0.11-0.59); Monocytes % (auto) 10.2 %; Neutrophils # (auto) 3.43 K/uL (1.4-6.5); Neutrophils % (auto) 57.3 %; Platelet Count 314 K/uL (130-400); RDW Coefficient of Variation 14.3 % (11.5-14.5); RDW Standard Deviation 47.4 fL (36.4-46.3); Red Blood Count 3.09 M/uL (4.2-5.4); White Blood Count 5.98 K/uL (4.8-10.8)
[2020-07-21] MEDS ORDERED: MAGNESIUM SULFATE / D5W 1 GM/100 ML BAG IV ONE (10:00)
[2020-07-21] MEDS ORDERED: lisinopril 5 MG TAB PO SCH (10:00)
--- NOTE | 2020-07-21 16:56 | Discharge Summary ---
Date of Service July 21, 2020 Admission HPI Per Admitting Provider Ms. Lam is an 85 y/o female with a past medical history of CKD, HTN, HLD, recent MD on 07/01 in [place], CAD w/ PCI 04/2017, diastolic CHF (EF 60-65% 2015), colon cancer, esophagitis and hyperparathyroidism who presents from [facility] with a several day history of weakness, no PO intake for 3 days and a two day history of vomiting.She last vomited yesterday. She stated that she recently has not had much of an appetite and has not eaten for the past three days. She describes "not feeling herself" and feeling weak for the past few days as well without any history of falls. Of note, three days ago she had a two day history of vomiting without blood or coffee ground emesis. She denies any sick contacts or recent diarrhea. She was referred to the emergency dept by [facility] when her labs showed an elevated K of 6.8. She has had associated weakness and fatigue. In addition, patient reports experiencing an 8/10 L upper chest wall pain that does not radiate and has been present since 07/01 when she was treated for an MD in [place]. She states that it has been stable since that time and is worsened with touching the area or movement and improved with rest. Per [facility] staff her global weakness and difficulty ambulating is worsened from her baseline over the last day. Patient had recently been seen in [place] for acute coronary syndrome on 07/01/2020 and was referred to [facility] upon discharge for further care. Per [facility] records, patient was hypokalemic on 07/12/2020 with a potassium of 2.7. Her potassium was increased from 40mEq daily to 40mEq TID. She was also undergoing treatment at that time for a UTI with Levaquin, finishing a 5 day course on 07/16. Prior records indicate that patient had been using meloxicam and ibuprofen in the past, [facility] staff clarifies that patient HAS NOT received any NSAIDs since discharge from [place] and these have been removed from her med list. On admission to the ED patient was found to by hyperkalemic to 7.0 and received calcium gluconate, insulin, and dextrose. She denies any recent fever, cough, pleuritic chest pain, LE edema, diarrhea, melena, hematochezia, dysuria, hematuria. She endorses chest wall pain, occasional shortness of breath and constipation. Admission Exam Per Admitting Provider Constitutional: Elderly woman appears stated age resting comfortably in bed. Eyes: PERRL, conjunctivae normal, anicteric sclerae ENMT: external ear and nose normal, oropharynx normal Neck: trachea midline Respiratory: normal respiratory effort, lungs clear to auscultation No wheezes, rales or rhonchi Cardiovascular: Regular rate and rhythm, no murmurs, rubs or extra heart sounds. No peripheral edema, no JVD Gastrointestinal (Abdomen): Normal bowel sounds x4, mildly tender to palp in RUQ, no hepatosplenomegaly noted. Skin: no rashes, warm and dry ecchymosis on R arm Neurologic: PERRL, EOMI, accommodation nl, no face palsy, no dysarthria Psychiatric: A+Ox3, euthymic affect Principal Diagnosis Hyperkalemia, acute kidney injury Discharge Exam Constitutional Elderly woman appearing stated age, resting comfortably in bed in no acute distress Eyes PERRL, conjunctivae normal, anicteric sclerae ENMT external ear and nose normal, oropharynx normal Respiratory Lungs clear to auscultation bilaterally, no wheezes, rales or extra heart sounds Cardiovascular Regular rate and rhythm, no murmurs, rubs or extra heart sounds, no peripheral edema, no JVD Gastrointestinal (Abdomen) normal bowel sounds, soft, nontender, no hepatosplenomegaly Neurologic PERRL, EOMI, accommodation nl, no face palsy, no dysarthria Psychiatric A+Ox3, euthymic affect Genitourinary Erythematous rash in gluteal cleft, between thighs. Discharge Data Allergies Allergy/AdvReac Type Severity Reaction Status Date / Time lidocaine Allergy Severe GIVEN Verified 07/18/20 14:39 DURING EGD PROCEDURE-"UNRESPONSIVE" hydrochlorothiazide Allergy Unknown UNKNOWN-INE Verified 07/18/20 14:39 FFECTIVE? niacin Allergy Unknown UNKNOWN Verified 07/18/20 14:39 atorvastatin AdvReac Intermediate MUSCLE Verified 07/18/20 14:39 ACHES citalopram AdvReac Intermediate G I UPSET- Verified 07/18/20 14:39 simvastatin AdvReac Intermediate MUSCLE Verified 07/18/20 14:39 ACHES Consultations 07/18/20 14:56 ED Decision to Admit Stat 07/21/20 10:02 Consult Case Management - Discharge Planning Routine Ordered Studies 07/18/20 14:09 CT abd pelvis wo con Stat Hospital Course (1) Acute hyperkalemia: The patient is an 85 y/o female with a past medical history of CKD, HTN, HLD, recent MD on 07/01 in [place], CAD w/ PCI 04/2017, diastolic CHF (EF 60-65% 2015), colon cancer, esophagitis and hyperparathyroidism who presented from [facility] with a several day history of weakness, no PO intake for three days and a two day history of vomiting and an elevated potassium. 1) Hyperkalemia - improved from 7 on admission to 3.8 on discharge. Potassium of 7 on admission, symptomatic weakness, peaked T waves w/ normal QRS. Likely secondary to TERESITA 2/2 poor PO intake for several days. Contributing factors include in baseline dosing of KCL oral from 40meQ daily to 40mEQ TID and UTI tx w/ Levaquin 07/16 Treated with Ca gluconate in ED x2, Insulin/dextrose in ED x2, Patiromer x1. Miralax. -Recheck BMP on 07/25 and restart KCl PO supplementation as necessary 2) Acute kidney injury - Cr of 1.97 on admit 1.01 on d/c with known hx of Cr. 0.91 on 07/14 - In the setting of poor PO intake and vomiting, recent Levaquin regimen finishe d 07/16 - Prerenal etiology treated with 1/2NS IVF transitioned to NS IVF and PO intake -Recheck BMP as above 3) CAD w/ hx of ACS in [place] 07/01/2020 - Pt with residual chest pain unchanged since her discharge from [place] and which hurts with palpation and which does not change with exertion. Suspect MSK 2/2 chest compressions at that time - EKG without ST or T wave inversions on admit. No QRS or ST changes on admit. Peaked T waves as above - Held amlodipine, isosorbide, Metoprolol, lisinopril during hospitalization 2/2 to BP and TERESITA. Restarted lisinopril on d/c, restart other BP meds as tolerated. 4) Fungal dermatitis -Improving symptomatically -Likely secondary to Purewick external cath leaking -Mendez catheter placed during hospitalization -Continue topical antifungal cream as necessary 5) Chronic conditions -HTN, GERD were managed on home regimens as tolerated. Restart BP meds as above -Recently decreased appetite per patient - Continue to ensure at least 1300 chinedu/day diet consumed to improve strength. Total Time Total Time Spent Total Time Spent (In Minutes): <30 Discharge Plan Discharge Items Patient Disposition: Transfer [facility] Living Fac Reason For Visit: TERESITA, HYPERKALEMIA Discharge Diagnosis: Hyperkalemia Activity: Per Instructions section Non-emergency contact: Primary Care Provider Call non-emergency contact if: you have any medication questions and your symptoms worsen Follow-up/Referrals: [facility] [Primary Care Provider] - Diet: Low Potassium (2gm) and Low Sodium (2gm) Addtl Attending Provider Instructions: 85 y/o female with a past medical history of CKD, HTN, HLD, recent MD on 07/01 in [place], CAD w/ PCI 04/2017, diastolic CHF (EF 60-65% 2015), colon cancer, esophagitis and hyperparathyroidism who presents from [facility] with a several day history of weakness, no PO intake for 3 days and a two day history of vomiting and an elevated potassium. Stabilized with increased fluids, patient endorsed limited oral intake over the last several weeks to months, due to limited appetite, this is likely contributing to the hyperkalemia on admission. Based off patient's weight and overall body demand, she needs to be consuming approximately 1300 calories daily in order to limit her continued decline due to caloric wasting. As she tolerates and like Boost supplementation of her diet this ought to be considered in addition to meals with encouragement in order to meet these caloric goals and continue to improve her strength. Pending Studies at Discharge: No Stand-Alone Forms: [facility] Skilled Items Patient informed of condition?: Yes DNR: Yes Discharge Level of Care: Skilled Communicable Disease: No Discharge Prognosis: Stable Lines: None Urinary Catheter: No Medications and DC Order Prescriptions: Continued colestipol 1 gram tablet 2 gm PO TID Qty: 180 RF: 5 lisinopril 5 mg tablet 5 mg PO QAM Qty: 90 RF: 0 isosorbide mononitrate 30 mg tablet extended release 24 hr 30 mg PO QAM Qty: 90 RF: 3 metoprolol succinate 50 mg tablet extended release 24 hr 75 mg PO QAM Qty: 135 RF: 3 omeprazole 20 mg capsule,delayed release(DR/EC) 20 mg PO BID Qty: 60 RF: 2 cyanocobalamin (vitamin B-12) [Vitamin B-12] 1,000 mcg Tablet 1,000 mcg PO QAM RF: 0 amlodipine 5 mg Tablet 5 mg PO QAM RF: 0 ascorbic acid (vitamin C) [Vitamin C] 500 mg Tablet 500 mg PO Q OTHER DAY RF: 0 latanoprost 0.005 % Drops 1 drp OPB HS RF: 0 cholecalciferol (vitamin D3) [Vitamin D3] 2,000 unit Capsule 2,000 unit PO QAM RF: 0 sertraline 100 mg tablet 100 mg PO QAM RF: 0 acetaminophen 325 mg Tablet 650 mg PO Q12H RF: 0 oxycodone 5 mg tablet 2.5 - 5 mg PO Q6H PRN (Reason: Pain) RF: 0 rosuvastatin 10 mg Tablet 10 mg PO HS RF: 0 potassium chloride 20 mEq Tablet Extended Release 40 meq PO TID RF: 0 aspirin 81 mg Tablet,Chewable 81 mg PO QAM RF: 0 ipratropium bromide 0.02 % Solution 2.5 ml INHALATION QID RF: 0 Discharge Orders: Discharge Order (Routine); Ordered 07/21/20 Ordered By: Garry Marcus Admission Data Admit Date/Time: 07/18/20 16:52 Attending Provider: Jim Leblanc Admit Provider: Chicho France Primary Care Provider: Naye Larsen Other Providers: Naye Larsen ; Srinivasa Lazaro Other Interventions: Discharge Summary Assessment (RN) Last Done: 07/21/20 15:22 Supervising Physician Co-Signing Physician Notes I personally examined the patient and verified all [place] points of history and exam, discussed case, and agree with decision making with Bong Winston MS4. better overall and feels up to SNF vitals noted very fatigued appearing but no acute distress otherwise heent nc at mmm breathing unlabored no accessory muscles good effort skin no rashes no pallor or icterus neuro no focal deficits acute renal failure - almost certainly all prerenal / volume loss from poor intake and vomiting - fluids/improved - stable for snf, bmp next week hyperkalemia - from above plus K supplementation - improved - bmp next week poor appetite/failure to thrive - likely from deconditioning/malnutrition downward spiral from recent MD and age. discussed critical need for adequate calorie intake - discussed that it needs to be more like an accounting exercise to meet a budget, not a placation of hunger. encouraged PO intake - offer supplements/etc - low threshold for appetite stimulant otherwise as above, improving and stable for snf
--- NOTE | 2020-07-21 20:02 | Billing Data ---
Date of Service July 21, 2020 Coding Level of Care Code D/C Day Management <30 mins
== END 2020-07-21 16:40 ==
LOC: ED 12:15 → 2E 16:52 → INTOOBSV 16:52 → 2E 18:14 → 3N 07-20 17:16

== ENCOUNTER 2020-07-25 11:48 | Observation (INO) ==
[2020-07-25] MEDS ORDERED: ONDANSETRON INJ 2 MG/ML 2 ML VIAL IV STA (12:06)
[2020-07-25] MEDS ORDERED: SODIUM CHLORIDE 0.9% 500 ML IV SCH (12:15)
--- NOTE | 2020-07-25 12:35 | XRay Report ---
XR chest 1V portable CLINICAL HISTORY: weakness COMPARISON STUDY: Chest CT January 30, 2020. Chest radiograph May 30, 2010. FINDINGS: Lung volumes are normal. Lungs are clear. There is no pneumothorax or pleural effusion. Car diac size is normal. Mediastinal contours are normal. There is no evidence for pulmonary edema. Elect ronic device projects over the left hemithorax. Multiple left rib fractures are incidentally noted. IMPRESSION: No acute cardiopulmonary findings. ACT 112: Negative or not required by law. Electronically signed by: Alex Villafuerte M.D. 07/25/2020 12:34 PM
[2020-07-25] MEDS ORDERED: SODIUM CHLORIDE 0.9% 1000ML 500 ML IV ONE (13:24)
[2020-07-25] MEDS ORDERED: CALCIUM GLUCONATE 10% 10 ML VIAL IV STA (13:24)
[2020-07-25] MEDS ORDERED: DEXTROSE 50% 50 ML SYRINGE IV ONE (13:24)
[2020-07-25] MEDS ORDERED: NovoLIN-R INSULIN PER UNIT CHARGE IV STA (13:24)
[2020-07-25] MEDS ORDERED: SODIUM BICARB 8.4% INJ 50 MEQ/50 ML SYR IV STA (13:24)
[2020-07-25 13:26] LABS: Basophils # (auto) 0.02 K/uL (0-0.2); Basophils % (auto) 0.2 %; Eosinophils # (auto) 0.15 K/uL (0-0.5); Eosinophils % (auto) 1.8 %; Hematocrit (blood only) 34.9 % (37-47); Hemoglobin 10.8 g/dL (12.0-16.0); Immature Granulocytes # (auto) 0.07 K/uL (0.00-0.02); Immature Granulocytes % (auto) 0.8 %; Lymphocytes # (auto) 2.21 K/uL (1.2-3.4); Lymphocytes % (auto) 26.2 %; Mean Corpuscular Hemoglobin 29.5 pg (25-34); Mean Corpuscular Hgb Conc 30.9 g/dL (32-36); Mean Corpuscular Volume 95.4 fL (80-100); Mean Platelet Volume 9.7 fL (7.4-10.4); Monocytes # (auto) 0.71 K/uL (0.11-0.59); Monocytes % (auto) 8.4 %; Neutrophils # (auto) 5.29 K/uL (1.4-6.5); Neutrophils % (auto) 62.6 %; Platelet Count 346 K/uL (130-400); RDW Coefficient of Variation 14.6 % (11.5-14.5); RDW Standard Deviation 50.2 fL (36.4-46.3); Red Blood Count 3.66 M/uL (4.2-5.4); White Blood Count 8.45 K/uL (4.8-10.8)
[2020-07-25 13:34] LABS: iSTAT Creatinine 1.1 mg/dl (0.6-1.3); iSTAT Hemoglobin 10.9 g/dl (12.0-16.0); iSTAT Ionized Calcium 1.27 mmol/l (1.12-1.32); iSTAT Potassium 6.1 mmol/L (3.3-5.0)
[2020-07-25 13:48] LABS: Alanine Aminotransferase 12 U/L (12-78); Albumin Level 3.1 gm/dl (3.4-5.0); Aspartate Aminotransferase 20 U/L (15-37); BUN Creatinine Ratio 17.5 (10-20); Blood Urea Nitrogen 20 mg/dl (7-18); Calcium 9.5 mg/dl (8.5-10.1); Carbon Dioxide 23 mmol/L (21-32); Chloride 111 mmol/L (98-107); Est GFR (African American) 50.1; Est GFR (Non-African American) 43.2; Glucose 98 mg/dl (70-99); Sodium 139 mmol/L (136-145)
--- NOTE | 2020-07-25 13:57 | History & Physical Report ---
Date of Service July 25, 2020 Assessment & Plan (1) Acute hyperkalemia: Recent admission for same. Likely combination of BEVERLY inhibitor use and concomitant potassium supplementation. Has received appropriate treatment today including insulin/D50, bicarbonate therapy, and calcium along with kayexalate. Repeat BMP late this afternoon and then again in am. Place on telemetry. Given her advanced age and CKD would advocate for no further BEVERLY inhibitor use or potassium supplementation. (2) Rib fractures: Multiple b/l. 2nd to chest compressions in early June during cardiac arrest. Lidoderm patches. Heat. tylenol 1gm TID. incentive spirometry. oxycodone prn. check 25-OH vit D level am. several are mildly displaced but no complicating pneumothorax, etc. (3) Sternal fracture: 2nd to chest compressions during cardiac arrest 06/2020. As seen on CT chest that I obtained shortly after my admission assessment. Treat pain as above in "rib fractures." Fracture is nondisplaced - surgical intervention not needed. (4) Pulmonary contusion: CT chest suggests pulmonary contusion of RUL. 2nd to recent chest compressions?? Could be a reason for ongoing O2 requirement. (5) Severe protein-calorie malnutrition: At least 15 pounds of weight loss in the last few months. etiology?? with h/o colon ca this is worrisome. however, recent CT abd/pelvis without signs of recurrence. CT chest this evening w/o lung mets. does have gallstones - could she have chronic cholecystitis? consider RUQ u/s but even if biliary disease was present she is poor candidate for intervention. (6) Early satiety: s/p multiple EGDs in the past. one EGD demonstrated esophagitis. during another EGD she had esophageal dilatation. recent CT abd/pelvis without obvious cause. x-rays of abdomen tonight to assess fecal load -- negative for severe constipation. etiology uncertain. given the possible "esophagitis" seen on CT chest tonight will add carafate to her PPI. consider biliary w/u. (7) Coronary atherosclerosis of [place] coronary vessel: s/p MA 06/2020. cont asa. cont statin. (8) Hypertension: stable at time of admission. hold BEVERLY, however, due to elevated K. hold amlodipine due to low-normal BPs. (9) History of colon cancer: s/p right-sided hemicolectomy. noted. takes colestipol for chronic diarrhea related to prior surgery. (10) Chronic respiratory failure with hypoxia: initiated on 24/7 oxygen following admission to [facility] early June. exact etiology is uncertain but due to pulmonary contusions? other? could she have VTE/PEs? does have asymmetric legs on exam - RLE >LLE. will check RLE doppler and go from there. (11) Chronic kidney disease, stage IV (severe): baseline Cr Cl high 20s BMP tonight and in am (12) Chronic diarrhea: 2nd to prior hemicolectomy follows with [facility] cont colestipol (13) DVT prophylaxis: heparin 5000 BID left message for son, Aden - 07/25 attempted to call daughter Susanne on 07/25 - no success PT, OT raymon while hospitalized History of Present Illness Chief Complaint: high potassium, nausea Primary Care Provider: [facility] 85yo female with extensive CAD history - s/p acute MA with cardiac arrest in early June 2020 - along with recent hospitalization for hyperkalemia. Patient presents from [facility] with c/o nausea and high potassium This am patient had blood work showing potassium of 6.3. She was given kayexalate at [facility] and was sent to [facility] for evaluation. Upon presentation to the ER at [facility] her repeat potassium level was 6. She was given IV insulin with D50, calcium gluconate 1gm x 1, and an amp of sodium bicarbonate. Patient had several complaints many of which have been present for several weeks. First, she c/o chest pain/soreness with any movement, deep breathing, etc. This has been present since her acute MA/cardiac arrest in June. She states that her son gave her chest compressions. Initially she said the pain was similar to her heart attack pain but then stated it was different. She has also felt short of breath for several weeks. Second, she states she has "no appetite" - also present for weeks if not months. Has bloating and early satiety. ?nonspecific upper abdominal pain? Has lost 15 pounds of weight over last few months. Food/liquids does not make abdominal pain/bloating worse. Denies dysphagia except for certain pills (potassium, etc). Third, she reports having been put on [place] O2 after her acute MA in June. Has been using 3 liters since then. She never had oxygen prior to her acute MA. Allergies Allergy/AdvReac Type Severity Reaction Status Date / Time lidocaine Allergy Severe GIVEN Verified 07/25/20 12:51 DURING EGD PROCEDURE-"UNRESPONSIVE" hydrochlorothiazide Allergy Unknown UNKNOWN-INE Verified 07/25/20 12:51 FFECTIVE? niacin Allergy Unknown UNKNOWN Verified 07/25/20 12:51 atorvastatin AdvReac Intermediate MUSCLE Verified 07/25/20 12:51 ACHES citalopram AdvReac Intermediate G I UPSET- Verified 07/25/20 12:51 simvastatin AdvReac Intermediate MUSCLE Verified 07/25/20 12:51 ACHES Home Medications Home Medications Medication Instructions Recorded Confirmed Type cholecalciferol (vitamin D3) 2,000 unit PO QAM 08/06/18 07/25/20 History [Vitamin D3] latanoprost 1 drp OPB HS 08/06/18 07/25/20 History cyanocobalamin (vitamin B-12) 1,000 mcg PO QAM 01/20/19 07/25/20 History [Vitamin B-12] amlodipine 5 mg PO QAM 07/07/19 07/25/20 History ascorbic acid (vitamin C) [Vitamin 500 mg PO Q OTHER DAY 07/07/19 07/25/20 History C] sertraline 100 mg PO QAM 01/30/20 07/25/20 History omeprazole 20 mg capsule,delayed 20 mg PO BID #60 cap 02/04/20 07/25/20 Rx release lisinopril 5 mg tablet 5 mg PO QAM #90 tab 04/19/20 07/25/20 Rx isosorbide mononitrate 30 mg 30 mg PO QAM #90 tab 05/23/20 07/25/20 Rx tablet,extended release 24 hr metoprolol succinate 50 mg 75 mg PO QAM #135 tab 06/20/20 07/25/20 Rx tablet,extended release 24 hr acetaminophen 650 mg PO Q12H 07/18/20 07/25/20 History aspirin 81 mg PO QAM 07/18/20 07/25/20 History ipratropium bromide 2.5 ml INHALATION QID 07/18/20 07/25/20 History oxycodone 2.5 - 5 mg PO Q6H PRN 07/18/20 07/25/20 History potassium chloride 40 meq PO TIDM 07/18/20 07/25/20 History rosuvastatin 10 mg PO HS 07/18/20 07/25/20 History colestipol 2 gm PO TIDM 07/25/20 07/25/20 History lidocaine 1 patch TOPICAL DAILY 07/25/20 07/25/20 History Past Med/Surg History Medical History (Updated 07/25/20 @ 21:42 by Srinivasa Dorsey) Acute dehydration Acute hyperkalemia TERESITA (acute kidney injury) Anemia Atrial fibrillation PAROXYSMAL A-FIB Bursitis of shoulder, right Cancer COLON--sx Chronic back pain BACK INJECTIONS Depression Dyspnea on exertion Hearing deficit History of cardiac arrest 06/2020, s/p chest compressions History of esophagitis Hyperkalemia Hyperparathyroidism Hypertension Macular degeneration Myocardial Infarction 2016, 06/2020 Osteoarthritis Renal colic (10/03/14) Right rotator cuff tendonitis Right shoulder pain Schatzki's ring Stricture esophagus Surgical History H/O parathyroidectomy History of anesthesia reaction BECAME UNRESPONSIVE WITH LIDOCAINE DURING EGD PROCEDURE-SEE PRIOR EGD ANESTHESIA NOTES AT [facility] History of bowel resection History of cardiac cath X 3 ( STENTS PLACED)(APRIL 2017- DRUG ELUTING STENT PLACED BY DR. PARRISH) RECENT HEART CATH 05/2018 (NO STENTS) "TAKEN OFF PLAVIX" History of cataract surgery RT/LEFT History of colonoscopy History of esophagogastroduodenoscopy (EGD) History of heart artery stent 3 STENTS TOTAL PLACED History of laparotomy History of parathyroid surgery History of partial colectomy History of repair of rotator cuff RT History of tooth extraction Family History Sister Bowel cancer Brain tumor Colon cancer Family history of deafness or hearing loss Cancer Gastric cancer Leukemia Parkinson disease Father Coronary heart disease Mother Hypertension Migraine headache Skin cancer Coronary heart disease Brother Leukemia Family/Other Colon cancer Other No family history of adverse response to anesthesia Denies family history of Cardiac disorder Allergies Sinusitis Bleeding disorder Stroke Asthma Social History (Updated 07/25/20 @ 21:13 by Srinivasa Dorsey) Smoking Status: Never smoker Second Hand Exposure: No; Hx Alcohol Use: Yes Alcohol type: wine Hx Substance Use: No Preferred Language: Nepali Communication Ability: Effective Program Director Substance Abuse Required: No Beliefs That Will Affect Care: None marital status: Current Living Situation: [facility] Current Living Situation Comment: [facility]; was living w/ in [place] prior 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 How many Children do You have: 3 Other Information That Helps Us Care for You: No Feels Safe at Home: Yes Safety Concerns: Feels Safe At This Time Sunscreen Use: No Assistive Devices: Denture - Upper, Denture - Lower, Glasses, Hearing Aid - Left, Oxygen - Continuous and Walker Review of Systems Constitutional: + fatigue, + anorexia and + weight loss; no fever and no chills Eyes: no worsening vision Ear, Nose, Mouth, Throat: + dysphagia (chronic ); no nasal congestion and no sore throat no loss of taste or smell Respiratory: + dyspnea on exertion; no cough and no wheezing Cardiovascular: as per Subjective / HPI, + chest pain, + chest pain at rest and + chest pain with activity; no orthopnea, no paroxysmal nocturnal dyspnea and no edema Gastrointestinal: + nausea and + dysphagia; no vomiting Genitourinary: no dysuria Musculoskeletal: no muscle weakness Integumentary: + unusual bruising (abdominal wall ) Neurologic: + generalized weakness Psychiatric: + depression Endocrine: denies diabetes Hematologic / Lymphatic: + easy bruising Physical Exam Constitutional: + acute distress (when she moves in bed (chest wall pain)); no altered mental status Eyes: PERRL ENMT: Ears: no TM abnormality Mouth: + dry oral mucous membranes Neck: trachea midline, no thyromegaly Respiratory: normal respiratory effort, lungs clear to auscultation Cardiovascular: Rate/Rhythm: regular rate and regular rhythm Heart Sounds: normal S1, normal S2 and + murmur (2/6 LSB systolic ) Vessels: posterior tibi al pulses present and dorsalis pedis pulses present; no JVD Extremities: no edema (right leg is larger than left leg ) Chest (Breasts): Additional Comments: exquisite tenderness to palpation over chest wall - sternum, sternal-costal margin, etc Gastrointestinal (Abdomen): normal bowel sounds, soft, nontender, no hepatosplenomegaly Inspection/Auscultation: abdomen not distended Musculoskeletal: no cyanosis or clubbing, extremities motor strength 5/5 Skin: + ecchymosis (scattered - abdominal wall ) Neurologic: deep tendon reflexes 2+ bilaterally and moves all extremities Psychiatric: Orientation: alert and oriented x 3 Affect: + depressed affect Lymphatic: no cervical lymphadenopathy Results & Data Results & Data ([facility]) Vital Signs (Past 12 Hours) Vital Signs Temp Pulse Resp BP Pulse Ox 07/25/20 11:58 36.5 C 68 18 91/51 L 100 Laboratory Results Laboratory Results - last 24 hr 07/25/20 07/25/20 07/25/20 13:12 13:12 13:18 WBC 8.45 RBC 3.66 L Hgb 10.8 L POC Hgb 10.9 L Hct 34.9 L POC Hct 32 L MCV 95.4 MCH 29.5 MCHC 30.9 L RDW Std Deviation 50.2 H RDW Coeff of K[place] 14.6 H Plt Count 346 MPV 9.7 Immature Gran % (Auto) 0.8 Neut % (Auto) 62.6 Lymph % (Auto) 26.2 [place] % (Auto) 8.4 Eos % (Auto) 1.8 Baso % (Auto) 0.2 Neut # (Auto) 5.29 Lymph # (Auto) 2.21 [place] # (Auto) 0.71 H Eos # (Auto) 0.15 Baso # (Auto) 0.02 Immature Gran # (Auto) 0.07 H POC Sodium 139 Sodium 139 POC Potassium 6.1 H* Potassium 6.0 H POC Chloride 109 Chloride 111 H Carbon Dioxide 23 POC Total CO2 22 L Anion Gap 5.0 POC Anion Gap 16.0 POC BUN 24 H BUN 20 H Creatinine 1.14 POC Creatinine 1.1 Est Cr Clr Drug Dosing Not Reportable Est GFR ( Amer) 50.1 Est GFR (Non-Af Amer) 43.2 BUN/Creatinine Ratio 17.5 Glucose 98 POC Glucose (other) 102 H Calcium 9.5 POC Ioniz Calcium Sukhwinder 1.27 Total Bilirubin 0.4 AST 20 ALT 12 Alkaline Phosphatase 129 H Total Creatine Kinase 36 CK-MB (CK-2) < 1.0 CK/CKMB % Calc TNP Troponin I < 0.015 Total Protein 7.0 Albumin 3.1 L Globulin 3.9 Albumin/Globulin Ratio 0.8 L TSH 0.728 Specimen Hemolysis Urine Color Urine Appearance Urine pH Ur Specific [place] Urine Protein Urine Glucose (UA) Urine Ketones Urine Blood Urine Nitrite Urine Bilirubin Urine Urobilinogen Ur Leukocyte Esterase 07/25/20 07/25/20 17:37 19:55 WBC RBC Hgb POC Hgb Hct POC Hct MCV MCH MCHC RDW Std Deviation RDW Coeff of Akssy Plt Count MPV Immature Gran % (Auto) Neut % (Auto) Lymph % (Auto) [place] % (Auto) Eos % (Auto) Baso % (Auto) Neut # (Auto) Lymph # (Auto) [place] # (Auto) Eos # (Auto) Baso # (Auto) Immature Gran # (Auto) POC Sodium Sodium 143 POC Potassium Potassium 4.4 D POC Chloride Chloride 112 H Carbon Dioxide 26 POC Total CO2 Anion Gap 5.0 POC Anion Gap POC BUN BUN 20 H Creatinine 1.08 POC Creatinine Est Cr Clr Drug Dosing 30.7 Est GFR ( Amer) 53.5 Est GFR (Non-Af Amer) 46.1 BUN/Creatinine Ratio 18.2 Glucose 97 POC Glucose (other) Calcium 9.2 POC Ioniz Calcium Sukhwinder Total Bilirubin AST ALT Alkaline Phosphatase Total Creatine Kinase CK-MB (CK-2) CK/CKMB % Calc Troponin I Total Protein Albumin Globulin Albumin/Globulin Ratio TSH Specimen Hemolysis Urine Color Yellow Urine Appearance Clear Urine pH 5.0 Ur Specific [place] 1.019 Urine Protein Negative Urine Glucose (UA) Negative Urine Ketones Negative Urine Blood Negative Urine Nitrite Negative Urine Bilirubin Negative Urine Urobilinogen Negative Ur Leukocyte Esterase Negative Diagnostic Findings 1. cxr: FINDINGS: Lung volumes are normal. Lungs are clear. There is no pneumothorax or pleural effusion. Cardiac size is normal. Mediastinal contours are normal. There is no evidence for pulmonary edema. Electronic device projects over the left hemithorax. Multiple left rib fractures are incidentally noted. 2. EKG - my reading - NSR, no ST changes. Code Status & VTE Plan Code Status DNR/DNI VTE Prophylaxis Plan VTE Prophylaxis will be ordered: Yes PG Care Time/CCT Total # of Minutes Spent Total Time Spent with Patient: Total time spent is greater than 50% in coordination of care (as documented) at patient's floor/unit and/or counseling patient: Coding Level of Care Code 60171 Initial Inpt Care Lvl 3 Diagnoses Acute hyperkalemia E87.5 Rib fractures S22.49XD Encounter type: subsequent encounter Rib fracture type: multiple ribs Fracture type: closed Laterality: unspecified laterality Fracture healing: with routine healing Sternal fracture S22.20XD Encounter type: subsequent encounter Sternal location: unspecified Fracture type: closed Fracture healing: with routine healing Pulmonary contusion S27.321D Encounter type: subsequent encounter Laterality: right Severe protein-calorie malnutrition E43 Early satiety R68.81 Coronary atherosclerosis of [place] coronary vessel I25.10 [place] vs. transplanted heart: [place] heart Associated angina: without angina Hypertension I10 Hypertension type: essential hypertension History of colon cancer Z85.038 Chronic respiratory failure with hypoxia J96.11 Chronic kidney disease, stage IV (severe) N18.4 Chronic diarrhea K52.9 DVT prophylaxis Z29.9 (1) Rib fractures Encounter type: subsequent encounter Rib fracture type: multiple ribs Fracture type: closed Laterality: unspecified laterality Fracture healing: with routine healing Qualified Code(s): S22.49XD - Multiple fractures of ribs, unspecified side, subsequent encounter for fracture with routine healing (2) Coronary atherosclerosis of [place] coronary vessel [place] vs. transplanted heart: [place] heart Associated angina: without angina Qualified Code(s): I25.10 - Atherosclerotic heart disease of [place] coronary artery without angina pectoris (3) Hypertension Hypertension type: essential hypertension Qualified Code(s): I10 - Essential (primary) hypertension (4) Sternal fracture Encounter type: subsequent encounter Sternal location: unspecified Fracture type: closed Fracture healing: with routine healing Qualified Code(s): S22.20XD - Unspecified fracture of sternum, subsequent encounter for fracture with routine healing (5) Pulmonary contusion Encounter type: subsequent encounter Laterality: right Qualified Code(s): S27.321D - Contusion of lung, unilateral, subsequent encounter
--- NOTE | 2020-07-25 14:02 | Emergency Department Note ---
History of Present Illness General Chief complaint: Abnormal Labs/Diagnostic Testing Stated complaint: abnormal labs / [facility] Time Seen by Provider: 07/25/20 12:00 Source: patient, EMS, RN notes reviewed and old records reviewed Mode of arrival: EMS Limitations: no limitations History of Present Illness Provider complaint: nausea, hyperkalemia Onset (ago): day(s) 1 Associated symptoms: + loss of appetite and + nausea/vomiting; no chest pain, no cough, no diaphoresis, no fever/chills, no headaches and no shortness of breath Treatments prior to arrival: other (Kayexalate) This is an 85-year-old female who presents emergency department complaining of nausea. The patient was sent in by her son across over concerns of the patient is hyperkalemic. She was started on Kayexalate prior to arrival. The patient was recently discharged from [facility]. She does have a history of chronic kidney disease congestive heart failure as well as COPD. Home Medications Home Medications Medication Instructions Recorded Confirmed Type cholecalciferol (vitamin D3) 2,000 unit PO QAM 08/06/18 07/25/20 History [Vitamin D3] latanoprost 1 drp OPB HS 08/06/18 07/25/20 History cyanocobalamin (vitamin B-12) 1,000 mcg PO QAM 01/20/19 07/25/20 History [Vitamin B-12] amlodipine 5 mg PO QAM 07/07/19 07/25/20 History ascorbic acid (vitamin C) [Vitamin 500 mg PO Q OTHER DAY 07/07/19 07/25/20 History C] sertraline 100 mg PO QAM 01/30/20 07/25/20 History omeprazole 20 mg capsule,delayed 20 mg PO BID #60 cap 02/04/20 07/25/20 Rx release lisinopril 5 mg tablet 5 mg PO QAM #90 tab 04/19/20 07/25/20 Rx isosorbide mononitrate 30 mg 30 mg PO QAM #90 tab 05/23/20 07/25/20 Rx tablet,extended release 24 hr metoprolol succinate 50 mg 75 mg PO QAM #135 tab 06/20/20 07/25/20 Rx tablet,extended release 24 hr acetaminophen 650 mg PO Q12H 07/18/20 07/25/20 History aspirin 81 mg PO QAM 07/18/20 07/25/20 History ipratropium bromide 2.5 ml INHALATION QID 07/18/20 07/25/20 History oxycodone 2.5 - 5 mg PO Q6H PRN 07/18/20 07/25/20 History potassium chloride 40 meq PO TIDM 07/18/20 07/25/20 History rosuvastatin 10 mg PO HS 07/18/20 07/25/20 History colestipol 2 gm PO TIDM 07/25/20 07/25/20 History lidocaine 1 patch TOPICAL DAILY 07/25/20 07/25/20 History Allergies Allergy/AdvReac Type Severity Reaction Status Date / Time lidocaine Allergy Severe GIVEN Verified 07/25/20 12:51 DURING EGD PROCEDURE-"UNRESPONSIVE" hydrochlorothiazide Allergy Unknown UNKNOWN-INE Verified 07/25/20 12:51 FFECTIVE? niacin Allergy Unknown UNKNOWN Verified 07/25/20 12:51 atorvastatin AdvReac Intermediate MUSCLE Verified 07/25/20 12:51 ACHES citalopram AdvReac Intermediate G I UPSET- Verified 07/25/20 12:51 simvastatin AdvReac Intermediate MUSCLE Verified 07/25/20 12:51 ACHES Past Med/Surg History Medical History (Updated 07/25/20 @ 21:42 by Srinivasa Dorsey) Acute dehydration Acute hyperkalemia TERESITA (acute kidney injury) Anemia Atrial fibrillation PAROXYSMAL A-FIB Bursitis of shoulder, right Cancer COLON--sx Chronic back pain BACK INJECTIONS Depression Dyspnea on exertion Hearing deficit History of cardiac arrest 06/2020, s/p chest compressions History of esophagitis Hyperkalemia Hyperparathyroidism Hypertension Macular degeneration Myocardial Infarction 2016, 06/2020 Osteoarthritis Renal colic (10/03/14) Right rotator cuff tendonitis Right shoulder pain Schatzki's ring Stricture esophagus Surgical History H/O parathyroidectomy History of anesthesia reaction BECAME UNRESPONSIVE WITH LIDOCAINE DURING EGD PROCEDURE-SEE PRIOR EGD ANESTHESIA NOTES AT [facility] History of bowel resection History of cardiac cath X 3 ( STENTS PLACED)(APRIL 2017- DRUG ELUTING STENT PLACED BY DR. PARRISH) RECENT HEART CATH 05/2018 (NO STENTS) "TAKEN OFF PLAVIX" History of cataract surgery RT/LEFT History of colonoscopy History of esophagogastroduodenoscopy (EGD) History of heart artery stent 3 STENTS TOTAL PLACED History of laparotomy History of parathyroid surgery History of partial colectomy History of repair of rotator cuff RT History of tooth extraction Family History Sister Bowel cancer Brain tumor Colon cancer Family history of deafness or hearing loss Cancer Gastric cancer Leukemia Parkinson disease Father Coronary heart disease Mother Hypertension Migraine headache Skin cancer Coronary heart disease Brother Leukemia Family/Other Colon cancer Other No family history of adverse response to anesthesia Denies family history of Cardiac disorder Allergies Sinusitis Bleeding disorder Stroke Asthma Social History (Updated 07/25/20 @ 21:13 by Srinivasa Dorsey) Smoking Status: Never smoker Second Hand Exposure: No; Hx Alcohol Use: Yes Alcohol type: wine Hx Substance Use: No Preferred Language: Welsh Communication Ability: Effective Job Estimator Required: No Beliefs That Will Affect Care: None marital status: Current Living Situation: Shelter Current Living Situation Comment: [facility]; was living w/ in [place] prior current occupational status: 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 [employer] How many Children do You have: 3 Feels Safe at Home: Yes Sunscreen Use: No Assistive Devices: Denture - Upper, Denture - Lower, Glasses, Hearing Aid - Left, Oxygen - Continuous and Walker Review of Systems A total of 10 systems reviewed and were otherwise negative Physical Exam Vital Signs Vital Signs - 24 hr 07/25/20 11:58 Temperature 36.5 C Temperature Source Oral Pulse Rate 68 Pulse Rhythm Regular Pulse Strength Normal Respiratory Rate 18 Respiratory Effort / Characteristics Non-Labored Spontaneous Respiratory Depth Normal Blood Pressure 91/51 L Blood Pressure Mean 64 Blood Pressure Position Lying Pulse Oximetry 100 Oxygen Delivery Method Nasal Cannula Oxygen Flow Rate 3 Sepsis Recent Fever Within 48 Hours No Sepsis New/Unexplained Change in Mental Status N/A Sepsis Action Taken by Nursing No Action Required VITAL SIGNS - Vital signs and nursing notes were reviewed. GENERAL - 85-year-old female appearing stated age who is in no acute distress. Communicates well with provider and answers questions appropriately. SKIN - Without rashes. HEAD - NC/AT. EYES - PERRL with EOMI bilaterally. Sclera anicteric. Palpebral conjunctiva pi nk and moist with no injection noted. EARS - No deformities of external structures noted on gross examination bilaterally. No pain elicited with palpation of the tragus bilaterally. External auditory canals without discharge or otorrhea. Tympanic membranes pearly neff without retraction or bulging. No fluid or purulent material visualized behind the TM. Handle of malleus, umbo, cone of light, pars tensa/flaccid all easily visualized. NOSE - Midline and without cyanosis. No epistaxis or purulent drainage noted. Septum midline without deviation or septal hematoma noted. MOUTH/OROPHARYNX - Without perioral cyanosis. Buccal mucosa pink and moist and without leukoplakia. Tongue midline with equal elevation of palate bilaterally. No tonsillar hypertrophy, erythema, or exudates noted. dentition noted. NECK - Neck with FROM. Supple to palpation. lymphadenopathy noted. No nuchal rigidity. LUNGS - Chest wall symmetric without accessory muscle use, intercostals retractions, or central cyanosis. Normal vesicular breath sounds CTA B/L. No wheezes, rales, or rhonchi appreciated. CARDIAC - RRR with S1/S2. No murmur, rubs, or gallops appreciated. ABDOMEN - Abdominal contour without pulsations or visible masses. BS normoactive all four quadrants. No tenderness, palpable masses, hepatos plenomegaly, or ascites noted. EXTREMITIES - No clubbing or peripheral cyanosis. No pretibial edema present. +3/5 radial, posterior tibial, and dorsalis pedis pulses palpated throughout. +5/5 strength noted in UE/LE bilaterally. NEUROLOGIC - Cranial nerves II through XII grossly intact. Sensory intact to light touch throughout. Patellar reflexes +2/4. PSYCH - A&Ox3 and cooperates fully with examiner. Pt is very pleasant and interacts well with examiner. Course Administered Medications Acetaminophen (Acetaminophen 500 Mg Tab) 1,000 mg PO TID [facility] Stop: 08/24/20 20:59 Last Admin: 07/26/20 09:20 Dose: 1,000 mg Documented by: [id number] Admin: 07/25/20 21:59 Dose: 1,000 mg Documented by: [id number] Aspirin (Aspirin 81 Mg Ectab) 81 mg PO QAM [facility] Stop: 08/25/20 08:59 Last Admin: 07/26/20 09:09 Dose: 81 mg Documented by: [id number] Colestipol HCl (Colestipol Hcl 1 Gm Tab) 2 gm PO TID@0630,1400,2000 [facility] Stop: 08/24/20 20:29 Last Admin: 07/26/20 09:07 Dose: 2 gm Documented by: [id number] Admin: 07/26/20 06:26 Dose: 2 gm Documented by: [id number] Admin: 07/25/20 21:59 Dose: 2 gm Documented by: [id number] Heparin Sodium (Porcine) (Heparin Sod 5,000 Unit/0.5 Ml Vial) 5,000 units SQ Q12 THANH Stop: 08/24/20 20:59 Last Admin: 07/26/20 09:12 Dose: 5,000 units Documented by: [id number] Cosigned by: [id number] Admin: 07/25/20 20:42 Dose: 5,000 units Documented by: [id number] Cosigned by: [id number] Sodium Chloride (Nss 1000ml) 1,000 mls @ 80 mls/hr IV .[id number] [facility] Stop: 07/26/20 17:00 Last Admin: 07/26/20 09:19 Dose: 80 mls/hr Documented by: [id number] Infusion: 07/26/20 08:57 Dose: 80 mls/hr Documented by: [id number] Infusion: 07/25/20 22:00 Dose: 80 mls/hr Documented by: [id number] Infusion: 07/25/20 21:12 Dose: 0 mls/hr Documented by: [id number] Admin: 07/25/20 19:39 Dose: 80 mls/hr Documented by: [id number] Pantoprazole Sodium 40 mg/ (Syringe) 10 mls @ 5 mls/min IV BID [facility] Stop: 08/24/20 20:59 Last Admin: 07/26/20 09:08 Dose: 5 mls/min Documented by: [id number] Admin: 07/25/20 21:59 Dose: 5 mls/min Documented by: [id number] Ipratropium Dresser (Ipratropium Dresser Neb Soln 0.02% 2.5 Ml Vial) 0.5 mg INH QIDR [facility] Stop: 08/24/20 18:59 Last Admin: 07/26/20 10:59 Dose: 0.5 mg Documented by: [id number] Admin: 07/26/20 07:05 Dose: 0.5 mg Documented by: [id number] Admin: 07/25/20 20:16 Dose: 0.5 mg Documented by: [id number] Isosorbide Mononitrate (Isosorbide Tift Extended Rel 30 Mg Tabcr) 30 mg PO QAM [facility] Stop: 08/25/20 08:59 Last Admin: 07/26/20 09:10 Dose: 30 mg Documented by: [id number] Latanoprost (Latanoprost 0.005% Op Soln 2.5 Ml Btl) 1 drops OPB HS [facility] Stop: 08/24/20 20:59 Last Admin: 07/25/20 20:42 Dose: 1 drops Documented by: [id number] Lidocaine (Lidocaine 5% 1 Patch) 3 patch TD DAILY THANH Stop: 08/25/20 08:59 Last Admin: 07/26/20 09:12 Dose: Not Given Documented by: [id number] Metoprolol Succinate (Metoprolol Succ 25mg Ext Rel Tab) [facility] Stop: 08/25/20 08:59 Last Admin: 07/26/20 09:09 Dose: 25 mg Documented by: [id number] Miscellaneous (Remove Lidoderm Patch) 1 ea N/A DAILY@2100 [facility] Stop: 08/24/20 20:59 Last Admin: 07/25/20 20:42 Dose: 1 ea Documented by: [id number] Rosuvastatin Calcium (Rosuvastatin Calcium 10 Mg Tab) 10 mg PO [facility] Stop: 08/24/20 20:59 Last Admin: 07/25/20 20:42 Dose: 10 mg Documented by: [id number] Sertraline HCl (Sertraline Hcl 100 Mg Tablet) [facility] Stop: 08/25/20 08:59 Last Admin: 07/26/20 09:10 Dose: 100 mg Documented by: [id number] Sucralfate (Sucralfate 1 Gm/10 Ml Udc) 1 gm PO ACHS [facility] Stop: 08/24/20 16:29 Last Admin: 07/26/20 09:12 Dose: 1 gm Documented by: [id number] Admin: 07/25/20 20:41 Dose: 1 gm Documented by: [id number] Admin: 07/25/20 17:05 Dose: 1 gm Documented by: [id number] Discontinued Medications Calcium Gluconate (Calcium Gluconate 10% 10 Ml Vial) 1,000 mg IV NOW STA Stop: 07/25/20 13:25 Last Admin: 07/25/20 14:07 Dose: 1,000 mg Documented by: [id number] Dextrose (Dextrose 50% 50 Ml Syringe) 50 ml IV NOW ONE Stop: 07/25/20 13:25 Last Admin: 07/25/20 14:07 Dose: 50 ml Documented by: [id number] Sodium Chloride (Nss) 500 mls @ 999 mls/hr IV .Q31M THANH Stop: 07/25/20 12:45 Last Infusion: 07/25/20 15:07 Dose: 0 mls/hr Documented by: [id number] Admin: 07/25/20 14:08 Dose: 999 mls/hr Documented by: [id number] Sodium Chloride (Nss 1000ml) 500 mls @ 999 mls/hr IV .Q31M ONE Stop: 07/25/20 13:54 Last Infusion: 07/25/20 15:07 Dose: 0 mls/hr Documented by: [id number] Admin: 07/25/20 14:10 Dose: 999 mls/hr Documented by: [id number] Insulin Human Regular (Novolin-R Insulin Per Unit Charge) 10 units IV NOW STA Stop: 07/25/20 13:25 Last Admin: 07/25/20 14:08 Dose: 10 units Documented by: [id number] Cosigned by: [id number] Ondansetron HCl (Ondansetron Inj 2 Mg/Ml 2 Ml Vial) 4 mg IV NOW STA Stop: 07/25/20 12:07 Last Admin: 07/25/20 14:06 Dose: 4 mg Documented by: [id number] Sodium Bicarbonate (Sodium Bicarb 8.4% Inj 50 Meq/50 Ml Syr) 50 meq IV NOW STA Stop: 07/25/20 13:25 Last Admin: 07/25/20 14:07 Dose: 50 meq Documented by: [id number] Critical Care Time I have personally spent greater than 30 minutes of critical care time in the direct management of this patient. This includes bedside care, interpretation of diagnostic studies, and testing, discussion with consultants, patient, and family members, and other required patient management activities. This 30 minutes is in excess of all separately billable procedures. Medical Decision Making Differential Diagnosis Infection, dehydration, metabolic abnormality, hypo/hyperglycemia, electrolyte disturbance, anemia, hypoxia, cardiac sources, intracerebral event, toxicologic, neurologic, as well as other pathologies. Medical Records Attestation: I reviewed the patient's medical records. Home Medications Current Medication List: was personally reviewed by me Laboratory Data Attestation: I reviewed the patient's lab results. Result diagrams: 07/26/20 07:28 07/26/20 07:28 Lab Results 07/25/20 07/25/20 07/25/20 Range/Units 13:12 13:12 13:18 WBC 8.45 (4.8-10.8) K/uL RBC 3.66 L (4.2-5.4) M/uL Hgb 10.8 L (12.0-16.0) g/dL POC Hgb 10.9 L (12.0-16.0) g/dl Hct 34.9 L (37-47) % POC Hct 32 L (37-47) % MCV 95.4 (80-100) fL MCH 29.5 (25-34) pg MCHC 30.9 L (32-36) g/dL RDW Std Deviation 50.2 H (36.4-46.3) fL RDW Coeff of Kassy 14.6 H (11.5-14.5) % Plt Count 346 (130-400) K/uL MPV 9.7 (7.4-10.4) fL Immature Gran % (Auto) 0.8 % Neut % (Auto) 62.6 % Lymph % (Auto) 26.2 % Tift % (Auto) 8.4 % Eos % (Auto) 1.8 % Baso % (Auto) 0.2 % Neut # (Auto) 5.29 (1.4-6.5) K/uL Lymph # (Auto) 2.21 (1.2-3.4) K/uL Tift # (Auto) 0.71 H (0.11-0.59) K/uL Eos # (Auto) 0.15 (0-0.5) K/uL Baso # (Auto) 0.02 (0-0.2) K/uL Immature Gran # (Auto) 0.07 H (0.00-0.02) K/uL POC Sodium 139 (135-144) mmol/L Sodium 139 (136-145) mmol/L POC Potassium 6.1 H* (3.3-5.0) mmol/L Potassium 6.0 H (3.5-5.1) mmol/L POC Chloride 109 (101-112) mmol/L Chloride 111 H (98-107) mmol/L Carbon Dioxide 23 (21-32) mmol/L POC Total CO2 22 L (24-31) mmol/L Anion Gap 5.0 (3-11) POC Anion Gap 16.0 (16-25) mmol/L POC BUN 24 H (7-18) mg/dl BUN 20 H (7-18) mg/dl Creatinine 1.14 (0.6-1.2) mg/dl POC Creatinine 1.1 (0.6-1.3) mg/dl Est Cr Clr Drug Dosing Not Reportable Est GFR ( Amer) 50.1 Est GFR (Non-Af Amer) 43.2 BUN/Creatinine Ratio 17.5 (10-20) Glucose 98 (70-99) mg/dl POC Glucose (other) 102 H (70-99) mg/dl Calcium 9.5 (8.5-10.1) mg/dl POC Ioniz Calcium Sukhwinder 1.27 (1.12-1.32) mmol/l Total Bilirubin 0.4 (0.2-1) mg/dl AST 20 (15-37) U/L ALT 12 (12-78) U/L Alkaline Phosphatase 129 H (45-117) U/L Total Creatine Kinase 36 (26-192) U/L CK-MB (CK-2) < 1.0 (0.5-3.6) ng/ml CK/CKMB % Calc TNP Troponin I < 0.015 (0-0.045) ng/ml Total Protein 7.0 (6.4-8.2) gm/dl Albumin 3.1 L (3.4-5.0) gm/dl Globulin 3.9 (2.5-4.0) gm/dl Albumin/Globulin Ratio 0.8 L (0.9-2) TSH 0.728 (0.300-4.500) uIu/ml Specimen Hemolysis ECG Data Attestation: I personally reviewed and interpreted this ECG as follows: Indication: + other (hyperkalemia) Rate (beats per minute): 65 Rhythm: + normal sinus ECG Intervals/blocks: + Normal QT-c (420) ECG [place]: + Normal ECG ST segments: no ST depression and no ST elevation Comparison ECG Date: from (07/18/2020) Change: the following changes noted (T wave amplitude hs decreased ) Blood Pressure Blood Pressure Findings: Low blood pressure MDM Narrative Patient was seen and evaluated as above in room B4. Review was performed of nursing notes and vital signs. I did review pertinent previous visits and patient history. After obtaining a thorough history and physical examination the above work up was performed. This is an 85-year-old female who presents emergency department complaining of hypotension as well as hyperkalemia. Patient has already been started on Kayexalate. Here in the emergency department she was given calcium insulin dextrose, albuterol and bicarbonate. Her potassium was found to be greater than 6. I did discuss the case the hospitalist service who did agree to admit the patient. Patient is in agreement with the treatment plan. An order was placed for continuous cardiac monitoring. The monitor shows a rate of 60 with Normal SInus rhythm. The patient was evaluated during the global COVID-19 pandemic, and that diagnosis was suspected/considered upon their initial presentation. Their evaluation, treatment and testing was consistent with current guidelines for patients who present with complaints or symptoms that may be related to COVID- 19. Impression & Plan Acute hyperkalemia, Chronic kidney disease Discharge Plan Visit Data Chief Complaint: Abnormal Labs/Diagnostic Testing Stated Complaint: abnormal labs / [facility] ED Provider: Roger Almazan Discharge Problem: Acute hyperkalemia, Chronic kidney disease Patient Disposition: Admitted As Inpatient Discharge Instructions Interventions: ED Discharge Assessment Last Done: 07/25/20 17:10 Discharge Problem: Chronic kidney disease Qualifiers: Chronic kidney disease stage: unspecified stage Qualified Code(s): N18.9 - Chronic kidney disease, unspecified
[2020-07-25 14:05] LABS: Albumin Globulin Ratio 0.8 (0.9-2); Alkaline Phosphatase 129 U/L (45-117); Bilirubin,Total 0.4 mg/dl (0.2-1); Creatine Kinase 36 U/L (26-192); Creatine Kinase MB < 1.0 ng/ml (0.5-3.6); Globulin 3.9 gm/dl (2.5-4.0); Thyroid Stimulating Hormone 0.728 uIu/ml (0.300-4.500); Troponin I < 0.015 ng/ml (0-0.045)
--- NOTE | 2020-07-25 15:10 | XRay Report ---
XR abdomen min 2V CLINICAL HISTORY: abd pain, eval fecal loading COMPARISON STUDY: CT of the abdomen and pelvis July 18, 2020. FINDINGS: There is no free air. The bowel gas pattern is normal. Amount of stool within the colon an d rectum is within normal limits. Pelvic calcifications reflect phleboliths. IMPRESSION: 1. No evidence for a bowel obstruction. No free air. 2. Unremarkable amount of stool within the colon and rectum. ACT 112: Negative or not required by law. Electronically signed by: Alex Villafuerte M.D. 07/25/2020 3:09 PM
--- NOTE | 2020-07-25 16:00 | CT Scan Report ---
CT chest wo con CT DOSE: 187.97 mGy.cm CLINICAL HISTORY: 85 years-old Female with recent cardiac arrest, hypoxia; eval fx's, etc. acute hyp oxia with recent cardiac arrest. Possible acute rib fractures. TECHNIQUE: Multiaxial CT images of the chest were performed without contrast. A dose lowering techni que was utilized adhering to the principles of ALARA. COMPARISON: Chest and rib radiographs 05/30/2020, CT abdomen and pelvis 07/18/2020, chest CT 01/30/2020 FINDINGS: Heterogeneous thyroid. No adenopathy. Mild cardiomegaly with extensive coronary artery calcifications . Trace pericardial effusion. No thoracic aortic aneurysm. Moderate calcified plaque of the thoracic aorta. No pneumothorax, or definite pleural effusion. Linear subsegmental dependent bibasilar opaciti es with intermixed groundglass densities favor atelectasis. Additionally there are subtle patchy grou ndglass densities of the right upper lobe with associated small pulmonary contusions. Mild multifocal mucus plugging. Mild bronchial wall thickening of the lung bases. Mild distal esophageal wall thickening with small hiatal hernia mild paraesophageal stranding suggest fritz of esophagitis. Cholelithiasis. Unremarkable soft tissues. Degenerative changes of the shoulders and spine. Likely degenerative bilateral glenohumeral joint effusions. Subtle acute versus subacute n ondisplaced midsternal fracture, new from comparison. No acute compression deformity. There is no par avertebral edema. Numerous subacute appearing bilateral rib fractures are present, most of which demo nstrate healing callus formation. This includes the anterolateral right second through 10th ribs, wit h mild displacement of the fourth through seventh fractures. Additionally, there are fractures of the left anterior second through sixth ribs with minimal displacement of the fourth rib fracture. There are several healed remote posterior left-sided rib fractures. IMPRESSION: 1. Subacute nondisplaced midsternal fracture with numerous bilateral subacute healing rib fractures, several of which are mildly displaced, right greater than left. 2. Peripheral groundglass opacities of the right upper lobe are suggestive of pulmonary contusions. N o pneumothorax. 3. Mild dependent bibasilar atelectasis with areas of air trapping. 4. Small hiatal hernia with mild distal esophageal wall thickening and periesophageal stranding sugge stive of esophagitis. 5. Cholelithiasis. ACT 112: Negative or not required by law. Electronically signed by: Bran Og M.D. 07/25/2020 3:59 PM
[2020-07-25] MEDS ORDERED: NITROGLYCERIN SL 0.4 MG/TAB TAB SL PRN (16:01)
[2020-07-25] MEDS ORDERED: ONDANSETRON INJ 2 MG/ML 2 ML VIAL IV PRN (16:01)
[2020-07-25] MEDS ORDERED: oxyCODONE HCL IR 5 MG TAB (IMMEDIATE RELEASE) PO PRN (16:13)
[2020-07-25] MEDS: SUCRALFATE 1 GM/10 ML UDC PO SCH ×2 (17:05→20:41)
--- NOTE | 2020-07-25 17:10 | Electrocardiogram Report ---
Test Reason : Blood Pressure : / mmHG Vent. Rate : 065 BPM Atrial Rate : 065 BPM P-R Int : 142 ms QRS Dur : 088 ms QT Int : 404 ms P-R-T Axes : 014 -02 054 degrees QTc Int : 420 ms Normal sinus rhythm Normal ECG When compared with ECG of 18-JUL-2020 13:44, No significant change was found Confirmed by Lorenzo Conklin ([id number]) on 07/25/2020 5:09:37 PM Referred By: [facility] Confirmed By:Kelby Conklin
[2020-07-25 18:33] LABS: BUN Creatinine Ratio 18.2 (10-20); Calcium 9.2 mg/dl (8.5-10.1); Creatinine Clr Calc Pharmacy 30.7 ml/min; Est GFR (African American) 53.5; Est GFR (Non-African American) 46.1; Potassium 4.4 mmol/L (3.5-5.1)
[2020-07-25] MEDS: SODIUM CHLORIDE 0.9% 1000ML 1,000 ML IV SCH (19:39)
[2020-07-25] MEDS: IPRATROPIUM BROMIDE NEB SOLN 0.02% 2.5 ML VIAL INH SCH (20:16)
[2020-07-25] MEDS: ROSUVASTATIN CALCIUM 10 MG TAB PO SCH (20:42)
[2020-07-25] MEDS: HEPARIN SOD 5,000 UNIT/0.5 ML VIAL SQ SCH (20:42)
[2020-07-25] MEDS: LATANOPROST 0.005% OP SOLN 2.5 ML BTL OPB SCH (20:42)
[2020-07-25 20:49] LABS: Appearance Urine Clear (Clear); Bilirubin Urine Negative (Negative); Blood Urine Negative (Negative); Color Urine Yellow; Glucose Urine UA Negative (Negative); Ketones Urine Negative (Negative); Leukocyte Esterase Urine Negative (Negative); Nitrite Urine Negative (Negative); Protein Urine Negative (Negative); Specific Gravity Urine 1.019 (1.000-1.030); Urobilinogen Urine Negative (Negative)
[2020-07-25] MEDS: ACETAMINOPHEN 500 MG TAB PO SCH (21:59)
[2020-07-25] MEDS: PANTOprazole 40 MG in SYRINGE 0 ML IV SCH (21:59)
[2020-07-25] MEDS: COLESTIPOL HCL 1 GM TAB PO SCH (21:59)
[2020-07-26] MEDS: COLESTIPOL HCL 1 GM TAB PO SCH ×3 (06:26→22:18)
[2020-07-26] MEDS: IPRATROPIUM BROMIDE NEB SOLN 0.02% 2.5 ML VIAL INH SCH ×4 (07:05→19:19)
[2020-07-26 07:44] LABS: Hematocrit (blood only) 29.4 % (37-47); Hemoglobin 9.5 g/dL (12.0-16.0); Mean Corpuscular Hemoglobin 30.1 pg (25-34); Mean Corpuscular Hgb Conc 32.3 g/dL (32-36); Mean Platelet Volume 9.2 fL (7.4-10.4); Platelet Count 216 K/uL (130-400); RDW Coefficient of Variation 14.3 % (11.5-14.5); RDW Standard Deviation 47.9 fL (36.4-46.3); Red Blood Count 3.16 M/uL (4.2-5.4); White Blood Count 5.85 K/uL (4.8-10.8)
--- NOTE | 2020-07-26 07:54 | Ultrasound Report ---
RIGHT LOWER EXTREMITY VENOUS DOPPLER CLINICAL HISTORY: right leg edema, r/o DVT COMPARISON STUDY: No previous studies for comparison. TECHNIQUE: Sonography of the deep venous system of the right lower extremity was performed. Compress ion and augmentation were evaluated. FINDINGS: The right common femoral, superficial femoral and popliteal veins were compressible. Augme ntation was normal. Flow was shown within the deep calf vessels. Note is made of a 3.6 x 0.7 x 3 cm r ight popliteal cyst. IMPRESSION: 1. No evidence of deep venous thrombus within the right lower extremity. 2. Small right popliteal cyst. ACT 112: Negative or not required by law. Electronically signed by: Alex Villafuerte M.D. 07/26/2020 7:52 AM
[2020-07-26 08:08] LABS: BUN Creatinine Ratio 19.6 (10-20); Calcium 8.6 mg/dl (8.5-10.1); Creatinine Clr Calc Pharmacy 32.9 ml/min; Est GFR (African American) 58.7; Est GFR (Non-African American) 50.6; Magnesium 1.5 mg/dl (1.8-2.4)
[2020-07-26] MEDS: PANTOprazole 40 MG in SYRINGE 0 ML IV SCH (09:08)
[2020-07-26] MEDS: ASPIRIN 81 MG ECTAB PO SCH (09:09)
[2020-07-26] MEDS: METOPROLOL SUCC 25MG EXT REL TAB PO SCH (09:09)
[2020-07-26] MEDS: SERTRALINE HCL 100 MG TABLET PO SCH (09:10)
[2020-07-26] MEDS: ISOSORBIDE MONO EXTENDED REL 30 MG TABCR PO SCH (09:10)
[2020-07-26] MEDS: LIDOCAINE 5% 1 PATCH TD SCH (09:12)
[2020-07-26] MEDS: HEPARIN SOD 5,000 UNIT/0.5 ML VIAL SQ SCH ×2 (09:12→20:31)
[2020-07-26] MEDS: SUCRALFATE 1 GM/10 ML UDC PO SCH ×4 (09:12→20:30)
[2020-07-26] MEDS: SODIUM CHLORIDE 0.9% 1000ML 1,000 ML IV SCH (09:19)
[2020-07-26] MEDS: ACETAMINOPHEN 500 MG TAB PO SCH ×3 (09:20→20:37)
--- NOTE | 2020-07-26 13:10 | Hospitalist Progress Note ---
Date of Service July 26, 2020 Assessment & Plan (1) Acute hyperkalemia: Recent admission for same. Likely combination of BEVERLY inhibitor use and concomitant potassium supplementation. Received insulin/D50, bicarbonate therapy, and calcium along with Kayexalate. - K+ down to 4.0 today. - Given her advanced age and CKD would advocate for no further BEVERLY inhibitor use or potassium supplementation. (2) Rib fractures: Multiple b/l. 2nd to chest compressions in early June during cardiac arrest. - Lidoderm patches, Heat, Tylenol 1gm TID, oxycodone prn. - Several are mildly displaced but no complicating pneumothorax, etc. (3) Sternal fracture: 2nd to chest compressions during cardiac arrest 06/2020. - Treat pain as above in "rib fractures." (4) Pulmonary contusion: CT chest suggests pulmonary contusion of RUL. 2nd to recent chest compressions most likely. - Monitor (5) Severe protein-calorie malnutrition: At least 15 pounds of weight loss in the last few months. - Recent CT abd/pelvis without signs of recurrence of colon cancer and CT chest w/o lung mets. (6) Early satiety: S/p multiple EGDs in the past. One EGD demonstrated esophagitis. Recent CT abd/pelvis without obvious cause. - Etiology uncertain. - Given the possible "esophagitis" seen on CT chest, will add Carafate to her PPI. (7) Coronary atherosclerosis of [place] coronary vessel: S/p VT 06/2020. - Continue ASA & statin. (8) Hypertension: BP is 100/60 today. - Hold BEVERLY due to elevated K. - Hold amlodipine due to low-normal BPs. (9) History of colon cancer: S/p right-sided hemicolectomy. - Noted. (10) Chronic respiratory failure with hypoxia: Initiated on 24/7 oxygen following admission to [facility] early June. - Exact etiology is uncertain but due to pulmonary contusions? - RLE doppler was negative for DVT on 07/25. (11) Chronic kidney disease, stage IV (severe): Baseline Cr is ~1, with eGFR ~50. - Cr presently at baseline. (12) Chronic diarrhea: 2nd to prior hemicolectomy follows with [facility] cont colestipol (13) DVT prophylaxis: Heparin 5000 units SQ BID Admission and Anticipated Discharge Date Admission Date: July 25, 2020 Subjective No major complaints today. Feels at her baseline. Her stomach feels better today. Reports no fevers/chills, chest pain, shortness of breath, abdominal pain, nausea, or vomiting. Physical Exam Constitutional: WD/WN, vitals as above Eyes: EOM intact bilaterally; no conjunctival abnormality ENMT: external ear and nose normal, oropharynx normal Neck: trachea midline, no thyromegaly normal visual inspection Respiratory: normal respiratory effort, lungs clear to auscultation no respiratory distress Cardiovascular: RRR, no murmur, no edema Gastrointestinal (Abdomen): Inspection/Auscultation: abdomen normal to inspect ion; abdomen not distended Musculoskeletal: no cyanosis or clubbing, extremities motor strength 5/5 Skin: no rashes, warm and dry Neurologic: moves all extremities and awake Psychiatric: Orientation: alert, oriented to person and cooperative Results & Data Results & Data ([facility]) Vital Signs (Past 12 Hours) Vital Signs Temp Pulse Resp BP BP Pulse Ox 07/26/20 11:38 36.4 C L 70 16 101/60 93 07/26/20 11:02 67 18 94 07/26/20 08:33 36.5 C 65 18 101/63 95 07/26/20 07:05 62 18 95 07/26/20 03:17 37.0 C 77 18 101/60 96 PG Care Time/CCT Total # of Minutes Spent Total Time Spent with Patient: Total time spent is greater than 50% in coordination of care (as documented) at patient's floor/unit and/or counseling patient: Coding Level of Care Code 65849 Subseq Hosp Care Lvl 2 Diagnoses Acute hyperkalemia E87.5 Rib fractures S22.49XD Encounter type: subsequent encounter Rib fracture type: multiple ribs Fracture type: closed Laterality: unspecified laterality Fracture healing: with routine healing Sternal fracture S22.20XD Encounter type: subsequent encounter Sternal location: unspecified Fracture type: closed Fracture healing: with routine healing Pulmonary contusion S27.321D Encounter type: subsequent encounter Laterality: right Severe protein-calorie malnutrition E43 Early satiety R68.81 Coronary atherosclerosis of [place] coronary vessel I25.10 [place] vs. transplanted heart: [place] heart Associated angina: without angina Hypertension I10 Hypertension type: essential hypertension History of colon cancer Z85.038 Chronic respiratory failure with hypoxia J96.11 Chronic kidney disease, stage IV (severe) N18.4 Chronic diarrhea K52.9 DVT prophylaxis Z29.9 (1) Rib fractures Encounter type: subsequent encounter Rib fracture type: multiple ribs Fracture type: closed Laterality: unspecified laterality Fracture healing: with routine healing Qualified Code(s): S22.49XD - Multiple fractures of ribs, unspecified side, subsequent encounter for fracture with routine healing (2) Sternal fracture Encounter type: subsequent encounter Sternal location: unspecified Fracture type: closed Fracture healing: with routine healing Qualified Code(s): S22.20XD - Unspecified fracture of sternum, subsequent encounter for fracture with routine healing (3) Pulmonary contusion Encounter type: subsequent encounter Laterality: right Qualified Code(s): S27.321D - Contusion of lung, unilateral, subsequent encounter (4) Coronary atherosclerosis of [place] coronary vessel [place] vs. transplanted heart: [place] heart Associated angina: without angina Qualified Code(s): I25.10 - Atherosclerotic heart disease of [place] coronary artery without angina pectoris (5) Hypertension Hypertension type: essential hypertension Qualified Code(s): I10 - Essential (primary) hypertension
[2020-07-26] MEDS: PANTOprazole 40 MG TAB PO SCH (14:12)
[2020-07-26] MEDS: ROSUVASTATIN CALCIUM 10 MG TAB PO SCH (20:30)
[2020-07-26] MEDS: LATANOPROST 0.005% OP SOLN 2.5 ML BTL OPB SCH (20:31)
[2020-07-27] MEDS: COLESTIPOL HCL 1 GM TAB PO SCH ×2 (06:09→13:30)
[2020-07-27] MEDS: IPRATROPIUM BROMIDE NEB SOLN 0.02% 2.5 ML VIAL INH SCH ×4 (07:03→19:43)
[2020-07-27] MEDS: SUCRALFATE 1 GM/10 ML UDC PO SCH ×3 (07:38→16:15)
[2020-07-27] MEDS: PANTOprazole 40 MG TAB PO SCH (08:27)
[2020-07-27] MEDS: ASPIRIN 81 MG ECTAB PO SCH (08:27)
[2020-07-27] MEDS: SERTRALINE HCL 100 MG TABLET PO SCH (08:27)
[2020-07-27] MEDS: ISOSORBIDE MONO EXTENDED REL 30 MG TABCR PO SCH (08:27)
[2020-07-27] MEDS: METOPROLOL SUCC 25MG EXT REL TAB PO SCH (08:27)
[2020-07-27] MEDS: HEPARIN SOD 5,000 UNIT/0.5 ML VIAL SQ SCH (08:28)
[2020-07-27] MEDS: ACETAMINOPHEN 500 MG TAB PO SCH ×2 (08:32→13:32)
[2020-07-27 08:35] LABS: Hematocrit (blood only) 28.3 % (37-47); Hemoglobin 9.2 g/dL (12.0-16.0); Mean Corpuscular Hemoglobin 30.1 pg (25-34); Mean Corpuscular Hgb Conc 32.5 g/dL (32-36); Mean Corpuscular Volume 92.5 fL (80-100); Mean Platelet Volume 9.9 fL (7.4-10.4); Platelet Count 243 K/uL (130-400); RDW Coefficient of Variation 14.4 % (11.5-14.5); RDW Standard Deviation 47.5 fL (36.4-46.3); Red Blood Count 3.06 M/uL (4.2-5.4); White Blood Count 4.81 K/uL (4.8-10.8)
[2020-07-27] MEDS: LIDOCAINE 5% 1 PATCH TD SCH (08:36)
[2020-07-27 09:09] LABS: BUN Creatinine Ratio 19.2 (10-20); Creatinine Clr Calc Pharmacy 28.9 ml/min; Est GFR (African American) 51.2; Est GFR (Non-African American) 44.1; Magnesium 1.5 mg/dl (1.8-2.4); Potassium 3.9 mmol/L (3.5-5.1)
[2020-07-27] MEDS: MAGNESIUM SULFATE / D5W 1 GM/100 ML BAG IV SCH ×2 (11:28→13:29)
--- NOTE | 2020-07-27 14:00 | Discharge Summary ---
Date of Service July 27, 2020 Admission HPI Per Admitting Provider 85yo female with extensive CAD history - s/p acute FL with cardiac arrest in early June 2020 - along with recent hospitalization for hyperkalemia. Patient presents from [facility] with c/o nausea and high potassium This am patient had blood work showing potassium of 6.3. She was given kayexalate at [facility] and was sent to [facility] for evaluation. Upon presentation to the ER at [facility] her repeat potassium level was 6. She was given IV insulin with D50, calcium gluconate 1gm x 1, and an amp of sodium bicarbonate. Patient had several complaints many of which have been present for several weeks . First, she c/o chest pain/soreness with any movement, deep breathing, etc. This has been present since her acute FL/cardiac arrest in June. She states that her son gave her chest compressions. Initially she said the pain was similar to her heart attack pain but then stated it was different. She has also felt short of breath for several weeks. Second, she states she has "no appetite" - also present for weeks if not months. Has bloating and early satiety. ?nonspecific upper abdominal pain? Has lost 15 pounds of weight over last few months. Food/liquids does not make abdominal pain/bloating worse. Denies dysphagia except for certain pills (potassium, etc). Third, she reports having been put on [place] O2 after her acute FL in June. Has been using 3 liters since then. She never had oxygen prior to her acute FL. Principal Diagnosis Hyperkalemia Discharge Exam Constitutional WD/WN, vitals as above Eyes EOM intact bilaterally; no conjunctival abnormality ENMT external ear and nose normal, oropharynx normal Neck trachea midline, no thyromegaly normal visual inspection Respiratory normal respiratory effort, lungs clear to auscultation no respiratory distress Cardiovascular RRR, no murmur, no edema Gastrointestinal (Abdomen) Inspection/Auscultation: abdomen normal to inspection; abdomen not distended Musculoskeletal no cyanosis or clubbing, extremities motor strength 5/5 Skin no rashes, warm and dry Neurologic moves all extremities and awake Psychiatric Orientation: alert, oriented to person and cooperative Discharge Data Allergies Allergy/AdvReac Type Severity Reaction Status Date / Time lidocaine Allergy Severe GIVEN Verified 07/25/20 12:51 DURING EGD PROCEDURE-"UNRESPONSIVE" hydrochlorothiazide Allergy Unknown UNKNOWN-INE Verified 07/25/20 12:51 FFECTIVE? niacin Allergy Unknown UNKNOWN Verified 07/25/20 12:51 atorvastatin AdvReac Intermediate MUSCLE Verified 07/25/20 12:51 ACHES citalopram AdvReac Intermediate G I UPSET- Verified 07/25/20 12:51 simvastatin AdvReac Intermediate MUSCLE Verified 07/25/20 12:51 ACHES Consultations 07/25/20 13:47 ED Decision to Admit Stat Ordered Studies 07/25/20 14:41 CT chest wo con Routine US venous doppler LE RT Urgent Hospital Course (1) Acute hyperkalemia: Recent admission for same. Likely combination of BEVERLY inhibitor use and concomitant potassium supplementation. Received insulin/D50, bicarbonate therapy, and calcium along with Kayexalate. - K+ down to 3.9 today. - Given her advanced age and CKD would advocate for no further BEVERLY inhibitor use or standing potassium supplementation. If her potassium is checked and is low, would do 2-3 doses total, then stop further supplementation. (2) Rib fractures: Multiple b/l. 2nd to chest compressions in early June during cardiac arrest. - Lidoderm patches, Heat, Tylenol 1gm TID, oxycodone prn. - Several are mildly displaced but no complicating pneumothorax, etc. (3) Sternal fracture: 2nd to chest compressions during cardiac arrest 06/2020. - Treat pain as above in "rib fractures." (4) Pulmonary contusion: CT chest suggests pulmonary contusion of RUL. 2nd to recent chest co mpressions most likely. - Monitor (5) Severe protein-calorie malnutrition: At least 15 pounds of weight loss in the last few months. - Recent CT abd/pelvis without signs of recurrence of colon cancer and CT chest w/o lung mets. (6) Early satiety: S/p multiple EGDs in the past. One EGD demonstrated esophagitis. Recent CT abd/pelvis without obvious cause. - Etiology uncertain. - While in the hospital, she ate her entire meals and felt well. (7) Coronary atherosclerosis of [place] coronary vessel: S/p FL 06/2020. - Continue ASA & statin. (8) Hypertension: BP is 100/60 today. - Hold BEVERLY due to elevated K. - Hold amlodipine due to low-normal BPs. (9) History of colon cancer: S/p right-sided hemicolectomy. - Noted. (10) Chronic respiratory failure with hypoxia: Initiated on 24/ oxygen following admission to [facility] early June. - Exact etiology is uncertain but due to pulmonary contusions? - RLE doppler was negative for DVT on 07/25. (11) Chronic kidney disease, stage IV (severe): Baseline Cr is ~1, with eGFR ~50. - Cr presently at baseline. (12) Chronic diarrhea: 2nd to prior hemicolectomy follows with [facility] cont colestipol (13) DVT prophylaxis: Heparin 5000 units SQ BID Total Time Total Time Spent Total Time Spent (In Minutes): 35 Discharge Plan Discharge Items Patient Disposition: Transfer Residential Fac Reason For Visit: HYPERKALEMIA Discharge Diagnosis: High potassium Activity: Resume your previous activity Non-emergency contact: Primary Care Provider Call non-emergency contact if: your symptoms worsen Follow-up/Referrals: Naye Larsen [Primary Care Provider] - Diet: Heart Healthy Addtl Attending Provider Instructions: Ms. Lam was admitted for high potassium. Her lisinopril and potassium supplement should be stopped. Her potassium can be rechecked in 1 week. If she has recurrent low potassium, it would be best to garzon pplement in 1-2 doses, instead of a standing potassium supplement. Her blood pressure without the lisinopril was still in the 100/65 range. I think her amlodipine could be potentially lowered or even stopped as well given her age. Her appetite was good here, so I am not sure about her weight loss which was reported in the admission note. Pending Studies at Discharge: No Stand-Alone Forms: My [facility] Skilled Items Patient informed of condition?: Yes DNR: Yes Discharge Level of Care: Skilled Communicable Disease: No Discharge Prognosis: Stable Lines: None Urinary Catheter: No Medications and DC Order Prescriptions: Continued isosorbide mononitrate 30 mg tablet extended release 24 hr 30 mg PO QAM Qty: 90 RF: 3 metoprolol succinate 50 mg tablet extended release 24 hr 75 mg PO QAM Qty: 135 RF: 3 omeprazole 20 mg capsule,delayed release(DR/EC) 20 mg PO BID Qty: 60 RF: 2 cyanocobalamin (vitamin B-12) [Vitamin B-12] 1,000 mcg Tablet 1,000 mcg PO QAM RF: 0 amlodipine 5 mg Tablet 5 mg PO QAM RF: 0 ascorbic acid (vitamin C) [Vitamin C] 500 mg Tablet 500 mg PO Q OTHER DAY RF: 0 latanoprost 0.005 % Drops 1 drp OPB HS RF: 0 cholecalciferol (vitamin D3) [Vitamin D3] 2,000 unit Capsule 2,000 unit PO QAM RF: 0 sertraline 100 mg tablet 100 mg PO QAM RF: 0 acetaminophen 325 mg Tablet 650 mg PO Q12H RF: 0 oxycodone 5 mg tablet 2.5 - 5 mg PO Q6H PRN (Reason: Pain) RF: 0 rosuvastatin 10 mg Tablet 10 mg PO HS RF: 0 aspirin 81 mg Tablet,Chewable 81 mg PO QAM RF: 0 ipratropium bromide 0.02 % Solution 2.5 ml INHALATION QID RF: 0 lidocaine 4 % Adhesive Patch,Medicated 1 patch TOPICAL DAILY RF: 0 colestipol 1 gram tablet 2 gm PO TIDM RF: 0 Discontinued lisinopril 5 mg tablet 5 mg PO QAM Qty: 90 RF: 0 potassium chloride 20 mEq Tablet Extended Release 40 meq PO TIDM RF: 0 Discharge Orders: Discharge Order (Routine); Ordered 07/27/20 Ordered By: Hunter Daniel Admission Data Admit Date/Time: 07/25/20 14:41 Attending Provider: Hunter Daniel Admit Provider: Srinivasa Dorsey Primary Care Provider: Naye Larsen Other Providers: Hunter Daniel ; Naye Larsen Other Interventions: Discharge Summary Assessment (RN) Last Done: 07/27/20 13:12 Coding Level of Care Code D/C Day Management >30 mins Diagnoses Acute hyperkalemia E87.5 Rib fractures S22.49XD Encounter type: subsequent encounter Rib fracture type: multiple ribs Fracture type: closed Laterality: unspecified laterality Fracture healing: with routine healing Sternal fracture S22.20XD Encounter type: subsequent encounter Sternal location: unspecified Fracture type: closed Fracture healing: with routine healing Pulmonary contusion S27.321D Encounter type: subsequent encounter Laterality: right Severe protein-calorie malnutrition E43 Early satiety R68.81 Coronary atherosclerosis of [place] coronary vessel I25.10 [place] vs. transplanted heart: [place] heart Associated angina: without angina Hypertension I10 Hypertension type: essential hypertension History of colon cancer Z85.038 Chronic respiratory failure with hypoxia J96.11 Chronic kidney disease, stage IV (severe) N18.4 Chronic diarrhea K52.9 DVT prophylaxis Z29.9
--- NOTE | 2020-08-12 09:27 | Coding Query ---
A supporting diagnosis is required for the test/procedure performed on this patient in order for us to be reimbursed by the patient's insurance. Please provide a supporting diagnosis for the following test/procedure listed below next to the test name along with your signature. *If there is no additional diagnosis for this patient that would support the following test/procedure please document that below next to the test/procedure. Test(s)/Procedure(s) that require a supporting diagnosis: * 68230 VENOUS DOPPLER DIAGNOSIS: 1. lower extremity edema 2. dyspnea 3. acute hypoxic respiratory failure 4. chest pain DATE OF SERVICE: 07/25/20 Provider Signature: __Srinivasa Dorsey Date: _08/15/2020 Thank you Danny Brew[facility] Information Management Once completed, please kindly fax back to [phone] For questions please call [phone] RENÉE
== END 2020-07-27 19:00 ==
LOC: ED 11:48 → 2S 14:41 → INTOOBSV 14:41 → SUATTDRO 14:41 → 2S 17:10